=== PATIENT | male | born 1950 | race Caucasian/White ===

== ENCOUNTER 2016-05-29 01:08 | Observation (INO) ==
[2016-05-29] MEDS ORDERED: *HR* OxyCODONE/APAP 5/325 TABLET PO ONE (01:16)
--- NOTE | 2016-05-29 01:16 | Emergency Department Note ---
START Narrative - START START: I examined this patient and my medical decision-making was reviewed with the ASSISTANT CONTROLLER/PA/Advanced Practice Nurse/Resident Physician. I agree with the documented findings, disposition and treatment plan as described except to the extent set forth below. ED attending note: Patient seen with emergency medicine resident Dr. Sung. Please see a copy of his note for details of the H&P, evaluation, management and disposition of this patient. We independently had ecoc-qs-ound contact with the patient Briefly: A 6-year-old male via EMS for difficulty breathing. Patient had a mechanical fall at home resulting in rib fractures and wrist. Was transferred to [facility] for further evaluation. Was discharged just today. Said he was having trouble taking deep breaths at home. Thinks he was "sent home too early". Patient is satting 98% on room air. His EKG troponin and chest x-ray. Will be given analgesics. Disposition pending.
--- NOTE | 2016-05-29 01:16 | Emergency Department Note ---
Disposition Clinical Impression: NSTEMI, initial episode of care Disposition: Admitted As Inpatient Condition: Undetermined Referrals: NO,PCP [Non-Partnered Physician] - Forms: ED Satisfaction Letter Time of Disposition: 03:39 SOB HPI - General Chief Complaint: ED Shortness of Breath/Dyspnea Stated Complaint: broken ribs Time Seen by Provider: 05/29/16 01:13 Source: patient Mode of arrival: EMS Limitations: no limitations Nursing Notes Reviewed: Yes Vital Signs Reviewed: Yes - History of Present Illness 66-year-old male with recent diagnosis of fall with right broken ribs as well as broken wrist on the right hand, [facility] emergency department after being discharged earlier today from [facility]. The patient states that when he got home he started complaining of shortness of breath has progressively worsened. The patient denies any chest pain associated with it other than the chest wall pain that is associated with her broken ribs. The patient denies any unilateral leg swelling, injuries to his bilateral lower extremities, any other complaints at this time. The patient thinks he was just discharged too early and states that he just cannot take a deep breath due to the amount of pain associated with his broken ribs. Patient denies any other complaints at this time. Pt Subjective Complaint: shortness of breath, chest pain (Chest wall pain) Severity: mild, moderate Consistency/Duration: constant Improves with: nothing Worsens with: nothing Associated symptoms: Reports: denies other symptoms Treatment prior to arrival: none Cough present: No Sputum production: No - Related Data Home oxygen amount: none Home Medications Medication Instructions Recorded Confirmed Acetaminophen [Tylenol] 650 mg PO Q6HR PRN 08/20/15 08/20/15 Alfuzosin HCl [Uroxatral] 10 mg PO DAILY 08/20/15 08/20/15 Baclofen [Lioresal] 15 mg PO TID 08/20/15 08/20/15 Cholecalciferol (D-3) [Vitamin D] 2,000 unit PO DAILY 08/20/15 08/20/15 Furosemide [Lasix] 40 mg PO DAILY 08/20/15 08/20/15 Gabapentin [Neurontin] 1,200 mg PO QAM AND QHS 08/20/15 08/20/15 Gabapentin [Neurontin] 600 mg PO BID 08/20/15 08/20/15 Lidocaine 4% CRM (LMX) [Lmx 4] 1 appl TP BID 08/20/15 08/20/15 Metoprolol XL (24 HR) Succ [Toprol 25 mg PO BID 08/20/15 08/20/15 Xl] Omeprazole [PriLOSEC] 20 mg PO DAILY 08/20/15 08/20/15 Potassium Chloride [K-Tab ER] 10 meq PO BID 08/20/15 08/20/15 Sildenafil Citrate [Viagra] 50 mg PO AD PRN 08/20/15 08/20/15 Simvastatin [Zocor] 10 mg PO QPM 08/20/15 08/20/15 Super Beta Prostate Herbal Tab/Cap 1 each PO DAILY 08/20/15 08/20/15 Venlafaxine XR (24 HR) [Effexor Xr] 150 mg PO DAILY 08/20/15 08/20/15 Previous Rx's Medication Instructions Recorded Aspirin Enteric Coated [Aspirin EC] 325 mg PO BID #60 tablet. 08/21/15 Docusate [Colace] 100 mg PO BID PRN #60 capsule 08/21/15 OxyCODONE Immed Rel [Roxicodone 5 5 mg PO Q4HR PRN 7 Days 08/23/15 MG] Acetaminophen w/Cod 300-30 mg 1 - 2 each PO Q6HR PRN #12 tablet 05/16/16 [Tylenol w/Codeine #3] Allergies Allergy/AdvReac Type Severity Reaction Status Date / Time No Known Allergies Allergy Verified 05/16/16 01:39 All systems ED: reviewed and negative except as stated. Constitutional: Denies: fever, chills, weakness, weight change Eyes: Denies: eye pain, eye discharge, vision change ENT ED: Denies: ear pain, throat pain, dental pain, hearing loss, epistaxis, congestion, dysphagia Cardiovascular: Denies: chest pain, palpitations, dyspnea on exertion, edema, syncope Respiratory: Reports: dyspnea. Denies: cough, wheezes, hemoptysis, stridor, sputum production Gastrointestinal: Denies: abdominal pain, nausea, vomiting, diarrhea, constipation, hematemesis, melena, hematochezia Genitourinary: Denies: urgency, dysuria, frequency, hematuria Musculoskeletal: Denies: back pain, neck pain, arthralgia, myalgia Integumentary: Denies: rash, abrasion, lesions Neurological: Denies: headache, weakness, numbness, paresthesias, confusion, abnormal gait, vertigo Psychiatric: Denies: anxiety, depression, suicidal thoughts, homicidal thoughts , auditory hallucinations, visual hallucinations Past Medical History - Past Medical History Attestation: Yes The following information was validated with the patient. Source: patient Medical history: Reports: arthritis, cancer, hyperlipidemia, hypertension, other Surgical history: Reports: other (prostate radioactive seeds. Right clavicle surgery) Psychiatric history: Reports: no psych history - Social History Smoking Status: Current every day smoker Smokeless Tobacco Status: No Alcohol use: Reports: heavy, recent Drug use: Reports: marijuana Physical Exam Physical Exam: General: Patient alert, no acute distress, not lethargic HEENT: Head normal inspection, atraumatic, PERRLA, oropharynx grossly intact and normal, trachea midline, no JVD Chest: Chest wall tenderness to right mid axillary region, normal chest rise CV: RRR with no murmurs, rubs, gallops Respiratory: Coarse breath sounds bilaterally, no rales or rhonchi noted. Abdomen: Normal inspection, Normal bowel sounds 4 quadrants, nontender to palpation : Patient deferred Extremities: Normal inspection, full range of motion, appropriate pulses, capillary refill under 2 seconds Neurological: Patient alert and oriented 3, cranial nerves II through XII grossly intact, GCS 15 Skin: Warm, intact, no rashes noted Course Vital Signs Temperature 98.0 F 05/29/16 01:10 Pulse Rate 131 05/29/16 01:10 Respiratory Rate 18 05/29/16 01:10 Blood Pressure 144/94 05/29/16 01:10 O2 Sat by Pulse Oximetry 96 05/29/16 01:10 Temperature 98.0 F 05/29/16 01:10 Pulse Rate 110 05/29/16 03:33 Respiratory Rate 18 05/29/16 03:33 Blood Pressure 127/84 05/29/16 03:33 O2 Sat by Pulse Oximetry 95 05/29/16 03:33 Oxygen Delivery Oxygen Delivery Room Air Shortness of Breath/Dyspnea - MDM Narrative Medical decision making narrative: Patient appears to experiencing instantly here in the emergency department. We will admit the patient to the hospital. We will administer Lovenox injection 1 mg/kg subcutaneous. Accepted by Dr. Claudio. - Medical Records Medical records reviewed: Yes I reviewed the patient's medical records. - Lab Data Lab results reviewed: Yes I reviewed the patient's lab results. Result diagrams: 05/29/16 02:49 05/29/16 02:00 Lab Results 05/29/16 05/29/16 05/29/16 Range/Units 02:00 02:05 02:49 WBC 9.9 (4.3-11.1) K/mcL RBC 3.27 L (4.19-5.50) M/mcL Hgb 11.5 L D (12.9-16.9) g/dL Hct 34.3 L (37.5-50.1) % MCV 104.9 H (83.0-100.0) fL MCH 35.2 H (28.0-33.3) pg MCHC 33.5 (31.6-35.5) g/dL RDW 13.3 (11.5-14.5) % Plt Count 196 (140-400) K/mcL MPV 8.5 L (9.4-12.4) fL Immature Gran % 0.8 (0-4) % Seg Neutrophils % 79.7 % Lymphocytes % 11.4 % Monocytes % 7.1 % Eosinophils % 0.7 % Basophils % 0.3 % Neutrophils # 7.9 (1.6-8.9) K/mcL Lymphocytes # 1.1 (0.6-4.6) K/mcL Monocytes # 0.7 (0.0-1.3) K/mcL Eosinophils # 0.1 (0.0-0.6) K/mcL Basophils # 0.0 (0.0-0.2) K/mcL Sodium 138 (136-145) mEq/L Potassium 3.7 (3.5-4.5) mEq/L Chloride 107 (98-109) mEq/L Carbon Dioxide 17 L (19-29) mEq/L BUN 9 (8-26) mg/dL Creatinine 0.79 (0.72-1.25) mg/dL Est GFR ( Amer) > 60 (> 60) Est GFR (Non-Af Amer) > 60 (> 60) BUN/Creatinine Ratio 11 (6-26) Glucose 107 H (70-99) mg/dL Calculated Osmolality 285 (280-300) Calcium 9.4 (8.6-10.8) mg/dL Troponin I 0.08 H* (0-0.03) ng/mL - Radiology Data Radiology results reviewed: Yes I reviewed the patient's radiology results. - EKG Data EKG attestation: Yes I reviewed and interpreted this EKG. EKG results narrative: Heart rate 1 22 bpm. GA interval 147 ms. QTC 393 ms. Normal axis. Sinus tachycardia. ST depression noted in leads V2, V3, V4, V5 which is new from previous EKG on 08/22/2015.
[2016-05-29 02:49] LABS: BUN/Creatinine Ratio 11 (6-26); Blood Urea Nitrogen 9 mg/dL (8-26); Calcium 9.4 mg/dL (8.6-10.8); Carbon Dioxide 17 mEq/L (19-29); Chloride 107 mEq/L (98-109); Glucose 107 mg/dL (70-99); Osmolality,Calculated 285 (280-300); Potassium 3.7 mEq/L (3.5-4.5); Sodium 138 mEq/L (136-145); eGFR For African Americans > 60 (> 60); eGFR For Non-African Americans > 60 (> 60)
[2016-05-29 02:55] LABS: Basophils % 0.3 %; Eosinophils # 0.1 K/mcL (0.0-0.6); Eosinophils % 0.7 %; Hematocrit 34.3 % (37.5-50.1); Immature Granulocytes % 0.8 % (0-4); Lymphocytes # 1.1 K/mcL (0.6-4.6); Lymphocytes % 11.4 %; Mean Corpuscular HGB Conc 33.5 g/dL (31.6-35.5); Mean Corpuscular Hemoglobin 35.2 pg (28.0-33.3); Mean Corpuscular Volume 104.9 fL (83.0-100.0); Mean Platelet Volume 8.5 fL (9.4-12.4); Monocytes # 0.7 K/mcL (0.0-1.3); Monocytes % 7.1 %; Neutrophils # 7.9 K/mcL (1.6-8.9); Platelet Count 196 K/mcL (140-400); Red Blood Count 3.27 M/mcL (4.19-5.50); Red Cell Distribution Width 13.3 % (11.5-14.5); Segmented Neutrophils % 79.7 %
[2016-05-29 02:57] LABS: Hemoglobin 11.5 g/dL (12.9-16.9)
[2016-05-29] MEDS ORDERED: *HR* Enoxaparin 80 MG/0.8 ML SYRINGE SQ STA (03:29)
[2016-05-29] MEDS ORDERED: Aspirin 325 MG TABLET PO ONE (03:34)
[2016-05-29] MEDS ORDERED: NAPROXEN SODIUM 550 MG PO PRN (08:40)
[2016-05-29] MEDS ORDERED: Acetaminophen 325 MG TABLET PO PRN (08:40)
[2016-05-29] MEDS ORDERED: Ondansetron 4 MG/2 ML VIAL IVP PRN (08:42)
[2016-05-29] MEDS ORDERED: Naloxone 0.4 MG/ML INJ IVP PRN (08:42)
--- NOTE | 2016-05-29 08:52 | Internal Med History&Physical ---
<Matty Zambrano - Last Filed: 05/29/16 10:43> Date of Encounter: 05/29/16 Time of Encounter: 08:48 Assessment and Plan (1) Dyspnea Current visit: Yes Status: Acute Given the history I think most likely the patients dspnea is a result of pain and liekly a mild COPD exacerbation. No history of COPD but 100 pack year history. Bilateral wheezing on exam not cleared with coughing. Still has good airflow. No fever leukocytosis or sputum color change so unlikely to be pneumonia. however should be monitored closely for his given his recent rib fractures. He dose have a Wells score of 3. Has a history of Prostate cancer but this is remote. I think likely his sinus tachycardia is secondary to dehydration and pain. Additionally he states he was receiving DVT prophylaxis at [place] with Lovenox. He was given full dose of Lovenox in ER. will plan on getting CTA of the chest to r/o PE as this will ignificantly altered the course of treatment. Will also image the abdomen as I believe he likely has a hematoma. currently patient is hemodynamically stable. I will discuss with my attending. (2) Sinus tachycardia Current visit: Yes Status: Acute I believe this is secondary to pain and possibly dehydration. Will get CTA to r/o PE. No need for D dimer as it will be positive given his large amount of echymosis. IV fluids Pain control. (3) Wheezes Current visit: Yes Status: Acute Still has good air flow. No signs of infection but will continue to watch closely. Smoking cessation. Xopenex given his tachycardia. (4) Rib fractures Current visit: Yes Status: Acute continue symptom control (5) Elevated troponin Current visit: Yes Status: Acute mild. Has non cardiac chest pain features. Currently only has pleuritic chest pain. dose have risk factors with smoking and family history. On ASA He received therapeutic lovenox in ED. Trend troponin and repeat EKG. If trending up will treat as NSTEMI and consult cardio. I do not think he will be able to tolerate an echo at this time as he is quite tender to palpation. (6) ETOH abuse Current visit: Yes Status: Acute CIWA Folate Thiamine. (7) History of recent surgery Current visit: Yes Status: Acute He had pinning/ ORIF of the right metacarpals. (8) Ecchymosis Current visit: Yes Status: Acute secondary to fall. continue to monitor. (9) Anemia Current visit: Yes Status: Acute Likely a combination of ETOH abuse/ hematinic deficiency as he has macrocytosis. recent fall/echymosis and surgery. Continue to monitor. check hematinics. (10) Metabolic acidosis Current visit: Yes Status: Acute Anion gap 14 normal glucose. likely alcoholic or starvation ketoacidosis. will give some IV fluids a diet and follow electrolytes. check lactic acidosis and VBG. (11) DVT prophylaxis Current visit: Yes Status: Acute On Lovenox. Internal Medicine - H&P: HPI Chief complaint: dyspnea, pleuritic pain Admitted From: Emergency Dept Plans for Post Hospital Care: Home History of present illness: Mr. Victoria is a 66 year old male who was recently discharged from [facility]. He had undergone what he says is a mechanical fall and had broken his right metacarpals as well as multiple ribs posteriorly on the right side. He states that his pain was uncontrolled at 10/10. Additionally he had difficulty taking a deep breath. He states currently his pain as a 7 out of 10. He states that his pain is on the right side and pleuritic. He states he did not take a full breath. He also has some right upper and lower quadrant abdominal pain. This is exacerbated by movement and coughing as well. He denies any midsternal pain. He states he has not been moving much has not noticed worsening by exertion. He denies any cough, fever, chills, malaise, hemoptysis. He does admit to some bilateral calf pain when walking. However denies pain when palpated. He denies any lower extremity edema. Does admit to be immobile for the past few days. He does admit to having Lovenox injections while he was at [place] for DVT prophylaxis. He does admit to increased wheezing. He has no further complaints or concerns at this time. 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 ), hyperlipidemia, hypertension, other Psychiatric history: no psych history - Past Surgical History Surgical History: other (prostate radioactive seeds. Right clavicle surgery, right femur) - Social History Smoking Status: Current every day smoker Smokeless Tobacco Status: No Alcohol use: heavy, recent Drug use: marijuana - Family History Mother Living Status: Hx Family Cardiac Disorders: Yes (states his mother had open heart surgery) Hx Family Respiratory Disorders: Yes (lung cancer) Hx Family Cancer: Yes (lung cancer) Hx Family GI Disorders: No Hx Family Endocrine Disorder: Yes (diabetes) Hx Family Neuromuscular Disorders: No Hx Family Neurologic Disorders: No Hx Family HEENT Disorders: No Hx Family Autoimmune Disorders: No Father Hx Family Cancer: Yes (prostate) Internal Medicine - H&P: Meds Acetaminophen [Tylenol] 650 mg PO Q6HR PRN 08/20/15 [History] Alfuzosin HCl [Uroxatral] 10 mg PO DAILY 08/20/15 [History] Baclofen [Lioresal] 20 mg PO TID 08/20/15 [History] Cholecalciferol (D-3) [Vitamin D] 2,000 unit PO DAILY 08/20/15 [History] Furosemide [Lasix] 40 mg PO DAILY 08/20/15 [History] Gabapentin [Neurontin] 300 mg PO Q8HR 08/20/15 [History] Metoprolol XL (24 HR) Succ [Toprol Xl] 50 mg PO BID 08/20/15 [History] Omeprazole [PriLOSEC] 20 mg PO DAILY 08/20/15 [History] Potassium Chloride [K-Tab ER] 10 meq PO BID 08/20/15 [History] Sildenafil Citrate [Viagra] 100 mg PO AD PRN 08/20/15 [History] Simvastatin [Zocor] 20 mg PO QPM 08/20/15 [History] Venlafaxine XR (24 HR) [Effexor Xr] 150 mg PO DAILY 08/20/15 [History] Aspirin Enteric Coated [Aspirin EC] 81 mg PO DAILY 05/29/16 [History] Guaifenesin [Mucinex] 600 mg PO Q12H 05/29/16 [History] Ipratropium/Albuterol Neb [Duoneb] 3 ml IH Q6HR PRN 05/29/16 [History] Lidocaine Patch [Lidoderm 5% patch] 1 each TP DAILY 05/29/16 [History] Naproxen Sodium [Naproxen Sodium Ds] 550 mg PO Q12H PRN 05/29/16 [History] Oxycodone HCl/Acetaminophen [Percocet 5-325 mg Tablet] 2 tab PO Q4H PRN [History] Sennosides/Docusate Sodium [Senna-S Tablet] 1 tab PO HS 05/29/16 [History] Allergies No Known Allergies Allergy (Verified 05/16/16 01:39) All Systems PM: A 10-system review of systems was performed and is negative for pertinent findings except as documented above in the HPI. Review of systems: Constitutional: He denies fever chills, malaise, weight change. HEENT: Denies any hearing or vision changes. Denies sore throat denies neck mass. Heart: He does admit to some right-sided chest wall pain. Denies midsternal pain denies orthopnea. Admits to racing heart rate. Denies dizziness, syncope , presyncope. Lungs: As per history of present illness GI: He denies any nausea, vomiting, diarrhea, melena, hematochezia. : Denies any dysuria or hematuria. Musculoskeletal: As per history of present illness. Neuro: Denies any focal motor or sensory deficits. Endocrine: Denies any history of diabetes or thyroid disease. Denies any polyuria or polydipsia. Integument: Admits to some ecchymosis on his right hand and right flank. Denies any rashes or lesions otherwise. Heme: He denies personal history of DVT or PE. He does not know of any history of blood clots in his family. - Constitutional Vitals: Temp Pulse Resp BP Pulse Ox 98.0 F 108 20 130/83 95 05/29/16 07:49 05/29/16 07:49 05/29/16 07:49 05/29/16 07:49 05/29/16 07:49 Exam: General: This is a well-developed well-nourished 66-year-old male who is alert and orientated to person place time and situation. He is lying in bed appears to be comfortable and in no acute distress at this time. HEENT: There is a normal external appearance of the ears nose and eyes. He does wear glasses. Anicteric sclera, pupils are equally round reactive light and accommodation, extraocular motions are intact. Moist mucous membranes. He is edentulous. The tongue and uvula are midline. Neck is supple without mass or thyromegaly. Difficult to visually inspect with his large patel. No cervical submandibular or supraclavicular lymphadenopathy palpable on exam. Heart: Mildly tachycardic with regular rhythm. Heart rate in the room ranged from 100-112. No murmurs rubs or gallops. No JVD was noted. Radial pulses are synchronous. Lungs: He has a normal effort of breathing and speaks in full sentences. However he is not able to take a full inspiration. Does have bilateral wheezes. Abdomen: The abdomen is nonobese, he does have quite a bit of ecchymosis in the right flank. Bowel sounds are positive in all quadrants. No bruits. No organomegaly. He does have tenderness to palpation over the right upper and lower quadrants. Musculoskeletal: Grossly normal for age no gross deformities. He does have a well dressed and wrapped right hand from recent surgery. Extremities: No clubbing, cyanosis or edema. There is no tenderness over the calves bilaterally with palpation of the musculature. No tenderness with plantar flexion of the feet. Integument: He does have some ecchymosis of the right upper extremity and the right flank otherwise no abnormalities noted. Internal Med - H&P Results - Labs CBC & Chem 7: 05/29/16 02:49 05/29/16 02:00 <Devaughn Godinez - Last Filed: 05/29/16 20:25> Date of Encounter: 05/29/16 Internal Medicine - H&P: HPI History of present illness: Mr. Victoria is a 66 year old male All Systems PM: A 10-system review of systems was performed and is negative for pertinent findings except as documented above in the HPI. - Constitutional Vitals: Temp Pulse Resp BP Pulse Ox 97.8 F 100 20 114/72 96 05/29/16 20:09 05/29/16 20:09 05/29/16 20:09 05/29/16 20:09 05/29/16 20:09 Internal Med - H&P Results - Labs CBC & Chem 7: 05/29/16 02:49 05/29/16 02:00 Labs: Cardiac Enzymes 05/29/16 05/29/16 Range/Units 09:06 13:00 Troponin I 0.00 0.00 (0-0.03) ng/mL - ABG Interpretation ABG results: 05/29/16 13:00 VBG pH 7.45 H VBG pCO2 32 L VBG pO2 172 H VBG HCO3 22.2 - Impressions ITS Impressions Chest CTA 05/29/16 12:30 IMPRESSION: No evidence of pulmonary embolism or acute aortic disease. A new moderate right pleural effusion and right lower lobe atelectatic changes. Re-demonstration of lung fibrosis. Re-demonstration of right posterior rib fractures. D/ / 05/29/2016 14:18:42 Jewels Canales MD / [email or web address] Interpreting Provider: Jewels Canales MD - Attending Attestation I examined this patient and my medical decision-making was reviewed with the Resident Physician, Dr Urrutia. I agree with the documented findings, disposition and treatment plan as described except to the extent set forth below. Patient reports right-sided chest pain. She had a recent fall which resulted in rib fractures. On exam he is tender on the right side of the chest. Heart is regular rate and rhythm S1-S2. Plan: We will place in observation. Check CT angiogram due to chest pain shortness of breath and recent trauma to rule out PE. Trend troponin. Cardiac monitoring.
[2016-05-29] MEDS ORDERED: *HR* LORazepam 2 MG/ML VIAL IVP PRN ×2 (08:54→08:56)
[2016-05-29] MEDS ORDERED: 0.9 % Sodium Chloride 500 ML IVC ONE (09:00)
[2016-05-29] MEDS: Folic Acid 1 MG TABLET PO SCH (10:08)
[2016-05-29] MEDS: Aspirin Enteric Coated 81 MG Tablet PO SCH (10:08)
[2016-05-29] MEDS: Cholecalciferol (D-3) 1,000 UNIT TABLET PO SCH (10:08)
[2016-05-29] MEDS: Thiamine (B-1) 100 MG TABLET PO SCH (10:08)
[2016-05-29] MEDS: Gabapentin 400 MG CAPSULE PO SCH ×2 (10:09→19:52)
[2016-05-29] MEDS: Venlafaxine XR (24 HR) 150 MG CAP.ER.24H PO SCH (10:09)
[2016-05-29] MEDS: Baclofen 10 MG TABLET PO SCH ×3 (10:09→19:52)
[2016-05-29] MEDS: Metoprolol XL (24 HR) Succ 50 MG TAB.ER.24H PO SCH ×2 (10:09→19:52)
[2016-05-29] MEDS: Lidocaine 4% CREAM (LMX) 5 GM TP SCH ×2 (10:10→19:53)
[2016-05-29] MEDS: Levalbuterol Neb 1.25 MG/3 ML IH SCH ×3 (10:30→21:29)
[2016-05-29 13:10] LABS: VBG HCO3 22.2 mEq/L (21-27); VBG PH 7.45 pH Units (7.32-7.42)
[2016-05-29 13:25] LABS: Beta-Hydroxybutyric Acid 1.35 mmol/L (0.02-0.27)
[2016-05-29] MEDS: *HR* OxyCODONE Immed Rel 5 MG TABLET PO PRN ×2 (14:56→23:50)
[2016-05-29] MEDS: Gabapentin 300 MG CAPSULE PO SCH ×2 (14:57→23:51)
[2016-05-29] MEDS ORDERED: Sennosides/Docusate Sodium TABLET PO SCH (18:00)
--- NOTE | 2016-05-29 18:42 | Electrocardiograph Report ---
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
--- NOTE | 2016-05-29 19:02 | Electrocardiograph Report ---
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
[2016-05-30] MEDS: Levalbuterol Neb 1.25 MG/3 ML IH SCH ×3 (03:52→16:07)
[2016-05-30 04:17] LABS: Basophils % 0.5 %; Eosinophils # 0.2 K/mcL (0.0-0.6); Eosinophils % 2.4 %; Hematocrit 32.9 % (37.5-50.1); Immature Granulocytes % 0.8 % (0-4); Lymphocytes # 1.7 K/mcL (0.6-4.6); Lymphocytes % 27.1 %; Mean Corpuscular HGB Conc 33.4 g/dL (31.6-35.5); Mean Corpuscular Hemoglobin 34.7 pg (28.0-33.3); Mean Corpuscular Volume 103.8 fL (83.0-100.0); Mean Platelet Volume 8.7 fL (9.4-12.4); Monocytes # 0.6 K/mcL (0.0-1.3); Monocytes % 10.1 %; Neutrophils # 3.7 K/mcL (1.6-8.9); Platelet Count 250 K/mcL (140-400); Red Blood Count 3.17 M/mcL (4.19-5.50); Red Cell Distribution Width 13.2 % (11.5-14.5); Segmented Neutrophils % 59.1 %
[2016-05-30] MEDS: *HR* OxyCODONE Immed Rel 5 MG TABLET PO PRN ×3 (04:21→17:47)
[2016-05-30 04:30] LABS: BUN/Creatinine Ratio 13 (6-26); Blood Urea Nitrogen 10 mg/dL (8-26); Calcium 8.7 mg/dL (8.6-10.8); Carbon Dioxide 24 mEq/L (19-29); Chloride 108 mEq/L (98-109); Glucose 89 mg/dL (70-99); Magnesium 1.3 mg/dL (1.6-2.6); Osmolality,Calculated 287 (280-300); Sodium 139 mEq/L (136-145); eGFR For African Americans > 60 (> 60); eGFR For Non-African Americans > 60 (> 60)
[2016-05-30] MEDS: Gabapentin 300 MG CAPSULE PO SCH ×2 (08:31→14:30)
[2016-05-30] MEDS: Metoprolol XL (24 HR) Succ 50 MG TAB.ER.24H PO SCH (08:32)
[2016-05-30] MEDS: Aspirin Enteric Coated 81 MG Tablet PO SCH (08:32)
[2016-05-30] MEDS: Venlafaxine XR (24 HR) 150 MG CAP.ER.24H PO SCH (08:32)
[2016-05-30] MEDS: Baclofen 10 MG TABLET PO SCH ×2 (08:32→14:29)
[2016-05-30] MEDS: Folic Acid 1 MG TABLET PO SCH (08:32)
[2016-05-30] MEDS: Thiamine (B-1) 100 MG TABLET PO SCH (08:32)
[2016-05-30] MEDS: Cholecalciferol (D-3) 1,000 UNIT TABLET PO SCH (08:32)
[2016-05-30] MEDS: Lidocaine 4% CREAM (LMX) 5 GM TP SCH (08:33)
[2016-05-30] MEDS ORDERED: Magnesium Sulfate 2 GM in D5% in Water 100 ML IVPB ONE (08:39)
[2016-05-30] MEDS: Gabapentin 400 MG CAPSULE PO SCH (11:27)
--- NOTE | 2016-05-30 11:34 | Discharge Summary ---
Date of Encounter: 05/30/16 Time of Encounter: 10:00 - Discharge Diagnosis (1) Closed right hip fracture Priority: Primary Status: Acute Qualifiers: Encounter type: initial encounter Qualified Code(s): S72.001A - Fracture of unspecified part of neck of right femur, initial encounter for closed fracture (2) Alcohol abuse Priority: Secondary Status: Acute (3) HTN (hypertension) Priority: Secondary Status: Acute Qualifiers: Qualified Code(s): I10 - Essential (primary) hypertension (4) DVT prophylaxis Priority: Secondary Status: Acute (5) Chest wall injury Priority: Primary Status: Acute Qualifiers: Encounter type: initial encounter Qualified Code(s): S29.9XXA - Unspecified injury of thorax, initial encounter (6) Elevated troponin Priority: Primary Status: Acute - Discharge Medications Prescriptions: Oxycodone HCl/Acetaminophen [Percocet 5-325 mg Tablet] 2 each PO Q6H PRN #20 tablet PRN Reason: Pain Home Medications: Acetaminophen [Tylenol] 650 mg PO Q6HR PRN 08/20/15 [History] Alfuzosin HCl [Uroxatral] 10 mg PO DAILY 08/20/15 [History] Baclofen [Lioresal] 20 mg PO TID 08/20/15 [History] Cholecalciferol (D-3) [Vitamin D] 2,000 unit PO DAILY 08/20/15 [History] Furosemide [Lasix] 40 mg PO DAILY 08/20/15 [History] Gabapentin [Neurontin] 300 mg PO Q8HR 08/20/15 [History] Metoprolol XL (24 HR) Succ [Toprol Xl] 50 mg PO BID 08/20/15 [History] Omeprazole [PriLOSEC] 20 mg PO DAILY 08/20/15 [History] Potassium Chloride [K-Tab ER] 10 meq PO BID 08/20/15 [History] Sildenafil Citrate [Viagra] 100 mg PO AD PRN 08/20/15 [History] Simvastatin [Zocor] 20 mg PO QPM 08/20/15 [History] Venlafaxine XR (24 HR) [Effexor Xr] 150 mg PO DAILY 08/20/15 [History] Aspirin Enteric Coated [Aspirin EC] 81 mg PO DAILY 05/29/16 [History] Guaifenesin [Mucinex] 600 mg PO Q12H 05/29/16 [History] Ipratropium/Albuterol Neb [Duoneb] 3 ml IH Q6HR PRN 05/29/16 [History] Lidocaine Patch [Lidoderm 5% patch] 1 each TP DAILY 05/29/16 [History] Naproxen Sodium [Naproxen Sodium Ds] 550 mg PO Q12H PRN 05/29/16 [History] Sennosides/Docusate Sodium [Senna-S Tablet] 1 tab PO HS 05/29/16 [History] Oxycodone HCl/Acetaminophen [Percocet 5-325 mg Tablet] 2 each PO Q6H PRN #20 tablet 05/30/16 [Rx] Allergies/Adverse Reactions: Allergies No Known Allergies Allergy (Verified 05/16/16 01:39) Procedures/tests Complete & Pending: Procedures Performed prior 72 hours Category Date Time Status CTA chest [CT angio chest] [CT] Routine Cat Scan 05/29/16 12:30 Completed ECG 12 lead ECG [ECG] Routine Y 05/29/16 08:42 Completed Date of admission: 05/29/16 03:41 [facility]: [facility] Consults: 05/29/16 08:46 Consult to Occupational Therapy [CONS] Routine Comment: Evaluate, develop and implement POC 05/29/16 08:47 Consult to Physical Therapy [CONS] Routine Comment: Evaluate, develop and implement POC 05/29/16 08:55 Consult to [employer] [CONS] Routine Reason for SW Consult: discharge placement. Discharging clinician: Kristyn Burciaga Anticipated date of discharge: 05/30/16 - Patient Status Disposition: Transfer SNF Condition: Good Functional capacity at discharge: independent ambulation Overall status at discharge: patient is progressing back to baseline - Discharge Instructions Follow Up With: [facility] [Primary Care Provider] - 06/06/16 1:30 pm - Diet and Activity Activity: as per physical therapy Diet: low salt diet Interval History: Mr. Victoria is a 66 year old male who was recently discharged from [facility]. He had undergone what he says is a mechanical fall and had broken his right metacarpals as well as multiple ribs posteriorly on the right side. He states that his pain was uncontrolled at 10/10. Additionally he had difficulty taking a deep breath. He states currently his pain as a 7 out of 10. He states that his pain is on the right side and pleuritic. He states he did not take a full breath. He also has some right upper and lower quadrant abdominal pain. This is exacerbated by movement and coughing as well. He denies any midsternal pain. He states he has not been moving much has not noticed worsening by exertion. He denies any cough, fever, chills, malaise, hemoptysis. He does admit to some bilateral calf pain when walking. However denies pain when palpated. He denies any lower extremity edema. Does admit to be immobile for the past few days. He does admit to having Lovenox injections while he was at [place] for DVT prophylaxis. He does admit to increased wheezing. He has no further complaints or concerns at this time. Hospital course: Mr. Victoria is a 66 year old male admitted for chest pain. He has a recent fall and rib fracture. Which may account for the pain. Patient had initially elevated troponin, however, the following two troponin are negative. CTA has been done, negative for DVT. PT OT evaluation has been done. Recommend home health. Discussed with patient and social work, patient would like to go to jail because he had wrist fracture also and on cast. Patient denies syncope/dizziness upon fall. He said he just trapped the steps. I saw and examined the patient today. He is awake alert, oriented 3. Vitals are stable. Oxygen saturation 100% in room air. Still complaining of pain, controlled by pain medications. We will discharge patient to SNF on pain medication. Patient is stable to discharge. - Time Spent with Patient Total time spent providing and/or coordinating discharge services: 40 minutes Greater than 30 minutes - Constitutional Vitals: Temp Pulse Resp BP Pulse Ox 98.1 F 91 12 115/75 100 05/30/16 10:46 05/30/16 10:53 05/30/16 10:46 05/30/16 10:46 05/30/16 10:46 General appearance: Present: A&O X 3, no acute distress, answers questions appropriately - Head Head exam: Present: atraumatic, normocephalic - Eye Eye exam: Present: PERRL, conjuntiva pink, sclera anicteric Pupils: Present: PERRL - Neck Neck exam general surgery: Present: supple, trachea midline. Absent: lymphadenopathy - Respiratory Respiratory exam: Present: chest wall tenderness, CTAB. Absent: accessory muscle use, rales, rhonchi, wheezes - Cardiovascular Cardiovascular exam: Present: RRR, +S1, +S2. Absent: diastolic murmur, gallop, rubs, systolic murmur - GI/Abdominal GI/Abdominal exam: Present: normal bowel sounds, soft, tenderness (Tenderness on his right abdominal wall, with bruise), no peritoneal signs. Absent: distended - Extremities Exam Extremities exam: Present: warm, radial pulses palpable and symetrical. Absent : calf tenderness, cyanotic, pedal edema - Neurological Exam Neurological exam: Present: CN II-XII intact, oriented X3, no focal deficits. Absent: pronater drift, facial droop, speech deficit - Skin Skin exam: Present: dry, intact
--- NOTE | 2016-05-30 11:58 | Physician Discharge Referral ---
ExtendedCare Referral Info Transfer To: SNF Provider in Charge after Transfer: Other - Diagnosis (1) Closed right hip fracture Status: Acute (2) Alcohol abuse Status: Acute (3) HTN (hypertension) Status: Acute (4) DVT prophylaxis Status: Acute (5) Chest wall injury Status: Acute (6) Elevated troponin Status: Acute - Transfer Medications Prescriptions: Oxycodone HCl/Acetaminophen [Percocet 5-325 mg Tablet] 2 each PO Q6H PRN #20 tablet PRN Reason: Pain Home Medications: Acetaminophen [Tylenol] 650 mg PO Q6HR PRN 08/20/15 [History] Alfuzosin HCl [Uroxatral] 10 mg PO DAILY 08/20/15 [History] Baclofen [Lioresal] 20 mg PO TID 08/20/15 [History] Cholecalciferol (D-3) [Vitamin D] 2,000 unit PO DAILY 08/20/15 [History] Furosemide [Lasix] 40 mg PO DAILY 08/20/15 [History] Gabapentin [Neurontin] 300 mg PO Q8HR 08/20/15 [History] Metoprolol XL (24 HR) Succ [Toprol Xl] 50 mg PO BID 08/20/15 [History] Omeprazole [PriLOSEC] 20 mg PO DAILY 08/20/15 [History] Potassium Chloride [K-Tab ER] 10 meq PO BID 08/20/15 [History] Sildenafil Citrate [Viagra] 100 mg PO AD PRN 08/20/15 [History] Simvastatin [Zocor] 20 mg PO QPM 08/20/15 [History] Venlafaxine XR (24 HR) [Effexor Xr] 150 mg PO DAILY 08/20/15 [History] Aspirin Enteric Coated [Aspirin EC] 81 mg PO DAILY 05/29/16 [History] Guaifenesin [Mucinex] 600 mg PO Q12H 05/29/16 [History] Ipratropium/Albuterol Neb [Duoneb] 3 ml IH Q6HR PRN 05/29/16 [History] Lidocaine Patch [Lidoderm 5% patch] 1 each TP DAILY 05/29/16 [History] Naproxen Sodium [Naproxen Sodium Ds] 550 mg PO Q12H PRN 05/29/16 [History] Sennosides/Docusate Sodium [Senna-S Tablet] 1 tab PO HS 05/29/16 [History] Oxycodone HCl/Acetaminophen [Percocet 5-325 mg Tablet] 2 each PO Q6H PRN #20 tablet 05/30/16 [Rx] Allergies/Adverse Reactions: Allergies No Known Allergies Allergy (Verified 05/16/16 01:39) - Respiratory Orders Smoking Cessation: Smoking cessation has been advised. For more information, call the [place] Tobacco Quit Line at 0-660-VEIG-NOW. - Advance Directives Code Status: Full Code - Rehabiliation Orders Rehab Potential: Fair Rehab Orders: Evaluation for Physical Therapy, Evaluation for Occupational Therapy - Diet Orders Cardiac CERTIFICATION: I certify that the transfer of the above named patient to an Extended Care Facility is necessary for the continuing treatment of the diagnosis listed. The above information is true and accurate reflection of patient's current condition. Confidential - Redisclosure prohibited without a patient's written consent.
[2016-05-30 16:05] VITALS: BP 111/79
== END 2016-05-30 17:53 ==
LOC: 2NNU 01:08 → EMEROO 01:08 → 2NNU 05:02
PROVIDERS: ADMIT Internal Medicine; ATTEND Internal Medicine

== ENCOUNTER 2017-04-09 18:59 | Inpatient (IN) ==
--- NOTE | 2017-04-09 19:41 | Emergency Department Note ---
Disposition Clinical Impression: Intoxication Closed left hip fracture Qualifiers: Encounter type: initial encounter Qualified Code(s): S72.002A - Fracture of unspecified part of neck of left femur, initial encounter for closed fracture Closed rib fracture Qualifiers: Encounter type: initial encounter Rib fracture type: single rib Laterality: right Qualified Code(s): S22.31XA - Fracture of one rib, right side, initial encounter for closed fracture Disposition: Admitted As Inpatient Condition: Good [facility]errals: [facility] [Primary Care Provider] - Forms: ED Satisfaction Letter Fall HPI - General Chief Complaint: ED Fall Stated Complaint: leg/hip pain Time Seen by Provider: 04/09/17 19:24 Source: patient, EMS Mode of arrival: EMS Limitations: no limitations, altered mental status (Intoxication) Nursing Notes Reviewed: Yes Vital Signs Reviewed: Yes - History of Present Illness HPI Narrative: Patient brought in by EMS for evaluation after fall. Patient clinically intoxicated. Does not slur words but admits to burp and inferior. Patient complaining of left hip pain, right shoulder pain, injury to the right side of his head. Patient states no loss of consciousness. Patient is on all requests but has not been taking it for the last week secondary to running out of medications. Patient also takes gabapentin and baclofen. Patient complaining of decreased ability to move the left leg as well as tingling and decreased sensation. Patient has dorsalis pedis +2 and symmetric bilaterally. Symmetric Refill of the great toe. Patiently placed in a c-collar in CT scan of the head , C/T/L spine and pelvis be performed. Chest x-ray and shoulder x-ray. - Related Data Home Medications Medication Instructions Recorded Confirmed Acetaminophen [Tylenol] 650 mg PO Q6HR PRN 08/20/15 05/29/16 Alfuzosin HCl [Uroxatral] 10 mg PO DAILY 08/20/15 05/29/16 Baclofen [Lioresal] 20 mg PO TID 08/20/15 05/29/16 Cholecalciferol (D-3) [Vitamin D] 2,000 unit PO DAILY 08/20/15 05/29/16 Furosemide [Lasix] 40 mg PO DAILY 08/20/15 05/29/16 Gabapentin [Neurontin] 300 mg PO Q8HR 08/20/15 05/29/16 Metoprolol XL (24 HR) Succ [Toprol 50 mg PO BID 08/20/15 05/29/16 Xl] Omeprazole [PriLOSEC] 20 mg PO DAILY 08/20/15 05/29/16 Potassium Chloride [K-Tab ER] 10 meq PO BID 08/20/15 05/29/16 Sildenafil Citrate [Viagra] 100 mg PO AD PRN 08/20/15 05/29/16 Simvastatin [Zocor] 20 mg PO QPM 08/20/15 05/29/16 Venlafaxine XR (24 HR) [Effexor Xr] 150 mg PO DAILY 08/20/15 05/29/16 Aspirin Enteric Coated [Aspirin EC] 81 mg PO DAILY 05/29/16 05/29/16 Guaifenesin [Mucinex] 600 mg PO Q12H 05/29/16 05/29/16 Ipratropium/Albuterol Neb [Duoneb] 3 ml IH Q6HR PRN 05/29/16 05/29/16 Lidocaine Patch [Lidoderm 5% patch] 1 each TP DAILY 05/29/16 05/29/16 Naproxen Sodium [Naproxen Sodium 550 mg PO Q12H PRN 05/29/16 05/29/16 Ds] Sennosides/Docusate Sodium 1 tab PO HS 05/29/16 05/29/16 [Senna-S Tablet] Previous Rx's Medication Instructions Recorded Nicotine Patch [Nicoderm] 21 mg TD DAILY #14 patch.td24 05/30/16 Oxycodone HCl/Acetaminophen 2 each PO Q6H PRN #20 tablet 05/30/16 [Percocet 5-325 mg Tablet] Allergies Allergy/AdvReac Type Severity Reaction Status Date / Time No Known Allergies Allergy Verified 01/04/17 17:30 Review of Systems: CONSTITUTIONAL: No weight loss, fever, chills, weakness or fatigue. HEENT: Eyes: No visual changes. Ears, Nose, Throat: No hearing loss, difficulty talking or unable to swallow. SKIN: No rash or itching. CARDIOVASCULAR: No chest pain, chest pressure or chest discomfort. No palpitations or edema. RESPIRATORY: No shortness of breath, cough or sputum. GASTROINTESTINAL: No anorexia, nausea, vomiting or diarrhea. No abdominal pain or blood. GENITOURINARY: No burning on urination or hematuria. NEUROLOGICAL: Head injury No headache, dizziness, syncope, paralysis, ataxia, numbness or tingling in the extremities. No change in bowel or bladder control. MUSCULOSKELETAL: Left hip and right shoulder pain Fall PMH - Past Medical History Medical history: Reports: arthritis, cancer, hyperlipidemia, hypertension, other Surgical history: Reports: other (prostate radioactive seeds. Right clavicle surgery, right femur) Psychiatric history: Reports: no psych history - Social History Smoking Status: Current every day smoker Alcohol use: Reports: heavy, recent Drug use: Reports: marijuana Physical Exam General: Well appearing, nontoxic, intoxicated. Head: Normocephalic Atraumatic Eyes: PERRL, EOMI, No e/o ocular trauma ENT: Airway patent, Oral and nasal within normal limits, no e/o septal hematoma , no e/o dental trauma Neck: No midline cervical tenderness or deformity, no anterior mass or crepitus , trachea midline Chest: Lungs clear to auscultation bilateral, no chest wall tenderness or crepitus Cardiac: Regular rate and rhythm, no murmurs, rubs or gallops Abdomen: soft, nontender, nondistended; no guarding or rebound Musculoskeletal: Patient with decreased range of motion of the right shoulder. Patient unable to abduction. Normal sensation of the upper extremities. Patient with inability to move the left leg secondary to pain. Mild decreased sensation to the left leg. Vascularly intact to the extremities 4. Skin: No rash, normal skin tone; no seatbelt sign at neck, chest, or abdomen Neuro: Alert and Oriented to person, place, and time; No focal deficit, CN 2-12 symmetric and intact Back: No thoracic or lumbar midline tenderness or deformity - General General appearance: alert, in no apparent distress, appears intoxicated Course - Consultations Consultation #1: Discussed with orthopedics. Dr. Welch. Pt needs plain xrays of hip and will see as a consult. Consultation #2: Discussed with hospitalist. Dr. Sr. Patient accepted for admission. Vital Signs Temperature 97.8 F 04/09/17 19:02 Pulse Rate 81 04/09/17 19:02 Respiratory Rate 16 04/09/17 19:02 Blood Pressure 128/74 04/09/17 19:02 O2 Sat by Pulse Oximetry 98 04/09/17 19:02 Temperature 97.8 F 04/09/17 19:02 Pulse Rate 81 04/09/17 19:02 Respiratory Rate 16 04/09/17 19:02 Blood Pressure 128/74 04/09/17 19:02 O2 Sat by Pulse Oximetry 98 04/09/17 19:02 Oxygen Delivery Oxygen Delivery Room Air Fall - Medical Records Medical records reviewed: Yes I reviewed the patient's medical records. - Lab Data Lab results reviewed: Yes I reviewed the patient's lab results. - Radiology Data Radiology results reviewed: Yes I reviewed the patient's radiology results. - EKG Data EKG attestation: Yes I reviewed and interpreted this EKG. EKG results narrative: Sinus Rhythm with rate of 84 PR153 [id number]. No changes from [id number]/16/ 17.
--- NOTE | 2017-04-09 20:13 | Emergency Department Note ---
START Narrative - START START: I examined this patient and my medical decision-making was reviewed with the Resident Physician. I agree with the documented findings, disposition and treatment plan as described except to the extent set forth below. 67 year old male presensts to the ED with complaints of mechanical fall and is intoxicated. PAtinet states that he injured his left hip/leg shoulder and left side of hie head and neck. He was on eliquis although he stopped taking it a few days ago. Patient (+) left hip ffracture, we will admit or tranfer the patinet pendingon HCT.
[2017-04-09] MEDS ORDERED: *HR* FentaNYL (PF) 100 MCG/2 ML VIAL IVP ONE (21:25)
[2017-04-09 21:39] LABS: Mean Corpuscular Hemoglobin 35.1 pg (28.0-33.3)
[2017-04-09 21:41] LABS: Basophils % 0.5 %; Eosinophils # 0.1 K/mcL (0.0-0.6); Eosinophils % 0.9 %; Hemoglobin 13.5 g/dL (12.9-16.9); Immature Granulocytes % 0.9 % (0-4); Immature Platelets 3.7 % (1.1-6.1); Lymphocytes # 1.1 K/mcL (0.6-4.6); Lymphocytes % 19.4 %; Mean Corpuscular HGB Conc 33.8 g/dL (31.6-35.5); Mean Corpuscular Volume 103.9 fL (83.0-100.0); Mean Platelet Volume 10.2 fL (9.4-12.4); Monocytes # 0.3 K/mcL (0.0-1.3); Monocytes % 4.5 %; Neutrophils # 4.1 K/mcL (1.6-8.9); Nucleated Red Blood Cells 0.5 /100 WBC (0); Red Blood Count 3.85 M/mcL (4.19-5.50); Red Cell Distribution Width 17.5 % (11.5-14.5); Segmented Neutrophils % 73.8 %
[2017-04-09 21:56] LABS: Platelet Count 87 K/mcL (140-400)
[2017-04-09 21:59] LABS: Ethanol 351 mg/dL (0-10)
[2017-04-09 22:02] LABS: Alanine Aminotransferase 90 Units/L (7-52); Albumin 3.4 g/dL (3.5-5.7); Albumin/Globulin Ratio 1.2 (1.1-2.2); Alkaline Phosphatase 95 Units/L (34-104); Aspartate Amino Transferase 126 Units/L (13-39); BUN/Creatinine Ratio 10 (6-26); Bilirubin,Total 0.6 mg/dL (0.3-1.0); Blood Urea Nitrogen 8 mg/dL (8-23); Calcium 8.6 mg/dL (8.6-10.3); Carbon Dioxide 25 mEq/L (23-29); Chloride 107 mEq/L (98-107); Globulin 2.8 g/dL (2.4-3.5); Glucose 90 mg/dL (70-105); Osmolality,Calculated 288 (280-300); Potassium 3.9 mEq/L (3.5-5.1); Sodium 140 mEq/L (136-145); Total Protein 6.2 g/dL (6.4-8.9); eGFR For Non-African Americans > 60 (> 60)
[2017-04-10] MEDS ORDERED: *HR* LORazepam 2 MG/ML VIAL IVP PRN (01:35)
[2017-04-10] MEDS ORDERED: *HR* Promethazine 25 MG/ML VIAL IVP PRN (01:35)
[2017-04-10] MEDS ORDERED: *HR* OxyCODONE Immed Rel 5 MG TABLET PO PRN (01:57)
--- NOTE | 2017-04-10 02:02 | Internal Med History&Physical ---
<Jair Valenzuela - Last Filed: 04/10/17 01:59> Date of Encounter: 04/10/17 Time of Encounter: 01:59 Assessment and Plan (1) Closed left hip fracture Current visit: Yes Status: Acute Patient s/p fall while intoxicated found to have a L hip Fx: "left intertrochanteric hip fracture, with mild impaction, and with varus angulation of the distal fragment. Pelvic ring is intact. There are degenerative changes noted in the lower lumbar spine. Sacrum is intact." Started on Opioid pain medication. Avoid Pain medications with tylenol due to hx of ETOH abuse. Ortho consulted in the ED appreciate recommendations. Qualifiers: Encounter type: initial encounter Qualified Code(s): S72.002A - Fracture of unspecified part of neck of left femur, initial encounter for closed fracture (2) Alcohol abuse Current visit: No Status: Acute Patient currently intoxicated with hx of ETOH abuse. ETOH 351 upon admission. Patient reports last drink around noon. Started on CIWA protocol. (3) HTN (hypertension) Current visit: No Status: Acute Hx of HTN on home metoprolol continue home meds. Qualifiers: Hypertension type: essential hypertension Qualified Code(s): I10 - Essential (primary) hypertension Internal Medicine - H&P: HPI Chief complaint: Fall Admitted From: Emergency Dept Plans for Post Hospital Care: Transfer Senior Care Facility History of present illness: Mr. Victoria is a 67 year old male c PMHx of ETOH abuse, prostate CA, HLD, HTN, multiple falls reports to the [facility] ED brought in by EMS s/p Fall 7 hours ago. Patient was intoxicated upon admission. Patient reports pain in R shoulder and L hip. Patient was castellanos scanned in the ED which showed L hip Fx, 1 new rib fx and chronic rib fractures, no abnormality in the spine, shoulder, and no bleed in the head. Patient's ETOH was 351. Patient is on Xarelto at home but reprots not takign it recently because he ran out. Patient denies LOC, other complaints at this time. Past Med Surg Social Fam HX - Past Medical History Medical history: arthritis, cancer, hyperlipidemia, hypertension, other Psychiatric history: no psych history - Past Surgical History Surgical History: other - Social History Smoking Status: Current every day smoker Packs per day: 1 Smokeless Tobacco Status: No Alcohol use: heavy, recent Drug use: marijuana - Family History Mother Living Status: Hx Family Cardiac Disorders: Yes (states his mother had open heart surgery) Hx Family Respiratory Disorders: Yes (lung cancer) Hx Family Cancer: Yes (lung cancer) Hx Family GI Disorders: No Hx Family Endocrine Disorder: Yes (diabetes) Hx Family Neuromuscular Disorders: No Hx Family Neurologic Disorders: No Hx Family HEENT Disorders: No Hx Family Autoimmune Disorders: No Father Hx Family Cancer: Yes (prostate) Internal Medicine - H&P: Meds Acetaminophen [Tylenol] 650 mg PO Q6HR PRN 08/20/15 [History] Alfuzosin HCl [Uroxatral] 10 mg PO DAILY 08/20/15 [History] Baclofen [Lioresal] 20 mg PO TID 08/20/15 [History] Cholecalciferol (D-3) [Vitamin D] 2,000 unit PO DAILY 08/20/15 [History] Gabapentin [Neurontin] 1,200 mg PO TID 08/20/15 [History] Metoprolol XL (24 HR) Succ [Toprol Xl] 25 mg PO BID 08/20/15 [History] Omeprazole [PriLOSEC] 20 mg PO DAILY 08/20/15 [History] Sildenafil Citrate [Viagra] 50 mg PO AD PRN 08/20/15 [History] Venlafaxine XR (24 HR) [Effexor Xr] 150 mg PO DAILY 08/20/15 [History] Calcium Carbonate [Tums] 500 mg PO TIDWM PRN 04/09/17 [History] Rivaroxaban [Xarelto] 20 mg PO DAILY 04/09/17 [History] Super Beta Prostate 1 tab PO DAILY 04/09/17 [History] Thiamine (B-1) [Vitamin B-1] 100 mg PO BID 04/09/17 [History] 3 Allergy/AdvReac Type Severity Reaction Status Date / Time No Known Allergies Allergy Verified 01/04/17 17:30 All Systems PM: A 10-system review of systems was performed and is negative for pertinent findings except as documented above in the HPI. - Constitutional Vitals: Temp Pulse Resp BP Pulse Ox 97.9 F 75 16 121/73 96 04/09/17 22:52 04/09/17 22:52 04/09/17 22:52 04/09/17 22:52 04/09/17 22:52 General appearance: Present: A&O X 3, no acute distress, answers questions appropriately - Head Head exam: Present: atraumatic, normocephalic - Eye Eye exam: Present: PERRL Pupils: Present: PERRL - Neck Neck exam general surgery: Present: supple, trachea midline - Respiratory Respiratory exam: Present: CTAB. Absent: accessory muscle use, rales, rhonchi, wheezes - Cardiovascular Cardiovascular exam: Present: RRR, +S1, +S2. Absent: diastolic murmur, gallop, rubs, systolic murmur - GI/Abdominal GI/Abdominal exam: Present: normal bowel sounds, soft, no peritoneal signs. Absent: distended, tenderness - Extremities Exam Extremities exam: Present: warm, radial pulses palpable and symmetrical. Absent : cyanotic, full ROM, pedal edema Additional comments: patient with pain on ROM of LLE. Reduced ROM R shoulder - Neurological Exam Neurological exam: Present: alert, CN II-XII intact, oriented X3, no focal deficits. Absent: facial droop, speech deficit - Skin Skin exam: Present: dry, intact Internal Med - H&P Results - Labs CBC & Chem 7: 04/09/17 21:31 04/09/17 21:31 <Darion Sr P - Last Filed: 04/10/17 03:51> Date of Encounter: 04/10/17 Internal Medicine - H&P: HPI History of present illness: Mr. Victoria is a 67 year old male All Systems PM: A 10-system review of systems was performed and is negative for pertinent findings except as documented above in the HPI. - Constitutional Vitals: Temp Pulse Resp BP Pulse Ox 97.9 F 75 16 121/73 96 04/09/17 22:52 04/09/17 22:52 04/09/17 22:52 04/09/17 22:52 04/09/17 22:52 Internal Med - H&P Results - Labs CBC & Chem 7: 04/09/17 21:31 04/09/17 21:31 - Attending Attestation I examined this patient and my medical decision-making was reviewed with the Resident Physician. I agree with the documented findings, disposition and treatment plan as described except to the extent set forth below. I have personally examined this patient. 67/male Heavy alcohol intoxication. Admitted with left hip fracture. Orthopedics on the board. Agree with the plan discussed by resident.
[2017-04-10 07:30] LABS: Basophils % 0.6 %; Eosinophils # 0.1 K/mcL (0.0-0.6); Eosinophils % 0.8 %; Hematocrit 37.7 % (37.5-50.1); Hemoglobin 12.7 g/dL (12.9-16.9); Immature Granulocytes % 0.5 % (0-4); Immature Platelets 2.6 % (1.1-6.1); Lymphocytes # 1.4 K/mcL (0.6-4.6); Lymphocytes % 22.4 %; Mean Corpuscular HGB Conc 33.7 g/dL (31.6-35.5); Mean Corpuscular Hemoglobin 35.2 pg (28.0-33.3); Mean Corpuscular Volume 104.4 fL (83.0-100.0); Mean Platelet Volume 10.1 fL (9.4-12.4); Monocytes # 0.4 K/mcL (0.0-1.3); Monocytes % 5.5 %; Neutrophils # 4.5 K/mcL (1.6-8.9); Red Blood Count 3.61 M/mcL (4.19-5.50); Red Cell Distribution Width 17.6 % (11.5-14.5); Segmented Neutrophils % 70.2 %
[2017-04-10 07:32] LABS: Platelet Count 71 K/mcL (140-400)
[2017-04-10 07:43] LABS: Chol/HDL Ratio 1.6 (0-4.9); Magnesium 1.4 mg/dL (1.6-2.6); Phosphorous 2.8 mg/dL (2.7-4.5)
[2017-04-10] MEDS ORDERED: Metoprolol XL (24 HR) Succ 50 MG TAB.ER.24H PO SCH (09:00)
[2017-04-10] MEDS ORDERED: Venlafaxine XR (24 HR) 150 MG CAP.ER.24H PO SCH (09:00)
[2017-04-10] MEDS ORDERED: Folic Acid 1 MG TABLET PO SCH (09:00)
[2017-04-10] MEDS ORDERED: Thiamine (B-1) 100 MG TABLET PO SCH (09:00)
[2017-04-10] MEDS ORDERED: Vitamin B Complex/Vit C/Vit E 1 EACH TABLET PO SCH (09:00)
[2017-04-10] MEDS: *HR* HYDROmorphone 2 MG TABLET PO PRN ×2 (11:25→21:15)
--- NOTE | 2017-04-10 14:28 | Orthopedic Consult Note ---
Date of Encounter: 04/10/17 Time of Encounter: 08:00 Assessment and Plan (1) Intertrochanteric fracture of right hip Current Visit: No Status: Acute The diagnosis and treatment plan were discussed with patient. He has a displaced left hip intertrochanteric fracture. To enable him to get up to a chair and for pain control we will treat this operatively with a left hip cephalomedullary nail. The risks and benefits of the procedure were fully explained in detail, including but not limited to the risk of infection, neurovascular injury, continued pain or stiffness, failure of surgery, reinjury , or need for additional surgery, DVT, PE, general risks of anesthesia and loss of limb or life. No guarantees were given or implied and all questions were answered. The patient understands all the risks and does wish to proceed. -NPO at [place] -Consent -Bedrest -Pain control Qualifiers: Encounter type: initial encounter Fracture type: closed Fracture alignment: displaced Qualified Code(s): S72.141A - Displaced intertrochanteric fracture of right femur, initial encounter for closed fracture History of Present Illness Chief complaint: left hip pain HPI: Mr. Victoria is a 67 year old male who was intoxicated last night and fell out of his wheelchair under his left hip. He had pain in the left hip. He was brought to the emergency department and imaging showed a left hip intertrochanteric fracture. He was admitted for definitive fixation. He denies any chest pain prior to the injury. He was intoxicated last night so the history of present illness is limited. Denies any numbness or tingling distally. Denies any chest pain or shortness of breath currently. Past Med Surg Social Fam HX - Past Medical History Medical history: arthritis, cancer, hyperlipidemia, hypertension, other Psychiatric history: no psych history - Past Surgical History Surgical History: other - Social History Smoking Status: Current every day smoker Packs per day: 1 Smokeless Tobacco Status: No Alcohol use: heavy, recent Drug use: marijuana - Family History Mother Living Status: Hx Family Cardiac Disorders: Yes (states his mother had open heart surgery) Hx Family Respiratory Disorders: Yes (lung cancer) Hx Family Cancer: Yes (lung cancer) Hx Family GI Disorders: No Hx Family Endocrine Disorder: Yes (diabetes) Hx Family Neuromuscular Disorders: No Hx Family Neurologic Disorders: No Hx Family HEENT Disorders: No Hx Family Autoimmune Disorders: No Father Hx Family Cancer: Yes (prostate) Medications and Allergies Acetaminophen [Tylenol] 650 mg PO Q6HR PRN 08/20/15 [History] Alfuzosin HCl [Uroxatral] 10 mg PO DAILY 08/20/15 [History] Baclofen [Lioresal] 20 mg PO TID 08/20/15 [History] Cholecalciferol (D-3) [Vitamin D] 2,000 unit PO DAILY 08/20/15 [History] Gabapentin [Neurontin] 1,200 mg PO TID 08/20/15 [History] Metoprolol XL (24 HR) Succ [Toprol Xl] 25 mg PO BID 08/20/15 [History] Omeprazole [PriLOSEC] 20 mg PO DAILY 08/20/15 [History] Sildenafil Citrate [Viagra] 50 mg PO AD PRN 08/20/15 [History] Venlafaxine XR (24 HR) [Effexor Xr] 150 mg PO DAILY 08/20/15 [History] Calcium Carbonate [Tums] 500 mg PO TIDWM PRN 04/09/17 [History] Rivaroxaban [Xarelto] 20 mg PO DAILY 04/09/17 [History] Super Beta Prostate 1 tab PO DAILY 04/09/17 [History] Thiamine (B-1) [Vitamin B-1] 100 mg PO BID 04/09/17 [History] 3 Allergy/AdvReac Type Severity Reaction Status Date / Time No Known Allergies Allergy Verified 01/04/17 17:30 All Systems Reviewed: A 10-system review of systems was performed and is negative for pertinent findings except as documented above in the HPI. Physical Exam - Constitutional Vitals: Temp Pulse Resp BP Pulse Ox 97.5 F L 89 17 168/90 98 04/10/17 11:33 04/10/17 13:08 04/10/17 11:33 04/10/17 13:08 04/10/17 11:33 General appearance IM: A&O X 3 Exam: Consult Exam: Constitutional -Vitals reviewed -The patient is well developed and well nourished. Psychiatric -The patient is fully alert and oriented x 3. Respiratory: -Respiratory effort normal Abdomen: -Soft abdomen -Non tender -Non distended: Left upper extremity: -No deformities. The overlying skin is intact. No obvious signs of acute trauma. -No tenderness to palpation throughout. -No significant pain with passive motion of the shoulder, elbow, wrist, and fingers within the limits of the bed. -Able to make an "OK" sign, cross the index and long fingers, and extend the thumb. -Sensation grossly intact to light touch throughout the median, radial, and ulnar distributions. -Radial pulse is present; Fingers have good capillary refill. Right upper extremity: -No deformities. The overlying skin is intact. No obvious signs of acute trauma. -No tenderness to palpation throughout. -No significant pain with passive motion of the shoulder, elbow, wrist, and fingers within the limits of the bed. -Able to make an "OK" sign, cross the index and long fingers, and extend the thumb. -Sensation grossly intact to light touch throughout the median, radial, and ulnar distributions. -Radial pulse is present; Fingers have good capillary refill. Left lower extremity: -Left leg is shortened and externally rotated -Pain with logroll and internal rotation -Able to dorsiflex and plantarflex the ankle and toes. -Sensation is grossly intact to light touch throughout the sural, saphenous, superficial peroneal, and deep peroneal distributions. -Toes have good capillary refill. Right lower extremity: -No deformities. The overlying skin is intact. No obvious signs of acute trauma. -No tenderness to palpation throughout. -No pain with passive motion of the hip, knee, ankle, and toes within the limits of the bed. -No pain with axial loading of the thigh. -Able to dorsiflex and plantarflex the ankle and toes. -Sensation is grossly intact to light touch throughout the sural, saphenous, superficial peroneal, and deep peroneal distributions. -Toes have good capillary refill. Results - Labs Result Diagrams: 04/10/17 06:42 04/09/17 21:31 Labs: Abnormal lab results RBC 3.61 M/mcL (4.19-5.50) L 04/10/17 06:42 Hgb 12.7 g/dL (12.9-16.9) L 04/10/17 06:42 MCV 104.4 fL (83.0-100.0) H 04/10/17 06:42 MCH 35.2 pg (28.0-33.3) H 04/10/17 06:42 RDW 17.6 % (11.5-14.5) H 04/10/17 06:42 Plt Count 71 K/mcL (140-400) L 04/10/17 06:42 Nucleated RBCs/100 WBC 0.5 /100 WBC (0) H 04/09/17 21:31 Magnesium 1.4 mg/dL (1.6-2.6) L 04/10/17 06:42 AST 126 Units/L (13-39) H 04/09/17 21:31 ALT 90 Units/L (7-52) H 04/09/17 21:31 Creatine Kinase 493 Units/L (30-223) H 04/10/17 06:42 Serum Total Protein 6.2 g/dL (6.4-8.9) L 04/09/17 21:31 Albumin 3.4 g/dL (3.5-5.7) L 04/09/17 21:31 HDL Cholesterol 90 mg/dL (40-59) H 04/10/17 06:42 Ethyl Alcohol 351 mg/dL (0-10) H 04/09/17 21:31 H & H 04/10/17 Range/Units 06:42 Hgb 12.7 L (12.9-16.9) g/dL Hct 37.7 (37.5-50.1) % All other labs normal. - Diagnostic results Hip CT: report reviewed (Left hip intertrochanteric fracture without subtrochanteric extension), image reviewed Consult Discharge Plan - Plan [facility]errals: [facility] [Primary Care Provider] -
--- NOTE | 2017-04-10 17:06 | Event Note ---
Date of Encounter: 04/10/17 Time of Encounter: 11:00 I personally reviewed and examined this patient. I discussed the case with Dr. Lopez, whose note is to follow. I agree with his findings, assessment and plan. I also reviewed the note of my partners this morning. [place] surgery input is appreciated. Plans for OR in the morning. We will need to monitor closely for signs and symptoms of alcohol withdrawal. [facility] protocol instituted.
--- NOTE | 2017-04-10 17:44 | Internal Med Progress Note ---
Date of Encounter: 04/10/17 Time of Encounter: 19:01 - Assessment and plan (1) Closed left hip fracture Current Visit: Yes Status: Acute Assessment and plan: Patient status post fall while intoxicated Found to have left hip fracture. Current radiology left intertrochanteric hip fracture, with mild impaction, with there is any relation of the distal fragment. Orthopedics was counseled to the patient will go for definitive fixation tomorrow. Nothing by mouth and pain control. Dilaudid 1 mg Q4H PRN severe pain Oxycodone 10 mg PO Q4H PRN Mild to moderate pain. Qualifiers: Encounter type: initial encounter Qualified Code(s): S72.002A - Fracture of unspecified part of neck of left femur, initial encounter for closed fracture (2) ETOH abuse Current Visit: No Status: Acute Assessment and plan: Started on CIWA protocol. (3) HTN (hypertension) Current Visit: No Status: Acute Assessment and plan: History of hypertension patient is currently on home metoprolol. Qualifiers: Hypertension type: essential hypertension Qualified Code(s): I10 - Essential (primary) hypertension (4) DVT prophylaxis Current Visit: No Status: Acute Assessment and plan: EPCD for DVT. 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 Patient was scanned for his injuries in the emergency department which did reveal a left hip fracture, 1 new rib fracture and chronic rib fractures, no other abnormalities of the spine, shoulder and no bleed in the head. The patient's alcohol level is 251. He is on Xarelto at home but states that he has not taken it recently due to running out of the medication. He denied any LOC at that time. Patient was started on CIWA protocol. Orthopedics was consulted. According to orthopedics note patient will undergo definitive fixation of his hip fracture. He is to be nothing by mouth at midnight. - Constitutional Vitals: Temp Pulse Resp BP Pulse Ox 97.4 F L 79 16 115/70 95 04/10/17 15:08 04/10/17 15:08 04/10/17 15:08 04/10/17 15:08 04/10/17 15:08 General appearance: Present: A&O X 3, no acute distress, answers questions appropriately Exam: Patient is resting in bed and appears comfortable he is watching TV. No acute distress at this time. - Head Head exam: Present: atraumatic, normal inspection, normocephalic - Eye Eye exam: Present: normal appearance, PERRL - ENT ENT exam: Present: mucous membranes moist - Neck Neck exam general surgery: Present: normal inspection - Respiratory Respiratory exam: Present: CTAB. Absent: rales, rhonchi, wheezes - Cardiovascular Cardiovascular exam: Present: RRR, +S1, +S2 - GI/Abdominal GI/Abdominal exam: Present: normal bowel sounds, soft, no peritoneal signs. Absent: guarding, rebound, rigid - Extremities Exam Additional comments: Pain over palpation of left hip and with ROM. - Back Exam Back exam: Present: normal inspection - Neurological Exam Neurological exam: Present: alert, oriented X3, no focal deficits - Psychiatric Psychiatric exam: Present: normal affect, normal mood - Skin Skin exam: Present: intact, warm Internal Medicine: Result - Labs CBC & Chem 7: 04/10/17 06:42 04/09/17 21:31 Labs: Short CBC 04/10/17 Range/Units 06:42 WBC 6.4 (4.3-11.1) K/mcL Hgb 12.7 L (12.9-16.9) g/dL Hct 37.7 (37.5-50.1) % Plt Count 71 L (140-400) K/mcL Neutrophils # 4.5 (1.6-8.9) K/mcL Cardiac Enzymes 04/10/17 04/10/17 Range/Units 06:42 12:39 Troponin I < 0.03 < 0.03 (< 0.04) ng/mL Consult Discharge Plan - Plan [facility]errals: [facility] [Primary Care Provider] -
[2017-04-10] MEDS ORDERED: Thiamine (B-1) 100 MG, Folic Acid 1 MG, MVI, adult with vitamin K 10 ML in 0.9 % Sodi... IVPB SCH (18:00)
--- NOTE | 2017-04-10 19:45 | Anesthesia Evaluation PreOp ---
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 Other Medical History: GERD Anesthesia History: No Prior Anesthetic Complications Alcohol Use: heavy, recent Drug use: marijuana Medications and Allergies Acetaminophen [Tylenol] 650 mg PO Q6HR PRN 08/20/15 [History] Alfuzosin HCl [Uroxatral] 10 mg PO DAILY 08/20/15 [History] Baclofen [Lioresal] 20 mg PO TID 08/20/15 [History] Cholecalciferol (D-3) [Vitamin D] 2,000 unit PO DAILY 08/20/15 [History] Gabapentin [Neurontin] 1,200 mg PO TID 08/20/15 [History] Metoprolol XL (24 HR) Succ [Toprol Xl] 25 mg PO BID 08/20/15 [History] Omeprazole [PriLOSEC] 20 mg PO DAILY 08/20/15 [History] Sildenafil Citrate [Viagra] 50 mg PO AD PRN 08/20/15 [History] Venlafaxine XR (24 HR) [Effexor Xr] 150 mg PO DAILY 08/20/15 [History] Calcium Carbonate [Tums] 500 mg PO TIDWM PRN 04/09/17 [History] Rivaroxaban [Xarelto] 20 mg PO DAILY 04/09/17 [History] Super Beta Prostate 1 tab PO DAILY 04/09/17 [History] Thiamine (B-1) [Vitamin B-1] 100 mg PO BID 04/09/17 [History] 3 Allergy/AdvReac Type Severity Reaction Status Date / Time No Known Allergies Allergy Verified 01/04/17 17:30 - Meds/Allergy Pre-op Review Medications Reviewed: Yes Allergies Reviewed: Yes Beta Blockers on Current Med List: Yes (on metoprolol) Anesthesia Results - Labs 04/10/17 06:42 04/09/17 21:31 - Imaging EKG: report reviewed (Sinus Rhythm Rt BBB) Anesthesia Exam O2 Sat Height 1.83 m Weight 83.915 kg O2 Sat by Pulse Oximetry 95 O2 Sat by Pulse Oximetry 98 O2 Sat by Pulse Oximetry 92 O2 Sat by Pulse Oximetry 96 O2 Sat by Pulse Oximetry 96 O2 Sat by Pulse Oximetry 96 O2 Sat by Pulse Oximetry 93 Vital Signs Temp Pulse Resp BP Pulse Ox 97.8 F 81 16 128/74 98 04/09/17 19:02 04/09/17 19:02 04/09/17 19:02 04/09/17 19:02 04/09/17 19:02 Height: 6'0 Weight: 185 lbs NPO (# of Hours): MN Pain Scale: 1 - HEENT Pupil (Motor): Pupils equal, EOMI Mallampati: II Teeth: Edentulous Oral Opening: Greater than 3 - 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 DRIVER OPERATOR LOC: Oriented PILE DRIVER OPERATOR Motor: Normal RUE, Normal LUE, Normal RLE, Normal LLE, Normal Face PILE DRIVER OPERATOR Sensory: Normal: RUE, LUE, RLE, LLE, Face - Cardiac Rhythm: Regular Murmur: None JVD: No Carotid Bruit: No - Pulmonary Breath Sounds: bilateral Clear Respiratory Effort: Symmetrical Anesthesia Assess/Plan ASA Score: 3 (HTN Tobacco Heavy ETOH Abuse) Modified [place] Scale for Level of Consciousness: Cooperative, oriented, and tranquil Anesthetic Plan: General, Regional, MAC Monitoring Plan: Standard Monitors Recovery Plan: PACU (Discussed GA versus SAB, possible [place] Fascia Block, agrees to proceed.)
[2017-04-10] MEDS: *HR* LORazepam 2 MG/ML VIAL IVP PRN ×3 (21:12→23:53)
[2017-04-10] MEDS ORDERED: Metoprolol XL (24 HR) Succ 25 MG TAB.ER.24H PO SCH (22:00)
[2017-04-10] MEDS ORDERED: Haloperidol Lactate 5 MG/ML VIAL IVP PRN (22:55)
[2017-04-11] MEDS: *HR* Metoprolol 5 MG/5 ML VIAL IVP PRN ×2 (00:16→02:02)
[2017-04-11] MEDS ORDERED: *HR* HYDROmorphone 2 MG TABLET PO PRN ×2 (00:35→05:35)
[2017-04-11] MEDS ORDERED: OXYCODONE Oral CONC 10 MG/0.5 ML ORAL.SYG SL PRN ×2 (00:37→05:35)
[2017-04-11] MEDS ORDERED: Dexmedetomidine HCl 400 MCG/100 ML MLS IVC SCH ×2 (01:30→05:35)
--- NOTE | 2017-04-11 01:49 | Electrocardiograph Report ---
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
[2017-04-11] MEDS: *HR* LORazepam 2 MG/ML VIAL IVP PRN ×2 (02:01→23:36)
[2017-04-11] MEDS ORDERED: 0.9 % Sodium Chloride 500 ML ONE (02:48)
[2017-04-11] MEDS ORDERED: *HR* Promethazine 25 MG/ML VIAL IVP PRN ×4 (05:35→16:33)
[2017-04-11] MEDS ORDERED: Haloperidol Lactate 5 MG/ML VIAL IVP PRN ×2 (05:35→16:33)
[2017-04-11] MEDS ORDERED: *HR* LORazepam 2 MG/ML VIAL IVP PRN ×3 (05:35)
[2017-04-11] MEDS ORDERED: *HR* Metoprolol 5 MG/5 ML VIAL IVP PRN (05:35)
[2017-04-11] MEDS ORDERED: *HR* OxyCODONE Immed Rel 5 MG TABLET PO PRN (05:35)
--- NOTE | 2017-04-11 05:55 | Event Note ---
Date of Encounter: 04/11/17 Time of Encounter: 01:30 Patient had increasing agitation overnight secondary to ETOH withdrawl. CIWA score continued to go up despite ativan administration. patient's CIWA went as high as 50. Patient was started on precedex drip and transferred to [facility]. Patient now resting comfortably. Patient was tachycardic and hypertensive. Was given IV lopressor and his PO lopressor was split BID.
[2017-04-11] MEDS ORDERED: Venlafaxine XR (24 HR) 150 MG CAP.ER.24H PO SCH (09:00)
[2017-04-11] MEDS ORDERED: Folic Acid 1 MG TABLET PO SCH (09:00)
[2017-04-11] MEDS ORDERED: Metoprolol XL (24 HR) Succ 25 MG TAB.ER.24H PO SCH (09:00)
[2017-04-11] MEDS ORDERED: Thiamine (B-1) 100 MG TABLET PO SCH (09:00)
[2017-04-11] MEDS ORDERED: Vitamin B Complex/Vit C/Vit E 1 EACH TABLET PO SCH (09:00)
[2017-04-11] MEDS ORDERED: *HR* FentaNYL (PF) 100 MCG/2 ML VIAL ONE ×2 (14:18→14:52)
[2017-04-11] MEDS ORDERED: *HR* Propofol 200 MG/20 ML VIAL IVP ONE (14:18)
[2017-04-11] MEDS ORDERED: Lidocaine -MPF 2% 2 ML VIAL ONE (14:20)
[2017-04-11] MEDS ORDERED: *HR* Succinylcholine 200 MG/10 ML VIAL IVP ONE (14:20)
[2017-04-11] MEDS ORDERED: *HR* Midazolam HCl 2 MG/2 ML VIAL ONE (14:30)
[2017-04-11] MEDS ORDERED: Ondansetron 4 MG/2 ML VIAL ONE (15:11)
[2017-04-11] MEDS ORDERED: Dexamethasone 4 MG/ML VIAL ONE (15:11)
[2017-04-11] MEDS ORDERED: *HR* PHENYLEPHRINE 1,000 MCG/10 ML SYRINGE IVP ONE (15:15)
[2017-04-11] MEDS ORDERED: MORPHINE SUL Oral CONC 10 MG/0.5 ML ORAL.SYG SL PRN ×2 (15:18→16:33)
[2017-04-11] MEDS ORDERED: *HR* Labetalol 20 MG/4 ML SYRINGE IVP PRN (15:18)
[2017-04-11] MEDS ORDERED: Acetaminophen IV 1,000 MG/100 ML INFUS..BTL ONE (15:25)
--- NOTE | 2017-04-11 15:46 | Internal Med Progress Note ---
<Matty Boyle jL - Last Filed: 04/11/17 15:55> Date of Encounter: 04/11/17 - Constitutional Vitals: Temp Pulse Resp BP Pulse Ox 97.9 F 75 20 126/78 96 04/11/17 11:00 04/11/17 11:00 04/11/17 11:00 04/11/17 13:00 04/11/17 11:00 Internal Medicine: Result - Labs CBC & Chem 7: 04/10/17 06:42 04/09/17 21:31 Labs: Cardiac Enzymes 04/10/17 04/10/17 Range/Units 12:39 17:57 Troponin I < 0.03 < 0.03 (< 0.04) ng/mL Consult Discharge Plan - Plan [facility]errals: [facility] [Primary Care Provider] - - Attending Attestation I personally examined this patient. I agree with the findings, assessment, and plan of Dr. Lassiter, internal medicine pr intern. Patient did repair of his left hip fracture today. Unfortunately he appears to be experiencing alcohol withdrawal as well, and I suspect his symptoms will get worse and outcome be worse if we delay surgery. Patient has appeared to improve on Precedex drip. She remained calm and hemodynamically stable on Precedex drip. O2 sat of 96% on 2 L. Labs are unremarkable with the exception of a low magnesium which is being replaced, and a mildly elevated CK. We will continue to closely monitor. Surgery input is greatly appreciated. Once patient is more awake, and if we can get him off the Precedex drip would consider Librium. <Philipp Lassiter - Last Filed: 04/11/17 17:17> Date of Encounter: 04/11/17 Time of Encounter: 08:00 - Assessment and plan (1) Closed left hip fracture Current Visit: Yes Status: Acute Assessment and plan: Patient status post fall while intoxicated Found to have left hip fracture. Current radiology left intertrochanteric hip fracture, with mild impaction, with there is any relation of the distal fragment. Orthopedics was counseled to the patient will go definitive fixation today. Nothing by mouth and pain control. Dilaudid 1 mg Q4H PRN severe pain Oxycodone 10 mg PO Q4H PRN Mild to moderate pain. Qualifiers: Encounter type: initial encounter Qualified Code(s): S72.002A - Fracture of unspecified part of neck of left femur, initial encounter for closed fracture (2) ETOH abuse Current Visit: No Status: Acute Assessment and plan: Started on CIWA protocol. Patient became agitated overnight and was uncontrollable with benzos and was placed on a Precedex drip. Patient will be on Precedex drip tonight in addition to benzos Per CIWA protocol. (3) HTN (hypertension) Current Visit: No Status: Acute Assessment and plan: History of hypertension patient is currently on home metoprolol. Qualifiers: Hypertension type: essential hypertension Qualified Code(s): I10 - Essential (primary) hypertension (4) DVT prophylaxis Current Visit: No Status: Acute Assessment and plan: EPCD for DVT. 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 Patient was scanned for his injuries in the emergency department which did reveal a left hip fracture, 1 new rib fracture and chronic rib fractures, no other abnormalities of the spine, shoulder and no bleed in the head. The patient's alcohol level is 251. He is on Xarelto at home but states that he has not taken it recently due to running out of the medication. He denied any LOC at that time. Patient was started on CIWA protocol. 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 This morning the Precedex drip is being titrated down and the patient is becoming more alert. The plan is for him to go to surgery for repair of his hip. - Constitutional Vitals: Temp Pulse Resp BP Pulse Ox 97.9 F 75 20 126/78 96 04/11/17 11:00 04/11/17 11:00 04/11/17 11:00 04/11/17 13:00 04/11/17 11:00 General appearance: Present: no acute distress Exam: Patient is under sedation with Precedex. He does respond to his name and opens his eyes and answers yes no questions. - Head Head exam: Present: atraumatic, normal inspection - Eye Eye exam: Present: normal appearance, PERRL - Neck Neck exam general surgery: Present: normal inspection - Respiratory Respiratory exam: Present: CTAB. Absent: rales, rhonchi, wheezes - Cardiovascular Cardiovascular exam: Present: RRR, +S1, +S2 - GI/Abdominal GI/Abdominal exam: Present: normal bowel sounds, soft. Absent: tenderness - Extremities Exam Extremities exam: Present: normal capillary refill, normal inspection - Skin Skin exam: Present: intact, normal color Internal Medicine: Result - Labs CBC & Chem 7: 04/10/17 06:42 04/09/17 21:31 Labs: Cardiac Enzymes 04/10/17 04/10/17 Range/Units 12:39 17:57 Troponin I < 0.03 < 0.03 (< 0.04) ng/mL - VTE Documentation of Mechanical Device: Intermittent pneumatic compression device
--- NOTE | 2017-04-11 16:03 | Orthopedic Operative Note ---
Date of procedure: 04/11/17 Pre-op diagnosis: Left hip intertrochanteric fracture Post-op diagnosis: same Procedure: 1. Left hip intertrochanteric nail INDICATIONS: This is a 67 yo M who was brought into the hospital after he had a fall from a sitting position and sustained a left hip intertrochanteric fracture. He is nonambulatory and is in a wheelchair. After discussing the procedure at length, to enable better pain control and for the patient to be over get up to his chair, the patient elected for operative management with a cephalomedullary nail of the left hip. The risks and benefits of the procedure were fully explained. Those risks include but are not limited to, infection, neurovascular injury, continued pain, arthritis, stiffness, further injury, need for further surgery, DVT, PE, loss of limb, and loss of life. The patient understood all of these risks and wished to proceed. Informed consent was obtained. No guarantees were stated or implied. OPERATIVE REPORT: The patient was identified in the holding area. The left lower extremity was marked, the patient was taken to the operating room and general anesthetic was administered on the hospital bed. The patients head, neck and airway were protected by anesthesia through the case. The patient was then transferred to the fracture table and placed in the supine position with a well padded perineal post. All bony prominences were well padded. The left leg was attached to the traction device on the fracture bed. The right leg was then placed in a well leg pedersen and positioned out of the way of fluoroscopy. We then utilized the fracture table to reduce the fracture and obtained fluoroscopic images in AP and lateral planes confirming alignment. The left lower extremity was then prepped and draped in the normal manner. Preoperative antibiotics were given prior to incision. A surgical time out protocol was then performed. We then made an incision just proximal to the greater trochanter. We dissected down and through the IT band. We were then able to palpate the greater trochanter and we placed a guidepin in the appropriate starting position on the greater trochanter. We advanced the guidepin and the proximal femur slightly and then confirmed the position in both AP and lateral planes. After confirming acceptable pin placement, we advanced the pin to the level of the lesser trochanter. We then utilized an entry reamer over the pin to open up the canal. We then placed a 10 mm size short Synthes nail. We advanced the nail to the appropriate depth taking care to avoid any further injury. When the nail was at the appropriate depth we used the outrigger to place a blade into the femoral head. We drilled a guidepin to the subchondral bone and measured this to be appropriate for a 100 mm blade. We then overdrilled the guidepin and placed the blade through the nail and into the femoral head. After confirming acceptable alignment of the fracture, we used the outrigger to place a distal locking screw from lateral to medial. At this point we obtained final fluoroscopic images of the left hip and femur in both AP and lateral planes. We then thoroughly irrigated the wounds and closed the IT band with 0 Vicryl. Subcutaneous tissues were closed with 2-0 stratafix. Skin was closed with 3-0 stratifix. We then placed sterile dressings the patient was awoken by anesthesia and transferred to PACU in stable condition. Patient tolerated the procedure well. Postop plan: The patient will be transferred back to the floor and will be weight-bearing as tolerated postop. Implants: synthes short TFN nail, 100 mm blade Anesthesia: AISHWARYA Surgeon: Eze Welch Was there an virtual office assistant present: No Estimated blood loss (cc): 50 Condition: stable Disposition: PACU
[2017-04-11] MEDS: OXYCODONE Oral CONC 10 MG/0.5 ML ORAL.SYG SL PRN ×2 (17:11→23:35)
[2017-04-11] MEDS: Dexmedetomidine HCl 400 MCG/100 ML MLS IVC SCH (17:15)
[2017-04-11 17:32] LABS: Basophils % 0.2 %; Eosinophils % 0.4 %; Hematocrit 35.8 % (37.5-50.1); Hemoglobin 12.4 g/dL (12.9-16.9); Immature Granulocytes % 0.5 % (0-4); Lymphocytes # 0.7 K/mcL (0.6-4.6); Lymphocytes % 6.3 %; Mean Corpuscular HGB Conc 34.6 g/dL (31.6-35.5); Mean Corpuscular Hemoglobin 35.6 pg (28.0-33.3); Mean Corpuscular Volume 102.9 fL (83.0-100.0); Mean Platelet Volume 10.7 fL (9.4-12.4); Monocytes # 0.3 K/mcL (0.0-1.3); Monocytes % 3.1 %; Neutrophils # 9.4 K/mcL (1.6-8.9); Red Blood Count 3.48 M/mcL (4.19-5.50); Segmented Neutrophils % 89.5 %
[2017-04-11 17:34] LABS: Platelet Count 51 K/mcL (140-400)
[2017-04-11] MEDS: CeFAZolin Premix DUPLEX 2,000 MG/50 ML BAG IVPB SCH ×2 (17:41→23:36)
[2017-04-11 17:50] LABS: BUN/Creatinine Ratio 22 (6-26); Blood Urea Nitrogen 22 mg/dL (8-23); Calcium 8.2 mg/dL (8.6-10.3); Carbon Dioxide 27 mEq/L (23-29); Chloride 99 mEq/L (98-107); Glucose 119 mg/dL (70-105); Magnesium 1.9 mg/dL (1.6-2.6); Osmolality,Calculated 284 (280-300); Potassium 3.7 mEq/L (3.5-5.1); Sodium 135 mEq/L (136-145); eGFR For Non-African Americans > 60 (> 60)
[2017-04-11 17:53] LABS: Platelet Estimate Decreased (Normal)
--- NOTE | 2017-04-11 18:26 | Anesthesia Evaluation Post Op ---
Date of Encounter: 04/11/17 Time of Encounter: 18:25 - Vital Signs Vital Signs: Vital Signs/O2 Sat, Most Current Temp Pulse Resp BP Pulse Ox 97.5 F L 88 23 115/82 97 04/11/17 17:10 04/11/17 17:10 04/11/17 17:10 04/11/17 17:10 04/11/17 17:10 - Lungs Lungs: Clear Ascult./Percussion - Airway Airway: Non-obstructed - Cardiovascular Regular Rate - Mental Status Mental Status: Sedated - Pain Pain Scale used: Unable to assess
[2017-04-11] MEDS: Metoprolol XL (24 HR) Succ 25 MG TAB.ER.24H PO SCH (20:54)
[2017-04-12] MEDS: Dexmedetomidine HCl 400 MCG/100 ML MLS IVC SCH (04:30)
[2017-04-12 06:42] LABS: Immature Granulocytes % 0.7 % (0-4)
[2017-04-12 06:44] LABS: Basophils % 0.1 %; Eosinophils % 0.1 %; Hematocrit 31.5 % (37.5-50.1); Hemoglobin 10.4 g/dL (12.9-16.9); Immature Platelets 5.6 % (1.1-6.1); Lymphocytes # 1.1 K/mcL (0.6-4.6); Lymphocytes % 15.8 %; Mean Corpuscular Hemoglobin 34.6 pg (28.0-33.3); Mean Corpuscular Volume 104.7 fL (83.0-100.0); Mean Platelet Volume 10.8 fL (9.4-12.4); Monocytes # 0.5 K/mcL (0.0-1.3); Monocytes % 6.3 %; Neutrophils # 5.5 K/mcL (1.6-8.9); Nucleated Red Blood Cells 0.4 /100 WBC (0); Red Blood Count 3.01 M/mcL (4.19-5.50); Red Cell Distribution Width 16.6 % (11.5-14.5)
[2017-04-12 07:08] LABS: BUN/Creatinine Ratio 23 (6-26); Blood Urea Nitrogen 19 mg/dL (8-23); Calcium 7.9 mg/dL (8.6-10.3); Carbon Dioxide 29 mEq/L (23-29); Chloride 100 mEq/L (98-107); Glucose 114 mg/dL (70-105); Osmolality,Calculated 287 (280-300); Potassium 3.9 mEq/L (3.5-5.1); Sodium 137 mEq/L (136-145); eGFR For Non-African Americans > 60 (> 60)
[2017-04-12] MEDS: OXYCODONE Oral CONC 10 MG/0.5 ML ORAL.SYG SL PRN ×2 (07:24→18:42)
[2017-04-12] MEDS: Folic Acid 1 MG TABLET PO SCH (07:25)
[2017-04-12] MEDS: Vitamin B Complex/Vit C/Vit E 1 EACH TABLET PO SCH (07:25)
[2017-04-12] MEDS: Thiamine (B-1) 100 MG TABLET PO SCH (07:25)
[2017-04-12] MEDS: Venlafaxine XR (24 HR) 150 MG CAP.ER.24H PO SCH (07:25)
[2017-04-12] MEDS: Metoprolol XL (24 HR) Succ 25 MG TAB.ER.24H PO SCH (07:25)
[2017-04-12 08:01] LABS: Platelet Count 50 K/mcL (140-400)
--- NOTE | 2017-04-12 08:50 | Internal Med Progress Note ---
<Matty Boyle - Last Filed: 04/12/17 16:05> Date of Encounter: 04/12/17 - Subjective Interval history: Other than history of present illness a 10 point review of systems is negative - Constitutional Vitals: Temp Pulse Resp BP Pulse Ox 97.9 F 69 14 91/66 96 04/12/17 12:28 04/12/17 14:54 04/12/17 14:54 04/12/17 14:53 04/12/17 11:06 Internal Medicine: Result - Labs CBC & Chem 7: 04/12/17 06:07 04/12/17 06:07 Labs: Short CBC 04/11/17 04/12/17 Range/Units 17:23 06:07 WBC 10.5 D 7.1 (4.3-11.1) K/mcL Hgb 12.4 L 10.4 L D (12.9-16.9) g/dL Hct 35.8 L 31.5 L (37.5-50.1) % Plt Count 51 L 50 L (140-400) K/mcL Neutrophils # 9.4 H 5.5 (1.6-8.9) K/mcL BMP 04/11/17 04/12/17 17:23 06:07 Sodium 135 L 137 Potassium 3.7 3.9 Chloride 99 100 Carbon Dioxide 27 29 BUN 22 19 Creatinine 1.00 0.82 Glucose 119 H 114 H Calcium 8.2 L 7.9 L - Impressions Impressions Fluoroscopy 04/11/17 14:55 IMPRESSION: Intraprocedural fluoroscopic spot images as above. See separate procedure report for more information. D/ / Trevon Jacinto MD / Trevon Jacinto MD Interpreting Provider: Trevon Jacinto MD Hip X-Ray 04/11/17 15:52 IMPRESSION: Anatomic alignment status post internal fixation of the left femoral neck D/ / Tree Solares MD / Tree Solares MD Interpreting Provider: Tree Solares MD Consult Discharge Plan - Plan Referrals: [facility],PCP [Primary Care Provider] - 04/23/17 2:15 pm - Attending Attestation I personally interviewed and examined this patient. I agree with the findings, assessment, and plan of Dr. Lassiter, internal medicine manager international. Patient is currently postop day 1 and left hip fracture repair. He is weaned off Precedex and now on scheduled Librium with when necessary Ativan. His vitals remained stable. He is not showing any worsening withdrawal symptoms since taken off the Precedex. We will continue to closely monitor. Patient will likely need rehabilitation placement. He has been counseled on his alcohol use but at this point does not appear to be motivated to stop. <Philipp Lassiter - Last Filed: 04/12/17 17:10> Date of Encounter: 04/12/17 Time of Encounter: 08:59 - Assessment and plan (1) Closed left hip fracture Current Visit: Yes Status: Acute Assessment and plan: Patient status post fall while intoxicated Found to have left hip fracture. Current radiology left intertrochanteric hip fracture, with mild impaction, with there is any relation of the distal fragment. Orthopedics was consulted the patient underwent definitive fixation yesterday in surgery. Dilaudid 2 mg Q4H PRN severe pain Morphine 5mg SL Q10 PRN for pain Oxycodone 10mg SL Q6H PRN for pain Qualifiers: Encounter type: initial encounter Qualified Code(s): S72.002A - Fracture of unspecified part of neck of left femur, initial encounter for closed fracture (2) ETOH abuse Current Visit: No Status: Acute Assessment and plan: Patient was initially placed on CIWA protocol 2 nights ago he was placed on Precedex drip for agitation and delirium Systolic is in the 90's plan is to discontinue the Precedex and we will start the patient on 3 times a day 25 mg Librium (3) HTN (hypertension) Current Visit: No Status: Acute Assessment and plan: History of hypertension holding home metoprolol due to hypotension. Qualifiers: Hypertension type: essential hypertension Qualified Code(s): I10 - Essential (primary) hypertension (4) DVT prophylaxis Current Visit: No Status: Acute Assessment and plan: EPCD for DVT. 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 Patient was scanned for his injuries in the emergency department which did reveal a left hip fracture, 1 new rib fracture and chronic rib fractures, no other abnormalities of the spine, shoulder and no bleed in the head. The patient's alcohol level is 251. He is on Xarelto at home but states that he has not taken it recently due to running out of the medication. He denied any LOC at that time. Patient was started on CIWA protocol. 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 This morning the Precedex drip is being titrated down and the patient is becoming more alert we will switch him to 3 times a day Librium. Patient underwent left hip surgery yesterday. - Constitutional Vitals: Temp Pulse Resp BP Pulse Ox 97.5 F L 70 15 140/88 93 04/12/17 03:01 04/12/17 07:27 04/12/17 07:27 04/12/17 07:27 04/12/17 03:01 General appearance: Present: no acute distress Exam: Patient is still experiencing sedation from Precedex. - Head Head exam: Present: atraumatic, normal inspection - Eye Eye exam: Present: normal appearance, PERRL - Neck Neck exam general surgery: Present: full ROM, normal inspection - Respiratory Respiratory exam: Present: CTAB. Absent: rales, rhonchi, wheezes - Cardiovascular Cardiovascular exam: Present: RRR, +S1, +S2 - GI/Abdominal GI/Abdominal exam: Present: normal bowel sounds. Absent: firm, guarding - Extremities Exam Extremities exam: Present: normal capillary refill, normal inspection, warm. Absent: pedal edema, tenderness Additional comments: Well-healing surgical wound. - Back Exam Back exam: Present: full ROM, normal inspection - Neurological Exam Neurological exam: Present: altered (On sedation from Precedex. Still able to follow commands.), no focal deficits - Skin Skin exam: Present: dry, intact, normal color. Absent: rash Internal Medicine: Result - Labs CBC & Chem 7: 04/12/17 06:07 04/12/17 06:07 Labs: Short CBC 04/11/17 04/12/17 Range/Units 17:23 06:07 WBC 10.5 D 7.1 (4.3-11.1) K/mcL Hgb 12.4 L 10.4 L D (12.9-16.9) g/dL Hct 35.8 L 31.5 L (37.5-50.1) % Plt Count 51 L 50 L (140-400) K/mcL Neutrophils # 9.4 H 5.5 (1.6-8.9) K/mcL BMP 04/11/17 04/12/17 17:23 06:07 Sodium 135 L 137 Potassium 3.7 3.9 Chloride 99 100 Carbon Dioxide 27 29 BUN 22 19 Creatinine 1.00 0.82 Glucose 119 H 114 H Calcium 8.2 L 7.9 L - Impressions Impressions Fluoroscopy 04/11/17 14:55 IMPRESSION: Intraprocedural fluoroscopic spot images as above. See separate procedure report for more information. D/ / Trevon Jacinto MD / Trevon Jacinto MD Interpreting Provider: Trevon Jacinto MD Hip X-Ray 04/11/17 15:52 IMPRESSION: Anatomic alignment status post internal fixation of the left femoral neck D/ / Tree Solares MD / Tree Solares MD Interpreting Provider: Tree Solares MD - VTE Documentation of Mechanical Device: Intermittent pneumatic compression device
[2017-04-12] MEDS ORDERED: 0.9 % Sodium Chloride 500 ML IVC ONE (15:00)
[2017-04-12] MEDS ORDERED: 0.9 % Sodium Chloride 1,000 ML IVC ONE (15:07)
[2017-04-12] MEDS: *HR* LORazepam 2 MG/ML VIAL IVP PRN (17:44)
[2017-04-13] MEDS: OXYCODONE Oral CONC 10 MG/0.5 ML ORAL.SYG SL PRN (04:36)
[2017-04-13 04:51] LABS: Monocytes % 7.6 %
[2017-04-13 04:53] LABS: Basophils % 0.3 %; Eosinophils # 0.1 K/mcL (0.0-0.6); Eosinophils % 1.4 %; Hematocrit 29.5 % (37.5-50.1); Hemoglobin 9.8 g/dL (12.9-16.9); Immature Granulocytes % 1.2 % (0-4); Immature Platelets 3.4 % (1.1-6.1); Lymphocytes # 1.6 K/mcL (0.6-4.6); Lymphocytes % 24.1 %; Mean Corpuscular HGB Conc 33.2 g/dL (31.6-35.5); Mean Corpuscular Hemoglobin 34.6 pg (28.0-33.3); Mean Corpuscular Volume 104.2 fL (83.0-100.0); Mean Platelet Volume 10.1 fL (9.4-12.4); Monocytes # 0.5 K/mcL (0.0-1.3); Neutrophils # 4.3 K/mcL (1.6-8.9); Nucleated Red Blood Cells 0.3 /100 WBC (0); Red Blood Count 2.83 M/mcL (4.19-5.50); Red Cell Distribution Width 16.3 % (11.5-14.5); Segmented Neutrophils % 65.4 %
[2017-04-13 04:55] LABS: Platelet Count 70 K/mcL (140-400)
[2017-04-13 05:04] LABS: BUN/Creatinine Ratio 22 (6-26); Blood Urea Nitrogen 14 mg/dL (8-23); Carbon Dioxide 27 mEq/L (23-29); Chloride 101 mEq/L (98-107); Glucose 75 mg/dL (70-105); Osmolality,Calculated 283 (280-300); Potassium 3.6 mEq/L (3.5-5.1); Sodium 137 mEq/L (136-145); eGFR For Non-African Americans > 60 (> 60)
[2017-04-13] MEDS: Venlafaxine XR (24 HR) 150 MG CAP.ER.24H PO SCH (07:55)
[2017-04-13] MEDS: Vitamin B Complex/Vit C/Vit E 1 EACH TABLET PO SCH (07:55)
[2017-04-13] MEDS: Folic Acid 1 MG TABLET PO SCH (07:55)
[2017-04-13] MEDS: Thiamine (B-1) 100 MG TABLET PO SCH (07:55)
--- NOTE | 2017-04-13 09:42 | Internal Med Progress Note ---
<Matty Boyle Lj - Last Filed: 04/13/17 13:22> Date of Encounter: 04/13/17 - Constitutional Vitals: Temp Pulse Resp BP Pulse Ox 98.8 F 96 15 142/82 96 04/13/17 10:00 04/13/17 10:00 04/13/17 10:00 04/13/17 10:00 04/13/17 10:00 Internal Medicine: Result - Labs CBC & Chem 7: 04/13/17 04:31 04/13/17 04:31 Labs: Short CBC 04/13/17 Range/Units 04:31 WBC 6.6 (4.3-11.1) K/mcL Hgb 9.8 L (12.9-16.9) g/dL Hct 29.5 L (37.5-50.1) % Plt Count 70 L (140-400) K/mcL Neutrophils # 4.3 (1.6-8.9) K/mcL BMP 04/13/17 04:31 Sodium 137 Potassium 3.6 Chloride 101 Carbon Dioxide 27 BUN 14 Creatinine 0.63 L Glucose 75 Calcium 8.0 L Consult Discharge Plan - Plan Additional Instructions: PROCEDURE PERFORMED Reduction and fixation of left hip. Incision care -Daily dressing changes to the left hip with dry gauze and either paper tape or medipore tape. -Avoid soaking wound in water (no hot tubs, bathtubs, swimming pools). -May shower after 2 weeks from surgery date. Carefully wash incision with soap and water. Gently pat it dry. Don't rub the incision, or apply creams or lotions. Sit on a shower stool when showering to keep from falling. Weight bearing status -Weightbearing as tolerated to the bilateral lower extremities. Medications -Pain medication per the discharging medical doctor -Recommend enteric coated aspirin 325 mg by mouth twice per day for 28 days from the date of the surgery. [-Resume 50,000 units of vitamin D2 weekly and 1200 mg of calcium supplementation per day.] Other -Knee high JANA hose 23 hours per day -Consult physical and occupational therapy for mobilization. -Up to chair with assistance at least twice per day. -Follow up with your primary care physician to discuss testing for bone mineral density. Follow-up with Dr. Welch at the office 2 weeks from the surgery date for a post operative evaluation. Call the office at [phone] to schedule appointment. Referrals: [facility],PCP [Primary Care Provider] - 04/23/17 2:15 pm - Attending Attestation I personally interviewed and examined this patient. I agree with the findings, assessment, and plan of , internal medicine international project engineer. Patient appears to be doing well from an orthopedic standpoint. Orthopedic surgery input is noted and appreciated. His pain appears to be controlled. His alcohol withdrawal symptoms are near completely resolved. He has been off the Precedex drip for over a day now. He is on Librium 25 mg by mouth 3 times a day and anticipate we will wean this over the next week. Patient will likely need to go to a facility as soon as it can be arranged, and if he remains free of alcohol withdrawal symptoms, and if okay by orthopedic surgery. Patient remains hemodynamically stable. His hemoglobin has dropped from 13.5- 9.8. This likely represents an acute perioperative blood loss anemia, which is expected. All else as outlined above. <Philipp Lassiter - Last Filed: 04/13/17 15:12> Date of Encounter: 04/13/17 Time of Encounter: 09:39 - Assessment and plan (1) Closed left hip fracture Current Visit: Yes Status: Acute Assessment and plan: Patient status post fall while intoxicated Postop day 2 left hip surgery Dilaudid 2 mg Q4H PRN severe pain Morphine 5mg SL Q10 PRN for pain Oxycodone 10mg SL Q6H PRN for pain Hemoglobin today is 9.8 which is decreased from 10.4. Most likely post surgical and related to patient receiving fluid bolus overnight. We will continue to trend. Patient can be discharged to [facility] when ready, no bed available till Sunday. Qualifiers: Encounter type: initial encounter Qualified Code(s): S72.002A - Fracture of unspecified part of neck of left femur, initial encounter for closed fracture (2) ETOH abuse Current Visit: No Status: Acute Assessment and plan: Currently on CIWA. Librium 25 mg 3 times a day. Patient required no benzos last night plan is to de-escalate Librium today to twice a day dosing. Blood pressure improved to 140s over 80s. (3) HTN (hypertension) Current Visit: No Status: Acute Assessment and plan: History of hypertension holding home metoprolol due to hypotension. Qualifiers: Hypertension type: essential hypertension Qualified Code(s): I10 - Essential (primary) hypertension (4) DVT prophylaxis Current Visit: No Status: Acute Assessment and plan: EPCD for DVT. 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 Patient was scanned for his injuries in the emergency department which did reveal a left hip fracture, 1 new rib fracture and chronic rib fractures, no other abnormalities of the spine, shoulder and no bleed in the head. The patient's alcohol level is 251. He is on Xarelto at home but states that he has not taken it recently due to running out of the medication. He denied any LOC at that time. Patient was started on CIWA protocol. POD#2 left hip surgery. Patient required no benzos overnight. This morning he is alert and oriented 3, remains drowsy. States that he ate some dinner last night. Plan to decrease Librium today. Patient mainly complain of left hip pain which is consistent with POD#2. According to social worker [facility]. Other than HPI a 10 pt ROS is negative - Constitutional Vitals: Temp Pulse Resp BP Pulse Ox 98.5 F 93 16 139/85 97 04/13/17 06:00 04/13/17 06:00 04/13/17 06:00 04/13/17 06:00 04/13/17 06:00 General appearance: Present: A&O X 3, no acute distress - Head Head exam: Present: atraumatic, normal inspection, normocephalic - Eye Eye exam: Present: normal appearance, PERRL - Neck Neck exam general surgery: Present: normal inspection - Respiratory Respiratory exam: Present: CTAB. Absent: rales, rhonchi, wheezes - Cardiovascular Cardiovascular exam: Present: RRR, +S1, +S2 - GI/Abdominal GI/Abdominal exam: Present: normal bowel sounds, soft, no peritoneal signs. Absent: guarding, tenderness - Extremities Exam Extremities exam: Present: normal capillary refill, tenderness (Round area of incision for surgery. No surrounding erythema or drainage or obvious sign of infection.), warm. Absent: joint swelling, pedal edema - Neurological Exam Neurological exam: Present: oriented X3, no focal deficits Additional comments: Patient remained somnolent. - Psychiatric Psychiatric exam: Present: normal affect, normal mood - Skin Skin exam: Present: dry, intact, normal color, warm Internal Medicine: Result - Labs CBC & Chem 7: 04/13/17 04:31 04/13/17 04:31 Labs: Short CBC 04/13/17 Range/Units 04:31 WBC 6.6 (4.3-11.1) K/mcL Hgb 9.8 L (12.9-16.9) g/dL Hct 29.5 L (37.5-50.1) % Plt Count 70 L (140-400) K/mcL Neutrophils # 4.3 (1.6-8.9) K/mcL BMP 04/13/17 04:31 Sodium 137 Potassium 3.6 Chloride 101 Carbon Dioxide 27 BUN 14 Creatinine 0.63 L Glucose 75 Calcium 8.0 L - VTE Documentation of Mechanical Device: Intermittent pneumatic compression device
[2017-04-13] MEDS: *HR* HYDROmorphone 2 MG TABLET PO PRN ×2 (10:08→20:52)
--- NOTE | 2017-04-13 11:28 | Orthopedics Progress Note ---
Date of Encounter: 04/13/17 Time of Encounter: 11:26 - Assessment and Plan (1) Intertrochanteric fracture of right hip Current Visit: No Status: Acute Qualifiers: Encounter type: initial encounter Fracture type: closed Fracture alignment: displaced Qualified Code(s): S72.141A - Displaced intertrochanteric fracture of right femur, initial encounter for closed fracture Subjective Interval history: S: Patient resting comfortably. Responds to some questions. Hip pain improved O: AFVSS GEN: NAD LLE: Dress c/d/i SILT s/s/t/sp/dp +EHL/PF/DF A/P:67 yo M POD#2 s/p L hip CMN -WBAT -Up to chair with PT -Med management, DVT ppx and pain control per hospitalist -F/u in office in 2 weeks Objective Vital signs: Vital Signs Temp Pulse Resp BP Pulse Ox 04/13/17 10:00 98.8 F 96 15 142/82 96 04/13/17 06:00 98.5 F 93 16 139/85 97 04/13/17 04:45 80 16 98 04/13/17 00:51 93 04/13/17 00:02 98.5 F 95 16 129/79 98 04/12/17 21:10 92 16 98 04/12/17 19:59 97.6 F 92 16 106/68 94 04/12/17 16:31 100/65 04/12/17 16:19 97.8 F 70 15 88/63 95 04/12/17 15:30 67 17 96 04/12/17 15:29 86/58 04/12/17 14:54 69 14 04/12/17 14:53 91/66 04/12/17 12:28 97.9 F 92/65 04/12/17 12:06 107/69 04/12/17 11:46 74 121/75 Intake and Output 04/12/17 04/13/17 04/13/17 23:59 07:59 15:59 Intake Total 25 / 25 Balance 25 / 25 Intake: Oral 25 / 25 Other: Meal Breakfast Percent of Meal Consumed 25% # Voids 1 # Urine Diapers 1 Blood Glucose* 94 86 - Labs CBC & BMP: 04/13/17 04:31 04/13/17 04:31 Labs: Abnormal lab results RBC 2.83 M/mcL (4.19-5.50) L 04/13/17 04:31 Hgb 9.8 g/dL (12.9-16.9) L 04/13/17 04:31 Hct 29.5 % (37.5-50.1) L 04/13/17 04:31 MCV 104.2 fL (83.0-100.0) H 04/13/17 04:31 MCH 34.6 pg (28.0-33.3) H 04/13/17 04:31 RDW 16.3 % (11.5-14.5) H 04/13/17 04:31 Plt Count 70 K/mcL (140-400) L 04/13/17 04:31 Nucleated RBCs/100 WBC 0.3 /100 WBC (0) H 04/13/17 04:31 Platelet Estimate Decreased (Normal) L 04/11/17 17:23 Creatinine 0.63 mg/dL (0.70-1.30) L 04/13/17 04:31 POC Glucose 94 (58-89) H 04/12/17 16:45 Calcium 8.0 mg/dL (8.6-10.3) L 04/13/17 04:31 AST 126 Units/L (13-39) H 04/09/17 21:31 ALT 90 Units/L (7-52) H 04/09/17 21:31 Creatine Kinase 493 Units/L (30-223) H 04/10/17 06:42 Serum Total Protein 6.2 g/dL (6.4-8.9) L 04/09/17 21:31 Albumin 3.4 g/dL (3.5-5.7) L 04/09/17 21:31 HDL Cholesterol 90 mg/dL (40-59) H 04/10/17 06:42 Ethyl Alcohol 351 mg/dL (0-10) H 04/09/17 21:31 - VTE Documentation of Mechanical Device: Intermittent pneumatic compression device Consult Discharge Plan - Plan Additional Instructions: PROCEDURE PERFORMED Reduction and fixation of left hip. Incision care -Daily dressing changes to the left hip with dry gauze and either paper tape or medipore tape. -Avoid soaking wound in water (no hot tubs, bathtubs, swimming pools). -May shower after 2 weeks from surgery date. Carefully wash incision with soap and water. Gently pat it dry. Don't rub the incision, or apply creams or lotions. Sit on a shower stool when showering to keep from falling. Weight bearing status -Weightbearing as tolerated to the bilateral lower extremities. Medications -Pain medication per the discharging medical doctor -Recommend enteric coated aspirin 325 mg by mouth twice per day for 28 days from the date of the surgery. [-Resume 50,000 units of vitamin D2 weekly and 1200 mg of calcium supplementation per day.] Other -Knee high JANA hose 23 hours per day -Consult physical and occupational therapy for mobilization. -Up to chair with assistance at least twice per day. -Follow up with your primary care physician to discuss testing for bone mineral density. Follow-up with Dr. Welch at the office 2 weeks from the surgery date for a post operative evaluation. Call the office at [phone] to schedule appointment. [facility]errals: [facility] [Primary Care Provider[facility] - 04/23/17 2:15 pm
[2017-04-13] MEDS: Metoprolol XL (24 HR) Succ 25 MG TAB.ER.24H PO SCH ×2 (14:19→20:47)
[2017-04-14 03:16] LABS: Basophils % 0.5 %; Eosinophils # 0.1 K/mcL (0.0-0.6); Eosinophils % 1.5 %; Hematocrit 32.2 % (37.5-50.1); Hemoglobin 10.8 g/dL (12.9-16.9); Immature Granulocytes % 1.5 % (0-4); Immature Platelets 2.8 % (1.1-6.1); Lymphocytes # 1.9 K/mcL (0.6-4.6); Lymphocytes % 25.1 %; Mean Corpuscular HGB Conc 33.5 g/dL (31.6-35.5); Mean Corpuscular Hemoglobin 35.4 pg (28.0-33.3); Mean Corpuscular Volume 105.6 fL (83.0-100.0); Mean Platelet Volume 9.6 fL (9.4-12.4); Monocytes # 0.7 K/mcL (0.0-1.3); Monocytes % 9.5 %; Neutrophils # 4.7 K/mcL (1.6-8.9); Platelet Count 122 K/mcL (140-400); Red Blood Count 3.05 M/mcL (4.19-5.50); Red Cell Distribution Width 16.7 % (11.5-14.5); Segmented Neutrophils % 61.9 %
[2017-04-14 03:30] LABS: BUN/Creatinine Ratio 17 (6-26); Blood Urea Nitrogen 12 mg/dL (8-23); Calcium 8.8 mg/dL (8.6-10.3); Carbon Dioxide 24 mEq/L (23-29); Chloride 100 mEq/L (98-107); Glucose 91 mg/dL (70-105); Osmolality,Calculated 281 (280-300); Potassium 3.5 mEq/L (3.5-5.1); Sodium 136 mEq/L (136-145); eGFR For Non-African Americans > 60 (> 60)
[2017-04-14] MEDS: Folic Acid 1 MG TABLET PO SCH (07:44)
[2017-04-14] MEDS: Vitamin B Complex/Vit C/Vit E 1 EACH TABLET PO SCH (07:44)
[2017-04-14] MEDS: Metoprolol XL (24 HR) Succ 25 MG TAB.ER.24H PO SCH ×2 (07:44→19:59)
[2017-04-14] MEDS: *HR* HYDROmorphone 2 MG TABLET PO PRN (07:44)
[2017-04-14] MEDS: Thiamine (B-1) 100 MG TABLET PO SCH (07:44)
[2017-04-14] MEDS: Venlafaxine XR (24 HR) 150 MG CAP.ER.24H PO SCH (07:44)
[2017-04-14] MEDS: *HR* LORazepam 2 MG/ML VIAL IVP PRN ×5 (08:56→23:30)
[2017-04-14] MEDS ORDERED: *HR* Enoxaparin 40 MG/0.4 ML SYRINGE SQ SCH (11:15)
--- NOTE | 2017-04-14 11:20 | Internal Med Progress Note ---
Date of Encounter: 04/14/17 Time of Encounter: 09:30 - Assessment and plan (1) Closed left hip fracture Current Visit: Yes Status: Acute Assessment and plan: Postop day 3 left hip intertrochanteric nail Patient is doing well from an orthopedic standpoint. Pain control is improving. Increase activity with physical therapy. [facility] Qualifiers: Encounter type: initial encounter Qualified Code(s): S72.002A - Fracture of unspecified part of neck of left femur, initial encounter for closed fracture (2) Closed rib fracture Current Visit: Yes Status: Acute Assessment and plan: Due to recent fall. Continue incentive spirometry. Qualifiers: Encounter type: initial encounter Rib fracture type: single rib Laterality: right Qualified Code(s): S22.31XA - Fracture of one rib, right side, initial encounter for closed fracture (3) Alcohol abuse Current Visit: No Status: Acute Assessment and plan: 04/14: Patient has been off Precedex for 2 days now. Doing well with Librium taper. Currently reduced dose of Librium to 12.5 mg by mouth twice a day, anticipate stop altogether in 1-2 days. He remains on oral folic acid and thiamine replacement. Patient has been counseled on alcohol abuse although he does not appear motivated to stop. (4) HTN (hypertension) Current Visit: No Status: Acute Assessment and plan: History of hypertension holding home metoprolol due to hypotension 04/14: Blood pressure reasonably well controlled continue Toprol-XL 25 mg by mouth twice a day Qualifiers: Hypertension type: essential hypertension Qualified Code(s): I10 - Essential (primary) hypertension (5) History of prostate cancer Current Visit: No Status: Acute Assessment and plan: He continues on Flomax. (6) Tobacco abuse Current Visit: No Status: Acute Assessment and plan: Patient is counseled in cessation is urged. He does not appear motivated to quit. (7) Anemia Current Visit: No Status: Acute Assessment and plan: Acute blood loss anemia due to perioperative blood loss. This is expected. His hemoglobin remains fairly stable. Qualifiers: Anemia type: other cause Qualified Code(s): D64.89 - Other specified anemias - Time Spent With Patient 25 - 35 minutes - Subjective Interval history: Mr. Victoria is a 67 year old male c PMHx of ETOH abuse, prostate CA, HLD, HTN, multiple falls reports to the [facility] ED brought in by EMS s/p Fall 7 hours ago. Patient was intoxicated upon admission. Patient reports pain in R shoulder and L hip. Patient was castellanos scanned in the ED which showed L hip Fx, 1 new rib fx and chronic rib fractures, no abnormality in the spine, shoulder, and no bleed in the head. Patient's ETOH was 351. Patient is on Xarelto at home but reprots not takign it recently because he ran out. Patient denies LOC, other complaints at this time. 04/14: Patient is doing well. His withdrawals have resolved he is mildly tremulous and we are weaning him off Librium. He is stable from an orthopedic standpoint. He is currently awaiting placement at the [facility]. He denies any chest pain or shortness of breath. No fevers or chills. No nausea, vomiting, diarrhea. He does continue to complain of pain in his left hip but it is improved with medication. Other than history of present illness a 10 point review of systems is negative - Constitutional Vitals: Temp Pulse Resp BP Pulse Ox 98.4 F 114 20 143/90 98 04/14/17 07:38 04/14/17 07:38 04/14/17 07:38 04/14/17 07:38 04/14/17 07:38 General appearance: Present: A&O X 3, no acute distress - Head Head exam: Present: atraumatic, normocephalic - Eye Eye exam: Present: PERRL, conjuntiva pink, sclera anicteric Pupils: Present: PERRL - Neck Neck exam general surgery: Present: supple, trachea midline. Absent: lymphadenopathy - Respiratory Respiratory exam: Present: CTAB. Absent: accessory muscle use, rales, rhonchi, wheezes - Cardiovascular Cardiovascular exam: Present: RRR, +S1, +S2. Absent: diastolic murmur, gallop, rubs, systolic murmur - GI/Abdominal GI/Abdominal exam: Present: normal bowel sounds, soft, no peritoneal signs. Absent: distended, tenderness - Extremities Exam Extremities exam: Present: warm, radial pulses palpable and symmetrical. Absent : calf tenderness, cyanotic, pedal edema Additional comments: Left hip incision looks clean and dry. Dressing in place. - Neurological Exam Neurological exam: Present: CN II-XII intact, oriented X3, no focal deficits. Absent: pronater drift, facial droop, speech deficit Additional comments: bilateral hand tremor which is improved - Skin Skin exam: Present: dry, intact Internal Medicine: Result - Labs CBC & Chem 7: 04/14/17 03:03 04/14/17 03:03 Labs: Short CBC 04/14/17 Range/Units 03:03 WBC 7.6 (4.3-11.1) K/mcL Hgb 10.8 L (12.9-16.9) g/dL Hct 32.2 L (37.5-50.1) % Plt Count 122 L D (140-400) K/mcL Neutrophils # 4.7 (1.6-8.9) K/mcL BMP 04/14/17 03:03 Sodium 136 Potassium 3.5 Chloride 100 Carbon Dioxide 24 BUN 12 Creatinine 0.69 L Glucose 91 Calcium 8.8 - VTE Documentation of Mechanical Device: Intermittent pneumatic compression device Consult Discharge Plan - Plan Additional Instructions: PROCEDURE PERFORMED Reduction and fixation of left hip. Incision care -Daily dressing changes to the left hip with dry gauze and either paper tape or medipore tape. -Avoid soaking wound in water (no hot tubs, bathtubs, swimming pools). -May shower after 2 weeks from surgery date. Carefully wash incision with soap and water. Gently pat it dry. Don't rub the incision, or apply creams or lotions. Sit on a shower stool when showering to keep from falling. Weight bearing status -Weightbearing as tolerated to the bilateral lower extremities. Medications -Pain medication per the discharging medical doctor -Recommend enteric coated aspirin 325 mg by mouth twice per day for 28 days from the date of the surgery. [-Resume 50,000 units of vitamin D2 weekly and 1200 mg of calcium supplementation per day.] Other -Knee high JANA hose 23 hours per day -Consult physical and occupational therapy for mobilization. -Up to chair with assistance at least twice per day. -Follow up with your primary care physician to discuss testing for bone mineral density. Follow-up with Dr. Welch at the office 2 weeks from the surgery date for a post operative evaluation. Call the office at [phone] to schedule appointment. [facility]errals: [facility] Care Provider[facility] - 04/23/17 2:15 pm
[2017-04-14] MEDS: Cholecalciferol (D-3) 1,000 UNIT TABLET PO SCH (13:22)
[2017-04-14] MEDS: Aspirin Enteric Coated 325 MG Tablet PO SCH ×2 (13:22→19:59)
[2017-04-14] MEDS: *HR* Metoprolol 5 MG/5 ML VIAL IVP PRN (13:22)
[2017-04-14] MEDS: OXYCODONE Oral CONC 10 MG/0.5 ML ORAL.SYG SL PRN ×2 (16:36→22:16)
[2017-04-14] MEDS: Haloperidol Lactate 5 MG/ML VIAL IVP PRN ×2 (16:40→20:06)
[2017-04-14] MEDS: Nicotine 21 MG PATCH.TD24 TD SCH (16:44)
[2017-04-14] MEDS ORDERED: *HR* LORazepam 2 MG/ML VIAL IVP ONE (17:25)
[2017-04-14] MEDS ORDERED: Haloperidol Lactate 5 MG/ML VIAL IVP ONE (17:27)
[2017-04-15] MEDS: *HR* Metoprolol 5 MG/5 ML VIAL IVP PRN (01:08)
[2017-04-15] MEDS: *HR* LORazepam 2 MG/ML VIAL IVP PRN ×3 (02:20→12:40)
[2017-04-15] MEDS ORDERED: *HR* LORazepam 2 MG/ML VIAL IVP STA (04:26)
[2017-04-15] MEDS ORDERED: *HR* LORazepam 2 MG/ML VIAL ONE (04:29)
--- NOTE | 2017-04-15 05:13 | Event Note ---
Date of Encounter: 04/15/17 Time of Encounter: 05:11 Called for patient actively withdrawing from alcohol and worsening CIWA scores despite Ativan. I assessed patient, and he is tremulous, agitated, hallucinating, and tachycardic. Will transfer to and begin low dose Precedex drip along with CIWA protocol.
[2017-04-15] MEDS: Dexmedetomidine HCl 400 MCG/100 ML MLS IVC SCH ×2 (05:44→17:25)
[2017-04-15] MEDS: Thiamine (B-1) 100 MG TABLET PO SCH (08:51)
[2017-04-15] MEDS: Vitamin B Complex/Vit C/Vit E 1 EACH TABLET PO SCH (08:51)
[2017-04-15] MEDS: Aspirin Enteric Coated 325 MG Tablet PO SCH ×2 (08:51→19:47)
[2017-04-15] MEDS: Venlafaxine XR (24 HR) 150 MG CAP.ER.24H PO SCH (08:51)
[2017-04-15] MEDS: Nicotine 21 MG PATCH.TD24 TD SCH (08:51)
[2017-04-15] MEDS: Cholecalciferol (D-3) 1,000 UNIT TABLET PO SCH (08:51)
[2017-04-15] MEDS: Folic Acid 1 MG TABLET PO SCH (08:51)
[2017-04-15] MEDS: Metoprolol XL (24 HR) Succ 25 MG TAB.ER.24H PO SCH ×2 (08:51→19:47)
[2017-04-15] MEDS ORDERED: 0.9 % Sodium Chloride 500 ML ONE (10:28)
--- NOTE | 2017-04-15 10:33 | Internal Med Progress Note ---
Date of Encounter: 04/15/17 Time of Encounter: 09:00 - Assessment and plan (1) Closed left hip fracture Current Visit: Yes Status: Acute Assessment and plan: Postop day 3 left hip intertrochanteric nail Patient is doing well from an orthopedic standpoint. Pain control is improving. Increase activity with physical therapy. Waiting transfer to the [facility] on Sunday. 04/15: Postop day #4. Qualifiers: Encounter type: initial encounter Qualified Code(s): S72.002A - Fracture of unspecified part of neck of left femur, initial encounter for closed fracture (2) Closed rib fracture Current Visit: Yes Status: Acute Assessment and plan: Due to recent fall. Continue incentive spirometry. Qualifiers: Encounter type: initial encounter Rib fracture type: single rib Laterality: right Qualified Code(s): S22.31XA - Fracture of one rib, right side, initial encounter for closed fracture (3) Alcohol abuse Current Visit: No Status: Acute Assessment and plan: 04/14: Patient has been off Precedex for 2 days now. Doing well with Librium taper. Currently reduced dose of Librium to 12.5 mg by mouth twice a day, anticipate stop altogether in 1-2 days. He remains on oral folic acid and thiamine replacement. Patient has been counseled on alcohol abuse although he does not appear motivated to stop. 04/15: Patient is now back on a Precedex drip, CIWA protocol or ongoing alcohol withdrawal. He is presently calm. We will continue to monitor. Pt is hemodynamically stable, satting 94% on room air. (4) HTN (hypertension) Current Visit: No Status: Acute Assessment and plan: History of hypertension holding home metoprolol due to hypotension 04/15: Blood pressure reasonably well controlled continue Toprol-XL 25 mg by mouth twice a day Qualifiers: Hypertension type: essential hypertension Qualified Code(s): I10 - Essential (primary) hypertension (5) History of prostate cancer Current Visit: No Status: Acute Assessment and plan: He continues on Flomax. (6) Tobacco abuse Current Visit: No Status: Acute Assessment and plan: Patient is counseled in cessation is urged. He does not appear motivated to quit. (7) Anemia Current Visit: No Status: Acute Assessment and plan: Acute blood loss anemia due to perioperative blood loss. This is expected. His hemoglobin remains fairly stable. Qualifiers: Anemia type: other cause Qualified Code(s): D64.89 - Other specified anemias - Subjective Interval history: Mr. Victoria is a 67 year old male c PMHx of ETOH abuse, prostate CA, HLD, HTN, multiple falls reports to the [facility] ED brought in by EMS s/p Fall 7 hours ago. Patient was intoxicated upon admission. Patient reports pain in R shoulder and L hip. Patient was castellanos scanned in the ED which showed L hip Fx, 1 new rib fx and chronic rib fractures, no abnormality in the spine, shoulder, and no bleed in the head. Patient's ETOH was 351. Patient is on Xarelto at home but reprots not takign it recently because he ran out. Patient denies LOC, other complaints at this time. 04/14: Patient is doing well. His withdrawals have resolved he is mildly tremulous and we are weaning him off Librium. He is stable from an orthopedic standpoint. [facility] He denies any chest pain or shortness of breath. No fevers or chills. No nausea, vomiting, diarrhea. He does continue to complain of pain in his left hip but it is improved with medication. 04/15: Unfortunately patient went back into active alcohol withdrawals and is now back on a Precedex drip. Pt is calm and sedated presently and not providing any review of systems. - Constitutional Vitals: Temp Pulse Resp BP Pulse Ox 97.8 F 108 18 114/54 94 04/15/17 05:44 04/15/17 06:12 04/15/17 06:12 04/15/17 06:12 04/15/17 06:12 General appearance: Present: no acute distress Exam: sedated - Eye Eye exam: Present: PERRL, conjuntiva pink, sclera anicteric Pupils: Present: PERRL - Neck Neck exam general surgery: Present: supple, trachea midline. Absent: lymphadenopathy - Respiratory Respiratory exam: Present: CTAB. Absent: accessory muscle use, rales, rhonchi, wheezes - Cardiovascular Cardiovascular exam: Present: RRR, +S1, +S2. Absent: diastolic murmur, gallop, rubs, systolic murmur - GI/Abdominal GI/Abdominal exam: Present: normal bowel sounds, soft, no peritoneal signs. Absent: distended, tenderness - Extremities Exam Additional comments: hip incision clean, dry and intact - Neurological Exam Neurological exam: Present: CN II-XII intact, no focal deficits. Absent: pronater drift, facial droop, speech deficit Additional comments: sedated - Skin Skin exam: Present: dry, intact Internal Medicine: Result - Labs CBC & Chem 7: 04/14/17 03:03 04/14/17 03:03 - VTE Documentation of Mechanical Device: Intermittent pneumatic compression device Consult Discharge Plan - Plan Additional Instructions: PROCEDURE PERFORMED Reduction and fixation of left hip. Incision care -Daily dressing changes to the left hip with dry gauze and either paper tape or medipore tape. -Avoid soaking wound in water (no hot tubs, bathtubs, swimming pools). -May shower after 2 weeks from surgery date. Carefully wash incision with soap and water. Gently pat it dry. Don't rub the incision, or apply creams or lotions. Sit on a shower stool when showering to keep from falling. Weight bearing status -Weightbearing as tolerated to the bilateral lower extremities. Medications -Pain medication per the discharging medical doctor -Recommend enteric coated aspirin 325 mg by mouth twice per day for 28 days from the date of the surgery. [-Resume 50,000 units of vitamin D2 weekly and 1200 mg of calcium supplementation per day.] Other -Knee high JANA hose 23 hours per day -Consult physical and occupational therapy for mobilization. -Up to chair with assistance at least twice per day. -Follow up with your primary care physician to discuss testing for bone mineral density. Follow-up with Dr. Welch at the office 2 weeks from the surgery date for a post operative evaluation. Call the office at [phone] to schedule appointment. [facility]errals: [facility] [Primary Care Provider[facility] - 04/23/17 2:15 pm
[2017-04-15] MEDS: OXYCODONE Oral CONC 10 MG/0.5 ML ORAL.SYG SL PRN (11:43)
[2017-04-16] MEDS: Dexmedetomidine HCl 400 MCG/100 ML MLS IVC SCH (04:19)
[2017-04-16 07:55] LABS: Basophils % 0.3 %; Eosinophils # 0.1 K/mcL (0.0-0.6); Eosinophils % 2.1 %; Hematocrit 28.3 % (37.5-50.1); Immature Granulocytes % 1.5 % (0-4); Lymphocytes # 1.1 K/mcL (0.6-4.6); Lymphocytes % 16.7 %; Mean Corpuscular HGB Conc 32.2 g/dL (31.6-35.5); Mean Corpuscular Hemoglobin 34.9 pg (28.0-33.3); Mean Corpuscular Volume 108.4 fL (83.0-100.0); Mean Platelet Volume 10.4 fL (9.4-12.4); Monocytes # 0.9 K/mcL (0.0-1.3); Monocytes % 13.7 %; Neutrophils # 4.4 K/mcL (1.6-8.9); Platelet Count 165 K/mcL (140-400); Red Blood Count 2.61 M/mcL (4.19-5.50); Red Cell Distribution Width 16.8 % (11.5-14.5); Segmented Neutrophils % 65.7 %
[2017-04-16 08:33] LABS: BUN/Creatinine Ratio 17 (6-26); Blood Urea Nitrogen 12 mg/dL (8-23); Calcium 8.8 mg/dL (8.6-10.3); Carbon Dioxide 24 mEq/L (23-29); Chloride 107 mEq/L (98-107); Glucose 93 mg/dL (70-105); Magnesium 1.6 mg/dL (1.6-2.6); Osmolality,Calculated 291 (280-300); Potassium 3.7 mEq/L (3.5-5.1); Sodium 141 mEq/L (136-145); eGFR For Non-African Americans > 60 (> 60)
[2017-04-16] MEDS: Vitamin B Complex/Vit C/Vit E 1 EACH TABLET PO SCH (08:45)
[2017-04-16] MEDS: Nicotine 21 MG PATCH.TD24 TD SCH (08:45)
[2017-04-16] MEDS: Folic Acid 1 MG TABLET PO SCH (08:45)
[2017-04-16] MEDS: Venlafaxine XR (24 HR) 150 MG CAP.ER.24H PO SCH (08:45)
[2017-04-16] MEDS: Cholecalciferol (D-3) 1,000 UNIT TABLET PO SCH (08:46)
[2017-04-16] MEDS: Aspirin Enteric Coated 325 MG Tablet PO SCH ×2 (08:46→20:23)
[2017-04-16] MEDS: Thiamine (B-1) 100 MG TABLET PO SCH (08:46)
[2017-04-16] MEDS: Metoprolol XL (24 HR) Succ 25 MG TAB.ER.24H PO SCH ×2 (08:46→20:23)
[2017-04-16 09:18] LABS: Hemoglobin 9.1 g/dL (12.9-16.9)
--- NOTE | 2017-04-16 11:22 | Internal Med Progress Note ---
Date of Encounter: 04/16/17 Time of Encounter: 15:55 - Assessment and plan (1) Closed left hip fracture Current Visit: Yes Status: Acute Assessment and plan: Postop day #5 left hip intertrochanteric nail Patient is doing well from an orthopedic standpoint. Pain control is improving. Increase activity with physical therapy. Once stable EtOH withdrawal stable, consider transfer to [facility]. Qualifiers: Encounter type: initial encounter Qualified Code(s): S72.002A - Fracture of unspecified part of neck of left femur, initial encounter for closed fracture (2) ETOH abuse Current Visit: Yes Status: Acute Assessment and plan: Patient required Precedex drip last night for agitation secondary to alcohol withdrawal Patient is currently on Librium 3 times a day. Plan is to titrate off Precedex today. We will decrease Librium tomorrow. Most recent blood pressure was 100s/60s which is improving. (3) HTN (hypertension) Current Visit: Yes Status: Acute Assessment and plan: Holding home blood pressure medications, patient's blood pressure at this time is 107/62. 500cc NS bolus ordered. Qualifiers: Hypertension type: essential hypertension Qualified Code(s): I10 - Essential (primary) hypertension (4) Anemia Current Visit: Yes Status: Acute Assessment and plan: Acute blood loss anemia due to perioperative blood loss. This is expected. However, patient's hemoglobin seems to be trending down and today was 9.1. Patient has no signs of bleeding fecal Hemoccult ordered. Will recheck hgb in the morning. Qualifiers: Anemia type: unspecified type Qualified Code(s): D64.9 - Anemia, unspecified (5) DVT prophylaxis Current Visit: Yes Status: Acute Assessment and plan: Patient is on aspirin 325 mg twice a day for DVT prophylaxis per surgery's recommendation. - Subjective Interval history: Patient is a 67-year-old male with a past medical history of alcohol abuse, prostate cancer, hyperlipidemia, hypertension and multiple falls initially presenting in 04/09/17 for a fall which caused a left hip fracture. Patient is postop day #5. The patient is stable as far as orthopedics standpoint. The patient experienced withdrawals last night again and was placed on a Precedex drip. He is currently on Librium 3 times a day. Plan is to titrate him off the drip today. Patient states he feels better today he is a and O 2. No concerns at this time. We will also order the patient a 500 mL liter bolus due to his hypotension which is believed to be due to the Precedex. Patient's hemoglobin is 9.1 which may be treated to postop anemia, however we will check a stool guaiac to rule out a bleed. Other than HPI a 10 pt ROS is negative - Constitutional Vitals: Temp Pulse Resp BP Pulse Ox 98.1 F 62 16 98/66 96 04/16/17 08:45 04/16/17 08:45 04/16/17 08:45 04/16/17 08:45 04/16/17 08:45 General appearance: Present: A&O X 2, no acute distress - Head Head exam: Present: atraumatic, normal inspection, normocephalic - Eye Eye exam: Present: normal appearance, PERRL - Neck Neck exam general surgery: Present: normal inspection - Respiratory Respiratory exam: Present: CTAB. Absent: rhonchi, wheezes - Cardiovascular Cardiovascular exam: Present: RRR, +S1, +S2 - GI/Abdominal GI/Abdominal exam: Present: normal bowel sounds, soft, no peritoneal signs. Absent: tenderness - Extremities Exam Extremities exam: Present: normal capillary refill, normal inspection. Absent: tenderness - Back Exam Back exam: Present: normal inspection - Neurological Exam Neurological exam: Present: alert, no focal deficits - Psychiatric Psychiatric exam: Present: normal affect, normal mood - Skin Skin exam: Present: intact, warm Internal Medicine: Result - Labs CBC & Chem 7: 04/16/17 06:42 04/16/17 06:42 Labs: Short CBC 04/16/17 Range/Units 06:42 WBC 6.7 (4.3-11.1) K/mcL Hgb 9.1 L D (12.9-16.9) g/dL Hct 28.3 L (37.5-50.1) % Plt Count 165 (140-400) K/mcL Neutrophils # 4.4 (1.6-8.9) K/mcL BMP 04/16/17 06:42 Sodium 141 Potassium 3.7 Chloride 107 Carbon Dioxide 24 BUN 12 Creatinine 0.70 Glucose 93 Calcium 8.8 - VTE Documentation of Mechanical Device: Intermittent pneumatic compression device Consult Discharge Plan - Plan Additional Instructions: PROCEDURE PERFORMED Reduction and fixation of left hip. Incision care -Daily dressing changes to the left hip with dry gauze and either paper tape or medipore tape. -Avoid soaking wound in water (no hot tubs, bathtubs, swimming pools). -May shower after 2 weeks from surgery date. Carefully wash incision with soap and water. Gently pat it dry. Don't rub the incision, or apply creams or lotions. Sit on a shower stool when showering to keep from falling. Weight bearing status -Weightbearing as tolerated to the bilateral lower extremities. Medications -Pain medication per the discharging medical doctor -Recommend enteric coated aspirin 325 mg by mouth twice per day for 28 days from the date of the surgery. [-Resume 50,000 units of vitamin D2 weekly and 1200 mg of calcium supplementation per day.] Other -Knee high JANA hose 23 hours per day -Consult physical and occupational therapy for mobilization. -Up to chair with assistance at least twice per day. -Follow up with your primary care physician to discuss testing for bone mineral density. Follow-up with Dr. Welch at the office 2 weeks from the surgery date for a post operative evaluation. Call the office at [phone] to schedule appointment. [facility]errals: [facility] [Primary Care Provider[facility] - 04/23/17 2:15 pm
--- NOTE | 2017-04-16 11:48 | Event Note ---
Date of Encounter: 04/16/17 Time of Encounter: 11:44 Patient seen and examined. Agree with the Resident's note as written by Dr. Lassiter. I have provided supervision in the care of the patient. Admitted with left hip fracture likely sustained while intoxicated. s/p orthopedics intertrochanteric nailing Stay complicated by alcohol withdrawal requiring Precedex, librium, ativan. Hgb noted at 9.1 from 13.5 on admission. Likely post op blood loss. No signs of bleeding. Patient is on ASA 325 mg BID and lovenox 40 mg SQ. B 98/66 this am. would wean off precedex and librium today. Monitor H/H Give a 500 cc bolus check FOBT. Stop lovenox and keep on BID ASA
[2017-04-16] MEDS ORDERED: 0.9 % Sodium Chloride 500 ML IVC ONE (14:01)
[2017-04-16] MEDS: *HR* LORazepam 2 MG/ML VIAL IVP PRN (14:46)
[2017-04-16] MEDS ORDERED: Potassium Chloride Elixir 20 MEQ/15 ML UDC PO ONE (16:13)
[2017-04-16] MEDS ORDERED: 0.9 % Sodium Chloride 1,000 ML IVC ONE (16:38)
[2017-04-16] MEDS: Sennosides/Docusate Sodium TABLET PO SCH ×2 (17:07→20:22)
[2017-04-17 04:31] LABS: Basophils % 0.2 %; Eosinophils # 0.1 K/mcL (0.0-0.6); Eosinophils % 1.2 %; Hematocrit 29.7 % (37.5-50.1); Hemoglobin 9.9 g/dL (12.9-16.9); Immature Granulocytes % 1.4 % (0-4); Lymphocytes # 1.2 K/mcL (0.6-4.6); Lymphocytes % 14.5 %; Mean Corpuscular HGB Conc 33.3 g/dL (31.6-35.5); Mean Corpuscular Hemoglobin 35.2 pg (28.0-33.3); Mean Corpuscular Volume 105.7 fL (83.0-100.0); Mean Platelet Volume 9.3 fL (9.4-12.4); Monocytes # 0.9 K/mcL (0.0-1.3); Monocytes % 10.6 %; Platelet Count 236 K/mcL (140-400); Red Blood Count 2.81 M/mcL (4.19-5.50); Red Cell Distribution Width 16.4 % (11.5-14.5); Segmented Neutrophils % 72.1 %
[2017-04-17 04:38] LABS: BUN/Creatinine Ratio 15 (6-26); Blood Urea Nitrogen 9 mg/dL (8-23); Calcium 8.8 mg/dL (8.6-10.3); Carbon Dioxide 19 mEq/L (23-29); Chloride 108 mEq/L (98-107); Glucose 95 mg/dL (70-105); Magnesium 1.8 mg/dL (1.6-2.6); Osmolality,Calculated 288 (280-300); Potassium 3.5 mEq/L (3.5-5.1); Sodium 140 mEq/L (136-145); eGFR For Non-African Americans > 60 (> 60)
[2017-04-17] MEDS ORDERED: *HR* Enoxaparin 40 MG/0.4 ML SYRINGE SQ SCH (06:00)
[2017-04-17] MEDS ORDERED: Potassium Chloride Elixir 20 MEQ/15 ML UDC PO ONE (06:55)
[2017-04-17] MEDS ORDERED: Magnesium Sulfate 2 GM in D5% in Water 100 ML IVPB ONE (06:56)
[2017-04-17] MEDS: Sennosides/Docusate Sodium TABLET PO SCH ×3 (09:06→20:19)
[2017-04-17] MEDS: Vitamin B Complex/Vit C/Vit E 1 EACH TABLET PO SCH (09:06)
[2017-04-17] MEDS: Thiamine (B-1) 100 MG TABLET PO SCH (09:06)
[2017-04-17] MEDS: OXYCODONE Oral CONC 10 MG/0.5 ML ORAL.SYG SL PRN (09:06)
[2017-04-17] MEDS: Aspirin Enteric Coated 325 MG Tablet PO SCH ×2 (09:06→20:19)
[2017-04-17] MEDS: Venlafaxine XR (24 HR) 150 MG CAP.ER.24H PO SCH (09:06)
[2017-04-17] MEDS: Folic Acid 1 MG TABLET PO SCH (09:06)
[2017-04-17] MEDS: Metoprolol XL (24 HR) Succ 25 MG TAB.ER.24H PO SCH ×2 (09:06→20:19)
[2017-04-17] MEDS: Nicotine 21 MG PATCH.TD24 TD SCH (09:07)
[2017-04-17] MEDS: Cholecalciferol (D-3) 1,000 UNIT TABLET PO SCH (11:40)
--- NOTE | 2017-04-17 11:40 | Event Note ---
Date of Encounter: 04/17/17 Time of Encounter: 11:35 Patient seen and examined. Agree with the Resident's note as written by Dr. Lassiter. I have provided direct supervision in the care of the patient. Admitted with left hip fracture likely sustained while intoxicated. s/p orthopedics intertrochanteric nailing Stay complicated by alcohol withdrawal requiring Precedex, librium, ativan. Off precedex now. Hgb noted at 9.9 today up from 9.9 yesterday. Was 13.5 on admission. Likely post op blood loss. No signs of bleeding. Patient is on ASA 325 mg BID Off precedex since 2 am. Awake but lethargic. Has not really been up or worked with therapy. would wean down librium Ask PT/OT to see him Possibly d[facility] later today or [facility] Monitor H/H FOBT. BID ASA 325 mg
[2017-04-17] MEDS ORDERED: Calcium Gluconate 2,000 MG in 0.9 % Sodium Chloride 100 ML IVPB ONE (12:59)
--- NOTE | 2017-04-17 15:18 | Discharge Summary ---
<Philipp Lassiter - Last Filed: 04/17/17 15:32> - NOTES TO OUTPATIENT PROVIDER Notes to Outpatient Provider: Continue to wean down librium. Currently on 25mg BID for EtOH withdrawal. Continue to f/u hgb. Post-op hgb 12.4 to 9.9 after surgery on 04/13/17. Remains stable since surgery. Orders not resulted at time of discharge: Pending orders 04/16/17 11:52 Stool guiac [Occult Blood,Stool] [BF] Stat 04/17/17 08:56 C diff [C.difficile Toxin PCR (>=2yo)] [MOLMIC] Routine 04/18/17 04:00 Basic Metabolic Panel AM 0400 Complete Blood Count [HEME] AM 0400 Magnesium AM 0400 Date of Encounter: 04/17/17 Time of Encounter: 15:11 - Discharge Diagnosis (1) Closed left hip fracture Priority: Primary Status: Acute Qualifiers: Encounter type: initial encounter Qualified Code(s): S72.002A - Fracture of unspecified part of neck of left femur, initial encounter for closed fracture (2) ETOH abuse Priority: Secondary Status: Acute (3) HTN (hypertension) Priority: Secondary Status: Acute Qualifiers: Hypertension type: essential hypertension Qualified Code(s): I10 - Essential (primary) hypertension (4) Anemia Priority: Secondary Status: Acute Qualifiers: Anemia type: unspecified type Qualified Code(s): D64.9 - Anemia, unspecified (5) DVT prophylaxis Priority: Secondary Status: Acute Hospital course: Mr. Victoria is a 67 year old male with a past medical history of alcohol abuse, prostate cancer, HLD, HTN and multiple falls presented initially on 04/09/17 for a fall which caused a left hip fracture. The patient is currently postop day # 6 after undergoing definitive fixation by Surgeon Dr. Eze Welch with left hip intertrochanteric nail. The patient has been stable from an orthopedic standpoint. There was a drop in the patient's hemoglobin was appreciated postoperatively the patient the hemoglobin dropped of 12.4 to 9.8. Patient's hemoglobin has remained stable. The patient is also been treated for alcohol withdrawals throughout the course of his stay and has required intermittent Precedex drip for agitation and benzos. The patient has not required benzodiazepines or Precedex for his withdrawals for over 24 hours. He is improved and sitting up in bed eating food. The patient did have one episode of diarrhea today and told this cultures were sent.The patient has a follow-up appointment with his primary care provider at the [facility] on 04/23/2017 at 2:15 PM. The patient is to follow-up with Dr. Stewart's office 2 weeks from the surgery for a postoperative evaluation. The number was provided in the discharge instructions. Instructions for the care of patient's left hip reduction and fixation also provided by the surgeon and the discharge instructions. - Time Spent with Patient Total time spent providing and/or coordinating discharge services: - Discharge Medications Home Medications: Acetaminophen [Tylenol] 650 mg PO Q6HR PRN 08/20/15 [History] Alfuzosin HCl [Uroxatral] 10 mg PO DAILY 08/20/15 [History] Baclofen [Lioresal] 20 mg PO TID 08/20/15 [History] Cholecalciferol (D-3) [Vitamin D] 2,000 unit PO DAILY 08/20/15 [History] Gabapentin [Neurontin] 1,200 mg PO TID 08/20/15 [History] Metoprolol XL (24 HR) Succ [Toprol Xl] 25 mg PO BID 08/20/15 [History] Omeprazole [PriLOSEC] 20 mg PO DAILY 08/20/15 [History] Sildenafil Citrate [Viagra] 50 mg PO AD PRN 08/20/15 [History] Venlafaxine XR (24 HR) [Effexor Xr] 150 mg PO DAILY 08/20/15 [History] Calcium Carbonate [Tums] 500 mg PO TIDWM PRN 04/09/17 [History] Rivaroxaban [Xarelto] 20 mg PO DAILY 04/09/17 [History] Super Beta Prostate 1 tab PO DAILY 04/09/17 [History] Thiamine (B-1) [Vitamin B-1] 100 mg PO BID 04/09/17 [History] Allergies/Adverse Reactions: 3 Allergy/AdvReac Type Severity Reaction Status Date / Time No Known Allergies Allergy Verified 01/04/17 17:30 Date of admission: 04/10/17 03:53 [facility] care physician[facility] Consults: 04/11/17 16:33 Consult to Physical Therapy [CONS] Routine Comment: Evaluate, develop and implement POC Reason for Consult: post hip surgery Consult to Loading Unit [employer] [CONS] Routine Reason for SW Consult: post -op hip fracture RT Post Op Consult [CONS] Routine 04/12/17 10:52 OT [Consult to Occupational Therapy] [CONS] Routine Comment: Evaluate, develop and implement POC Reason for Consult: post left hip pinning/ discharge planning. Discharging clinician: Jah Croft Anticipated date of discharge: 04/17/17 - Constitutional Vitals: Temp Pulse Resp BP Pulse Ox 97.4 F L 100 96 138/85 99 04/17/17 11:36 04/17/17 11:36 04/17/17 11:36 04/17/17 11:36 04/17/17 11:36 General appearance: Present: A&O X 2, no acute distress Exam: Patient states that he remembers me from yesterday. He is sitting up in bed eating food. No acute distress at this time. - Head Head exam: Present: atraumatic, normal inspection, normocephalic - Eye Eye exam: Present: normal appearance, PERRL - Neck Neck exam general surgery: Present: normal inspection - Respiratory Respiratory exam: Present: CTAB. Absent: rales, respiratory distress, rhonchi, wheezes - Cardiovascular Cardiovascular exam: Present: RRR, +S1, +S2 - GI/Abdominal GI/Abdominal exam: Present: normal bowel sounds, soft. Absent: tenderness - Extremities Exam Extremities exam: Present: normal capillary refill, warm. Absent: pedal edema, tenderness Additional comments: area of ecchymosis over surgical wound consistent withe recent surgery. - Back Exam Back exam: Present: normal inspection - Neurological Exam Neurological exam: Present: alert, no focal deficits, strengths equal and symetr throughout. Absent: motor sensory deficit - Psychiatric Psychiatric exam: Present: anxious, normal affect - Skin Skin exam: Present: intact, normal color, warm - Patient Status Disposition: Transfer Short-Term Hosp Condition: Fair Functional capacity at discharge: bed bound (requires assistance and PT/OT) Overall status at discharge: patient is progressing back to baseline - Discharge Instructions [facility] With: [facility] Provider[facility] - 04/23/17 2:15 pm ([facility] no [facility] appointment needed) Eze Welch MD [Non-Partnered Physician] - 04/25/17 11:30 am Additional Instructions: PROCEDURE PERFORMED Reduction and fixation of left hip. Incision care -Daily dressing changes to the left hip with dry gauze and either paper tape or medipore tape. -Avoid soaking wound in water (no hot tubs, bathtubs, swimming pools). -May shower after 2 weeks from surgery date. Carefully wash incision with soap and water. Gently pat it dry. Don't rub the incision, or apply creams or lotions. Sit on a shower stool when showering to keep from falling. Weight bearing status -Weightbearing as tolerated to the bilateral lower extremities. Medications -Pain medication per the discharging medical doctor -Recommend enteric coated aspirin 325 mg by mouth twice per day for 28 days from the date of the surgery. [-Resume 50,000 units of vitamin D2 weekly and 1200 mg of calcium supplementation per day.] Other -Knee high JANA hose 23 hours per day -Consult physical and occupational therapy for mobilization. -Up to chair with assistance at least twice per day. -Follow up with your primary care physician to discuss testing for bone mineral density. Follow-up with Dr. Welch at the office 2 weeks from the surgery date for a post operative evaluation. Call the office at [phone] to schedule appointment. - Diet and Activity Activity: as per physical therapy Diet: advance to your usual diet - VTE Documentation of Mechanical Device: Intermittent pneumatic compression device <Jah Croft - Last Filed: 04/28/17 16:27> Date of Encounter: 04/28/17 Hospital course: Mr. Victoria is a 67 year old male - Time Spent with Patient Total time spent providing and/or coordinating discharge services: Date of admission: 04/10/17 03:53 Primary care physician: [facility] Consults: 04/11/17 16:33 Consult to Physical Therapy [CONS] Routine Comment: Evaluate, develop and implement POC Reason for Consult: post hip surgery Consult to Loading Unit [employer]ing [CONS] Routine Reason for SW Consult: post -op hip fracture RT Post Op Consult [CONS] Routine 04/12/17 10:52 OT [Consult to Occupational Therapy] [CONS] Routine Comment: Evaluate, develop and implement POC Reason for Consult: post left hip pinning/ discharge planning. - Constitutional Vitals: Temp Pulse Resp BP Pulse Ox 97.7 F 81 18 139/80 98 04/18/17 15:42 04/18/17 15:42 04/18/17 15:42 04/18/17 15:42 04/18/17 15:42 - Attending Attestation I examined this patient and my medical decision-making was reviewed with the Resident Physician. I agree with the documented discharge, disposition and treatment plan as described except to the extent set forth below.
--- NOTE | 2017-04-17 16:48 | Internal Med Progress Note ---
Date of Encounter: 04/17/17 Time of Encounter: 16:46 - Assessment and plan (1) Closed left hip fracture Current Visit: Yes Status: Acute Assessment and plan: Postop day #6 left hip intertrochanteric nail Patient is doing well from an orthopedic standpoint. Pain control is improving. Increase activity with physical therapy. Once stable EtOH withdrawal stable, consider transfer to [place]. Qualifiers: Encounter type: initial encounter Qualified Code(s): S72.002A - Fracture of unspecified part of neck of left femur, initial encounter for closed fracture (2) ETOH abuse Current Visit: Yes Status: Acute Assessment and plan: Patient has not required Precedex or benzodiazepines for over 24 hours Currently on Librium 25 mg twice a day Plan to titrate down tomorrow CIMT protocol (3) HTN (hypertension) Current Visit: Yes Status: Acute Assessment and plan: Stable blood pressure is currently 131/77 Qualifiers: Hypertension type: essential hypertension Qualified Code(s): I10 - Essential (primary) hypertension (4) Anemia Current Visit: Yes Status: Acute Assessment and plan: Acute blood loss anemia due to perioperative blood loss. This is expected. Stable today from 9.1 to 9.9. Patient has no signs of bleeding fecal Hemoccult ordered. We will continue to monitor Qualifiers: Anemia type: unspecified type Qualified Code(s): D64.9 - Anemia, unspecified (5) DVT prophylaxis Current Visit: Yes Status: Acute Assessment and plan: Patient is on aspirin 325 mg twice a day for DVT prophylaxis per surgery's recommendation. - Subjective Interval history: Mr. Victoria is a 67 year old male with a past medical history of alcohol abuse, prostate cancer, HLD, HTN and multiple falls presented initially on 04/09/17 for a fall which caused a left hip fracture. The patient is currently postop day # 6 after undergoing definitive fixation by Surgeon Dr. Eze Welch with left hip intertrochanteric nail. The patient has been stable from an orthopedic standpoint. There was a drop in the patient's hemoglobin was appreciated postoperatively the patient the hemoglobin dropped of 12.4 to 9.8. Patient's hemoglobin has remained stable. The patient is also been treated for alcohol withdrawals throughout the course of his stay and has required intermittent Precedex drip for agitation and benzos. The patient has not required benzodiazepines or Precedex for his withdrawals for over 24 hours. He is improved and sitting up in bed eating food. The patient did have one episode of diarrhea today and told this cultures were sent. He denies any concerns at this time. Other than HPI a 10 pt ROS is negative - Constitutional Vitals: Temp Pulse Resp BP Pulse Ox 97.4 F L 97 18 131/77 98 04/17/17 11:36 04/17/17 16:31 04/17/17 16:31 04/17/17 16:31 04/17/17 16:31 General appearance: Present: A&O X 2, no acute distress - Head Head exam: Present: atraumatic, normal inspection, normocephalic - Eye Eye exam: Present: normal appearance, PERRL - Neck Neck exam general surgery: Present: normal inspection - Respiratory Respiratory exam: Present: CTAB. Absent: rales, rhonchi, wheezes - Cardiovascular Cardiovascular exam: Present: RRR, +S1, +S2 - GI/Abdominal GI/Abdominal exam: Present: normal bowel sounds, soft. Absent: tenderness - Extremities Exam Extremities exam: Present: normal inspection, warm. Absent: pedal edema, tenderness - Back Exam Back exam: Present: normal inspection - Neurological Exam Neurological exam: Present: alert, no focal deficits, strengths equal and symetr throughout Additional comments: AOx2 - Psychiatric Psychiatric exam: Present: normal affect, normal mood - Skin Skin exam: Present: intact, normal color, warm Internal Medicine: Result - Labs CBC & Chem 7: 04/17/17 04:01 04/17/17 04:01 Labs: Short CBC 04/17/17 Range/Units 04:01 WBC 8.3 (4.3-11.1) K/mcL Hgb 9.9 L (12.9-16.9) g/dL Hct 29.7 L (37.5-50.1) % Plt Count 236 (140-400) K/mcL Neutrophils # 6.0 (1.6-8.9) K/mcL BMP 04/17/17 04:01 Sodium 140 Potassium 3.5 Chloride 108 H Carbon Dioxide 19 L BUN 9 Creatinine 0.62 L Glucose 95 Calcium 8.8 - Impressions Impressions Fluoroscopy 04/11/17 14:55 IMPRESSION: Intraprocedural fluoroscopic spot images as above. See separate procedure report for more information. D/ / Trevon Jacinto MD / Trevon Jacinto MD Interpreting Provider: Trevon Jacinto MD - VTE Documentation of Mechanical Device: Intermittent pneumatic compression device Consult Discharge Plan - Plan Additional Instructions: PROCEDURE PERFORMED Reduction and fixation of left hip. Incision care -Daily dressing changes to the left hip with dry gauze and either paper tape or medipore tape. -Avoid soaking wound in water (no hot tubs, bathtubs, swimming pools). -May shower after 2 weeks from surgery date. Carefully wash incision with soap and water. Gently pat it dry. Don't rub the incision, or apply creams or lotions. Sit on a shower stool when showering to keep from falling. Weight bearing status -Weightbearing as tolerated to the bilateral lower extremities. Medications -Pain medication per the discharging medical doctor -Recommend enteric coated aspirin 325 mg by mouth twice per day for 28 days from the date of the surgery. [-Resume 50,000 units of vitamin D2 weekly and 1200 mg of calcium supplementation per day.] Other -Knee high JANA hose 23 hours per day -Consult physical and occupational therapy for mobilization. -Up to chair with assistance at least twice per day. -Follow up with your primary care physician to discuss testing for bone mineral density. Follow-up with Dr. Welch at the office 2 weeks from the surgery date for a post operative evaluation. Call the office at [phone] to schedule appointment. [facility]errals: [facility]Primary Care Provider[facility] - 04/23/17 2:15 pm
[2017-04-17] MEDS: *HR* LORazepam 2 MG/ML VIAL IVP PRN (23:28)
[2017-04-18 04:58] LABS: Basophils % 0.5 %; Eosinophils # 0.1 K/mcL (0.0-0.6); Eosinophils % 1.6 %; Hematocrit 30.6 % (37.5-50.1); Hemoglobin 9.8 g/dL (12.9-16.9); Immature Granulocytes % 1.4 % (0-4); Lymphocytes # 1.3 K/mcL (0.6-4.6); Lymphocytes % 20.1 %; Mean Corpuscular Hemoglobin 34.5 pg (28.0-33.3); Mean Corpuscular Volume 107.7 fL (83.0-100.0); Mean Platelet Volume 9.3 fL (9.4-12.4); Monocytes # 0.7 K/mcL (0.0-1.3); Monocytes % 10.5 %; Neutrophils # 4.1 K/mcL (1.6-8.9); Nucleated Red Blood Cells 0.5 /100 WBC (0); Platelet Count 286 K/mcL (140-400); Red Blood Count 2.84 M/mcL (4.19-5.50); Red Cell Distribution Width 16.1 % (11.5-14.5); Segmented Neutrophils % 65.9 %
[2017-04-18 04:59] LABS: BUN/Creatinine Ratio 10 (6-26); Blood Urea Nitrogen 6 mg/dL (8-23); Carbon Dioxide 24 mEq/L (23-29); Chloride 109 mEq/L (98-107); Glucose 84 mg/dL (70-105); Magnesium 1.7 mg/dL (1.6-2.6); Osmolality,Calculated 287 (280-300); Potassium 3.5 mEq/L (3.5-5.1); Sodium 140 mEq/L (136-145); eGFR For Non-African Americans > 60 (> 60)
[2017-04-18] MEDS: Metoprolol XL (24 HR) Succ 25 MG TAB.ER.24H PO SCH (08:52)
[2017-04-18] MEDS: Cholecalciferol (D-3) 1,000 UNIT TABLET PO SCH (08:52)
[2017-04-18] MEDS: Vitamin B Complex/Vit C/Vit E 1 EACH TABLET PO SCH (08:52)
[2017-04-18] MEDS: Thiamine (B-1) 100 MG TABLET PO SCH (08:52)
[2017-04-18] MEDS: Folic Acid 1 MG TABLET PO SCH (08:52)
[2017-04-18] MEDS: Venlafaxine XR (24 HR) 150 MG CAP.ER.24H PO SCH (08:53)
[2017-04-18] MEDS: Sennosides/Docusate Sodium TABLET PO SCH (08:53)
[2017-04-18] MEDS: Nicotine 21 MG PATCH.TD24 TD SCH (08:53)
[2017-04-18] MEDS: Aspirin Enteric Coated 325 MG Tablet PO SCH (08:53)
--- NOTE | 2017-04-18 11:21 | Event Note ---
Date of Encounter: 04/18/17 Time of Encounter: 11:20 Patient seen and examined. Agree with the Resident's note as written by Dr. Lassiter. I have provided direct supervision in the care of the patient. Admitted with left hip fracture likely sustained while intoxicated. s/p orthopedics intertrochanteric nailing Stay complicated by alcohol withdrawal requiring Precedex, librium, ativan. Off precedex now. Hgb noted at 9.9 today up from 9.9 yesterday. Was 13.5 on admission. Likely post op blood loss. No signs of bleeding. Patient is on ASA 325 mg BID Been having loose stools. continue to wean off librium PT/OT Monitor H/H rule out C. diff BID ASA 325 mg D/c [facility]
[2017-04-18] MEDS ORDERED: Gabapentin 300 MG CAPSULE PO SCH (15:00)
[2017-04-18 15:54] VITALS: BP 139/80
--- NOTE | 2017-04-18 16:25 | Internal Med Progress Note ---
Date of Encounter: 04/18/17 Time of Encounter: 16:23 - Assessment and plan (1) Closed left hip fracture Current Visit: Yes Status: Acute Assessment and plan: Postop day #7 left hip intertrochanteric nail Patient is doing well from an orthopedic standpoint. Pain control is improving. Increase activity with physical therapy. [facility]. Qualifiers: Encounter type: initial encounter Qualified Code(s): S72.002A - Fracture of unspecified part of neck of left femur, initial encounter for closed fracture (2) ETOH abuse Current Visit: Yes Status: Acute Assessment and plan: Patient has not required benzo's last night. Currently on Librium 15 mg twice a day Plan to titrate down tomorrow Discontinuing CIWA protocol (3) HTN (hypertension) Current Visit: Yes Status: Acute Assessment and plan: Stable blood pressure is currently 139/80 Qualifiers: Hypertension type: essential hypertension Qualified Code(s): I10 - Essential (primary) hypertension (4) Anemia Current Visit: Yes Status: Acute Assessment and plan: Acute blood loss anemia due to perioperative blood loss. This is expected. Stable. Patient has no signs of bleeding fecal Hemoccult ordered. We will continue to monitor Qualifiers: Anemia type: unspecified type Qualified Code(s): D64.9 - Anemia, unspecified (5) DVT prophylaxis Current Visit: Yes Status: Acute Assessment and plan: Patient is on aspirin 325 mg twice a day for DVT prophylaxis per surgery's recommendation. - Subjective Interval history: Mr. Victoria is a 67 year old male with a past medical history of alcohol abuse, prostate cancer, HLD, HTN and multiple falls presented initially on 04/09/17 for a fall which caused a left hip fracture. The patient is currently postop day # 6 after undergoing definitive fixation by Surgeon Dr. Eze Welch with left hip intertrochanteric nail. The patient has been stable from an orthopedic standpoint. There was a drop in the patient's hemoglobin was appreciated postoperatively the patient the hemoglobin dropped of 12.4 to 9.8. Patient's hemoglobin has remained stable. The patient is also been treated for alcohol withdrawals throughout the course of his stay and has required intermittent Precedex drip for agitation and benzos. The patient has not required Precedex for his withdrawals for over 24 hours. Patient continues to improve he required 1 dose of benzos last night which was 2 mg of Ativan. At this time the patient will be taken off the CIWA protocol and titrated down on his Librium. The patient has no complaints at this time. [facility]. Other than HPI a 10 pt ROS is negative - Constitutional Vitals: Temp Pulse Resp BP Pulse Ox 97.7 F 81 18 139/80 98 04/18/17 15:42 04/18/17 15:42 04/18/17 15:42 04/18/17 15:42 04/18/17 15:42 General appearance: Present: A&O X 3, pleasant, no acute distress - Head Head exam: Present: atraumatic, normal inspection, normocephalic - Eye Eye exam: Present: normal appearance, PERRL - Neck Neck exam general surgery: Present: normal inspection - Respiratory Respiratory exam: Present: CTAB. Absent: rales, rhonchi, wheezes - Cardiovascular Cardiovascular exam: Present: RRR, +S1, +S2 - GI/Abdominal GI/Abdominal exam: Present: normal bowel sounds, soft, no peritoneal signs. Absent: tenderness - Extremities Exam Extremities exam: Present: normal inspection, warm. Absent: pedal edema, tenderness - Back Exam Back exam: Present: normal inspection - Neurological Exam Neurological exam: Present: alert, oriented X3, no focal deficits - Psychiatric Psychiatric exam: Present: normal affect, normal mood - Skin Skin exam: Present: intact, normal color, warm Internal Medicine: Result - Labs CBC & Chem 7: 04/18/17 04:16 04/18/17 04:16 Labs: Short CBC 04/18/17 Range/Units 04:16 WBC 6.3 (4.3-11.1) K/mcL Hgb 9.8 L (12.9-16.9) g/dL Hct 30.6 L (37.5-50.1) % Plt Count 286 (140-400) K/mcL Neutrophils # 4.1 (1.6-8.9) K/mcL BMP 04/18/17 04:16 Sodium 140 Potassium 3.5 Chloride 109 H Carbon Dioxide 24 BUN 6 L Creatinine 0.60 L Glucose 84 Calcium 9.0 - VTE Documentation of Mechanical Device: Intermittent pneumatic compression device Consult Discharge Plan - Plan Additional Instructions: PROCEDURE PERFORMED Reduction and fixation of left hip. Incision care -Daily dressing changes to the left hip with dry gauze and either paper tape or medipore tape. -Avoid soaking wound in water (no hot tubs, bathtubs, swimming pools). -May shower after 2 weeks from surgery date. Carefully wash incision with soap and water. Gently pat it dry. Don't rub the incision, or apply creams or lotions. Sit on a shower stool when showering to keep from falling. Weight bearing status -Weightbearing as tolerated to the bilateral lower extremities. Medications -Pain medication per the discharging medical doctor -Recommend enteric coated aspirin 325 mg by mouth twice per day for 28 days from the date of the surgery. [-Resume 50,000 units of vitamin D2 weekly and 1200 mg of calcium supplementation per day.] Other -Knee high JANA hose 23 hours per day -Consult physical and occupational therapy for mobilization. -Up to chair with assistance at least twice per day. -Follow up with your primary care physician to discuss testing for bone mineral density. Follow-up with Dr. Welch at the office 2 weeks from the surgery date for a post operative evaluation. Call the office at [phone] to schedule appointment. [facility]errals: [facility] [Primary Care Provider[facility] - 04/23/17 2:15 pm ([facility] no [facility]CP appointment needed)
[2017-04-18] MEDS: *HR* HYDROmorphone 2 MG TABLET PO PRN (17:33)
== END 2017-04-18 18:42 | disposition short-term general hospital (02) | DRG 481 ==
LOC: EMEROO 18:59 → 3NENU 18:59 → 2NNU 04-11 02:59 → 2NENU 04-14 14:54 → 2NNU 04-15 05:18
PROVIDERS: ADMIT Internal Medicine; ATTEND Hospitalist

== ENCOUNTER 2018-04-14 08:43 | Inpatient (IN) ==
[2018-04-14] MEDS ORDERED: Tdap (Boostrix) Vaccine 0.5 ML SYRINGE IM ONE (08:52)
--- NOTE | 2018-04-14 09:04 | Emergency Department Note ---
Disposition Clinical Impression: Acute kidney injury, Multiple falls Altered mental status Qualifiers: Altered mental status type: unspecified Qualified Code(s): R41.82 - Altered mental status, unspecified Aspiration pneumonia Qualifiers: Aspiration pneumonia type: unspecified Laterality: bilateral Lung location: unspecified part of lung Qualified Code(s): J69.0 - Pneumonitis due to inhalation of food and vomit Disposition: Admitted As Inpatient Condition: Fair [facility] Care Provider[facility] - Forms: ED Satisfaction Letter Fall HPI - General Chief Complaint: ED Fall Stated Complaint: fall Time Seen by Provider: 04/14/18 08:48 Source: EMS Mode of arrival: EMS Limitations: altered mental status Nursing Notes Reviewed: Yes Vital Signs Reviewed: Yes - History of Present Illness HPI Narrative: 68-year-old male with a 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 EMS reports they were called by the neighbor. The patient was found on the couch in his home. Unsure when he last fell. Unknown when he was last seen at his normal baseline. The patient is alert and oriented 2 upon arrival. He voices complaints of thoracic back pain. He has no recollection of falling. He has obvious bruising over the upper extremities. No other complaints. Pt Subjective Complaint: fall Onset (ago): unknown Fall Witnessed: no Place Fall Occurred: home Loss of Consciousness: unsure Prolonged Down Time?: unclear Associated symptoms (after fall): Reports: other (Back pain) - Related Data Home Medications Medication Instructions Recorded Confirmed Acetaminophen [Tylenol] 650 mg PO Q6HR PRN 08/20/15 02/11/18 Cholecalciferol (D-3) [Vitamin D] 2,000 unit PO DAILY 08/20/15 02/11/18 Gabapentin [Neurontin] 600 mg PO QID 08/20/15 02/11/18 Omeprazole [PriLOSEC] 20 mg PO DAILY 08/20/15 02/11/18 Venlafaxine XR (24 HR) [Effexor Xr] 150 mg PO DAILY 08/20/15 04/09/17 Rivaroxaban [Xarelto] 20 mg PO DAILY 04/09/17 02/11/18 Super Beta Prostate 1 tab PO DAILY 04/09/17 02/11/18 Thiamine (B-1) [Vitamin B-1] 100 mg PO BID 04/09/17 02/11/18 Folic Acid 1 mg PO DAILY 02/11/18 02/11/18 Tamsulosin [Flomax] 0.4 mg PO DAILY 02/11/18 02/11/18 hydrOXYzine HCl [Hydroxyzine HCl] 50 mg PO HS PRN 02/11/18 02/11/18 Allergies Allergy/AdvReac Type Severity Reaction Status Date / Time No Known Allergies Allergy Verified 02/11/18 10:50 Cardiovascular: Denies: chest pain Respiratory: Denies: dyspnea Gastrointestinal: Denies: abdominal pain Musculoskeletal: Reports: back pain. Denies: neck pain Fall PMH - Past Medical History Medical history: Reports: arthritis, cancer, DVT, hyperlipidemia, hypertension, other Surgical history: Reports: other Psychiatric history: Reports: no psych history - Social History Smoking Status: Current every day smoker Alcohol use: Reports: heavy, recent Drug use: Reports: marijuana Physical Exam - General Limitations: altered mental status General appearance: in no apparent distress, appears intoxicated - Head Head exam: atraumatic, normocephalic, normal inspection - Eye Eye exam: Present: normal appearance - ENT ENT exam: normal exam - Neck Neck exam: Present: normal inspection. Absent: tenderness - Chest Chest inspection: Present: normal inspection, symmetric chest wall rise - Respiratory Respiratory exam: Present: other (The patient has very coarse breath sounds bilaterally with rhonchi) - Cardiovascular Cardiovascular exam: Present: regular rate, normal rhythm, normal heart sounds - Abdominal Exam Abdominal exam: Present: soft, Non-Tender. Absent: tenderness, distention, rigidity - Extremities Exam Extremities exam: Present: normal inspection, full ROM - Expanded Upper Extremity Exam Shoulder exam: Present: normal inspection, full ROM Arm exam: Present: normal inspection, full ROM Elbow exam: Present: normal inspection, full ROM Forearm/Wrist exam: Present: normal inspection, full ROM, ecchymosis (The patient has numerous ecchymotic areas to the forearms, wrists and hands bilaterally) Hand exam: Present: normal inspection, full ROM Vascular exam: Normal: radial pulse - Expanded Lower Extremity Exam Hip/Pelvis exam: Present: normal inspection, full ROM Upper leg exam: Present: normal inspection, full ROM Knee exam: Present: normal inspection, full ROM Lower leg exam: Present: normal inspection, full ROM Ankle exam: Present: normal inspection, full ROM Foot/toe exam: Present: normal inspection, full ROM - Neurological Exam Neurological exam: Present: alert, other (Alert and oriented 2. No recollection of his falls. Follows commands. Moves all extremities. Slow to respond.). Absent: oriented X3 - Skin Skin exam: Present: warm, dry Course Course Narrative: Patient seen and examined. Vital signs reviewed. He appears intoxicated here. He also appears as if he has had numerous falls over and unknown time frame. He has no recollection of falling and is a poor historian contributing little to the history. Given unknown down time plan to check several labs, CT imaging of his head, cervical and thoracic spine as well as chest. I suspect based on exam that he has aspiration pneumonia. He will likely warrant admission for his altered mental status, multiple falls. Vital Signs Temperature 97.5 F L 04/14/18 08:47 Pulse Rate 90 04/14/18 08:47 Respiratory Rate 12 04/14/18 08:47 Blood Pressure 110/85 04/14/18 08:47 O2 Sat by Pulse Oximetry 98 04/14/18 08:47 Temperature 97.5 F L 04/14/18 08:47 Pulse Rate 90 04/14/18 08:47 Respiratory Rate 12 04/14/18 08:47 Blood Pressure 110/85 04/14/18 08:47 O2 Sat by Pulse Oximetry 98 04/14/18 08:47 Oxygen Delivery Oxygen Delivery Room Air Fall - [facility] Narrative Medical decision making narrative: 68-year-old male presents for altered mental status and fall. He was unable to provide any history here. Imaging demonstrates no acute fractures with findings consistent with aspiration pneumonia. He does have a leukocytosis of 18. He is hemodynamically stable. He does have a mild acute kidney injury as well. Patient was treated with Unasyn as well as IV fluids. Admitted to the hospital service. - Lab Data Lab results reviewed: Yes I reviewed the patient's lab results. Result diagrams: 04/14/18 10:28 04/14/18 08:50 Lab Results 04/14/18 04/14/18 04/14/18 Range/Units 08:50 08:50 09:44 WBC (4.3-11.1) K/mcL RBC (4.19-5.50) M/mcL Hgb (12.9-16.9) g/dL Hct (37.5-50.1) % MCV (83.0-100.0) fL MCH (28.0-33.3) pg MCHC (31.6-35.5) g/dL RDW (11.5-14.5) % Plt Count (140-400) K/mcL MPV (9.4-12.4) fL Immature Gran % (0-4) % Seg Neutrophils % % Lymphocytes % % Monocytes % % Eosinophils % % Basophils % % Neutrophils # (1.6-8.9) K/mcL Lymphocytes # (0.6-4.6) K/mcL Monocytes # (0.0-1.3) K/mcL Eosinophils # (0.0-0.6) K/mcL Basophils # (0.0-0.2) K/mcL PT 12.0 (9.4-12.1) Seconds INR 1.1 APTT 35.2 (26.0-36.0) Seconds Sodium 132 L (136-145) mEq/L Potassium 5.6 H (3.5-5.1) mEq/L Chloride 101 (98-107) mEq/L Carbon Dioxide 19 L (23-29) mEq/L BUN 31 H (8-23) mg/dL Creatinine 1.41 H (0.70-1.30) mg/dL Est GFR ( Amer) > 60 (> 60) Est GFR (Non-Af Amer) 50 L (> 60) BUN/Creatinine Ratio 22 (6-26) Glucose 116 H (70-105) mg/dL Calculated Osmolality 282 (280-300) Calcium 9.1 (8.6-10.3) mg/dL Total Bilirubin 0.5 (0.3-1.0) mg/dL Direct Bilirubin 0.2 (0.0-0.2) mg/dL Indirect Bilirubin 0.3 (0.0-1.2) mg/dL AST 25 (13-39) Units/L ALT 12 (7-52) Units/L Alkaline Phosphatase 128 H (34-104) Units/L Ammonia (16-53) mcmol/L Creatine Kinase 397 H (30-223) Units/L Troponin I < 0.03 (< 0.04) ng/mL Serum Total Protein 6.7 (6.4-8.9) g/dL Albumin 3.0 L (3.5-5.7) g/dL Globulin 3.7 H (2.4-3.5) g/dL Albumin/Globulin Ratio 0.8 L (1.1-2.2) TSH 3.437 (0.340-5.600) mcIU/mL Ethyl Alcohol < 10 (Less than 10) mg/dL Specimen Rejected MCV Delta 04/14/18 04/14/18 04/14/18 Range/Units 10:28 10:28 11:36 WBC 18.4 H (4.3-11.1) K/mcL RBC 4.30 (4.19-5.50) M/mcL Hgb 14.0 (12.9-16.9) g/dL Hct 42.5 (37.5-50.1) % MCV 98.8 D (83.0-100.0) fL MCH 32.6 (28.0-33.3) pg MCHC 32.9 (31.6-35.5) g/dL RDW 12.0 (11.5-14.5) % Plt Count 360 (140-400) K/mcL MPV 9.3 L (9.4-12.4) fL Immature Gran % 0.5 (0-4) % Seg Neutrophils % 87.2 % Lymphocytes % 6.5 % Monocytes % 5.4 % Eosinophils % 0.1 % Basophils % 0.3 % Neutrophils # 16.1 H (1.6-8.9) K/mcL Lymphocytes # 1.2 (0.6-4.6) K/mcL Monocytes # 1.0 (0.0-1.3) K/mcL Eosinophils # 0.0 (0.0-0.6) K/mcL Basophils # 0.1 (0.0-0.2) K/mcL PT (9.4-12.1) Seconds INR APTT (26.0-36.0) Seconds Sodium (136-145) mEq/L Potassium (3.5-5.1) mEq/L Chloride (98-107) mEq/L Carbon Dioxide (23-29) mEq/L BUN (8-23) mg/dL Creatinine (0.70-1.30) mg/dL Est GFR ( Amer) (> 60) Est GFR (Non-Af Amer) (> 60) BUN/Creatinine Ratio (6-26) Glucose (70-105) mg/dL Calculated Osmolality (280-300) Calcium (8.6-10.3) mg/dL Total Bilirubin (0.3-1.0) mg/dL Direct Bilirubin (0.0-0.2) mg/dL Indirect Bilirubin (0.0-1.2) mg/dL AST (13-39) Units/L ALT (7-52) Units/L Alkaline Phosphatase (34-104) Units/L Ammonia 43 (16-53) mcmol/L Creatine Kinase (30-223) Units/L Troponin I (< 0.04) ng/mL Serum Total Protein (6.4-8.9) g/dL Albumin (3.5-5.7) g/dL Globulin (2.4-3.5) g/dL Albumin/Globulin Ratio (1.1-2.2) TSH (0.340-5.600) mcIU/mL Ethyl Alcohol (Less than 10) mg/dL Specimen Rejected Hemolyzed 04/14/18 Range/Units 12:20 WBC (4.3-11.1) K/mcL RBC (4.19-5.50) M/mcL Hgb (12.9-16.9) g/dL Hct (37.5-50.1) % MCV (83.0-100.0) fL MCH (28.0-33.3) pg MCHC (31.6-35.5) g/dL RDW (11.5-14.5) % Plt Count (140-400) K/mcL MPV (9.4-12.4) fL Immature Gran % (0-4) % Seg Neutrophils % % Lymphocytes % % Monocytes % % Eosinophils % % Basophils % % Neutrophils # (1.6-8.9) K/mcL Lymphocytes # (0.6-4.6) K/mcL Monocytes # (0.0-1.3) K/mcL Eosinophils # (0.0-0.6) K/mcL Basophils # (0.0-0.2) K/mcL PT (9.4-12.1) Seconds INR APTT (26.0-36.0) Seconds Sodium (136-145) mEq/L Potassium (3.5-5.1) mEq/L Chloride (98-107) mEq/L Carbon Dioxide (23-29) mEq/L BUN (8-23) mg/dL Creatinine (0.70-1.30) mg/dL Est GFR ( Amer) (> 60) Est GFR (Non-Af Amer) (> 60) BUN/Creatinine Ratio (6-26) Glucose (70-105) mg/dL Calculated Osmolality (280-300) Calcium (8.6-10.3) mg/dL Total Bilirubin (0.3-1.0) mg/dL Direct Bilirubin (0.0-0.2) mg/dL Indirect Bilirubin (0.0-1.2) mg/dL AST (13-39) Units/L ALT (7-52) Units/L Alkaline Phosphatase (34-104) Units/L Ammonia (16-53) mcmol/L Creatine Kinase (30-223) Units/L Troponin I (< 0.04) ng/mL Serum Total Protein (6.4-8.9) g/dL Albumin (3.5-5.7) g/dL Globulin (2.4-3.5) g/dL Albumin/Globulin Ratio (1.1-2.2) TSH (0.340-5.600) mcIU/mL Ethyl Alcohol (Less than 10) mg/dL Specimen Rejected Clotted - Radiology Data Radiology results reviewed: Yes I reviewed the patient's radiology results. Cervical Spine CT 04/14/18 08:50 IMPRESSION: 1. Image quality is degraded secondary to motion artifact. 2. Within limits of the exam, no acute displaced fracture identified. D/ / Domingo Hernandez MD / Domingo Hernandez MD Interpreting Provider: Domingo Hernandez MD Chest CT 04/14/18 08:50 IMPRESSION: 1. Bibasilar ground-glass opacities. Differential includes atypical infection and aspiration. 2. No evidence of acute thoracic spine fracture. There are old healed posterior rib fractures in the right lateral and posterior chest wall. 3. Chronic interstitial fibrosis of the lungs bilaterally. 4. Coronary artery disease. D/ / Aaron Morrow MD / Aaron Morrow MD Interpreting Provider: Aaron Morrow MD Head CT 04/14/18 08:50 IMPRESSION: No acute intracranial abnormality. D/ / Magnus Benson MD / Magnus Benson MD Interpreting Provider: Magnus eBnson MD Thoracic Spine CT 04/14/18 08:50 IMPRESSION: 1. Bibasilar ground-glass opacities. Differential includes atypical infection and aspiration. 2. No evidence of acute thoracic spine fracture. There are old healed posterior rib fractures in the right lateral and posterior chest wall. 3. Chronic interstitial fibrosis of the lungs bilaterally. 4. Coronary artery disease. D/ / Aaron Morrow MD / Aaron Morrow MD Interpreting Provider: Aaron Morrow MD - EKG Data EKG attestation: Yes I reviewed and interpreted this EKG. EKG results narrative: EKG demonstrates sinus rhythm with a right bundle branch block with a rate of 88 beats or minute. Prolonged QRS ration of 1:30. No gross ST elevations or depressions. No acute ischemic findings. Critical Care Time Critical Care Time: Yes Total Critical Care Time: 35 Attestation: Critical care time 35 minutes managing patient's multiple medical conditions. S.B.Mary - Dee Situation: Demographics, MOA Background: Presenting Complaint, Relevant PMH, Meds, & Allergies Assessment: Course and respsone to treatment, Exam Concerns, Patient/Family Expectation, Pertinant Lab Results Recommendation: Barrier(s) to disposition, Recommendation based on pending studies, treatments, or consults S.B.Mary Report Given to: Dr. Jessie Price Repor Time: 11:02 Attestation Statement - Attestation Attestation: Patient was seen with resident physician. I reviewed the history, physical, assessment and plan, and agree with the findings. I also personally evaluated this patient and had [id number] time with this patient. 68-year-old male presents emergency Department with chief complaint of falls. Patient lives at a [facility], and was found after a fall. Patient apparently has frequent falls. He is a known alcoholic. Patient himself provides very little history. He does answer some questions and move all extremities. But he is a poor historian and appears intoxicated at this time. He denies fevers chills chest pain shortness of breath or neck pain. The only complaint is really back pain which she says in the middle of his back and his usual location and usual kind of pain. Review of systems as above remainder negative. Physical exam vital signs are stable. ENT shows some mild abrasions underneath the right eye. There is no ocular trauma. Neck and back are nontender to palpation midline. Heart regular rhythm and rate. Lungs diffuse crackles throughout especially on the left side. No wheezing was heard. Abdomen is soft and nontender. Extremities do not show signs of significant traumatic injury though the patient has multiple skin avulsions on his hands bilaterally. Neur ologically the patient's easily arousable moves all extremities and follows commands. Skin abrasions as noted patient also has multiple bruises especially on his upper extremities. Psych flat affect. ED course. We will get CT scans of the head neck and back. We will also get a chest CT. We will check basic labs. We did a workup for fall or altered mental status. Findings were consistent with acute kidney injury, aspiration pneumonia, multiple abrasions, and altered mental status. CT the chest revealed the pneumonias. Head and neck were unremarkable. EKG showed no acute ischemic changes. Additionally patient markedly elevated white blood cell count. He was started on IV antibiotics. Hospitalist service was notified. They agreed to accept the patient for admission. Hemodynamically he did well while in the emergency department. I critical care time managing all of his conditions was 35 minutes. I agree with resident physician assessment and plan.
[2018-04-14 09:51] LABS: INR 1.1
[2018-04-14 09:53] LABS: Activated Partial Thrombo Time 35.2 Seconds (26.0-36.0)
[2018-04-14 10:02] LABS: Troponin I < 0.03 ng/mL (< 0.04)
[2018-04-14 10:04] LABS: Alanine Aminotransferase 12 Units/L (7-52); Albumin/Globulin Ratio 0.8 (1.1-2.2); Alkaline Phosphatase 128 Units/L (34-104); Aspartate Amino Transferase 25 Units/L (13-39); BUN/Creatinine Ratio 22 (6-26); Bilirubin,Direct 0.2 mg/dL (0.0-0.2); Bilirubin,Indirect 0.3 mg/dL (0.0-1.2); Bilirubin,Total 0.5 mg/dL (0.3-1.0); Blood Urea Nitrogen 31 mg/dL (8-23); Calcium 9.1 mg/dL (8.6-10.3); Carbon Dioxide 19 mEq/L (23-29); Chloride 101 mEq/L (98-107); Creatine Kinase 397 Units/L (30-223); Ethanol < 10 mg/dL (Less than 10); Globulin 3.7 g/dL (2.4-3.5); Glucose 116 mg/dL (70-105); Osmolality,Calculated 282 (280-300); Potassium 5.6 mEq/L (3.5-5.1); Sodium 132 mEq/L (136-145); Total Protein 6.7 g/dL (6.4-8.9); eGFR For Non-African Americans 50 (> 60)
[2018-04-14] MEDS ORDERED: 0.9 % Sodium Chloride 1,000 ML IVC ONE ×2 (10:06→10:51)
[2018-04-14 10:15] LABS: Thyroid Stimulating Hormone 3.437 mcIU/mL (0.340-5.600)
[2018-04-14 10:39] LABS: Basophils # 0.1 K/mcL (0.0-0.2); Basophils % 0.3 %; Eosinophils % 0.1 %; Hematocrit 42.5 % (37.5-50.1); Immature Granulocytes % 0.5 % (0-4); Lymphocytes # 1.2 K/mcL (0.6-4.6); Lymphocytes % 6.5 %; Mean Corpuscular HGB Conc 32.9 g/dL (31.6-35.5); Mean Corpuscular Hemoglobin 32.6 pg (28.0-33.3); Mean Corpuscular Volume 98.8 fL (83.0-100.0); Mean Platelet Volume 9.3 fL (9.4-12.4); Monocytes % 5.4 %; Neutrophils # 16.1 K/mcL (1.6-8.9); Platelet Count 360 K/mcL (140-400); Segmented Neutrophils % 87.2 %
[2018-04-14] MEDS ORDERED: Ampicillin/Sulbactam 3,000 MG in 0.9 % Sodium Chloride Mini Bag 100 ML IVPB ONE (10:44)
[2018-04-14] MEDS ORDERED: Folic Acid 1 MG in 0.9 % Sodium Chloride 50 ML IVPB SCH (11:30)
--- NOTE | 2018-04-14 11:39 | Internal Med History&Physical ---
Date of Encounter: 04/14/18 Time of Encounter: 11:22 Internal Medicine - H&P: HPI Chief complaint: AMS Admitted From: Home Plans for Post Hospital Care: Transfer Detention Facility History of present illness: Mr. 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 vanda is Axox2 right now and is unable to provide any history so most of the history is obtained from ED physician. as per ED physician " EMS reports they were called by the neighbor. The patient was found on the couch in his home. Unsure when he last fell. Unknown when he was last seen at his normal baseline. The patient is alert and oriented 2 upon arrival." While in the emergency department CT scan of the head and the cervical spine was performed and he was cleared from a trauma perspective by the ED physician. He was endorsed for further admission for management of his altered mental status. Patient was seen and examined at bedside. He only follows simple commands and is alert and oriented 2 days and time not person ( cannot recall president). He is unable to provide any information about what happened and why he is at the hospital. Asked if he has any fever, chills, nausea, vomiting, diarrhea, headache, vision changes, loss of function of his extremities, chest pain palpitations shakes his head no. Past Med Surg Social Fam HX - Past Medical History Medical history: arthritis, cancer, DVT, hyperlipidemia, hypertension, other Additional medical history: prostrate CA, radioactive seed implants Psychiatric history: no psych history - Past Surgical History Surgical History: other Additional surgical history: Radiation seeds, rt shoulder surgery, R/L hip - Social History Smoking Status: Current every day smoker Smokeless Tobacco Status: No Alcohol use: heavy, recent Drug use: marijuana - Family History Mother Living Status: Hx Family Cardiac Disorders: Yes (states his mother had open heart surgery) Hx Family Respiratory Disorders: Yes (lung cancer) Hx Family Cancer: Yes (lung cancer) Hx Family GI Disorders: No Hx Family Endocrine Disorder: Yes (diabetes) Hx Family Neuromuscular Disorders: No Hx Family Neurologic Disorders: No Hx Family HEENT Disorders: No Hx Family Autoimmune Disorders: No Father Hx Family Cancer: Yes (prostate) Internal Medicine - H&P: Meds Acetaminophen [Tylenol] 650 mg PO Q6HR PRN 08/20/15 [History] Cholecalciferol (D-3) [Vitamin D] 2,000 unit PO DAILY 08/20/15 [History] Gabapentin [Neurontin] 600 mg PO QID 08/20/15 [History] Omeprazole [PriLOSEC] 20 mg PO DAILY 08/20/15 [History] Venlafaxine XR (24 HR) [Effexor Xr] 150 mg PO DAILY 08/20/15 [History] Rivaroxaban [Xarelto] 20 mg PO DAILY 04/09/17 [History] Super Beta Prostate 1 tab PO DAILY 04/09/17 [History] Thiamine (B-1) [Vitamin B-1] 100 mg PO BID 04/09/17 [History] Folic Acid 1 mg PO DAILY 02/11/18 [History] Tamsulosin [Flomax] 0.4 mg PO DAILY 02/11/18 [History] hydrOXYzine HCl [Hydroxyzine HCl] 50 mg PO HS PRN 02/11/18 [History] Allergy/AdvReac Type Severity Reaction Status Date / Time No Known Allergies Allergy Verified 02/11/18 10:50 All Systems PM: A 10-system review of systems was performed and is negative for pertinent findings except as documented above in the HPI. - Constitutional Vitals: Temp Pulse Resp BP Pulse Ox 97.5 F L 90 12 110/85 98 04/14/18 08:47 04/14/18 08:47 04/14/18 08:47 04/14/18 08:47 04/14/18 08:47 Exam: General: Patient is alert, oriented, no acute distress, thin Head: atraumatic, normocephalic, Eye: normal appearance, PERRL, no scleral icterus, no conjunctival injection ENT: mucous membranes dry, normal external ear exam Neck: normal inspection, trachea midline, full ROM, no carotid bruits Chest: normal inspection, symmetric chest rise Respiratory: Good respiratory effort. Bilateral breath sounds are clear, cr ackles in min posterior lung reno no wheezing Cardiovascular: Regular rate and rhythm. s1 and s2 No clicks, rubs, gallops, or murmors. Abdomen: Bowel sounds present normoactive x-4 quadrants. Abdomen is soft, nondistended. no Epigastric tenderness. No guarding or rebound. No organomegaly noted, musculoskeletal: Spontaneously moving all extremities. no edema, no calf tenderness Skin: warm, dry, intact. Multiple ecchymosis in the upper extremities in different stages of healing Neuro: Alert and oriented x2 to place and time he knows that its March however he cannot recall the year, he cannot recall who the president but is oriented to himself no facial droop, neurological assessment is difficult due to mental status. But he is moving all 4 extremities. Speech is comprehendibl e, PERRLA, bilateral tremors on oput stretched hands Psych: Patient's affect is normal Internal Med - H&P Results - Labs CBC & Chem 7: 04/14/18 10:28 04/14/18 08:50 Labs: Short CBC 04/14/18 Range/Units 10:28 WBC 18.4 H (4.3-11.1) K/mcL Hgb 14.0 (12.9-16.9) g/dL Hct 42.5 (37.5-50.1) % Plt Count 360 (140-400) K/mcL Neutrophils # 16.1 H (1.6-8.9) K/mcL BMP 04/14/18 08:50 Sodium 132 L Potassium 5.6 H Chloride 101 Carbon Dioxide 19 L BUN 31 H Creatinine 1.41 H Glucose 116 H Calcium 9.1 Cardiac Enzymes 04/14/18 Range/Units 08:50 Troponin I < 0.03 (< 0.04) ng/mL Liver Function 04/14/18 Range/Units 08:50 Total Bilirubin 0.5 (0.3-1.0) mg/dL Direct Bilirubin 0.2 (0.0-0.2) mg/dL AST 25 (13-39) Units/L ALT 12 (7-52) Units/L Alkaline Phosphatase 128 H (34-104) Units/L Albumin 3.0 L (3.5-5.7) g/dL - EKG Data -: EKG Interpreted by Myself EKG shows normal: sinus rhythm (RBBB, QT 455) - Impressions ITS Impressions Cervical Spine CT 04/14/18 08:50 IMPRESSION: 1. Image quality is degraded secondary to motion artifact. 2. Within limits of the exam, no acute displaced fracture identified. D/ / Domingo Hernandez MD / Domingo Hernandez MD Interpreting Provider: Domingo Hernandez MD Chest CT 04/14/18 08:50 IMPRESSION: 1. Bibasilar ground-glass opacities. Differential includes atypical infection and aspiration. 2. No evidence of acute thoracic spine fracture. There are old healed posterior rib fractures in the right lateral and posterior chest wall. 3. Chronic interstitial fibrosis of the lungs bilaterally. 4. Coronary artery disease. D/ / 04/14/2018 11:04:01 Aaron Morrow MD / [facility] Interpreting Provider: Aaron Morrow MD Head CT 04/14/18 08:50 IMPRESSION: No acute intracranial abnormality. D/ / 04/14/2018 11:05:54 Magnus Benson MD / [facility] Interpreting Provider: Magnus Benson MD Thoracic Spine CT 04/14/18 08:50 IMPRESSION: 1. Bibasilar ground-glass opacities. Differential includes atypical infection and aspiration. 2. No evidence of acute thoracic spine fracture. There are old healed posterior rib fractures in the right lateral and posterior chest wall. 3. Chronic interstitial fibrosis of the lungs bilaterally. 4. Coronary artery disease. D/ / 04/14/2018 11:04:01 Aaron Morrow MD / [facility]la Interpreting Provider: Aaron Morrow MD - Assessment and plan (1) Acute encephalopathy Current Visit: Yes Status: Acute Assessment and plan: Acute encephalopathy most likely secondary to alcohol withdrawal versus infectious etiology (has aspiration pneumonia) versus seizures ruled out stroke CT head was negative for any acute abnormalities in the ED Ammonia 43 TSH 3.437 MRI of the head- pending confirmation that the hardware that he has is compatible Neuro checks every 4 hours Aspiration, fall, seizure precautions Thiamine and folic acid continue with antibiotics as below EEG Neurology consult If he develops fever and worsening mental status consider LP Elevate the head of the bed UTOX and UA stat (2) Aspiration pneumonia Current Visit: Yes Status: Acute Assessment and plan: zosyn, azithromycin MRSA swab Urine antigens- ( if negative consider discontinuing Azithromycin) Sputum cultures Follow blood cultures Respiratory viral panel Started on IV hydration watch for overload Qualifiers: Aspiration pneumonia type: unspecified Laterality: bilateral Lung location: unspecified part of lung Qualified Code(s): J69.0 - Pneumonitis due to inhalation of food and vomit (3) Traumatic rhabdomyolysis Current Visit: Yes Status: Acute Assessment and plan: CPK level of 397 Continue with IV hydration Fall precautions Follow CPK and the morning Qualifiers: Encounter type: initial encounter Qualified Code(s): T79.6XXA - Traumatic ischemia of muscle, initial encounter (4) Acute renal failure (ARF) Current Visit: Yes Status: Acute Assessment and plan: most likely secondary to dehydration and rhabodomyolysis continue with IV hydration intake and out put bladder scan if >400 CC insert nunez retroperitoneal US to rule out hydronephrosis UA pending urine lytes Qualifiers: Acute renal failure type: unspecified Qualified Code(s): N17.9 - Acute kidney failure, unspecified (5) Multiple falls Current Visit: Yes Status: Acute Assessment and plan: secondary to alcohol use disorder was cleared by [facility] ED physician from the trauma perspective will check B12 level Pt/Ot consult once mental status has imoproved CT head negative for any acute abnormalities vitamin D supplementation (6) Alcohol abuse Current Visit: No Status: Acute Assessment and plan: thimaine, folic acid alcohol level is negative [facility] protocol Fall, aspiration, seizure precautions Nutrition consult CM consult (7) VTE (venous thromboembolism) Current Visit: No Status: Chronic Assessment and plan: As per chart review on last admission it was documented that "Reports it was provoked after a hip fracture but his anticoagulant therapy was never discontinued. Rivaroxaban currently held while patient is fall risk secondary to alcohol withdrawal Hip fracture occurred Mar 2017, 6 month course anticoagulation complete Will not continue Rivaroxaban at discharge" (8) COPD (chronic obstructive pulmonary disease) Current Visit: No Status: Suspected Assessment and plan: DUO- nebs rest of the management as above Qualifiers: COPD type: chronic bronchitis Chronic bronchitis type: unspecified Qualified Code(s): J42 - Unspecified chronic bronchitis (9) Hyperkalemia Current Visit: Yes Status: Acute Assessment and plan: kayaxalate was ordered IV hydration follow electrolytes in AM (10) DVT prophylaxis Current Visit: No Status: Acute Assessment and plan: Heparin subcutaneous - Time Spent With Patient Total time spent is greater than 50% in coordination of care (as documented) at patient's floor/unit and/or counseling patient:
[2018-04-14] MEDS ORDERED: Acetaminophen 325 MG TABLET PO PRN (11:56)
[2018-04-14] MEDS ORDERED: Ipratropium/Albuterol Neb 3 ML IH PRN (12:34)
[2018-04-14 12:55] LABS: Magnesium 1.6 mg/dL (1.6-2.6); Phosphorous 2.9 mg/dL (2.7-4.5)
[2018-04-14] MEDS: *HR* Heparin 5,000 UNIT/ML VIAL SQ SCH ×2 (16:06→21:09)
[2018-04-14] MEDS: Azithromycin 500 MG in D5% in Water 250 ML IVPB SCH (16:06)
[2018-04-14] MEDS: 0.9 % Sodium Chloride 1,000 ML IVC SCH ×2 (16:16→21:34)
[2018-04-14] MEDS: Thiamine (B-1) 100 MG TABLET PO SCH (17:28)
[2018-04-14] MEDS: Piperacillin/Tazobactam 3.375 GM in 0.9 % Sodium Chloride Mini Bag 100 ML IVPB SCH (17:33)
[2018-04-14 17:50] LABS: BUN/Creatinine Ratio 26 (6-26); Blood Urea Nitrogen 27 mg/dL (8-23); Calcium 8.8 mg/dL (8.6-10.3); Carbon Dioxide 20 mEq/L (23-29); Chloride 105 mEq/L (98-107); Glucose 109 mg/dL (70-105); Osmolality,Calculated 284 (280-300); Potassium 4.6 mEq/L (3.5-5.1); Sodium 134 mEq/L (136-145); eGFR For Non-African Americans > 60 (> 60)
[2018-04-14 18:48] LABS: Adenovirus Not Detected (Not Detect); Bordetella Pertussis Not Detected (Not Detect); Chlamydophila pneumoniae Not Detected (Not Detect); Coronavirus 229E Not Detected (Not Detect); Coronavirus HKU1 Not Detected (Not Detect); Coronavirus NL63 Not Detected (Not Detect); Coronavirus OC43 Not Detected (Not Detect); Human Metapneumovirus Not Detected (Not Detect); Human Rhinovirus/Enterovirus Not Detected (Not Detect); Influenza A Subtype 2009 H1 Not Detected (Not Detect); Influenza A Untypeable Not Detected (Not Detect); Influenza B Not Detected (Not Detect); Mycoplasma pneumoniae Not Detected (Not Detect); Parainfluenza Virus 1 Not Detected (Not Detect); Parainfluenza Virus 2 Not Detected (Not Detect); Parainfluenza Virus 3 Not Detected (Not Detect); Parainfluenza Virus 4 Not Detected (Not Detect); Respiratory Syncytial Virus Not Detected (Not Detect)
[2018-04-14] MEDS ORDERED: Metoprolol XL (24 HR) Succ 50 MG TAB.ER.24H PO SCH (21:00)
[2018-04-15] MEDS: Piperacillin/Tazobactam 3.375 GM in 0.9 % Sodium Chloride Mini Bag 100 ML IVPB SCH ×4 (00:39→23:59)
[2018-04-15 02:08] LABS: Basophils % 0.2 %; Eosinophils # 0.1 K/mcL (0.0-0.6); Eosinophils % 0.5 %; Hematocrit 35.8 % (37.5-50.1); Immature Granulocytes % 0.5 % (0-4); Lymphocytes # 1.4 K/mcL (0.6-4.6); Lymphocytes % 9.4 %; Mean Corpuscular HGB Conc 33.2 g/dL (31.6-35.5); Mean Corpuscular Hemoglobin 32.4 pg (28.0-33.3); Mean Corpuscular Volume 97.5 fL (83.0-100.0); Mean Platelet Volume 9.6 fL (9.4-12.4); Monocytes # 0.8 K/mcL (0.0-1.3); Monocytes % 5.4 %; Neutrophils # 12.4 K/mcL (1.6-8.9); Platelet Count 293 K/mcL (140-400); Red Blood Count 3.67 M/mcL (4.19-5.50); Red Cell Distribution Width 12.1 % (11.5-14.5)
[2018-04-15 02:11] LABS: Hemoglobin 11.9 g/dL (12.9-16.9)
[2018-04-15 02:26] LABS: BUN/Creatinine Ratio 24 (6-26); Blood Urea Nitrogen 23 mg/dL (8-23); Calcium 8.6 mg/dL (8.6-10.3); Carbon Dioxide 22 mEq/L (23-29); Chloride 107 mEq/L (98-107); Glucose 84 mg/dL (70-105); Osmolality,Calculated 289 (280-300); Potassium 3.9 mEq/L (3.5-5.1); Sodium 138 mEq/L (136-145); eGFR For Non-African Americans > 60 (> 60)
[2018-04-15 03:31] LABS: Adenovirus F 40/41 PCR Not detected (Not detect); Astrovirus PCR Not detected (Not detect); C.difficile Toxin A/B Gene PCR Not detected (Not detect); Campylobacter by PCR Not detected (Not detect); Cryptosporidium by PCR Not detected (Not detect); Cyclospora cayetanensis PCR Not detected (Not detect); E. coli O157 by PCR Not detected (Not detect); Entamoeba histolytica PCR Not detected (Not detect); Enteroaggregative E.coli(EAEC) Not detected (Not detect); Enteropathogenic E.coli(EPEC) Not detected (Not detect); Enterotoxigenic E.coli (ETEC) Not detected (Not detect); Giardia lamblia PCR Not detected (Not detect); Norovirus GI/GII PCR Not detected (Not detect); Plesiomonas shigelloides PCR Not detected (Not detect); Rotavirus A PCR Not detected (Not detect); Salmonella PCR Not detected (Not detect); Sapovirus PCR Not detected (Not detect); Shig/EnteroinvasiveE coli EIEC Not detected (Not detect); Shigalike tox-prod E coli STEC Not detected (Not detect); Vibrio PCR Not detected (Not detect); Vibrio cholerae PCR Not detected (Not detect); Yersinia enterocolitica PCR Not detected (Not detect)
[2018-04-15] MEDS: *HR* Heparin 5,000 UNIT/ML VIAL SQ SCH ×3 (06:23→22:30)
[2018-04-15] MEDS ORDERED: Folic Acid 1 MG in 0.9 % Sodium Chloride 50 ML IVPB SCH (09:00)
[2018-04-15] MEDS ORDERED: Thiamine (B-1) 100 MG in D5% in Water 50 ML IVPB SCH (09:00)
[2018-04-15] MEDS: Cholecalciferol (D-3) 1,000 UNIT TABLET PO SCH (09:09)
[2018-04-15] MEDS: Thiamine (B-1) 100 MG TABLET PO SCH (09:10)
--- NOTE | 2018-04-15 09:57 | Neurology - Consult Note ---
<Dilan Ramirez - Last Filed: 04/15/18 09:49> Date of Encounter: 04/15/18 Time of Encounter: 09:49 Assessment and Plan (1) Acute encephalopathy Current Visit: Yes Status: Acute Neurology has been c/s d/t AMS and falls. encephalopathy most likely 2/2 alcohol withdrawal but may be multifactorial with aspiration PNA. CT head negative for acute intracranial abnormality B12 395, TSH 3.437 GI panel, RIP negative with AMS and falls consider seizure, stroke, ETOH related while he does have leukocytosis, he was not febrile and does not have h/a, or neck pain; low suspicion for CLIENT RELATIONS SPECIALIST infection PLAN: MRI brain EEG Continue CIWA Seizure precautions PT/OT supportive care for medical problems History of Present Illness Chief complaint: AMS, falls HPI: Pt was confused upon exam and therefore hx was drawn from ED note as well. Mr. Victoria is a 68 y/o male with PMHx of VTE on Xarelto presenting to ED with AMS and falls. He was found by EMS on the couch in an altered state, A&Ox2 with complaints of thoracic back pain. Multiple ecchymoses in various stages of healing were present on pt upper extremities yet he does not recall any of his falls. Pt has hx of alcoholism but does not recall his last drink. He was most recently seen in the ED last month for falls and tremors. Etiology of falls and AMS remain unclear. Neuro consulted to assist with evaluation. Past Med Surg Social Fam HX - Past Medical History Medical history: arthritis, cancer, DVT, hyperlipidemia, hypertension, other Additional medical history: prostrate CA, radioactive seed implants Psychiatric history: no psych history - Past Surgical History Surgical History: other Additional surgical history: Radiation seeds, rt shoulder surgery, R/L hip - Social History Smoking Status: Current every day smoker Smokeless Tobacco Status: No Alcohol use: heavy, recent Drug use: marijuana - Family History Mother Living Status: Hx Family Cardiac Disorders: Yes (states his mother had open heart surgery) Hx Family Respiratory Disorders: Yes (lung cancer) Hx Family Cancer: Yes (lung cancer) Hx Family GI Disorders: No Hx Family Endocrine Disorder: Yes (diabetes) Hx Family Neuromuscular Disorders: No Hx Family Neurologic Disorders: No Hx Family HEENT Disorders: No Hx Family Autoimmune Disorders: No Father Hx Family Cancer: Yes (prostate) Medications and Allergies Acetaminophen [Tylenol] 650 mg PO Q6HR PRN 08/20/15 [History] Cholecalciferol (D-3) [Vitamin D] 1,000 unit PO DAILY 08/20/15 [History] Gabapentin [Neurontin] 600 mg PO TID 08/20/15 [History] Omeprazole [PriLOSEC] 20 mg PO DAILY 08/20/15 [History] Venlafaxine XR (24 HR) [Effexor Xr] 150 mg PO DAILY 08/20/15 [History] Folic Acid 1 mg PO DAILY 02/11/18 [History] Tamsulosin [Flomax] 0.4 mg PO DAILY 02/11/18 [History] hydrOXYzine HCl [Hydroxyzine HCl] 50 mg PO HS PRN 02/11/18 [History] Baclofen 20 mg PO TID 04/14/18 [History] Metoprolol Succinate [Toprol Xl] 25 mg PO BID 04/14/18 [History] Naproxen Sodium 550 mg PO BIDWM 04/14/18 [History] Potassium Chloride [Klor-Con 10] 10 meq PO DAILY 04/14/18 [History] Rivaroxaban [Xarelto] 20 mg PO DAILY 04/14/18 [History] Thiamine HCl [Vitamin B-1] 50 mg PO BID 04/14/18 [History] Allergy/AdvReac Type Severity Reaction Status Date / Time No Known Allergies Allergy Verified 02/11/18 10:50 ROS unobtainable: due to mental status All Systems: The remainder of the systems were reviewed and are negative Physical Examination - Vital Signs Vital Signs: Initial Vital Signs Temp Pulse Resp BP Pulse Ox 97.5 F L 90 12 110/85 98 04/14/18 08:47 04/14/18 08:47 04/14/18 08:47 04/14/18 08:47 04/14/18 08:47 - Exam Exam: Examination: General Examination: *CONSTITUTIONAL: alert to self, responds to verbal stimuli but is uncooperative, calm *GENERAL APPEARANCE OF PATIENT ill-appearing elderly male *SKIN: Ecchymosis bilateral arms in various stages of healing *EYES: pupils equal, round, reactive to light and accommodation, conjunctiva clear Musculoskeletal: *GAIT AND STATION not assessed *ASSESSMENT OF MUSCLE STRENGTH IN THE UPPER AND LOWER EXTREMITIES bilateral deltoid, bicep, tricep, care provider strength, hip flexors ,anterior tibialis, dorsoflexion of the foot 5/5 *MUSCLE TONE IN THE UPPER AND LOWER EXTREMITIES normal. No abnormal movements, fasciculations or atrophy identified. Neurological: *ORIENTATION to person *RECURRENT AND REMOTE MEMORY difficult to assess as the patient is altered mental status and is uncooperative *ATTENTION AND CONCENTRATION are normal *LANGUAGE FUNCTION no significant aphasia or dysarthia was noted. *MENTAL attention span and concentration normal. *CN II optic fundi were normal, no papilledema noted. *CN III,IV, PERRLA extraocular eye movements were full, no nystagmus and no ptosis noted. *CN V shows normal sensation and jaw opens symmetrically. *CN VII shows normal facial movement symmetrically, upper and lower bilaterally. *CN VIII shows no significant hearing loss on exam *CN IX,,X palate elevated symmetrically *CN XI normal strength in the sternocleidomastoid muscles, symmetrical shoulder shrugging. *CN XII tongue protruded in the midline, with normal strength and movement. *SENSORY EXAMINATION light touch intact *REFLEXES: deep tendon reflexes were normal and symmetrical , grade 2/4 diffusely, no pathological reflexes were noted. *CEREBELLAR TESTING normal finger to nose *PAIN LEVEL 0 Results - Laboratory Findings CBC and BMP: 04/15/18 01:20 04/15/18 01:20 Abnormal lab findings: Abnormal lab results WBC 14.7 K/mcL (4.3-11.1) H 04/15/18 01:20 RBC 3.67 M/mcL (4.19-5.50) L 04/15/18 01:20 Hgb 11.9 g/dL (12.9-16.9) L D 04/15/18 01:20 Hct 35.8 % (37.5-50.1) L 04/15/18 01:20 Neutrophils # 12.4 K/mcL (1.6-8.9) H 04/15/18 01:20 Carbon Dioxide 22 mEq/L (23-29) L 04/15/18 01:20 Alkaline Phosphatase 128 Units/L (34-104) H 04/14/18 08:50 Albumin 3.0 g/dL (3.5-5.7) L 04/14/18 08:50 Globulin 3.7 g/dL (2.4-3.5) H 04/14/18 08:50 Albumin/Globulin Ratio 0.8 (1.1-2.2) L 04/14/18 08:50 - Diagnostic Findings Additional findings: CT/CT head/brain wo con IMPRESSION: No acute intracranial abnormality. Consult Discharge Plan - Plan [facility]errals: [facility] Care Provider[facility] - <Darling Norman I - Last Filed: 04/15/18 15:29> Date of Encounter: 04/15/18 Assessment and Plan (1) Acute encephalopathy Current Visit: Yes Status: Acute Pt was seen and examined, I personally performed the [id number] assessment of the patient and have reviewed the [employer] note , my medical decision was reviewed with Dilan Modi CNP, I agree with the documented findings, disposition and treatment plan, as described except to the extent set forth below. Patient has a known history of frequent falls and altered mental status with a history of heavy alcohol use CT of the head is negative for any acute infarct no new focal findings on examination the review EEG for any interictal abnormalities continue withdrawal precautions and fall precautions no other new medications recommended at this time. Darling Norman MD History of Present Illness HPI: Mr. Victoria is a 68 year old male All Systems: The remainder of the systems were reviewed and are negative Physical Examination - Vital Signs Vital Signs: Initial Vital Signs Temp Pulse Resp BP Pulse Ox 97.5 F L 90 12 110/85 98 04/14/18 08:47 04/14/18 08:47 04/14/18 08:47 04/14/18 08:47 04/14/18 08:47 Results - Laboratory Findings CBC and BMP: 04/15/18 01:20 04/15/18 01:20 Abnormal lab findings: Abnormal lab results WBC 14.7 K/mcL (4.3-11.1) H 04/15/18 01:20 RBC 3.67 M/mcL (4.19-5.50) L 04/15/18 01:20 Hgb 11.9 g/dL (12.9-16.9) L D 04/15/18 01:20 Hct 35.8 % (37.5-50.1) L 04/15/18 01:20 Neutrophils # 12.4 K/mcL (1.6-8.9) H 04/15/18 01:20 Carbon Dioxide 22 mEq/L (23-29) L 04/15/18 01:20 Alkaline Phosphatase 128 Units/L (34-104) H 04/14/18 08:50 Albumin 3.0 g/dL (3.5-5.7) L 04/14/18 08:50 Globulin 3.7 g/dL (2.4-3.5) H 04/14/18 08:50 Albumin/Globulin Ratio 0.8 (1.1-2.2) L 04/14/18 08:50
[2018-04-15] MEDS: Azithromycin 500 MG in D5% in Water 250 ML IVPB SCH (11:59)
--- NOTE | 2018-04-15 13:00 | Internal Med Progress Note ---
Hospitalist Progress Note - Encounter Date of Encounter: 04/15/18 Time of Encounter: 11:00 - Subjective Interval History: Mr. 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 as per ED physician " EMS r eports they were called by the neighbor. The patient was found on the couch in his home. Unsure when he last fell. Unknown when he was last seen at his normal baseline. The patient is alert and oriented 2 upon arrival." While in the emergency department CT scan of the head and the cervical spine was performed and he was cleared from a trauma perspective by the ED physician. Patient was admitted in the hospital and placed him on telemetry monitor. Today he is more alert, awake and oriented to self only he still seems to be very confused. He denied any chest pain, shortness of breath. However he does complaining about chest congestion, cough with expectoration. He is an active smoker. - Exam Vitals: Temp Pulse Resp BP Pulse Ox 97.4 F L 81 16 115/79 98 04/15/18 11:59 04/15/18 11:59 04/15/18 11:59 04/15/18 11:59 04/15/18 11:59 Exam: Gen: Alert, awake, Oriented to time,place and person Chest: Diminished breath sounds B/L, mild wheezing, No crackles, No rales, ronchi+ Heart: S1S2+ RRR No murmurs Abd: Soft, NT, BS +, No organomegaly Ext: No edema, pulses are palpable, No calf tenderness Neuro : Benign findings Skin: No rash. - Assessment and Plan (1) Acute aspiration pneumonia Current Visit: Yes Status: Acute Assessment and Plan: CT of chest showed b/l lower lobe infiltrates concerning for aspiration PNA Cont Zosyn and Azithromycin for now Resp viral panel - negative f/u on sputum cx on Duoneb No need of steroids Patient does need to stay in the hospital more than 2 midnights due to his complex medical problems. So we will change him to full admission today. I did review my colleague Dr. Villasenor H & P including HPI, PMH, PSH, FH, SH, and ROS no changes noticed (2) COPD (chronic obstructive pulmonary disease) Current Visit: No Status: Suspected Assessment and Plan: Not in exacerbation cont bronchodilators as scheduled rest of the management as above (3) Alcohol abuse Current Visit: No Status: Acute Assessment and Plan: thimaine, folic acid alcohol level is negative Cont [facility] protocol for alcohol withdrawl symptoms trend on Ammonia level Fall, aspiration, seizure precautions Nutrition consult (4) Multiple falls Current Visit: Yes Status: Acute Assessment and Plan: PT / OT eval (5) Acute encephalopathy Current Visit: Yes Status: Acute Assessment and Plan: Acute toxic and metabolic encephalopathy due to pneumonia, dehydration, Rhabdo and alcohol dependence continue IV hydration continue symptomatic and supportive care (6) Traumatic rhabdomyolysis Current Visit: Yes Status: Acute Assessment and Plan: CPK level 160 today Improved Continue with IV hydration Fall precautions (7) Acute renal failure (ARF) Current Visit: Yes Status: Acute Assessment and Plan: most likely secondary to dehydration and rhabodomyolysis Improved continue with IV hydration (8) Hyperkalemia Current Visit: Yes Status: Acute Assessment and Plan: Due to dehydration Improved with IV hydration He was given Kayexalate y/d (9) DVT prophylaxis Current Visit: No Status: Acute Assessment and Plan: Heparin subcutaneous - Time Spent with Patient Total time spent is greater than 50% in coordination of care (as documented) at patient's floor/unit and/or counseling patient: Internal Medicine: Result - Labs CBC & Chem 7: 04/15/18 01:20 04/15/18 01:20 Labs: Short CBC 04/15/18 Range/Units 01:20 WBC 14.7 H (4.3-11.1) K/mcL Hgb 11.9 L D (12.9-16.9) g/dL Hct 35.8 L (37.5-50.1) % Plt Count 293 (140-400) K/mcL Neutrophils # 12.4 H (1.6-8.9) K/mcL BMP 04/14/18 04/15/18 17:16 01:20 Sodium 134 L 138 Potassium 4.6 3.9 Chloride 105 107 Carbon Dioxide 20 L 22 L BUN 27 H 23 Creatinine 1.04 0.97 Glucose 109 H 84 Calcium 8.8 8.6 - ABG Interpretation ABG results: PT/INR, D-dimer PT 12.0 Seconds (9.4-12.1) 04/14/18 08:50 - Impressions Impressions Chest CT 04/14/18 08:50 IMPRESSION: 1. Bibasilar ground-glass opacities. Differential includes atypical infection and aspiration. 2. No evidence of acute thoracic spine fracture. There are old healed posterior rib fractures in the right lateral and posterior chest wall. 3. Chronic interstitial fibrosis of the lungs bilaterally. 4. Coronary artery disease. D/ / 04/14/2018 11:04:01 Aaron Morrow MD / kayla Interpreting Provider: Aaron Morrow MD Thoracic Spine CT 04/14/18 08:50 IMPRESSION: 1. Bibasilar ground-glass opacities. Differential includes atypical infection and aspiration. 2. No evidence of acute thoracic spine fracture. There are old healed posterior rib fractures in the right lateral and posterior chest wall. 3. Chronic interstitial fibrosis of the lungs bilaterally. 4. Coronary artery disease. D/ / 04/14/2018 11:04:01 Aaron Morrow MD / kayla Interpreting Provider: Aaron Morrow MD Retroperitoneum Ultrasound 04/15/18 11:00 IMPRESSION: Unremarkable ultrasound of the kidneys. D/ / Bryan Chacon MD / Bryan Chacon MD Interpreting Provider: Bryan Chacon MD Consult Discharge Plan - Plan [facility]errals: [facility] [Primary Care Provider] - _ (2) COPD (chronic obstructive pulmonary disease) Qualifiers: COPD type: chronic bronchitis Chronic bronchitis type: unspecified Qualified Code(s): J42 - Unspecified chronic bronchitis (6) Traumatic rhabdomyolysis Qualifiers: Encounter type: initial encounter Qualified Code(s): T79.6XXA - Traumatic ischemia of muscle, initial encounter (7) Acute renal failure (ARF) Qualifiers: Acute renal failure type: unspecified Qualified Code(s): N17.9 - Acute kidney failure, unspecified
--- NOTE | 2018-04-15 14:26 | EEG/EMG/Oth Biometrics Report ---
EEG Procedure Report EEG Procedure: Routine EEG Procedure Note: This is a routine 21 channel digital EEG performed utilizing 10- 20 international electrode placement system. FINDINGS: Patient has a predominant waking background frequency that is average voltage 8 to 10 Hertz alpha activity in the posterior region, normal amplitude symmetrical over the both hemispheres reactive to eyes opening and closing record continued to show alpha activity intermixed with some theta off and on, no abnormal activity recorded, predominantly no evidence of any spike wave discharges or any lateralizing abnormalities, Photic stimulation did not produce any convulsive response. Intermittent EMG artifacts were noted. Stage II sleep was not achieved. Impression: Normal awake drowsy electroencephalogram. With the exception all BETA activity which is a nonspecific pattern mostly seen due to the medication side effect in particularly from benzodiazepine and barbiturates use No epileptiform discharges or any other paroxysmal activities noted. at the same time intermittent irregular heart rate noted on one lead EKG , corre late clinically as well as with electrophysiologically ( Please note that normal EEG does not exclude the diagnosis of seizures or epilepsy, clinical correlation is suggested)
[2018-04-15] MEDS: Metoprolol XL (24 HR) Succ 50 MG TAB.ER.24H PO SCH (19:33)
[2018-04-16 03:52] LABS: Basophils % 0.4 %; Eosinophils # 0.1 K/mcL (0.0-0.6); Eosinophils % 1.6 %; Hematocrit 36.3 % (37.5-50.1); Hemoglobin 11.9 g/dL (12.9-16.9); Immature Granulocytes % 0.5 % (0-4); Lymphocytes # 1.2 K/mcL (0.6-4.6); Lymphocytes % 14.4 %; Mean Corpuscular HGB Conc 32.8 g/dL (31.6-35.5); Mean Corpuscular Hemoglobin 32.4 pg (28.0-33.3); Mean Corpuscular Volume 98.9 fL (83.0-100.0); Mean Platelet Volume 9.5 fL (9.4-12.4); Monocytes # 0.6 K/mcL (0.0-1.3); Monocytes % 7.4 %; Neutrophils # 6.1 K/mcL (1.6-8.9); Platelet Count 293 K/mcL (140-400); Red Blood Count 3.67 M/mcL (4.19-5.50); Red Cell Distribution Width 12.3 % (11.5-14.5); Segmented Neutrophils % 75.7 %
[2018-04-16 04:04] LABS: Alanine Aminotransferase 14 Units/L (7-52); Albumin 2.6 g/dL (3.5-5.7); Albumin/Globulin Ratio 0.8 (1.1-2.2); Alkaline Phosphatase 93 Units/L (34-104); Aspartate Amino Transferase 19 Units/L (13-39); BUN/Creatinine Ratio 18 (6-26); Bilirubin,Total 0.3 mg/dL (0.3-1.0); Blood Urea Nitrogen 15 mg/dL (8-23); Calcium 8.6 mg/dL (8.6-10.3); Carbon Dioxide 21 mEq/L (23-29); Chloride 110 mEq/L (98-107); Globulin 3.2 g/dL (2.4-3.5); Glucose 98 mg/dL (70-105); Magnesium 1.5 mg/dL (1.6-2.6); Osmolality,Calculated 277 (280-300); Potassium 3.5 mEq/L (3.5-5.1); Sodium 133 mEq/L (136-145); Total Protein 5.8 g/dL (6.4-8.9); eGFR For Non-African Americans > 60 (> 60)
[2018-04-16] MEDS: *HR* Heparin 5,000 UNIT/ML VIAL SQ SCH ×3 (05:21→19:53)
--- NOTE | 2018-04-16 08:16 | Electrocardiograph Report ---
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
[2018-04-16] MEDS: Thiamine (B-1) 100 MG TABLET PO SCH (08:24)
[2018-04-16] MEDS: Metoprolol XL (24 HR) Succ 50 MG TAB.ER.24H PO SCH ×2 (08:24→19:52)
[2018-04-16] MEDS: Cholecalciferol (D-3) 1,000 UNIT TABLET PO SCH (08:24)
[2018-04-16] MEDS: Piperacillin/Tazobactam 3.375 GM in 0.9 % Sodium Chloride Mini Bag 100 ML IVPB SCH ×3 (08:25→23:51)
[2018-04-16] MEDS: Folic Acid 1 MG TABLET PO SCH (08:40)
--- NOTE | 2018-04-16 09:21 | Neurology Progress Note ---
<Dilan Ramirez J - Last Filed: 04/16/18 09:55> Date of Encounter: 04/16/18 Time of Encounter: 09:19 Assessment and Plan (1) Acute encephalopathy Current Visit: Yes Status: Acute Neuro c/s with AMS Encephalopathic. Multifactorial, ETOH withdrawal, PNA CT head with not acute abnormalities EEG Normal awake drowsy electroencephalogram. With the exception all BETA activity which is a nonspecific pattern mostly seen due to the medication side effect in particularly from benzodiazepine and barbiturates use No epileptiform discharges or any other paroxysmal activities noted. at the same time intermittent irregular heart rate noted on one lead EKG , correlate clinically as well as with electrophysiologically Seen at bedside today. He is improving and progressing back to baseline. Neuro exam is nonfocal. AMS the result of multifactoral encephalopathy. Continue PT/OT, continue CIWA. Neuro will follow for now; awaiting brain MRI. If MRI brain unremarkable I anticipate signing off. Subjective Principal diagnosis: AMS, falls Interval history: Neuro was consulted d/t AMS. Patient seen and examined at the bedside today, no acute change in condition overnight. The AMS appears to be resolving. No neuro deficits found on exam. Discussed EEG findings, MR brain is pending completion. He denies any further questions. 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 No abnormal movements, fasciculations or atrophy identified. Neurological: *ORIENTATION to time,person, situation and place *RECURRENT AND REMOTE MEMORY intact *ATTENTION AND CONCENTRATION are normal *LANGUAGE FUNCTION no significant aphasia or dysarthia was noted. *FUND OF KNOWLEDGE aware of current events, past history, vocabulary *MENTAL attention span and concentration normal. *CN II optic fundi were normal, no papilledema noted. *CN III,IV, PERRLA extraocular eye movements were full, no nystagmus and no ptosis noted. *CN V shows normal sensation and jaw opens symmetrically. *CN VII shows normal facial movement symmetrically, upper and lower bilaterally. *CN VIII shows no significant hearing loss on exam *CN IX,,X palate elevated symmetrically *CN XI normal strength in the sternocleidomastoid muscles, symmetrical sh oulder shrugging. *CN XII tongue protruded in the midline, with normal strength and movement. *SENSORY EXAMINATION light touch intact *REFLEXES: deep tendon reflexes were normal and symmetrical , grade 2/4 diffusely, no pathological reflexes were noted. *CEREBELLAR TESTING normal finger to nose *PAIN LEVEL 0 Results - Laboratory Findings CBC and BMP: 04/16/18 03:29 04/16/18 03:29 Abnormal lab findings: Abnormal lab results RBC 3.67 M/mcL (4.19-5.50) L 04/16/18 03:29 Hgb 11.9 g/dL (12.9-16.9) L 04/16/18 03:29 Hct 36.3 % (37.5-50.1) L 04/16/18 03:29 Sodium 133 mEq/L (136-145) L 04/16/18 03:29 Chloride 110 mEq/L (98-107) H 04/16/18 03:29 Carbon Dioxide 21 mEq/L (23-29) L 04/16/18 03:29 Calculated Osmolality 277 (280-300) L 04/16/18 03:29 Magnesium 1.5 mg/dL (1.6-2.6) L 04/16/18 03:29 Serum Total Protein 5.8 g/dL (6.4-8.9) L 04/16/18 03:29 Albumin 2.6 g/dL (3.5-5.7) L 04/16/18 03:29 Albumin/Globulin Ratio 0.8 (1.1-2.2) L 04/16/18 03:29 Consult Discharge Plan - Plan [facility]errals: [facility] [Primary Care Provider] - <Darling Norman I - Last Filed: 04/16/18 12:35> Date of Encounter: 04/16/18 Assessment and Plan (1) Acute encephalopathy Current Visit: Yes Status: Acute I have personally performed a face to face diagnostic evaluation on this patient. Overall he seems to be stable no new neurological workup is indicated continuing him on current medication other treatment is as per primary team all could to discharge from neurology standpoint Darling Norman MD Objective - Constitutional Vitals: Temp Pulse Resp BP Pulse Ox 97.8 F 95 18 103/71 92 04/16/18 11:11 04/16/18 11:11 04/16/18 11:11 04/16/18 11:11 04/16/18 11:11 Results - Laboratory Findings CBC and BMP: 04/16/18 03:29 04/16/18 03:29 Abnormal lab findings: Abnormal lab results RBC 3.67 M/mcL (4.19-5.50) L 04/16/18 03:29 Hgb 11.9 g/dL (12.9-16.9) L 04/16/18 03:29 Hct 36.3 % (37.5-50.1) L 04/16/18 03:29 Sodium 133 mEq/L (136-145) L 04/16/18 03:29 Chloride 110 mEq/L (98-107) H 04/16/18 03:29 Carbon Dioxide 21 mEq/L (23-29) L 04/16/18 03:29 Calculated Osmolality 277 (280-300) L 04/16/18 03:29 Magnesium 1.5 mg/dL (1.6-2.6) L 04/16/18 03:29 Serum Total Protein 5.8 g/dL (6.4-8.9) L 04/16/18 03:29 Albumin 2.6 g/dL (3.5-5.7) L 04/16/18 03:29 Albumin/Globulin Ratio 0.8 (1.1-2.2) L 04/16/18 03:29
--- NOTE | 2018-04-16 10:42 | Internal Med Progress Note ---
Hospitalist Progress Note - Encounter Date of Encounter: 04/16/18 Time of Encounter: 08:30 - Subjective Interval History: Mr. 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 as per ED physician " EMS reports they were called by the neighbor. The patient was found on the couch in his home. Unsure when he last fell. Unknown when he was last seen at his normal baseline. The patient is alert and oriented 2 upon arrival." While in the emergency department CT scan of the head and the cervical spine was performed and he was cleared from a trauma perspective by the ED physician. Patient was admitted in the hospital and placed him on brake linings coater. He is an active smoker.Today he is more alert, awake and oriented to self, place he still seems to be very confused. He denied any chest pain, shortness of breath. However he still complaining about chest congestion, cough with expectoration. No events over night. - Exam Vitals: Temp Pulse Resp BP Pulse Ox 97.5 F L 79 19 119/75 94 04/16/18 07:14 04/16/18 07:14 04/16/18 07:14 04/16/18 07:14 04/16/18 07:14 Exam: Gen: Alert, awake, Oriented to time,place and person Chest: Diminished breath sounds B/L, mild wheezing, No crackles, No rales, ronchi+ Heart: S1S2+ RRR No murmurs Abd: Soft, NT, BS +, No organomegaly Ext: No edema, pulses are palpable, No calf tenderness Neuro : Benign findings Skin: No rash. - Assessment and Plan (1) Acute aspiration pneumonia Current Visit: Yes Status: Acute Assessment and Plan: CT of chest showed b/l lower lobe infiltrates concerning for aspiration PNA Cont Zosyn and Azithromycin for now Resp viral panel - negative f/u on sputum cx on Duoneb No need of steroids (2) COPD (chronic obstructive pulmonary disease) Current Visit: No Status: Suspected Assessment and Plan: Not in exacerbation cont bronchodilators as scheduled rest of the management as above (3) Alcohol abuse Current Visit: No Status: Acute Assessment and Plan: thiamine, folic acid alcohol level was negative Cont [facility] protocol for alcohol withdrawal symptoms trend on Ammonia level..today @ 30 Fall, aspiration, seizure precautions Nutrition consulted (4) Multiple falls Current Visit: Yes Status: Acute Assessment and Plan: PT / OT eval (5) Acute encephalopathy Current Visit: Yes Status: Acute Assessment and Plan: Acute toxic and metabolic encephalopathy due to pneumonia, dehydration, Rhabdo and alcohol dependence Improving CT of Head- WNL Unable to do MRI since pt is not able to provide any of his previous medical history, also not able to get hold of family EEG - Normal awake drowsy electroencephalogram. No epileptiform discharges or a ny other paroxysmal activities noted. continue symptomatic and supportive care (6) Traumatic rhabdomyolysis Current Visit: Yes Status: Acute Assessment and Plan: CPK level Improved Fall precautions (7) Acute renal failure (ARF) Current Visit: Yes Status: Acute Assessment and Plan: most likely secondary to dehydration and rhabodomyolysis Improved d/c IVF (8) Hyperkalemia Current Visit: Yes Status: Acute Assessment and Plan: Due to dehydration Improved with IV hydration He was given Kayexalate too (9) DVT prophylaxis Current Visit: No Status: Acute Assessment and Plan: Heparin subcutaneous - Time Spent with Patient Total time spent is greater than 50% in coordination of care (as documented) at patient's floor/unit and/or counseling patient: Internal Medicine: Result - Labs CBC & Chem 7: 04/16/18 03:29 04/16/18 03:29 Labs: Short CBC 04/16/18 Range/Units 03:29 WBC 8.0 (4.3-11.1) K/mcL Hgb 11.9 L (12.9-16.9) g/dL Hct 36.3 L (37.5-50.1) % Plt Count 293 (140-400) K/mcL Neutrophils # 6.1 (1.6-8.9) K/mcL BMP 04/16/18 03:29 Sodium 133 L Potassium 3.5 Chloride 110 H Carbon Dioxide 21 L BUN 15 Creatinine 0.85 Glucose 98 Calcium 8.6 Liver Function 04/16/18 Range/Units 03:29 Total Bilirubin 0.3 (0.3-1.0) mg/dL AST 19 (13-39) Units/L ALT 14 (7-52) Units/L Alkaline Phosphatase 93 (34-104) Units/L Albumin 2.6 L (3.5-5.7) g/dL - ABG Interpretation ABG results: PT/INR, D-dimer PT 12.0 Seconds (9.4-12.1) 04/14/18 08:50 - Impressions Impressions Retroperitoneum Ultrasound 04/15/18 11:00 IMPRESSION: Unremarkable ultrasound of the kidneys. D/ / Bryan Chacon MD / Bryan Chacon MD Interpreting Provider: Bryan Chacon MD Consult Discharge Plan - Plan [facility]errals: [facility] [Primary Care Provider] - (2) COPD (chronic obstructive pulmonary disease) Qualifiers: COPD type: chronic bronchitis Chronic bronchitis type: unspecified Qualified Code(s): J42 - Unspecified chronic bronchitis (6) Traumatic rhabdomyolysis Qualifiers: Encounter type: initial encounter Qualified Code(s): T79.6XXA - Traumatic ischemia of muscle, initial encounter (7) Acute renal failure (ARF) Qualifiers: Acute renal failure type: unspecified Qualified Code(s): N17.9 - Acute kidney failure, unspecified
[2018-04-16] MEDS: Azithromycin 500 MG in D5% in Water 250 ML IVPB SCH (11:25)
[2018-04-17 04:22] LABS: Alanine Aminotransferase 12 Units/L (7-52); Albumin 2.4 g/dL (3.5-5.7); Albumin/Globulin Ratio 0.8 (1.1-2.2); Alkaline Phosphatase 79 Units/L (34-104); Aspartate Amino Transferase 15 Units/L (13-39); BUN/Creatinine Ratio 16 (6-26); Bilirubin,Total 0.2 mg/dL (0.3-1.0); Blood Urea Nitrogen 12 mg/dL (8-23); Calcium 8.3 mg/dL (8.6-10.3); Carbon Dioxide 22 mEq/L (23-29); Chloride 111 mEq/L (98-107); Glucose 96 mg/dL (70-105); Magnesium 1.6 mg/dL (1.6-2.6); Osmolality,Calculated 280 (280-300); Potassium 3.6 mEq/L (3.5-5.1); Sodium 135 mEq/L (136-145); Total Protein 5.4 g/dL (6.4-8.9); eGFR For Non-African Americans > 60 (> 60)
[2018-04-17] MEDS: *HR* Heparin 5,000 UNIT/ML VIAL SQ SCH ×3 (05:12→20:57)
[2018-04-17] MEDS: Folic Acid 1 MG TABLET PO SCH (08:20)
[2018-04-17] MEDS: Cholecalciferol (D-3) 1,000 UNIT TABLET PO SCH (08:20)
[2018-04-17] MEDS: Thiamine (B-1) 100 MG TABLET PO SCH (08:20)
[2018-04-17] MEDS: Metoprolol XL (24 HR) Succ 50 MG TAB.ER.24H PO SCH ×2 (08:21→20:57)
[2018-04-17] MEDS: Piperacillin/Tazobactam 3.375 GM in 0.9 % Sodium Chloride Mini Bag 100 ML IVPB SCH ×2 (08:21→17:02)
--- NOTE | 2018-04-17 10:31 | Internal Med Progress Note ---
Hospitalist Progress Note - Encounter Date of Encounter: 04/17/18 Time of Encounter: 10:29 - Subjective Interval History: Mr. 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 as per ED physician " EMS r eports they were called by the neighbor. The patient was found on the couch in his home. Unsure when he last fell. Unknown when he was last seen at his normal baseline. The patient is alert and oriented 2 upon arrival." While in the emergency department CT scan of the head and the cervical spine was performed and he was cleared from a trauma perspective by the ED physician. Patient was admitted in the hospital and placed him on equipment monitor phototypesetting. He is an active smoker.Today he is more alert, awake and oriented x 3. He denied any chest pain, shortness of breath. However he still complaining about chest congestion, cough with expectoration. No events over night. - Exam Vitals: Temp Pulse Resp BP Pulse Ox 97.6 F 87 16 129/79 90 04/17/18 07:14 04/17/18 07:14 04/17/18 07:14 04/17/18 07:14 04/17/18 07:14 Exam: Gen: Alert, awake, Oriented to time,place and person Chest: Diminished breath sounds B/L, mild wheezing, No crackles, No rales, ronchi+, Junky BS+ Heart: S1S2+ RRR No murmurs Abd: Soft, NT, BS +, No organomegaly Ext: No edema, pulses are palpable, No calf tenderness Neuro : Benign findings Skin: No rash. - Assessment and Plan (1) Acute aspiration pneumonia Current Visit: Yes Status: Acute Assessment and Plan: CT of chest showed b/l lower lobe infiltrates concerning for aspiration PNA Cont Zosyn and Azithromycin for now Resp viral panel - negative Blood cx - no growth so far f/u on sputum cx on Duoneb No need of steroids (2) COPD (chronic obstructive pulmonary disease) Current Visit: No Status: Suspected Assessment and Plan: Not in exacerbation cont bronchodilators as scheduled rest of the management as above (3) Alcohol abuse Current Visit: No Status: Acute Assessment and Plan: thiamine, folic acid alcohol level was negative Cont [facility] protocol for alcohol withdrawal symptoms Fall, aspiration, seizure precautions (4) Multiple falls Current Visit: Yes Status: Acute Assessment and Plan: need PT / OT eval Pt refused last couple of days. talked to him abut it.. he is willing to work with PT / OT today (5) Acute encephalopathy Current Visit: Yes Status: Acute Assessment and Plan: Acute toxic and metabolic encephalopathy due to pneumonia, dehydration, Rhabdo and alcohol dependence Improving CT of Head- WNL EEG - Normal awake drowsy electroencephalogram. No epileptiform discharges or any other paroxysmal activities noted. continue symptomatic and supportive care MRI of Brain showed - no acute intracranial abnormality. 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 (6) Traumatic rhabdomyolysis Current Visit: Yes Status: Acute Assessment and Plan: CPK level Improved Fall precautions (7) Acute renal failure (ARF) Current Visit: Yes Status: Acute Assessment and Plan: most likely secondary to dehydration and rhabodomyolysis Improved d/c IVF (8) Hyperkalemia Current Visit: Yes Status: Acute Assessment and Plan: Due to dehydration Improved with IV hydration (9) DVT prophylaxis Current Visit: No Status: Acute Assessment and Plan: Heparin subcutaneous - Time Spent with Patient Total time spent is greater than 50% in coordination of care (as documented) at patient's floor/unit and/or counseling patient: Internal Medicine: Result - Labs CBC & Chem 7: 04/16/18 03:29 04/17/18 03:17 Labs: BMP 04/17/18 03:17 Sodium 135 L Potassium 3.6 Chloride 111 H Carbon Dioxide 22 L BUN 12 Creatinine 0.76 Glucose 96 Calcium 8.3 L Liver Function 04/17/18 Range/Units 03:17 Total Bilirubin 0.2 L (0.3-1.0) mg/dL AST 15 (13-39) Units/L ALT 12 (7-52) Units/L Alkaline Phosphatase 79 (34-104) Units/L Albumin 2.4 L (3.5-5.7) g/dL - ABG Interpretation ABG results: PT/INR, D-dimer PT 12.0 Seconds (9.4-12.1) 04/14/18 08:50 - Impressions Impressions Head CT 04/14/18 08:50 IMPRESSION: No acute intracranial abnormality. D/ /14/2018 11:05:54 Magnus Benson MD / julio cesar Interpreting Provider: Magnus Benson MD Brain MRI 04/16/18 10:13 IMPRESSION: 1. No acute intracranial abnormality. 2. Moderate chronic white matter microvascular ischemic changes. 3. 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 D/ / Rylan White / Rylan White Interpreting Provider: Rylan White Consult Discharge Plan - Plan Referrals: [facility] [Primary Care Provider] - __ (2) COPD (chronic obstructive pulmonary disease) Qualifiers: COPD type: chronic bronchitis Chronic bronchitis type: unspecified Qualified Code(s): J42 - Unspecified chronic bronchitis (6) Traumatic rhabdomyolysis Qualifiers: Encounter type: initial encounter Qualified Code(s): T79.6XXA - Traumatic ischemia of muscle, initial encounter (7) Acute renal failure (ARF) Qualifiers: Acute renal failure type: unspecified Qualified Code(s): N17.9 - Acute kidney failure, unspecified
[2018-04-17] MEDS: Azithromycin 500 MG in D5% in Water 250 ML IVPB SCH (12:54)
[2018-04-18] MEDS: Piperacillin/Tazobactam 3.375 GM in 0.9 % Sodium Chloride Mini Bag 100 ML IVPB SCH (00:30)
[2018-04-18] MEDS: *HR* Heparin 5,000 UNIT/ML VIAL SQ SCH (05:22)
[2018-04-18 06:45] VITALS: BP 158/84
--- NOTE | 2018-04-18 09:15 | Discharge Summary ---
- NOTES TO OUTPATIENT PROVIDER Notes to Outpatient Provider: Follow up with PCP in one week. Please quit drinking alcohol. His anti coagulation medication Xarelto stopped during last admission due to his frequent falls and high risk for head injury. Please talk to your PCP if you really need to go back on anti coagulation medication. Orders not resulted at time of discharge: Pending orders 04/14/18 11:00 Culture,Blood [BC] Stat 04/14/18 11:46 Culture,Sputum with Gram Stain [RM] Stat Legionella Antigen [RM] Stat Streptococcal pneumoniae urin antigen [S. Pneumoniae Antigen] [RM] Stat 04/15/18 10:31 Drug Screen, Urine [UCHEM] Stat Urinalysis Reflex Cult & Micro [URIN] Stat 04/16/18 14:58 Osmolality,Urine [UCHEM] Stat Potassium,Urine [UCHEM] Stat Sodium, Urine [UCHEM] Stat Date of Encounter: 04/18/18 Time of Encounter: 09:08 - Discharge Diagnosis (1) Acute aspiration pneumonia Priority: Primary Status: Acute (2) Multiple falls Priority: Primary Status: Acute (3) Acute encephalopathy Priority: Primary Status: Acute (4) COPD (chronic obstructive pulmonary disease) Priority: Secondary Status: Suspected Qualifiers: COPD type: chronic bronchitis Chronic bronchitis type: unspecified Qualified Code(s): J42 - Unspecified chronic bronchitis (5) Alcohol abuse Priority: Secondary Status: Acute (6) Traumatic rhabdomyolysis Priority: Secondary Status: Acute Qualifiers: Encounter type: initial encounter Qualified Code(s): T79.6XXA - Traumatic ischemia of muscle, initial encounter (7) Acute renal failure (ARF) Priority: Secondary Status: Acute Qualifiers: Acute renal failure type: unspecified Qualified Code(s): N17.9 - Acute kidney failure, unspecified (8) Hyperkalemia Priority: Secondary Status: Acute (9) DVT prophylaxis Priority: Secondary Status: Acute Hospital course: Mr. 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 as per ED physician " EMS reports they were called by the neighbor. The patient was found on the couch in his home. Unsure when he last fell. Unknown when he was last seen at his normal baseline. The patient is alert and oriented 2 upon arrival." While in the emergency department CT scan of the head and the cervical spine was performed and he was cleared from a trauma perspective by the ED physician. Patient was admitted in the hospital and placed him on ekg monitor tech. His CT of chest showed b/l lower lobe infiltrat es concerning for aspiration PNA. He was placed on broad-spectrum antibiotic Zosyn and azithromycin. He is an active smoker. I did addiction treatment counselor to quit smoking and started him on nicotine patches. He also had rhabdomyolysis and acute kidney injury due to dehydration, which improved with IV hydration. His a toxic and metabolic encephalopathy also improved. Patient was evaluated with physical therapy/outpatient therapy who recommended ECF placement for short-term rehab. So will discharge him to ECF today in a stable condition with oral antibiotic Augmentin. - Time Spent with Patient Total time spent providing and/or coordinating discharge services: - Discharge Medications Prescriptions: New Ipratropium/Albuterol Neb [Duoneb] 3 ml IH Q6HR PRN #30 vial.neb PRN Reason: Shortness Of Breath Amoxicillin/Clavulanate [Augmentin] 875 mg PO BIDWM #6 tablet Continue Venlafaxine XR (24 HR) [Effexor Xr] 150 mg PO DAILY Omeprazole [PriLOSEC] 20 mg PO DAILY Cholecalciferol (D-3) [Vitamin D] 1,000 unit PO DAILY Acetaminophen [Tylenol] 650 mg PO Q6HR PRN PRN Reason: Pain Gabapentin [Neurontin] 600 mg PO TID Folic Acid 1 mg PO DAILY hydrOXYzine HCl [Hydroxyzine HCl] 50 mg PO HS PRN PRN Reason: Sleep Tamsulosin [Flomax] 0.4 mg PO DAILY Metoprolol Succinate [Toprol Xl] 25 mg PO BID Naproxen Sodium 550 mg PO BIDWM Potassium Chloride [Klor-Con 10] 10 meq PO DAILY Thiamine HCl [Vitamin B-1] 50 mg PO BID Changed Baclofen 10 mg PO TID #10 tablet Discontinued Rivaroxaban [Xarelto] 20 mg PO DAILY Home Medications: Acetaminophen [Tylenol] 650 mg PO Q6HR PRN 08/20/15 [History] Cholecalciferol (D-3) [Vitamin D] 1,000 unit PO DAILY 08/20/15 [History] Gabapentin [Neurontin] 600 mg PO TID 08/20/15 [History] Omeprazole [PriLOSEC] 20 mg PO DAILY 08/20/15 [History] Venlafaxine XR (24 HR) [Effexor Xr] 150 mg PO DAILY 08/20/15 [History] Folic Acid 1 mg PO DAILY 02/11/18 [History] Tamsulosin [Flomax] 0.4 mg PO DAILY 02/11/18 [History] hydrOXYzine HCl [Hydroxyzine HCl] 50 mg PO HS PRN 02/11/18 [History] Metoprolol Succinate [Toprol Xl] 25 mg PO BID 04/14/18 [History] Naproxen Sodium 550 mg PO BIDWM 04/14/18 [History] Potassium Chloride [Klor-Con 10] 10 meq PO DAILY 04/14/18 [History] Thiamine HCl [Vitamin B-1] 50 mg PO BID 04/14/18 [History] Amoxicillin/Clavulanate [Augmentin] 875 mg PO BIDWM #6 tablet 04/18/18 [Rx] Baclofen 10 mg PO TID #10 tablet 04/18/18 [Rx] Ipratropium/Albuterol Neb [Duoneb] 3 ml IH Q6HR PRN #30 vial.neb 04/18/18 [Rx] Allergies/Adverse Reactions: Allergy/AdvReac Type Severity Reaction Status Date / Time No Known Allergies Allergy Verified 02/11/18 10:50 Date of admission: 04/15/18 12:32 [facility] care physician: [facility] Consults: 04/14/18 11:49 Consult to Neurology [CONS] Routine Consulting Provider: [facility] Reason for Consult: AMS Call Completed: No 04/14/18 11:52 Consult to Case Management [CONS] Routine Comment: Consult to Nutrition [CONS] Routine Comment: Consulting Provider: NUTRITION Reason for Dietary Consult: PO Supplementation 04/15/18 07:56 Consult to Nurse Navigator [CONS] Routine Comment: PNEUMONIA 04/15/18 09:19 Consult to Occupational Therapy [CONS] Routine Comment: Evaluate, develop and implement POC Reason for Consult: FALLS AT HOME. POSSIBLE SNF PLACEMENT Does patient have active BEDREST order?: No Is patient medically & hemodynamically stable?: Yes Consult to Physical Therapy [CONS] Routine Comment: Evaluate, develop and implement POC Reason for Consult: FALLS AT HOME. POSSIBLE SNF PLACEMENT Does patient have active BEDREST order?: No Is patient medically & hemodynamically stable?: Yes 04/15/18 16:41 Consult to Interpret Exam [CONS] Routine Consulting Provider: Darling Norman I Consult to Interpret Exam: Interpret EEG 04/17/18 13:01 Consult to Storeperson [CONS] Routine Reason for SW Consult: PT/OT RECOMMEND SNF. PATIENT WOULD LIKE A REFERRAL TO BE MADE TO [facility] - Constitutional Vitals: Temp Pulse Resp BP Pulse Ox 98.0 F 81 18 158/84 89 04/18/18 06:41 04/18/18 06:41 04/18/18 06:41 04/18/18 06:41 04/18/18 06:41 General appearance: Present: cooperative, A&O X 3, answers questions appropriately Exam: Gen: Alert, awake, Oriented to time,place and person Chest: Diminished breath sounds B/L, no wheezing, No crackles, No rales, no ronchi Heart: S1S2+ RRR No murmurs Abd: Soft, NT, BS +, No organomegaly Ext: No edema, pulses are palpable, No calf tenderness Neuro : Benign findings Skin: No rash. - Patient Status Disposition: Transfer SNF Condition: Good Overall status at discharge: patient is back to baseline - Discharge Instructions Follow Up With: TIGIST,PCP [Primary Care Provider] - 04/25/18 9:45 am - Diet and Activity Activity: as per physical therapy, increase activity as tolerated Diet: low salt diet
--- NOTE | 2018-04-18 09:21 | Physician Discharge Referral ---
ExtendedCare Referral Info Transfer To: ECF Provider in Charge after Transfer: PCP Institutional Level of Care: Skilled - Diagnosis (1) Acute aspiration pneumonia Status: Acute (2) Multiple falls Status: Acute (3) Acute encephalopathy Status: Acute (4) COPD (chronic obstructive pulmonary disease) Status: Suspected (5) Alcohol abuse Status: Acute (6) Traumatic rhabdomyolysis Status: Acute (7) Acute renal failure (ARF) Status: Acute (8) Hyperkalemia Status: Acute (9) DVT prophylaxis Status: Acute - Transfer Medications Prescriptions: Ipratropium/Albuterol Neb [Duoneb] 3 ml IH Q6HR PRN #30 vial.neb PRN Reason: Shortness Of Breath Amoxicillin/Clavulanate [Augmentin] 875 mg PO BIDWM #6 tablet Baclofen 10 mg PO TID #10 tablet Home Medications: Acetaminophen [Tylenol] 650 mg PO Q6HR PRN 08/20/15 [History] Cholecalciferol (D-3) [Vitamin D] 1,000 unit PO DAILY 08/20/15 [History] Gabapentin [Neurontin] 600 mg PO TID 08/20/15 [History] Omeprazole [PriLOSEC] 20 mg PO DAILY 08/20/15 [History] Venlafaxine XR (24 HR) [Effexor Xr] 150 mg PO DAILY 08/20/15 [History] Folic Acid 1 mg PO DAILY 02/11/18 [History] Tamsulosin [Flomax] 0.4 mg PO DAILY 02/11/18 [History] hydrOXYzine HCl [Hydroxyzine HCl] 50 mg PO HS PRN 02/11/18 [History] Metoprolol Succinate [Toprol Xl] 25 mg PO BID 04/14/18 [History] Naproxen Sodium 550 mg PO BIDWM 04/14/18 [History] Potassium Chloride [Klor-Con 10] 10 meq PO DAILY 04/14/18 [History] Thiamine HCl [Vitamin B-1] 50 mg PO BID 04/14/18 [History] Amoxicillin/Clavulanate [Augmentin] 875 mg PO BIDWM #6 tablet 04/18/18 [Rx] Baclofen 10 mg PO TID #10 tablet 04/18/18 [Rx] Ipratropium/Albuterol Neb [Duoneb] 3 ml IH Q6HR PRN #30 vial.neb 04/18/18 [Rx] Allergies/Adverse Reactions: Allergy/AdvReac Type Severity Reaction Status Date / Time No Known Allergies Allergy Verified 02/11/18 10:50 - Respiratory Orders Smoking Cessation: Smoking cessation has been advised. For more information, call the [place] Tobacco Quit Line at 6-496-KBYLNOW. CERTIFICATION: I certify that the transfer of the above named patient to an Extended Care Facility is necessary for the continuing treatment of the diagnosis listed. The above information is true and accurate reflection of patient's current condition. Confidential - Redisclosure prohibited without a patient's written consent.
[2018-04-18] MEDS: Folic Acid 1 MG TABLET PO SCH (10:02)
[2018-04-18] MEDS: Metoprolol XL (24 HR) Succ 50 MG TAB.ER.24H PO SCH (10:02)
[2018-04-18] MEDS: Thiamine (B-1) 100 MG TABLET PO SCH (10:02)
[2018-04-18] MEDS: Cholecalciferol (D-3) 1,000 UNIT TABLET PO SCH (10:02)
== END 2018-04-18 11:35 | DRG 177 ==
LOC: EMEROOARM 08:43 → 3BNU 08:43 → SUATTDRO 13:19 → 3BNU 13:57
PROVIDERS: ADMIT Internal Medicine; ATTEND Family Medicine

== ENCOUNTER 2018-05-05 18:30 | Observation (INO) ==
--- NOTE | 2018-05-05 18:37 | Emergency Department Note ---
Disposition Clinical Impression: Hypoxia, Oxygen dependent Disposition: Admitted As Inpatient Condition: Undetermined General Adult HPI - General Chief complaint: ED General Medical Stated complaint: SOB Time Seen by Provider: 05/05/18 18:32 - Related Data Home Medications Medication Instructions Recorded Confirmed RX: Acetaminophen [Tylenol] 650 mg PO Q6HR PRN 08/20/15 04/14/18 RX: Cholecalciferol (D-3) [Vitamin 1,000 unit PO DAILY 08/20/15 04/14/18 D] RX: Gabapentin [Neurontin] 600 mg PO TID 08/20/15 04/14/18 RX: Omeprazole [PriLOSEC] 20 mg PO DAILY 08/20/15 04/14/18 RX: Venlafaxine XR (24 HR) 150 mg PO DAILY 08/20/15 04/14/18 [Effexor Xr] RX: Folic Acid 1 mg PO DAILY 02/11/18 04/14/18 RX: Tamsulosin [Flomax] 0.4 mg PO DAILY 02/11/18 04/14/18 RX: hydrOXYzine HCl [Hydroxyzine 50 mg PO HS PRN 02/11/18 04/14/18 HCl] RX: Metoprolol Succinate [Toprol 25 mg PO BID 04/14/18 04/14/18 Xl] RX: Naproxen Sodium 550 mg PO BIDWM 04/14/18 04/14/18 RX: Potassium Chloride [Klor-Con 10 meq PO DAILY 04/14/18 04/14/18 10] RX: Thiamine HCl [Vitamin B-1] 50 mg PO BID 04/14/18 04/14/18 Previous Rx's Medication Instructions Recorded Amoxicillin/Clavulanate [Augmentin] 875 mg PO BIDWM #6 tablet 04/18/18 Ipratropium/Albuterol Neb [Duoneb] 3 ml IH Q6HR PRN #30 vial.neb 04/18/18 RX: Baclofen 10 mg PO TID #10 tablet 04/18/18 Allergies Allergy/AdvReac Type Severity Reaction Status Date / Time No Known Allergies Allergy Verified 02/11/18 10:50 Past Medical History - Past Medical History Medical history: Reports: arthritis, cancer, DVT, hyperlipidemia, hypertension, other Surgical history: Reports: other Psychiatric history: Reports: no psych history - Social History Smoking Status: Current every day smoker Smokeless Tobacco Status: No Alcohol use: Reports: heavy, recent Drug use: Reports: marijuana Course Vital Signs Temperature 97.9 F 05/05/18 18:33 Pulse Rate 85 05/05/18 18:33 Respiratory Rate 16 05/05/18 18:33 Blood Pressure 147/83 05/05/18 18:33 O2 Sat by Pulse Oximetry 100 05/05/18 18:33 Temperature 98.2 F 05/05/18 20:50 Pulse Rate 87 05/05/18 20:50 Respiratory Rate 18 05/05/18 20:50 Blood Pressure 152/79 05/05/18 20:50 O2 Sat by Pulse Oximetry 99 05/05/18 20:50 Oxygen Delivery Oxygen Delivery Nasal Cannula Medical Decision Making - Lab Data Result diagrams: 05/05/18 19:38 Lab Results 05/05/18 Range/Units 19:38 Sodium 139 (136-145) mEq/L Potassium 3.8 (3.5-5.1) mEq/L Chloride 111 H (98-107) mEq/L Carbon Dioxide 12 L (23-29) mEq/L BUN 8 (8-23) mg/dL Creatinine 0.74 (0.70-1.30) mg/dL Est GFR ( Amer) > 60 (> 60) Est GFR (Non-Af Amer) > 60 (> 60) BUN/Creatinine Ratio 11 (6-26) Glucose 87 (70-105) mg/dL Calculated Osmolality 286 (280-300) Calcium 9.3 (8.6-10.3) mg/dL Attestation Statement - Attestation Attestation: I examined this patient and my medical decision-making was reviewed with the Resident Physician. I agree with the documented findings, disposition and treatment plan as described except to the extent set forth below. [id number] time provided Patient presents by EMS complaining of dyspnea. He states he ran out of his oxygen 2 days ago. He is oxygen dependent at baseline. He is mildly tachypneic with visible dyspnea on exam. The patient was evaluated in conjunction with [facility] resident physician Dr. Sung
--- NOTE | 2018-05-05 18:57 | Emergency Department Note ---
Disposition Clinical Impression: Hypoxia, Oxygen dependent Disposition: Admitted As Inpatient Condition: Undetermined [facility]errals: [facility] [Primary Care Provider] - Forms: ED Satisfaction Letter, Work/School Release Time of Disposition: 19:43 General Adult HPI - General Chief complaint: ED General Medical Stated complaint: SOB Time Seen by Provider: 05/05/18 18:32 Source: patient, EMS Mode of arrival: EMS Limitations: no limitations Nursing Notes Reviewed: Yes Vital Signs Reviewed: Yes - History of Present Illness HPI Narrative: 68 year old male arrives to the ED complaining of running out of oxygen. The patient Glen was discharged from a nursing facility 2 days ago was evaluated. Apparently and according to home health, Katelynn who provides the patient oxygen was supposed to, with an oxygen concentrator and teach the patient had a use it. Apparently they did not do so so the patient arrives to the emergency department. Patient states that he is short of breath but states it is baseline for him. The patient was saturating 92% on room air. I spoke with the home health nurse who said it is unlikely the patient will receive oxygen tonight. We will arrange admission for social work at this time. Patient denies any chest pain, unilateral leg swelling, recent surgeries or immobilizations, or any other acute Complaints. Pain Scale: 0 - Related Data Home Medications Medication Instructions Recorded Confirmed Acetaminophen [Tylenol] 650 mg PO Q6HR PRN 08/20/15 04/14/18 Cholecalciferol (D-3) [Vitamin D] 1,000 unit PO DAILY 08/20/15 04/14/18 Gabapentin [Neurontin] 600 mg PO TID 08/20/15 04/14/18 Omeprazole [PriLOSEC] 20 mg PO DAILY 08/20/15 04/14/18 Venlafaxine XR (24 HR) [Effexor Xr] 150 mg PO DAILY 08/20/15 04/14/18 Folic Acid 1 mg PO DAILY 02/11/18 04/14/18 Tamsulosin [Flomax] 0.4 mg PO DAILY 02/11/18 04/14/18 hydrOXYzine HCl [Hydroxyzine HCl] 50 mg PO HS PRN 02/11/18 04/14/18 Metoprolol Succinate [Toprol Xl] 25 mg PO BID 04/14/18 04/14/18 Naproxen Sodium 550 mg PO BIDWM 04/14/18 04/14/18 Potassium Chloride [Klor-Con 10] 10 meq PO DAILY 04/14/18 04/14/18 Thiamine HCl [Vitamin B-1] 50 mg PO BID 04/14/18 04/14/18 Previous Rx's Medication Instructions Recorded Amoxicillin/Clavulanate [Augmentin] 875 mg PO BIDWM #6 tablet 04/18/18 Baclofen 10 mg PO TID #10 tablet 04/18/18 Ipratropium/Albuterol Neb [Duoneb] 3 ml IH Q6HR PRN #30 vial.neb 04/18/18 Allergies Allergy/AdvReac Type Severity Reaction Status Date / Time No Known Allergies Allergy Verified 02/11/18 10:50 All systems ED: reviewed and negative except as stated. Constitutional: Denies: fever, chills, weakness ENT ED: Denies: congestion Cardiovascular: Denies: chest pain Respiratory: Reports: dyspnea. Denies: cough, sputum production Gastrointestinal: Denies: abdominal pain, nausea, vomiting Genitourinary: Denies: urgency, dysuria Musculoskeletal: Denies: back pain Integumentary: Denies: rash Neurological: Denies: headache Past Medical History - Past Medical History Attestation: Yes The following information was validated with the patient. Source: patient, old records reviewed Medical history: Reports: arthritis, cancer, DVT, hyperlipidemia, hypertension, other Surgical history: Reports: other Psychiatric history: Reports: no psych history - Social History Smoking Status: Current every day smoker Smokeless Tobacco Status: No Alcohol use: Reports: heavy, recent Drug use: Reports: marijuana Physical Exam - General Limitations: no limitations General appearance: alert, in no apparent distress - Head Head exam: atraumatic, normocephalic, normal inspection - Eye Eye exam: Present: normal appearance, PERRL, EOMI - ENT ENT exam: normal exam, normal oropharynx, mucous membranes moist - Neck Neck exam: Present: normal inspection, full ROM, trachea midline - Chest Chest inspection: Present: normal inspection, symmetric chest wall rise - Respiratory Respiratory exam: Present: normal lung sounds bilaterally. Absent: respiratory distress, wheezes - Cardiovascular Cardiovascular exam: Present: regular rate, normal rhythm, normal heart sounds - Abdominal Exam Abdominal exam: Present: soft, Non-Tender. Absent: tenderness, distention, guarding, rebound, rigidity - Extremities Exam Extremities exam: Present: normal inspection, full ROM. Absent: tenderness, pedal edema - Neurological Exam Neurological exam: Present: alert, oriented X3 - Skin Skin exam: Present: warm, dry, intact, normal color Course Vital Signs Temperature 97.9 F 05/05/18 18:33 Pulse Rate 85 05/05/18 18:33 Respiratory Rate 16 05/05/18 18:33 Blood Pressure 147/83 05/05/18 18:33 O2 Sat by Pulse Oximetry 100 05/05/18 18:33 Temperature 97.9 F 05/05/18 18:33 Pulse Rate 85 05/05/18 18:33 Respiratory Rate 16 05/05/18 18:33 Blood Pressure 147/83 05/05/18 18:33 O2 Sat by Pulse Oximetry 100 05/05/18 18:33 Oxygen Delivery Oxygen Delivery Nasal Cannula Medical Decision Making - MDM Narrative Medical decision making narrative: Patient evaluation demonstrates no acute process. Given the inability for the patient to receive his oxygen tonight we will admit the patient to the hospital. Accepted by Dr. Grijalva. - Radiology Data Radiology results reviewed: Yes I reviewed the patient's radiology results. Chest X-Ray 05/05/18 18:55 IMPRESSION: Worsening perihilar and alveolar airspace opacities may related to interstitial alveolar edema or multifocal airspace disease. Follow-up following medical treatment course may be beneficial to document complete resolution. D/ / Ankit Oropeza / Ankit Oropeza Interpreting Provider: Ankit Oropeza - EKG Data EKG #1 EKG attestation: Yes I reviewed and interpreted this EKG. EKG results narrative: Heart rate 103 beats for minute. Sinus tachycardia. No ST elevation or ST depression. EKG identical to EKG from 04/14/2017. No acute changes noted.
[2018-05-05 20:46] LABS: BUN/Creatinine Ratio 11 (6-26); Blood Urea Nitrogen 8 mg/dL (8-23); Calcium 9.3 mg/dL (8.6-10.3); Carbon Dioxide 12 mEq/L (23-29); Chloride 111 mEq/L (98-107); Glucose 87 mg/dL (70-105); Osmolality,Calculated 286 (280-300); Potassium 3.8 mEq/L (3.5-5.1); Sodium 139 mEq/L (136-145); eGFR For Non-African Americans > 60 (> 60)
[2018-05-05] MEDS ORDERED: Ipratropium/Albuterol Neb 3 ML IH PRN (20:54)
[2018-05-05] MEDS ORDERED: Acetaminophen 325 MG TABLET PO PRN (20:54)
--- NOTE | 2018-05-05 21:17 | Internal Med History&Physical ---
Date of Encounter: 05/05/18 Time of Encounter: 21:15 Internal Medicine - H&P: HPI Chief complaint: SOB Admitted From: Home Plans for Post Hospital Care: Home History of present illness: Bud Victoria is a 68-year-old man with a history of alcohol abuse, VTE no longer on anticoagulation due to frequent falls and COPD who remains an active smoker and was discharged from here just over 2 weeks ago to a SNF after being managed for acute metabolic encephalopathy, KEYA, traumatic rhabdomyolysis and aspiration pneumonia. It appears he developed a new oxygen requirement which was to be established and ready upon arrival to his home. However, he was discharged from the nursing facility 2 days ago and it appears his oxygen had not arrived and he presents now complaining of increasing shortness of breath. On arrival he was saturating 92% on room air and it seems the ER staff spoke with his home health nurse who stated that it is unlikely the patient will receive his oxygen tonight. As per nursing documentation, the patient got up to the bathroom with his oxygen off and he became tachypneic and hypoxic and required placement back on the bed with 2 L nasal cannula with return to 100%. X-ray reviewed by me shows significant bilateral diffuse interstitial airspace disease not unlike his CT scan from last month. Past Med Surg Social Fam HX - Past Medical History Medical history: arthritis, cancer, DVT, hyperlipidemia, hypertension, other Additional medical history: prostrate CA, radioactive seed implants Psychiatric history: no psych history - Past Surgical History Surgical History: other Additional surgical history: Radiation seeds, rt shoulder surgery, R/L hip - Social History Smoking Status: Current every day smoker Smokeless Tobacco Status: No Alcohol use: heavy, recent Drug use: marijuana - Family History Mother Living Status: Hx Family Cardiac Disorders: Yes (states his mother had open heart surgery) Hx Family Respiratory Disorders: Yes (lung cancer) Hx Family Cancer: Yes (lung cancer) Hx Family GI Disorders: No Hx Family Endocrine Disorder: Yes (diabetes) Hx Family Neuromuscular Disorders: No Hx Family Neurologic Disorders: No Hx Family HEENT Disorders: No Hx Family Autoimmune Disorders: No Father Hx Family Cancer: Yes (prostate) Internal Medicine - H&P: Meds Acetaminophen [Tylenol] 650 mg PO Q6HR PRN 08/20/15 [History] Cholecalciferol (D-3) [Vitamin D] 1,000 unit PO DAILY 08/20/15 [History] Gabapentin [Neurontin] 600 mg PO TID 08/20/15 [History] Omeprazole [PriLOSEC] 20 mg PO DAILY 08/20/15 [History] Venlafaxine XR (24 HR) [Effexor Xr] 150 mg PO DAILY 08/20/15 [History] Folic Acid 1 mg PO DAILY 02/11/18 [History] Tamsulosin [Flomax] 0.4 mg PO DAILY 02/11/18 [History] hydrOXYzine HCl [Hydroxyzine HCl] 50 mg PO HS PRN 02/11/18 [History] Metoprolol Succinate [Toprol Xl] 25 mg PO BID 04/14/18 [History] Naproxen Sodium 550 mg PO BIDWM 04/14/18 [History] Potassium Chloride [Klor-Con 10] 10 meq PO DAILY 04/14/18 [History] Thiamine HCl [Vitamin B-1] 50 mg PO BID 04/14/18 [History] Amoxicillin/Clavulanate [Augmentin] 875 mg PO BIDWM #6 tablet 04/18/18 [Rx] Baclofen 10 mg PO TID #10 tablet 04/18/18 [Rx] Ipratropium/Albuterol Neb [Duoneb] 3 ml IH Q6HR PRN #30 vial.neb 04/18/18 [Rx] Allergy/AdvReac Type Severity Reaction Status Date / Time No Known Allergies Allergy Verified 02/11/18 10:50 All Systems PM: A 10-system review of systems was performed and is negative for pertinent findings except as documented above in the HPI. - Constitutional Vitals: Temp Pulse Resp BP Pulse Ox 98.2 F 87 18 152/79 99 05/05/18 20:50 05/05/18 20:50 05/05/18 20:50 05/05/18 20:50 05/05/18 20:50 Exam: Vitals: Reviewed General: Well-appearing, NAD Skin: Thin, dry, warm HEENT: Moist mucous membranes. (+) conjunctivae pallor. Neck: No lymphadenopathy. No JVD. Chest: Diminished thoracic expansion. No wheezes or rhonchi. Heart: Normal S1 & S2; rhythmic. No rubs or murmurs. Abdomen: Non-distended, soft and non-tender to palpation. No peritoneal reaction. Extremities: (+) clubbing, no cyanosis or edema. No calf tenderness. Normal distal pulses. Neurological: Awake, alert and oriented to person, place and time. No focal deficits. Psych: Affect appropriate. Internal Med - H&P Results - Labs CBC & Chem 7: 05/05/18 19:38 Labs: BMP 05/05/18 19:38 Sodium 139 Potassium 3.8 Chloride 111 H Carbon Dioxide 12 L BUN 8 Creatinine 0.74 Glucose 87 Calcium 9.3 - Impressions ITS Impressions Chest X-Ray 05/05/18 18:55 IMPRESSION: Worsening perihilar and alveolar airspace opacities may related to interstitial alveolar edema or multifocal airspace disease. Follow-up following medical treatment course may be beneficial to document complete resolution. D/ / Ankit Oropeza / Ankit Oropeza Interpreting Provider: Ankit Oropeza - Assessment and Plan (1) Chronic respiratory failure with hypoxia Current Visit: Yes Status: Chronic Assessment and plan: The patient has developed respiratory failure seemingly from his repeated bouts of pneumonia/aspiration coupled with signs of interstitial lung disease with underlying COPD, remaining an active smoker which makes his prognosis worse. No sign of acute decompensation at this time. Supplemental oxygen and nebulizer therapy as needed. (2) Oxygen dependent Current Visit: Yes Status: Acute Assessment and plan: Social work consult placed for assistance in provision of home oxygen needs. Will keep on supplemental oxygen titrated to keep SpO2 >92% till then. (3) Smoker Current Visit: Yes Status: Acute Assessment and plan: 5 minutes were spent counseling and educating the patient on this habit. volunteer services manager and resources were made available. (4) COPD (chronic obstructive pulmonary disease) Current Visit: Yes Status: Suspected Assessment and plan: Does not appear to be in acute COPD exacerbation at this time. Albuterol/ipratropium nebulizer prn. Qualifiers: COPD type: unspecified COPD Qualified Code(s): J44.9 - Chronic obstructive pulmonary disease, unspecified (5) DVT prophylaxis Current Visit: Yes Status: Acute Assessment and plan: SubQ heparin ordered. - Time Spent With Patient Total time spent is greater than 50% in coordination of care (as documented) at patient's floor/unit and/or counseling patient: Greater than 35 minutes
[2018-05-05 23:21] LABS: Basophils # 0.1 K/mcL (0.0-0.2); Basophils % 0.5 %; Eosinophils # 0.2 K/mcL (0.0-0.6); Eosinophils % 2.1 %; Hematocrit 34.5 % (37.5-50.1); Hemoglobin 10.7 g/dL (12.9-16.9); Immature Granulocytes % 0.7 % (0-4); Lymphocytes # 2.2 K/mcL (0.6-4.6); Lymphocytes % 19.4 %; Mean Corpuscular Hemoglobin 29.3 pg (28.0-33.3); Mean Corpuscular Volume 94.5 fL (83.0-100.0); Monocytes # 0.9 K/mcL (0.0-1.3); Monocytes % 7.8 %; Neutrophils # 7.7 K/mcL (1.6-8.9); Platelet Count 426 K/mcL (140-400); Red Blood Count 3.65 M/mcL (4.19-5.50); Red Cell Distribution Width 13.2 % (11.5-14.5); Segmented Neutrophils % 69.5 %
[2018-05-06 00:53] LABS: Adenovirus F 40/41 PCR Not detected (Not detect); Astrovirus PCR Not detected (Not detect); C.difficile Toxin A/B Gene PCR Not detected (Not detect); Campylobacter by PCR Not detected (Not detect); Cryptosporidium by PCR Not detected (Not detect); Cyclospora cayetanensis PCR Not detected (Not detect); E. coli O157 by PCR Not detected (Not detect); Entamoeba histolytica PCR Not detected (Not detect); Enteroaggregative E.coli(EAEC) Not detected (Not detect); Enteropathogenic E.coli(EPEC) Not detected (Not detect); Enterotoxigenic E.coli (ETEC) Not detected (Not detect); Giardia lamblia PCR Not detected (Not detect); Norovirus GI/GII PCR Not detected (Not detect); Plesiomonas shigelloides PCR Not detected (Not detect); Rotavirus A PCR Not detected (Not detect); Salmonella PCR Not detected (Not detect); Sapovirus PCR Not detected (Not detect); Shig/EnteroinvasiveE coli EIEC Not detected (Not detect); Shigalike tox-prod E coli STEC Not detected (Not detect); Vibrio PCR Not detected (Not detect); Vibrio cholerae PCR Not detected (Not detect); Yersinia enterocolitica PCR Not detected (Not detect)
[2018-05-06] MEDS: *HR* Heparin 5,000 UNIT/ML VIAL SQ SCH ×2 (05:22→18:57)
--- NOTE | 2018-05-06 15:14 | Internal Med Progress Note ---
Hospitalist Progress Note - Encounter Date of Encounter: 05/06/18 Time of Encounter: 11:00 - Subjective Interval History: Pt was seen and examined at bed side. Denied any CP States still have mild SOB and NORRIS Currently on 2 lit O2.. His Spo2 dropped down to 86 on RA at resting itself. - Exam Vitals: Temp Pulse Resp BP Pulse Ox 98.4 F 103 15 111/70 92 05/06/18 15:04 05/06/18 15:04 05/06/18 15:04 05/06/18 15:04 05/06/18 15:04 Exam: Gen: Alert, awake, Oriented to time,place and person Chest: Diminished breath sounds B/L, Mild to moderate wheezing, No crackles, No rales Heart: S1S2+ RRR No murmurs Abd: Soft, NT, BS +, No organomegaly Ext: No edema, pulses are palpable, No calf tenderness Neuro : Benign findings Skin: No rash. - Assessment and Plan (1) Chronic respiratory failure with hypoxia Current Visit: Yes Status: Chronic Assessment and Plan: Due to COPD cont supportive care (2) COPD (chronic obstructive pulmonary disease) Current Visit: Yes Status: Suspected Assessment and Plan: Does not appear to be in exacerbation may be very mild will give him 5 days course of PO steroids Cont Duoneb Need Home O2 set up (3) Oxygen dependent Current Visit: Yes Status: Acute Assessment and Plan: CM / SW working Home O2 set up possible d/c home in AM (4) Smoker Current Visit: Yes Status: Acute Assessment and Plan: Counseled to quit smoking placed on nicotine patch (5) HLD (hyperlipidemia) Current Visit: No Status: Chronic Assessment and Plan: on statin (6) HTN (hypertension) Current Visit: No Status: Chronic Assessment and Plan: stable BP resumed all home medications (7) DVT prophylaxis Current Visit: Yes Status: Acute Assessment and Plan: SubQ heparin - Time Spent with Patient Total time spent is greater than 50% in coordination of care (as documented) at patient's floor/unit and/or counseling patient: Internal Medicine: Result - Labs CBC & Chem 7: 05/05/18 23:05 05/05/18 19:38 Labs: Short CBC 05/05/18 Range/Units 23:05 WBC 11.1 (4.3-11.1) K/mcL Hgb 10.7 L (12.9-16.9) g/dL Hct 34.5 L (37.5-50.1) % Plt Count 426 H (140-400) K/mcL Neutrophils # 7.7 (1.6-8.9) K/mcL BMP 05/05/18 19:38 Sodium 139 Potassium 3.8 Chloride 111 H Carbon Dioxide 12 L BUN 8 Creatinine 0.74 Glucose 87 Calcium 9.3 - Impressions Impressions Chest X-Ray 05/05/18 18:55 IMPRESSION: Worsening perihilar and alveolar airspace opacities may related to interstitial alveolar edema or multifocal airspace disease. Follow-up following medical treatment course may be beneficial to document complete resolution. D/ / Ankit Oropeza / Ankit Oropeza Interpreting Provider: Ankit Oropeza Consult Discharge Plan - Plan Referrals: TIGIST,PCP [Primary Care Provider] - 05/14/18 11:15 am (2) COPD (chronic obstructive pulmonary disease) Qualifiers: COPD type: unspecified COPD Qualified Code(s): J44.9 - Chronic obstructive pulmonary disease, unspecified (5) HLD (hyperlipidemia) Qualifiers: Hyperlipidemia type: unspecified Qualified Code(s): E78.5 - Hyperlipidemia, unspecified (6) HTN (hypertension) Qualifiers: Hypertension type: essential hypertension Qualified Code(s): I10 - Essential (primary) hypertension
[2018-05-06] MEDS ORDERED: hydrOXYzine pamoate 25 MG CAPSULE PO PRN (15:23)
[2018-05-06] MEDS: Nicotine 14 MG PATCH.TD24 TD SCH (18:57)
[2018-05-06] MEDS: predniSONE 20 MG TABLET PO SCH (18:57)
[2018-05-06] MEDS: Budesonide/Formoterol 80/4.5 MDI IH SCH ×2 (20:05→20:06)
[2018-05-06] MEDS: Gabapentin 400 MG CAPSULE PO SCH (21:56)
[2018-05-06] MEDS: Metoprolol XL (24 HR) Succ 25 MG TAB.ER.24H PO SCH (21:57)
[2018-05-06] MEDS: Thiamine (B-1) 100 MG TABLET PO SCH ×2 (21:57→21:58)
[2018-05-07 07:18] VITALS: BP 133/81
[2018-05-07] MEDS: Budesonide/Formoterol 80/4.5 MDI IH SCH (08:13)
[2018-05-07] MEDS: Nicotine 14 MG PATCH.TD24 TD SCH (08:21)
[2018-05-07] MEDS: Thiamine (B-1) 100 MG TABLET PO SCH (08:24)
[2018-05-07] MEDS: Metoprolol XL (24 HR) Succ 25 MG TAB.ER.24H PO SCH (08:24)
[2018-05-07] MEDS: Gabapentin 400 MG CAPSULE PO SCH (08:24)
[2018-05-07] MEDS: predniSONE 20 MG TABLET PO SCH (08:25)
[2018-05-07] MEDS ORDERED: *HR* Rivaroxaban 10 MG TABLET PO SCH (09:00)
[2018-05-07] MEDS ORDERED: Folic Acid 1 MG TABLET PO SCH (09:00)
[2018-05-07] MEDS ORDERED: Cholecalciferol (D-3) 1,000 UNIT TABLET PO SCH (09:00)
[2018-05-07] MEDS ORDERED: Venlafaxine XR (24 HR) 150 MG CAP.ER.24H PO SCH (09:00)
--- NOTE | 2018-05-07 11:31 | Discharge Summary ---
- NOTES TO OUTPATIENT PROVIDER Notes to Outpatient Provider: f/u with PCP in one week. Please quit smoking. Please use Oxygen continuously 2 lit. Date of Encounter: 05/07/18 Time of Encounter: 11:00 - Discharge Diagnosis (1) Chronic respiratory failure with hypoxia Priority: Primary Status: Chronic (2) COPD (chronic obstructive pulmonary disease) Priority: Primary Status: Suspected Qualifiers: COPD type: unspecified COPD Qualified Code(s): J44.9 - Chronic obstructive pulmonary disease, unspecified (3) Oxygen dependent Priority: Secondary Status: Acute (4) Smoker Priority: Secondary Status: Acute (5) HLD (hyperlipidemia) Priority: Secondary Status: Chronic Qualifiers: Hyperlipidemia type: unspecified Qualified Code(s): E78.5 - Hyperlipidemia, unspecified (6) HTN (hypertension) Priority: Secondary Status: Chronic Qualifiers: Hypertension type: essential hypertension Qualified Code(s): I10 - Essential (primary) hypertension (7) DVT prophylaxis Priority: Secondary Status: Acute Hospital course: Mr. Victoria is a 68-year-old man with a history of alcohol abuse, VTE no longer on anticoagulation due to frequent falls and COPD who remains an active smoker and was discharged from here just over 2 weeks ago to a SNF after being managed for acute metabolic encephalopathy, KEYA, traumatic rhabdomyolysis and aspiration pneumonia. It appears he developed a new oxygen requirement which was to be established and ready upon arrival to his home. However, he was discharged from the nursing facility 2 days ago and it appears his oxygen had not arrived and he presents now complaining of increasing shortness of breath. He was admitted in the hospital and started him on frequent bronchodilator therapy, systemic steroids and Symbicort. Patient stated his feeding lot better today. environmental compliance manager working on to get home oxygen set up. He does need 2 lit O2 continuously. - Time Spent with Patient Total time spent providing and/or coordinating discharge services: - Discharge Medications Prescriptions: New Budesonide/Formoterol 80/4.5 [Symbicort 80/4.5] 2 puff IH BIDR #1 inhaler Nicotine Patch [Nicoderm] 14 mg TD DAILY #30 patch.td24 predniSONE [PredniSONE] 40 mg PO DAILY #6 tablet Continue Venlafaxine XR (24 HR) [Effexor Xr] 150 mg PO DAILY Omeprazole [PriLOSEC] 20 mg PO DAILY Cholecalciferol (D-3) [Vitamin D] 2,000 unit PO DAILY Acetaminophen [Tylenol] 650 mg PO Q6HR PRN PRN Reason: Pain Gabapentin [Neurontin] 1,200 mg PO TID Folic Acid 1 mg PO DAILY hydrOXYzine HCl [Hydroxyzine HCl] 50 mg PO HS PRN PRN Reason: Sleep Tamsulosin [Flomax] 0.4 mg PO HS Metoprolol Succinate [Toprol Xl] 25 mg PO BID Potassium Chloride [Klor-Con 10] 10 meq PO DAILY Thiamine HCl [Vitamin B-1] 100 mg PO BID Baclofen 10 mg PO TID #10 tablet Lidocaine 1 appl TP QID PRN PRN Reason: Pain Naproxen [Naprosyn] 500 mg PO BID PRN PRN Reason: Pain Rivaroxaban [Xarelto] 20 mg PO DAILY Home Medications: Acetaminophen [Tylenol] 650 mg PO Q6HR PRN 08/20/15 [History] Cholecalciferol (D-3) [Vitamin D] 2,000 unit PO DAILY 08/20/15 [History] Gabapentin [Neurontin] 1,200 mg PO TID 08/20/15 [History] Omeprazole [PriLOSEC] 20 mg PO DAILY 08/20/15 [History] Venlafaxine XR (24 HR) [Effexor Xr] 150 mg PO DAILY 08/20/15 [History] Folic Acid 1 mg PO DAILY 02/11/18 [History] Tamsulosin [Flomax] 0.4 mg PO HS 02/11/18 [History] hydrOXYzine HCl [Hydroxyzine HCl] 50 mg PO HS PRN 02/11/18 [History] Metoprolol Succinate [Toprol Xl] 25 mg PO BID 04/14/18 [History] Potassium Chloride [Klor-Con 10] 10 meq PO DAILY 04/14/18 [History] Thiamine HCl [Vitamin B-1] 100 mg PO BID 04/14/18 [History] Baclofen 10 mg PO TID #10 tablet 04/18/18 [Rx] Lidocaine 1 appl TP QID PRN 05/06/18 [History] Naproxen [Naprosyn] 500 mg PO BID PRN 05/06/18 [History] Rivaroxaban [Xarelto] 20 mg PO DAILY 05/06/18 [History] Budesonide/Formoterol 80/4.5 [Symbicort 80/4.5] 2 puff IH BIDR #1 inhaler 05/07/18 [Rx] Nicotine Patch [Nicoderm] 14 mg TD DAILY #30 patch.td24 05/07/18 [Rx] predniSONE [PredniSONE] 40 mg PO DAILY #6 tablet 05/07/18 [Rx] Allergies/Adverse Reactions: Allergy/AdvReac Type Severity Reaction Status Date / Time No Known Allergies Allergy Verified 05/06/18 08:22 Date of admission: 05/05/18 20:16 Primary care physician: [facility] Consults: 05/05/18 20:53 Consult to Construction Manager [CONS] Routine Reason for Consult: patient discharged from here 2 weeks ago readmitted because his home oxygen needs were not established and ready for him upon arrival to his house. - Constitutional Vitals: Temp Pulse Resp BP Pulse Ox 98.5 F 90 16 133/81 97 05/07/18 07:17 05/07/18 07:17 05/07/18 08:15 05/07/18 07:17 05/07/18 08:15 General appearance: Present: A&O X 3, no acute distress, answers questions appropriately Exam: Gen: Alert, awake, Oriented to time,place and person Chest: Diminished breath sounds B/L, Mild to moderate wheezing, No crackles, No rales Heart: S1S2+ RRR No murmurs Abd: Soft, NT, BS +, No organomegaly Ext: No edema, pulses are palpable, No calf tenderness Neuro : Benign findings Skin: No rash. - Patient Status Disposition: Home, Self-Care Condition: Good Overall status at discharge: patient is back to baseline - Discharge Instructions Follow Up With: TIGIST,PCP [Primary Care Provider] - 05/14/18 11:15 am - Diet and Activity Activity: increase activity as tolerated, wear oxygen at all times Diet: low salt diet
--- NOTE | 2018-05-07 21:34 | Electrocardiograph Report ---
[address] [address] Test Date: 2018-05-05 Pat Name: Bud Victoria Department: EXAMC2 Room: 3B23 Gender: M Laboratory Sampler: : 1950 Requested By: Roel Sung Order Number: [id number] Reading MD: Brenda Woo Measurements Intervals [place] Rate: 103 P: 65 RI: 117 QRS: -124 QRSD: 121 T: -13 QT: 396 QTc: 519 Interpretive Statements Sinus tachycardia Probable left atrial enlargement Right bundle branch block Electronically Signed On 05-07-2018 21:33:04 EDT by Brenda Woo
== END 2018-05-07 13:53 | disposition home or self-care (01) ==
LOC: 3BNU 18:30 → EMEROOARM 18:30 → SUATTDRO 20:16 → 3BNU 20:30
PROVIDERS: ADMIT Internal Medicine; ATTEND Family Medicine

== ENCOUNTER 2018-06-06 09:14 | Inpatient (IN) ==
--- NOTE | 2018-06-06 09:26 | Emergency Department Note ---
Disposition Clinical Impression: Delirium due to general medical condition, Acute cerebral infarction, Lung nodule, ETOH abuse Disposition: Admitted As Inpatient General Adult HPI - General Stated complaint: ams Time Seen by Provider: 06/06/18 09:19 Source: EMS Limitations: altered mental status Nursing Notes Reviewed: Yes Vital Signs Reviewed: Yes - History of Present Illness HPI Narrative: 68-year-old male who presents the emergency department via EMS with complaints of altered mental status. The patient was found by his aquatic facility manager where he lives at a independent living facility altered. He was found with her bottles surrounding him. The patient is alert and intermittently able to follow commands but otherwise unable to provide a history. Pain Scale: 0 - Related Data Home Medications Medication Instructions Recorded Confirmed Acetaminophen [Tylenol] 650 mg PO Q6HR PRN 08/20/15 06/06/18 Cholecalciferol (D-3) [Vitamin D] 2,000 unit PO DAILY 08/20/15 06/06/18 Gabapentin [Neurontin] 1,200 mg PO TID 08/20/15 06/06/18 Omeprazole [PriLOSEC] 20 mg PO DAILY 08/20/15 06/06/18 Venlafaxine XR (24 HR) [Effexor Xr] 150 mg PO DAILY 08/20/15 06/06/18 Folic Acid 1 mg PO DAILY 02/11/18 06/06/18 Tamsulosin [Flomax] 0.4 mg PO HS 02/11/18 06/06/18 hydrOXYzine HCl [Hydroxyzine HCl] 50 mg PO HS PRN 02/11/18 06/06/18 Metoprolol Succinate [Toprol Xl] 25 mg PO BID 04/14/18 06/06/18 Potassium Chloride [Klor-Con 10] 10 meq PO DAILY 04/14/18 06/06/18 Thiamine HCl [Vitamin B-1] 100 mg PO BID 04/14/18 06/06/18 Lidocaine 1 appl TP QID PRN 05/06/18 06/06/18 Naproxen [Naprosyn] 500 mg PO BID PRN 05/06/18 06/06/18 Rivaroxaban [Xarelto] 20 mg PO DAILY 05/06/18 06/06/18 Albuterol Sulfate [Albuterol 2 puff IH QID PRN 06/06/18 06/06/18 Inhaler] Baclofen 20 mg PO TID 06/06/18 06/06/18 Previous Rx's Medication Instructions Recorded Budesonide/Formoterol 80/4.5 2 puff IH BIDR #1 inhaler 05/07/18 [Symbicort 80/4.5] Nicotine Patch [Nicoderm] 14 mg TD DAILY #30 patch.td24 05/07/18 Allergies Allergy/AdvReac Type Severity Reaction Status Date / Time No Known Allergies Allergy Verified 05/06/18 08:22 Review of Systems: ROS per history of present illness, all other systems reviewed and negative or normal. All systems ED: reviewed and negative except as stated. Review of Systems: As Per HPI Limitations: ROS unobtainable due to patients medical condition Past Medical History - Past Medical History Medical history: Reports: arthritis, cancer, DVT, hyperlipidemia, hypertension, other Surgical history: Reports: other Psychiatric history: Reports: no psych history - Social History Smoking Status: Current every day smoker Smokeless Tobacco Status: No Alcohol use: Reports: heavy, recent Drug use: Reports: marijuana Physical Exam General: No apparent distress. Appears stated age. Neck: No JVD. Trachea midline. Neck supple. Eyes: PERRL. No scleral icterus. HENT: Normocephalic and atraumatic. Moist mucus membranes. Cardiovascular: Regular rate and rhythm. Normal S1 and S2. No murmurs appreciated. Normal capillary refill. Extremities well perfused with 2+ distal pulses bilaterally. No edema. Pulmonary: Normal and equal breath sounds bilaterally, anteriorly and worm farmer iorly. No wheezes, rales, or rhonchi. Not in respiratory distress. Abdomen: Soft, nondistended, and tontender. No bruits or masses. No guarding. Neuro: Alert.. No slurred speech. Difficult to assess as the patient does not frequently follow commands or answer questions. Answers only "yes." Does identify friends by name who are in room . No facial asymmetry noted. PERRL. No hemineglect. Speech is fluid intermittently but with some slurring. Sensory: Sensation intact to light touch in all extremities. Motor: Normal tone and bulk. Bilateral LE show drift to bed in 5 seconds. UE show drift with eyes closed. Coordination: Unable to assess as patient does not consistently follow commands. Reflexes: biceps, and patellar reflexes 2+ and symmetric bilaterally. Skin: No rashes noted on visualized skin. Musculoskeletal: right UE has muliple superficial bruises and skin tears. Psych: Makes intermittent eye contact. - General Limitations: altered mental status General appearance: in no apparent distress Course - Consultations Consultation #1: [facility] contacted me and informed me that patient has new left frontal lobe wedge shaped infarct. Neurology paged. Time: 11:26 Vital Signs Temperature 96.3 F L 06/06/18 09:16 Pulse Rate 94 06/06/18 09:16 Respiratory Rate 20 06/06/18 09:16 Blood Pressure 121/105 06/06/18 09:16 O2 Sat by Pulse Oximetry 97 06/06/18 09:16 Temperature 97.6 F 06/06/18 15:17 Pulse Rate 64 06/06/18 15:17 Respiratory Rate 17 06/06/18 15:17 Blood Pressure 163/78 06/06/18 15:17 O2 Sat by Pulse Oximetry 91 06/06/18 15:17 Oxygen Delivery Oxygen Delivery Room Air Medical Decision Making - [facility] Narrative Medical decision making narrative: 68-year-old male presenting for altered mental status. The patient does have a long history of chronic alcohol abuse and COPD. Vital signs are stable on arrival. Glucose per EMS is 190s. Given his altered mental status there is no significant history provided by the patient therefore will obtain CBC, BMP, CK, troponin, TSH, urinalysis, chest x-ray as well as CT head. The patient was found to have slight leukocytosis and anemia. EKG shows no acute abnormalities. Troponin 0.031. CK not elevated. Lactate 1.1. CT head shows new acute wedge shaped ischemic infarction in the left frontal lobe with superimposed chronic microvascular ischemic change. Chest x-ray was concerning for progression of interstitial changes which have progressed from prior therefore did obtain CT chest without contrast which showed intralobular septal thickening with bronchiectasis concerning for interstitial lung disease and left lower lobe nodule as well as hilar and mediastinal lymphadenopathy. The patient otherwise has difficulty cooperating with neurologic exam but does score a NIHSS of 16. Discussed with neurologist, Dr. Rosas who recommends aspirin administration and admission. Discussed case with on-call hospitalist Dr. Bowers who agrees with plan for admission and accepts the patient to the inpatient service. Patient agrees with and understands course of treatment plan including plan for admission. All questions answered. - Medical Records Medical records reviewed: Yes I reviewed the patient's medical records. - Lab Data Lab results reviewed: Yes I reviewed the patient's lab results. Result diagrams: 06/06/18 09:29 06/06/18 16:08 Lab Results 06/06/18 06/06/18 06/06/18 Range/Units 09:29 09:29 09:29 WBC 14.0 H (4.3-11.1) K/mcL RBC 4.42 (4.19-5.50) M/mcL Hgb 12.2 L (12.9-16.9) g/dL Hct 40.9 (37.5-50.1) % MCV 92.5 (83.0-100.0) fL MCH 27.6 L (28.0-33.3) pg MCHC 29.8 L (31.6-35.5) g/dL RDW 15.1 H (11.5-14.5) % Plt Count 320 (140-400) K/mcL MPV 8.9 L (9.4-12.4) fL Immature Gran % 0.5 (0-4) % Seg Neutrophils % 81.1 % Lymphocytes % 10.2 % Monocytes % 5.5 % Eosinophils % 2.4 % Basophils % 0.3 % Neutrophils # 11.4 H (1.6-8.9) K/mcL Lymphocytes # 1.4 (0.6-4.6) K/mcL Monocytes # 0.8 (0.0-1.3) K/mcL Eosinophils # 0.3 (0.0-0.6) K/mcL Basophils # 0.0 (0.0-0.2) K/mcL Sodium 144 (136-145) mEq/L Potassium 4.3 (3.5-5.1) mEq/L Chloride 116 H (98-107) mEq/L Carbon Dioxide 22 L (23-29) mEq/L BUN 16 (8-23) mg/dL Creatinine 1.08 (0.70-1.30) mg/dL Est GFR ( Amer) > 60 (> 60) Est GFR (Non-Af Amer) > 60 (> 60) BUN/Creatinine Ratio 15 (6-26) Glucose 135 H (70-105) mg/dL Calculated Osmolality 301 H (280-300) Lactic Acid 1.1 (0.5-2.2) mmol/L Calcium 9.0 (8.6-10.3) mg/dL Magnesium 1.6 (1.6-2.6) mg/dL Creatine Kinase 50 (30-223) Units/L Troponin I 0.03 (< 0.04) ng/mL - Radiology Data Radiology results reviewed: Yes I reviewed the patient's radiology results. Chest X-Ray 06/06/18 09:21 IMPRESSION: Similar appearing predominantly interstitial though some alveolar airspace disease throughout the lungs bilaterally when compared to the recent exam in April 2018. However, there has been interval progression compared to January 2018. This could be related to interstitial and alveolar pneumonia versus edema, though interstitial lung disease with progression and fibrosis would also be a consideration. This would be best assessed with higher resolution CT imaging if clinically indicated, or with follow-up radiographs to document improvement. D/ / Magnus Greco MD / Magnus Greco MD Interpreting Provider: Magnus Greco MD Head CT 06/06/18 09:22 IMPRESSION: Acute wedge-shaped area of ischemic infarct noted within the left frontal lobe, which was called to and discussed with Krystin Rubin at 11:24 a.m. on 06/06/2018. This is superimposed on chronic microvascular ischemic change seen throughout the periventricular and subcortical white matter as well as generalized mild age-related cortical atrophy. D/ / Magnus Greco MD / Magnus Greco MD Interpreting Provider: Magnus Greco MD Chest CT 06/06/18 11:00 IMPRESSION: 1. Intralobular peripheral septal thickening with basilar distribution and mild traction bronchiectasis in the lower lobes, slightly worse compared to exam of April 14, 2018. Finding is suggestive of an interstitial lung disease. Recommend further evaluation with nonemergent high-resolution CT of the chest. Consider outpatient pulmonary medicine referral, unless already being seen by a shelter monitor. 2. Left lower lobe 1.5 x 1.2 cm nodule. Recommend PET-CT and/or tissue diagnosis. 3. Suspected gynecomastia. 4. Lucency around the tip of the screw spanning the right coracoclavicular interval, suggestive of loosening. 5. Old manubrial and right humeral neck fracture. D/ / 06/06/2018 11:29:59 Aaron Morrow MD / Nayely davidson Interpreting Provider: Aaron Morrow MD
[2018-06-06] MEDS ORDERED: 0.9 % Sodium Chloride 1,000 ML IVC STA (09:29)
--- NOTE | 2018-06-06 09:36 | Emergency Department Note ---
Disposition Clinical Impression: Delirium due to general medical condition Disposition: Still a Patient [facility]errals: [facility]Primary Care Provider[facility] - General Adult HPI - General Chief complaint: ED Altered Mental Status Stated complaint: ams Time Seen by Provider: 06/06/18 09:19 Source: EMS Limitations: altered mental status Nursing Notes Reviewed: Yes Vital Signs Reviewed: Yes - History of Present Illness HPI Narrative: ED attending attestation note: I examined this patient and my medical decision-making was reviewed with the emergency medicine resident ORAL FLOYD . I agree with the documented findings, disposition and treatment plan as described except to the extent set forth below. Briefly: 68-year-old male brought in by EMS from apartment near the [facility] but not [facility]. Patient comes in with they say altered mental status. Lives alone he fell in the apartment does have a history of chronic alcohol use. Patient unable to provide any useful history is nonverbal no localizing focalizing neurologic signs. Patient will get a EKG chest x-ray catheter UA screening labs head CT with admission anticipated. Providing 45 minutes of critical care service for this patient Pain Scale: 0 - Related Data Home Medications Medication Instructions Recorded Confirmed Acetaminophen [Tylenol] 650 mg PO Q6HR PRN 08/20/15 05/06/18 Cholecalciferol (D-3) [Vitamin D] 2,000 unit PO DAILY 08/20/15 05/06/18 Gabapentin [Neurontin] 1,200 mg PO TID 08/20/15 05/06/18 Omeprazole [PriLOSEC] 20 mg PO DAILY 08/20/15 05/06/18 Venlafaxine XR (24 HR) [Effexor Xr] 150 mg PO DAILY 08/20/15 05/06/18 Folic Acid 1 mg PO DAILY 02/11/18 05/06/18 Tamsulosin [Flomax] 0.4 mg PO HS 02/11/18 05/06/18 hydrOXYzine HCl [Hydroxyzine HCl] 50 mg PO HS PRN 02/11/18 05/06/18 Metoprolol Succinate [Toprol Xl] 25 mg PO BID 04/14/18 05/06/18 Potassium Chloride [Klor-Con 10] 10 meq PO DAILY 04/14/18 05/06/18 Thiamine HCl [Vitamin B-1] 100 mg PO BID 04/14/18 05/06/18 Lidocaine 1 appl TP QID PRN 05/06/18 05/06/18 Naproxen [Naprosyn] 500 mg PO BID PRN 05/06/18 05/06/18 Rivaroxaban [Xarelto] 20 mg PO DAILY 05/06/18 05/06/18 Previous Rx's Medication Instructions Recorded Baclofen 10 mg PO TID #10 tablet 04/18/18 Budesonide/Formoterol 80/4.5 2 puff IH BIDR #1 inhaler 05/07/18 [Symbicort 80/4.5] Nicotine Patch [Nicoderm] 14 mg TD DAILY #30 patch.td24 05/07/18 predniSONE [PredniSONE] 40 mg PO DAILY #6 tablet 05/07/18 Allergies Allergy/AdvReac Type Severity Reaction Status Date / Time No Known Allergies Allergy Verified 05/06/18 08:22 Past Medical History - Past Medical History Medical history: Reports: arthritis, cancer, DVT, hyperlipidemia, hypertension, other Surgical history: Reports: other Psychiatric history: Reports: no psych history - Social History Smoking Status: Current every day smoker Smokeless Tobacco Status: No Alcohol use: Reports: heavy, recent Drug use: Reports: marijuana Physical Exam - General Limitations: altered mental status General appearance: in no apparent distress Course Vital Signs Temperature 96.3 F L 06/06/18 09:16 Pulse Rate 94 06/06/18 09:16 Respiratory Rate 20 06/06/18 09:16 Blood Pressure 121/105 06/06/18 09:16 O2 Sat by Pulse Oximetry 97 06/06/18 09:16 Temperature 96.3 F L 06/06/18 09:16 Pulse Rate 94 06/06/18 09:16 Respiratory Rate 20 06/06/18 09:16 Blood Pressure 121/105 06/06/18 09:16 O2 Sat by Pulse Oximetry 97 06/06/18 09:16 Oxygen Delivery Oxygen Delivery Room Air
[2018-06-06 09:45] LABS: Basophils % 0.3 %; Eosinophils # 0.3 K/mcL (0.0-0.6); Eosinophils % 2.4 %; Hematocrit 40.9 % (37.5-50.1); Hemoglobin 12.2 g/dL (12.9-16.9); Immature Granulocytes % 0.5 % (0-4); Lymphocytes # 1.4 K/mcL (0.6-4.6); Lymphocytes % 10.2 %; Mean Corpuscular HGB Conc 29.8 g/dL (31.6-35.5); Mean Corpuscular Hemoglobin 27.6 pg (28.0-33.3); Mean Corpuscular Volume 92.5 fL (83.0-100.0); Mean Platelet Volume 8.9 fL (9.4-12.4); Monocytes # 0.8 K/mcL (0.0-1.3); Monocytes % 5.5 %; Neutrophils # 11.4 K/mcL (1.6-8.9); Platelet Count 320 K/mcL (140-400); Red Blood Count 4.42 M/mcL (4.19-5.50); Red Cell Distribution Width 15.1 % (11.5-14.5); Segmented Neutrophils % 81.1 %
[2018-06-06 10:03] LABS: BUN/Creatinine Ratio 15 (6-26); Blood Urea Nitrogen 16 mg/dL (8-23); Carbon Dioxide 22 mEq/L (23-29); Chloride 116 mEq/L (98-107); Creatine Kinase 50 Units/L (30-223); Glucose 135 mg/dL (70-105); Magnesium 1.6 mg/dL (1.6-2.6); Osmolality,Calculated 301 (280-300); Potassium 4.3 mEq/L (3.5-5.1); Sodium 144 mEq/L (136-145); eGFR For Non-African Americans > 60 (> 60)
[2018-06-06 10:04] LABS: Troponin I 0.03 ng/mL (< 0.04)
[2018-06-06] MEDS ORDERED: Aspirin 81 MG TAB.CHEW PO STA (11:31)
--- NOTE | 2018-06-06 12:48 | Neurology - Consult Note ---
<Garth Wilkins - Last Filed: 06/06/18 16:31> Date of Encounter: 06/06/18 Time of Encounter: 11:50 Assessment and Plan (1) CVA (cerebral vascular accident) Current Visit: Yes Status: Acute - As demonstrated on CT head in ED, noted wedge shaped left frontal lobe infarct - Risk factors include HTN, HLD, tobacco abuse, alcohol abuse, previous infarct - Presenting with AMS, remains altered and unable to provide history - Unknown last full well time. - Had CTA of head/neck in February 102017, shows no significant stenosis - On previous brain MRI on 04/16/18 area of encephalomalacia and old infarct noted in region of left MCA - No previous echocardiogram on file - Neurologic exam today during interview is difficult to ascertain however he is moving all 4 extremities Plan - Echo - Carotid US - ASA, statin started - Lipid panel, A1c with AM labs, UDS pending. - Will order EEG for possible encephalopathy aspect. - Will need PT/OT in future however patient currently unable to participate . Will defer for now - Aspiration precautions, NIHSS per protocol. Qualifiers: CVA mechanism: unspecified Qualified Code(s): I63.9 - Cerebral infarction, unspecified (2) Delirium due to general medical condition Current Visit: Yes Status: Acute - Likely secondary to CVA as above - Alternative etiologies include alcohol abuse, drug intoxication, less likely seizure disorder. - Will pursue stroke workup for etiology as above - Has improved since first evaluation (3) ETOH abuse Current Visit: Yes Status: Chronic - Chronic per history - Potentially contributing to AMS - Recommend vitamin supplementation, withdrawal precautions per primary team - Management per primary team History of Present Illness Chief complaint: AMS HPI: Mr. Victoria is a 68 year old male with a PMHx of alcohol abuse, HTN, HLD, tobacco abuse presented to ED with a complaint of altered mental status. Patient is notably not a reliable historian and no family is present at bedside. Per chart review, patient was found altered by network operations manager at the independent living facility where he lives. Patient is able to state his name but otherwise does not participate in interview. In the ED, patient's vital signs were unremarkable. His labs show mild leukocytosis at 14.0, Hgb of 12.2, Cl of 116, Bicarb 22 and glucose 135. He also received a chest Xray which showed interstitial airspace disease similar to previous. Head CT and Chest Ct were also ordered and showed acute wedge shaped i nfarct in the left frontal lobe superimposed on chronic microvascular changes. Chest Ct showed findings compatible with interstitial lung disease slightly worse compared to previous, gynecomastia, loosening of coracoclavicular screw, old manubrial and right humeral neck fracture. Neurology was consulted for stroke evaluation and management. Past Med Surg Social Fam HX - Past Medical History Medical history: arthritis, cancer, DVT, hyperlipidemia, hypertension, other Additional medical history: prostrate CA, radioactive seed implants Psychiatric history: no psych history - Past Surgical History Surgical History: other Additional surgical history: Radiation seeds, rt shoulder surgery, R/L hip - Social History Smoking Status: Current every day smoker Smokeless Tobacco Status: No Alcohol use: heavy, recent Drug use: marijuana - Family History Mother Living Status: Hx Family Cardiac Disorders: Yes Hx Family Respiratory Disorders: Yes Hx Family Cancer: Yes (Lung CA) Hx Family GI Disorders: No Hx Family Endocrine Disorder: Yes (DM) Hx Family Neuromuscular Disorders: No Hx Family Neurologic Disorders: Yes (cervical spinal stenosis) Hx Family HEENT Disorders: No Hx Family Autoimmune Disorders: No Father Living Status: Hx Family Cancer: Yes (prostate) Medications and Allergies Acetaminophen [Tylenol] 650 mg PO Q6HR PRN 08/20/15 [History] Cholecalciferol (D-3) [Vitamin D] 2,000 unit PO DAILY 08/20/15 [History] Gabapentin [Neurontin] 1,200 mg PO TID 08/20/15 [History] Omeprazole [PriLOSEC] 20 mg PO DAILY 08/20/15 [History] Venlafaxine XR (24 HR) [Effexor Xr] 150 mg PO DAILY 08/20/15 [History] Folic Acid 1 mg PO DAILY 02/11/18 [History] Tamsulosin [Flomax] 0.4 mg PO HS 02/11/18 [History] hydrOXYzine HCl [Hydroxyzine HCl] 50 mg PO HS PRN 02/11/18 [History] Metoprolol Succinate [Toprol Xl] 25 mg PO BID 04/14/18 [History] Potassium Chloride [Klor-Con 10] 10 meq PO DAILY 04/14/18 [History] Thiamine HCl [Vitamin B-1] 100 mg PO BID 04/14/18 [History] Lidocaine 1 appl TP QID PRN 05/06/18 [History] Naproxen [Naprosyn] 500 mg PO BID PRN 05/06/18 [History] Rivaroxaban [Xarelto] 20 mg PO DAILY 05/06/18 [History] Budesonide/Formoterol 80/4.5 [Symbicort 80/4.5] 2 puff IH BIDR #1 inhaler 05/07/18 [Rx] Nicotine Patch [Nicoderm] 14 mg TD DAILY #30 patch.[id number] 05/07/18 [Rx] Albuterol Sulfate [Albuterol Inhaler] 2 puff IH QID PRN 06/06/18 [History] Baclofen 20 mg PO TID 06/06/18 [History] Allergy/AdvReac Type Severity Reaction Status Date / Time No Known Allergies Allergy Verified 05/06/18 08:22 ROS unobtainable: due to mental status All Systems: The remainder of the systems were reviewed and are negative Physical Examination - Vital Signs Vital Signs: Initial Vital Signs Temp Pulse Resp BP Pulse Ox 96.3 F L 94 20 121/105 97 06/06/18 09:16 06/06/18 09:16 06/06/18 09:16 06/06/18 09:16 06/06/18 09:16 - Exam Exam: Patient unable to participate in interview and does not follow commands. He is alert and answers his name but does not answer other questions. He does demonstrate muscle strength in all extremities however does not give good or sustained effort. Heart rhythm is regular and lungs show diffuse coarse breath sounds - Constitutional General appearance: comfortable, older than stated age - Neurologic Detailed motor examination: other (as above. Not following commands. ) Reflexes: Biceps: 2+, Patella: 2+ Mental Status Examination: awake, alert, oriented to person, does not follow commands, opens eyes to voice, impaired cognition, not reliable historian Cranial nerve examination: PERRL, no facial asymmetry is present Results - Laboratory Findings CBC and BMP: 06/06/18 09:29 06/06/18 09:29 Abnormal lab findings: Abnormal lab results WBC 14.0 K/mcL (4.3-11.1) H 06/06/18 09:29 Hgb 12.2 g/dL (12.9-16.9) L 06/06/18 09:29 MCH 27.6 pg (28.0-33.3) L 06/06/18 09:29 MCHC 29.8 g/dL (31.6-35.5) L 06/06/18 09:29 RDW 15.1 % (11.5-14.5) H 06/06/18 09:29 MPV 8.9 fL (9.4-12.4) L 06/06/18 09:29 Neutrophils # 11.4 K/mcL (1.6-8.9) H 06/06/18 09:29 Chloride 116 mEq/L (98-107) H 06/06/18 09:29 Carbon Dioxide 22 mEq/L (23-29) L 06/06/18 09:29 Glucose 135 mg/dL (70-105) H 06/06/18 09:29 Calculated Osmolality 301 (280-300) H 06/06/18 09:29 Consult Discharge Plan - Plan [facility]: [facility] Provider[facility] - <Tree Rosas - Last Filed: 06/06/18 16:48> Date of Encounter: 06/06/18 Assessment and Plan (1) CVA (cerebral vascular accident) Current Visit: Yes Status: Acute I have personally performed a [id number] assessment of the patient and have reviewed the PA/CLINICAL NURSING PROFESSOR note. My impressions are as follows: I agree with the neurology resident's assessment of the case as well as plan as stated above. However also to be included for the differential of confusion might be an underlying occult infection since he does have an elevated white blood cell count. He denies headache am doubtful of a central nervous system infectious etiology. Certainly the acute left frontal infarct may result in difficulty with attention as well as speech and ability to focus. We will check the workup tomorrow, urine drug screen is pending. We will also obtain an EEG. Qualifiers: CVA mechanism: unspecified Qualified Code(s): I63.9 - Cerebral infarction, unspecified History of Present Illness HPI: Chart was reviewed, patient was seen and examined. Mr. Victoria is a 68 year old male who is seen for neurologic examination secondary to changes in mental status as well as increased somnolence. Patient does have a known history of alcohol abuse hypertension, hyperlipidemia and tobacco abuse. Patient was seen and examined independently.I have personally performed a [id number] assessment of the patient and have reviewed the PA/CLINICAL NURSING PROFESSOR note. My impressions are as follows: I agree with the neurology resident's assessment of the history of present illness as stated above. I did review the CAT scan of the brain which does reveal what appears to be in acute infarct in the left frontal region. Also may be dealing with underlying infectious etiology contributing to encephalopathy is there is mild leukocytosis present. However the patient was arousable although we had difficulty maintaining his attention. He is verbal. No focal deficits are present. Denies headache. Denies nuchal rigidity or neck pain. All Systems: The remainder of the systems were reviewed and are negative Review of Systems: The balance of the systems review is negative. Physical Examination - Vital Signs Vital Signs: Initial Vital Signs Temp Pulse Resp BP Pulse Ox 96.3 F L 94 20 121/105 97 06/06/18 09:16 06/06/18 09:16 06/06/18 09:16 06/06/18 09:16 06/06/18 09:16 - Exam Exam: General Examination: *CONSTITUTIONAL: normal *GENERAL APPEARANCE OF PATIENT appears healthy and well groomed *EYES: pupils equal, round, reactive to light and accommodation, conjunctiva clear without masses or ulcerations, fundi normal. *CARDIOVASCULAR no peripheral edema, distal temperature normal, dorsalis pedis pulses normal. Refer to vital signs Musculoskeletal: *GAIT AND STATION normal, with normal Romberg testing, no abnormalities such as broad base gait or spasticity *ASSESSMENT OF MUSCLE STRENGTH IN THE UPPER AND LOWER EXTREMITIES am unable to assess the muscle strength in the normal traditional manner however there are no focal or lateralized deficits present. He has normal tone of the upper and lower extremities. *MUSCLE TONE IN THE UPPER AND LOWER EXTREMITIES normal. No abnormal movements, fasciculations or atrophy identified. Neurological: *ORIENTATION to place however he is not able to give a complete concise history. *RECURRENT AND REMOTE MEMORY impaired *ATTENTION AND CONCENTRATION impaired, he has difficulty following commands and staying focused. *LANGUAGE FUNCTION cannot completely rule out the receptive aphasia component *FUND OF KNOWLEDGE unable to assess. *MENTAL attention span and concentration impaired. *CN II optic fundi were normal, no papilledema noted. *CN III,IV, PERRLA extraocular eye movements were full, no nystagmus and no ptosis noted. *CN V shows normal sensation and jaw opens symmetrically. *CN VII shows normal facial movement symmetrically, upper and lower bilaterally. *CN VIII shows no significant hearing loss on examination in the office. *CN IX,,X palate elevated symmetrically and normal gag reflex was noted. *CN XI normal strength in the sternocleidomastoid muscles, symmetrical shoulder shrugging. *CN XII tongue protruded in the midline, with normal strength and movement. *SENSORY EXAMINATION pinprick sensation intact, and light touch(vibration sense). *REFLEXES: deep tendon reflexes were normal and symmetrical , grade 2/4 diffusely, no pathological reflexes were noted. *CEREBELLAR TESTING normal finger to nose, heel/knee/godoy, and tandem walk. *PAIN LEVEL Results - Laboratory Findings CBC and BMP: 06/06/1806/06/18 Abnormal lab findings: Abnormal lab results WBC 14.0 K/mcL (4.3-11.1) H 06/06/18 Hgb 12.2 g/dL (12.9-16.9) L 06/06/18 MCH 27.6 pg (28.0-33.3) L 06/06/18 MCHC 29.8 g/dL (31.6-35.5) L 06/06/18 RDW 15.1 % (11.5-14.5) H 06/06/18 MPV 8.9 fL (9.4-12.4) L 06/06/18 Neutrophils # 11.4 K/mcL (1.6-8.9) H 06/06/18 Chloride 116 mEq/L (98-107) H 06/06/18 Carbon Dioxide 22 mEq/L (23-29) L 06/06/18 Glucose 135 mg/dL (70-105) H 06/06/18: Calculated Osmolality 301 (280-300) H 06/06/18
--- NOTE | 2018-06-06 15:06 | Internal Med History&Physical ---
<Drake Cheek - Last Filed: 06/06/18 18:01> Date of Encounter: 06/06/18 Time of Encounter: 15:02 Internal Medicine - H&P: HPI Chief complaint: loss of conciousness Admitted From: Emergency Dept Plans for Post Hospital Care: Home History of present illness: Mr. Victoria is a 68-year-old man with a history of alcohol abuse, VTE no longer on anticoagulation due to frequent falls, COPD who remains an active smoker, HTN, HLD, presents to ED with altered mental status. Patient is unable to provide HPI due to his mental status. He is able to provide his name and realizes that he is at a hospital, but unable to provide further information. Per review of chart, the patient was found by his manager financial at a independent living facility altered for unknown period of time. EMS reports that he was found surrounded by alcohol bottles. In the ED, patient's vital signs were unremarkable. Significant labs of le ukocytosis at 14.0, Hgb of 12.2, Cl of 116, Bicarb 22 and glucose 135. He also received a chest Xray which showed interstitial airspace disease similar to previous. Head CT and Chest CT were also ordered and showed acute wedge shaped infarct in the left frontal lobe superimposed on chronic microvascular changes. Chest CT showed findings compatible with interstitial lung disease slightly worse compared to previous, gynecomastia, loosening of coracoclavicular screw, old manubrial and right humeral neck fracture. Past Med Surg Social Fam HX - Past Medical History Medical history: arthritis, cancer, DVT, hyperlipidemia, hypertension, other Additional medical history: prostrate CA, radioactive seed implants Psychiatric history: no psych history - Past Surgical History Surgical History: other Additional surgical history: Radiation seeds, rt shoulder surgery, R/L hip - Social History Smoking Status: Current every day smoker Smokeless Tobacco Status: No Alcohol use: heavy, recent Drug use: marijuana - Family History Father Living Status: Hx Family Cancer: Yes (prostate) Mother Living Status: Hx Family Cardiac Disorders: Yes Hx Family Respiratory Disorders: Yes Hx Family Cancer: Yes (Lung CA) Hx Family GI Disorders: No Hx Family Endocrine Disorder: Yes (DM) Hx Family Neuromuscular Disorders: No Hx Family Neurologic Disorders: Yes (cervical spinal stenosis) Hx Family HEENT Disorders: No Hx Family Autoimmune Disorders: No Internal Medicine - H&P: Meds RX: Acetaminophen [Tylenol] 650 mg PO Q6HR PRN 08/20/15 [History] RX: Cholecalciferol (D-3) [Vitamin D] 2,000 unit PO DAILY 08/20/15 [History] RX: Gabapentin [Neurontin] 1,200 mg PO TID 08/20/15 [History] RX: Omeprazole [PriLOSEC] 20 mg PO DAILY 08/20/15 [History] RX: Venlafaxine XR (24 HR) [Effexor Xr] 150 mg PO DAILY 08/20/15 [History] RX: Folic Acid 1 mg PO DAILY 02/11/18 [History] RX: Tamsulosin [Flomax] 0.4 mg PO HS 02/11/18 [History] RX: hydrOXYzine HCl [Hydroxyzine HCl] 50 mg PO HS PRN 02/11/18 [History] RX: Metoprolol Succinate [Toprol Xl] 25 mg PO BID 04/14/18 [History] RX: Potassium Chloride [Klor-Con 10] 10 meq PO DAILY 04/14/18 [History] RX: Thiamine HCl [Vitamin B-1] 100 mg PO BID 04/14/18 [History] RX: Lidocaine 1 appl TP QID PRN 05/06/18 [History] RX: Naproxen [Naprosyn] 500 mg PO BID PRN 05/06/18 [History] RX: Rivaroxaban [Xarelto] 20 mg PO DAILY 05/06/18 [History] RX: Budesonide/Formoterol 80/4.5 [Symbicort 80/4.5] 2 puff IH BIDR #1 inhaler 05/07/18 [Rx] RX: Nicotine Patch [Nicoderm] 14 mg TD DAILY #30 patch.td24 05/07/18 [Rx] Albuterol Sulfate [Albuterol Inhaler] 2 puff IH QID PRN 06/06/18 [History] RX: Baclofen 20 mg PO TID 06/06/18 [History] Allergy/AdvReac Type Severity Reaction Status Date / Time No Known Allergies Allergy Verified 05/06/18 08:22 ROS unobtainable: due to mental status All Systems PM: A 10-system review of systems was performed and is negative for pertinent findings except as documented above in the HPI. - Constitutional Vitals: Temp Pulse Resp BP Pulse Ox 96.3 F L 67 18 153/78 97 06/06/18 09:16 06/06/18 13:57 06/06/18 13:57 06/06/18 13:57 06/06/18 13:57 Exam: General: Difficult to arouse. Appears stated age. Neck: No JVD. Trachea midline. Neck supple. Eyes: PERRL. No scleral icterus. HENT: Normocephalic and atraumatic. Moist mucus membranes. Cardiovascular: Regular rate and rhythm. Normal S1 and S2. No murmurs appreciated. Normal capillary refill. Extremities well perfused with 2+ distal pulses bilaterally. No edema. Pulmonary: Normal and equal breath sounds bilaterally, anteriorly and posteri tammy. No wheezes, rales, or rhonchi. Not in respiratory distress. Abdomen: Soft, nondistended, and tontender. No bruits or masses. No guarding. Neuro: Difficult to assess as the patient does not frequently follow commands or answer questions. Does identify himself by name and states he is in a hospital. No facial asymmetry noted. No hemineglect. Speech is fluid intermit tently but with some slurring. Motor: Normal tone and bulk. Bilateral LE show drift to bed in 5 seconds. UE show drift with eyes closed. Coordination: Unable to assess as patient does not consistently follow commands. Reflexes: biceps, and patellar reflexes 2+ and symmetric bilaterally. Skin: No rashes noted on visualized skin. Musculoskeletal: bilateral UE has muliple superficial bruises and skin tears. Psych: Poor eye contact Internal Med - H&P Results - Labs CBC & Chem 7: 06/06/18 09:29 06/06/18 16:08 Labs: Short CBC 06/06/18 Range/Units 09:29 WBC 14.0 H (4.3-11.1) K/mcL Hgb 12.2 L (12.9-16.9) g/dL Hct 40.9 (37.5-50.1) % Plt Count 320 (140-400) K/mcL Neutrophils # 11.4 H (1.6-8.9) K/mcL BMP 06/06/18 09:29 Sodium 144 Potassium 4.3 Chloride 116 H Carbon Dioxide 22 L BUN 16 Creatinine 1.08 Glucose 135 H Calcium 9.0 Cardiac Enzymes 06/06/18 Range/Units 09:29 Troponin I 0.03 (< 0.04) ng/mL - Impressions ITS Impressions Chest X-Ray 06/06/18 09:21 IMPRESSION: Similar appearing predominantly interstitial though some alveolar airspace disease throughout the lungs bilaterally when compared to the recent exam in April 2018. However, there has been interval progression compared to January 2018. This could be related to interstitial and alveolar pneumonia versus edema, though interstitial lung disease with progression and fibrosis would also be a consideration. This would be best assessed with higher resolution CT imaging if clinically indicated, or with follow-up radiographs to document improvement. D/ / Magnus Greco MD / Magnus Greco MD Interpreting Provider: Magnus Greco MD Head CT 06/06/18 09:22 IMPRESSION: Acute wedge-shaped area of ischemic infarct noted within the left frontal lobe, which was called to and discussed with Krystin Rubin at 11:24 a.m. on 06/06/2018. This is superimposed on chronic microvascular ischemic change seen throughout the periventricular and subcortical white matter as well as generalized mild age-related cortical atrophy. D/ / Magnus Greco MD / Magnus Greco MD Interpreting Provider: Magnus Greco MD Chest CT 06/06/18 11:00 IMPRESSION: 1. Intralobular peripheral septal thickening with basilar distribution and mild traction bronchiectasis in the lower lobes, slightly worse compared to exam of April 14, 2018. Finding is suggestive of an interstitial lung disease. Recommend further evaluation with nonemergent high-resolution CT of the chest. Consider outpatient pulmonary medicine referral, unless already being seen by a monogram and letter paster. 2. Left lower lobe 1.5 x 1.2 cm nodule. Recommend PET-CT and/or tissue diagnosis. 3. Bilateral hilar and mediastinal lymphadenopathy. 4. Suspected gynecomastia. 5. Lucency around the tip of the screw spanning the right coracoclavicular interval, suggestive of loosening. 6. Old manubrial and right humeral neck fracture. D/ / 06/06/2018 11:29:59 Aaron Morrow MD / Nayely davidson Interpreting Provider: Aaron Morrow MD - Assessment and Plan (1) CVA (cerebral vascular accident) Current Visit: Yes Status: Acute Assessment and plan: Unknown timing as patient was found unresponsive. Head CT with acute wedge-shaped area of ischemic infarct noted at left frontal lobe. No signs of ICH, mass effet or midline shift. Plan: -Neurology has been consulted and are following closely -BP control. Initiate ASA, will consider plavix pending further work up -Lipitor 80mg PO qHS started -HOB >30 degrees -EKG to assess for AF, echo to r/o thrombus/vegetation -Carotid u/s -Will obtain lipid panel, HbA1c, COMP. Last TSH 04/14/18 was WNL -Slightly elevated temperature with leukocytosis, will obtain BCx -NIHSS. neuro check sq4 hours. Qualifiers: CVA mechanism: unspecified Qualified Code(s): I63.9 - Cerebral infarction, unspecified (2) Acute encephalopathy Current Visit: No Status: Acute Assessment and plan: Acute encephalopathy likely secondary to CVA vs alcohol use, drug intoxification, less likely seizure disorder. Will obtain UDS and manage CVA as above (3) History of venous thromboembolism Current Visit: Yes Status: Acute Assessment and plan: Patient not on anticoagulation due to frequent falls. This is supported by his extensive UE bruising on physical exam. Continue ASA. Consider further anticoagulation when patient regains mentation. (4) ETOH abuse Current Visit: Yes Status: Chronic Assessment and plan: History of chronic alcohol use. Possible etiology of AMS. (5) HLD (hyperlipidemia) Current Visit: No Status: Chronic Qualifiers: Hyperlipidemia type: unspecified Qualified Code(s): E78.5 - Hyperlipidemia, unspecified (6) HTN (hypertension) Current Visit: No Status: Chronic Qualifiers: Hypertension type: essential hypertension Qualified Code(s): I10 - Essential (primary) hypertension (7) COPD (chronic obstructive pulmonary disease) Current Visit: No Status: Suspected Assessment and plan: COPD but remains as active smoker. Patient had episode of hypoxia at 84% earlier but now satting well on RA. No further signs of acute exacerbation Duoneb and O2 as needed Qualifiers: COPD type: unspecified COPD Qualified Code(s): J44.9 - Chronic obstructive pulmonary disease, unspecified (8) Abnormal chest CT Current Visit: Yes Status: Acute Assessment and plan: CXR with alveolar airspace disease bilaterally that could be related to interstitial and alveolar pneumonia vs edema or interstitial lung disease and fibrosis. Chest CT with intralobular peripheral septal thickening with basilar distribution and mild traction in the lower lobes that supports interstitial lung disease. LLL nodule, manubrial and right humeral neck fracture also noted. -Will consider PET-CT and/or tissue diagnosis of LLL nodule outpatient after patient returns to baseline. (9) DVT prophylaxis Current Visit: No Status: Acute Assessment and plan: SCD - Time Spent With Patient Total time spent is greater than 50% in coordination of care (as documented) at patient's floor/unit and/or counseling patient: Greater than 35 minutes <Jessi Reyna - Last Filed: 06/07/18 14:58> Date of Encounter: 06/06/18 Internal Medicine - H&P: HPI History of present illness: Mr. Victoria is a 68 year old male All Systems PM: A 10-system review of systems was performed and is negative for pertinent findings except as documented above in the HPI. - Constitutional Vitals: Temp Pulse Resp BP Pulse Ox 97.6 F 64 17 163/78 91 06/06/18 15:17 06/06/18 15:17 06/06/18 15:17 06/06/18 15:17 06/06/18 15:17 Internal Med - H&P Results - Labs CBC & Chem 7: 06/06/18 09:29 06/06/18 16:08 Labs: Short CBC 06/06/18 Range/Units 09:29 WBC 14.0 H (4.3-11.1) K/mcL Hgb 12.2 L (12.9-16.9) g/dL Hct 40.9 (37.5-50.1) % Plt Count 320 (140-400) K/mcL Neutrophils # 11.4 H (1.6-8.9) K/mcL BMP 06/06/18 09:29 Sodium 144 Potassium 4.3 Chloride 116 H Carbon Dioxide 22 L BUN 16 Creatinine 1.08 Glucose 135 H Calcium 9.0 Cardiac Enzymes 06/06/18 Range/Units 09:29 Troponin I 0.03 (< 0.04) ng/mL - Impressions ITS Impressions Chest X-Ray 06/06/18 09:21 IMPRESSION: Similar appearing predominantly interstitial though some alveolar airspace disease throughout the lungs bilaterally when compared to the recent exam in April 2018. However, there has been interval progression compared to January 2018. This could be related to interstitial and alveolar pneumonia versus edema, though interstitial lung disease with progression and fibrosis would also be a consideration. This would be best assessed with higher resolution CT imaging if clinically indicated, or with follow-up radiographs to document improvement. D/ / Magnus Greco MD / Magnus Greco MD Interpreting Provider: Magnus Greco MD Head CT 06/06/18 09:22 IMPRESSION: Acute wedge-shaped area of ischemic infarct noted within the left frontal lobe, which was called to and discussed with Krystin Rubin at 11:24 a.m. on 06/06/2018. This is superimposed on chronic microvascular ischemic change seen throughout the periventricular and subcortical white matter as well as generalized mild age-related cortical atrophy. D/ / Magnus Greco MD / Magnus Greco MD Interpreting Provider: Magnus Greco MD Chest CT 06/06/18 11:00 IMPRESSION: 1. Intralobular peripheral septal thickening with basilar distribution and mild traction bronchiectasis in the lower lobes, slightly worse compared to exam of April 14, 2018. Finding is suggestive of an interstitial lung disease. Recommend further evaluation with nonemergent high-resolution CT of the chest. Consider outpatient pulmonary medicine referral, unless already being seen by a monogram and letter paster. 2. Left lower lobe 1.5 x 1.2 cm nodule. Recommend PET-CT and/or tissue diagnosis. 3. Bilateral hilar and mediastinal lymphadenopathy. 4. Suspected gynecomastia. 5. Lucency around the tip of the screw spanning the right coracoclavicular interval, suggestive of loosening. 6. Old manubrial and right humeral neck fracture. D/ / 06/06/2018 11:29:59 Aaron Morrow MD / Nayely Schmidt Interpreting Provider: Aaron Morrow MD - Time Spent With Patient Total time spent is greater than 50% in coordination of care (as documented) at patient's floor/unit and/or counseling patient: - Attending Attestation I examined this patient and my medical decision-making was reviewed with the Resident Physician Dr. Cheek. I agree with the documented findings, disposition and treatment plan as described except to the extent set forth below. Mr. Victoria is a 68 year old male with a PMHx of alcohol abuse, HTN, HLD, and tobacco dependence pt presented to ED from an [facility] with a complaint of altered mental status. He is unable to provide any history since patient is still confused and disoriented In the ED, patient's vital signs were unremarkable. His labs show mild leukocytosis at 14.0 and glucose 135. His chest Xray which showed interstitial airspace disease similar to previous. Head CT showed acute wedge shaped infarct in the left frontal lobe superimposed on chronic microvascular changes. Chest Ct showed findings compatible with interstitial lung disease. Gen: Sleepy Chest: Diminished BS b/l No crackles No rales, mild wheezing Heart: S1S2+ RRR No murmurs Neuro: unable to do thorough neurological examination due to patient sleepiness a/p 1. Acute encephalopathy 2. Acute CVA Admit the pt into Tele will check ABG check CMP and Ammonia level too Will do neuro checks Q 4 hour will check serial troponin X [address] of the head showed acute wedge shaped infarct in the left frontal lobe superimposed on chronic microvascular changes on ASA 81mg will check lipid profile in the morning continue Lipitor 40 mg will get MRI of the Head in AM Will check carotid Doppler bilaterally and echocardiogram 3. Chronic hypoxic respiratory failure 4. COPD placed him on O2 resume home inhalers
[2018-06-06] MEDS ORDERED: Ipratropium/Albuterol Neb 3 ML IH PRN ×2 (15:46)
[2018-06-06 16:41] LABS: Alanine Aminotransferase 3 Units/L (7-52); Albumin 3.1 g/dL (3.5-5.7); Alkaline Phosphatase 100 Units/L (34-104); Aspartate Amino Transferase 10 Units/L (13-39); BUN/Creatinine Ratio 17 (6-26); Bilirubin,Total 0.5 mg/dL (0.3-1.0); Blood Urea Nitrogen 15 mg/dL (8-23); Calcium 8.8 mg/dL (8.6-10.3); Carbon Dioxide 19 mEq/L (23-29); Chloride 117 mEq/L (98-107); Creatine Kinase 114 Units/L (30-223); Globulin 3.1 g/dL (2.4-3.5); Glucose 115 mg/dL (70-105); Osmolality,Calculated 300 (280-300); Potassium 4.1 mEq/L (3.5-5.1); Sodium 144 mEq/L (136-145); Total Protein 6.2 g/dL (6.4-8.9); eGFR For Non-African Americans > 60 (> 60)
[2018-06-06 16:47] LABS: ABG Base Excess -4 mEq/L (-2 to 3); ABG HCO3 19 mEq/L (21-27); ABG Oxygen Saturation 95 % (95-98); ABG PCO2 29 mmHg (35-45); ABG PH 7.43 pH Units (7.32-7.45); ABG PO2 70 mmHg (85-104); ABG TCO2 20 mEq/L (20-26)
[2018-06-06] MEDS ORDERED: Perflutren Lipid Microsphere 1.3 ML in 0.9 % Sodium Chloride 8.7 ML IVP ONE (18:22)
[2018-06-07 05:29] LABS: Chol/HDL Ratio 3.4 (0-4.9)
--- NOTE | 2018-06-07 08:22 | Neurology Progress Note ---
<Garth Wilkins - Last Filed: 06/07/18 10:19> Date of Encounter: 06/07/18 Time of Encounter: 09:50 Assessment and Plan (1) CVA (cerebral vascular accident) Current Visit: Yes Status: Acute - As demonstrated on CT head in ED, noted wedge shaped left frontal lobe infarct - Risk factors include HTN, HLD, tobacco abuse, alcohol abuse, previous infarct - Presenting with AMS, improved today. Unable to remember last known well. - Had CTA of head/neck in February 102017, shows no significant stenosis - On previous brain MRI on 04/16/18 area of encephalomalacia and old infarct noted in region of left MCA - Echocardiogram performed yesterday shows ejection fraction of 60% however patient requested termination prior to completion. Unknown if PFO or clot - Carotid ultrasounds were also performed and showed minimal plaque - Neurologic exam today shows improvement and no focal deficits - Lipid panel grossly unremarkable, hemoglobin A1c of 5.5 Plan - ASA, statin started - UDS pending - Will order EEG for possible encephalopathy aspect. -- Pending read - Will consult PT/OT - Aspiration precautions, NIHSS per protocol. Qualifiers: CVA mechanism: unspecified Qualified Code(s): I63.9 - Cerebral infarction, unspecified (2) Delirium due to general medical condition Current Visit: Yes Status: Acute - Likely secondary to CVA as above - Alternative etiologies include alcohol abuse, drug intoxication, less likely seizure disorder. - Will pursue stroke workup for etiology as above - Clinically improved, unclear baseline (3) ETOH abuse Current Visit: Yes Status: Chronic - Chronic per history - Potentially contributing to AMS - Recommend vitamin supplementation, withdrawal precautions per primary team - Management per primary team Subjective Principal diagnosis: CVA Interval history: Patient was seen and examined at bedside this morning. He states that overall he feels better. He is unable to remember the events of yesterday. He has no concerns at this time and is expressing no pain, fevers, chills, weakness, numbness, tingling. Objective - Constitutional Vitals: Temp Pulse Resp BP Pulse Ox 97.5 F L 64 17 146/83 94 06/07/18 06:48 06/07/18 06:48 06/07/18 06:48 06/07/18 06:48 06/07/18 06:48 General appearance: Present: cooperative, A&O X 2, no acute distress, answers questions appropriately - Head Head exam: Present: atraumatic, normal inspection, normocephalic - Neurological Exam Sensorimotor examination: Present: intact Motor Examination: Present: grossly full strength in all extremities Motor examination - right side: 5/5: deltoids, biceps, triceps, hog driver, hip flexors, tibialis Anterior, toe extension (EHL), plantarflexion Motor examination - left side: 5/5: deltoids, biceps, triceps, hip flexors, hog driver, tibialis Anterior, toe extension (EHL), plantarflexion Sensation intact: Present: intact Reflexes: Biceps: 2+, Patella: 2+ Mental Status Examination: Present: awake, alert, oriented to person, oriented to place, follows commands appropriately, answers questions appropriately, no aphasia, opens eyes to voice, not reliable historian. Absent: oriented to time Cranial nerve examination: Present: PERRL, EOMI, sensory to face intact, no facial asymmetry is present, hearing is intact symmetrically, flexes SCM and trapezius muscles symmetrically with full power, tongue protrudes midline, no atrophy or facial fasiculations present Cerebellar examination: Present: performs finger to nose and heel to godoy symmetrically without ataxia Results - Laboratory Findings CBC and BMP: 06/06/18 09:29 06/06/18 16:08 Abnormal lab findings: Abnormal lab results WBC 14.0 K/mcL (4.3-11.1) H 06/06/18 09:29 Hgb 12.2 g/dL (12.9-16.9) L 06/06/18 09:29 MCH 27.6 pg (28.0-33.3) L 06/06/18 09:29 MCHC 29.8 g/dL (31.6-35.5) L 06/06/18 09:29 RDW 15.1 % (11.5-14.5) H 06/06/18 09:29 MPV 8.9 fL (9.4-12.4) L 06/06/18 09:29 Neutrophils # 11.4 K/mcL (1.6-8.9) H 06/06/18 09:29 ABG pCO2 29 mmHg (35-45) L 06/06/18 16:42 ABG pO2 70 mmHg (85-104) L 06/06/18 16:42 ABG HCO3 19 mEq/L (21-27) L 06/06/18 16:42 ABG Base Excess -4 mEq/L (-2 to 3) L 06/06/18 16:42 Chloride 117 mEq/L (98-107) H 06/06/18 16:08 Carbon Dioxide 19 mEq/L (23-29) L 06/06/18 16:08 Glucose 115 mg/dL (70-105) H 06/06/18 16:08 AST 10 Units/L (13-39) L 06/06/18 16:08 ALT 3 Units/L (7-52) L 06/06/18 16:08 Serum Total Protein 6.2 g/dL (6.4-8.9) L 06/06/18 16:08 Albumin 3.1 g/dL (3.5-5.7) L 06/06/18 16:08 Albumin/Globulin Ratio 1.0 (1.1-2.2) L 06/06/18 16:08 HDL Cholesterol 39 mg/dL (40-59) L 06/07/18 04:17 Consult Discharge Plan - Plan [facility]errals: [facility] Care Provider[facility] - <Tree Rosas - Last Filed: 06/07/18 15:37> Date of Encounter: 06/07/18 Assessment and Plan (1) CVA (cerebral vascular accident) Current Visit: Yes Status: Acute I have personally performed a [id number] assessment of the patient and have reviewed the PA/CHANNELING MACHINE 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 My impressions are as follows: At this juncture patient seems to be returning to his normal baseline. We have completed a neurologic workup at this point I am not Convinced That the Infarct That Shows up on the CAT Scan Is New. The Same Infarct Pattern Is Identifiable on Previous MRI Completed in March 2018. He Does Have Significant Periv entricular Deep White Matter Changes. CTA of the Head and Neck Completed in January 2018 Showed No Evidence of Stenosis. Ejection Fraction Was 60%. Metabolic Workup Was Unrevealing. EEG Was Ordered However Unfortunately Was Uninterpretable. I Am Doubtful That We Are Dealing with Seizure Activity However. We Did Order a Urine Tox Screen Which Was Never Completed during the Hospitalization. Perhaps This Was Some Transient Exposure That Has since Resolved. Is No Evidence of a Central Nervous System Infectious Process. We Will Reevaluate Him at Your Request. Qualifiers: CVA mechanism: unspecified Qualified Code(s): I63.9 - Cerebral infarction, unspecified Subjective Interval history: Chart was reviewed, patient was seen and examined independently. Case was discussed with the neurology resident on service. I did not see patient this morning was sleeping soundly upon my entrance. The patient was a bit grumpy this morning however he did arouse and is able to tell me where he was. Also follow commands and answers questions appropriately. No focal or lateralized deficits. Objective - Constitutional Vitals: Temp Pulse Resp BP Pulse Ox 97.6 F 94 16 136/88 97 06/07/18 10:37 06/07/18 10:37 06/07/18 10:37 06/07/18 10:37 06/07/18 10:37 Exam: Exam: General Examination: *CONSTITUTIONAL: normal *GENERAL APPEARANCE OF PATIENT appears healthy and well groomed *EYES: pupils equal, round, reactive to light and accommodation, conjunctiva clear without masses or ulcerations, fundi normal. *CARDIOVASCULAR no peripheral edema, distal temperature normal, dorsalis pedis pulses normal. Refer to vital signs Musculoskeletal: *GAIT AND STATION normal, with normal Romberg testing, no abnormalities such as broad base gait or spasticity *ASSESSMENT OF MUSCLE STRENGTH IN THE UPPER AND LOWER EXTREMITIES am unable to assess the muscle strength in the normal traditional manner however there are no focal or lateralized deficits present. He has normal tone of the upper and lower extremities. *MUSCLE TONE IN THE UPPER AND LOWER EXTREMITIES normal. No abnormal movements, fasciculations or atrophy identified. Neurological: *ORIENTATION to place however, he is fairly uncooperative today. *RECURRENT AND REMOTE MEMORY impaired *ATTENTION AND CONCENTRATION better today, likely has some dementia. Pt. cantankerous. *LANGUAGE FUNCTION cannot completely rule out the receptive aphasia component *FUND OF KNOWLEDGE unable to assess. *MENTAL attention span and concentration impaired. *CN II optic fundi were normal, no papilledema noted. *CN III,IV, PERRLA extraocular eye movements were full, no nystagmus and no ptosis noted. *CN V shows normal sensation and jaw opens symmetrically. *CN VII shows normal facial movement symmetrically, upper and lower bilaterally. *CN VIII shows no significant hearing loss on examination in the office. *CN IX,,X palate elevated symmetrically and normal gag reflex was noted. *CN XI normal strength in the sternocleidomastoid muscles, symmetrical shoulder shrugging. *CN XII tongue protruded in the midline, with normal strength and movement. *SENSORY EXAMINATION pinprick sensation intact, and light touch(vibration sense). *REFLEXES: deep tendon reflexes were normal and symmetrical , grade 2/4 diffusely, no pathological reflexes were noted. *CEREBELLAR TESTING normal finger to nose, heel/knee/godoy, and tandem walk. *PAIN LEVEL Results - Laboratory Findings CBC and BMP: 06/06/18 09:29 06/06/18 16:08 Abnormal lab findings: Abnormal lab results WBC 14.0 K/mcL (4.3-11.1) H 06/06/18 09:29 Hgb 12.2 g/dL (12.9-16.9) L 06/06/18 09:29 MCH 27.6 pg (28.0-33.3) L 06/06/18 09:29 MCHC 29.8 g/dL (31.6-35.5) L 06/06/18 09:29 RDW 15.1 % (11.5-14.5) H 06/06/18 09:29 MPV 8.9 fL (9.4-12.4) L 06/06/18 09:29 Neutrophils # 11.4 K/mcL (1.6-8.9) H 06/06/18 09:29 ABG pCO2 29 mmHg (35-45) L 06/06/18 16:42 ABG pO2 70 mmHg (85-104) L 06/06/18 16:42 ABG HCO3 19 mEq/L (21-27) L 06/06/18 16:42 ABG Base Excess -4 mEq/L (-2 to 3) L 06/06/18 16:42 Chloride 117 mEq/L (98-107) H 06/06/18 16:08 Carbon Dioxide 19 mEq/L (23-29) L 06/06/18 16:08 Glucose 115 mg/dL (70-105) H 06/06/18 16:08 AST 10 Units/L (13-39) L 06/06/18 16:08 ALT 3 Units/L (7-52) L 06/06/18 16:08 Serum Total Protein 6.2 g/dL (6.4-8.9) L 06/06/18 16:08 Albumin 3.1 g/dL (3.5-5.7) L 06/06/18 16:08 Albumin/Globulin Ratio 1.0 (1.1-2.2) L 06/06/18 16:08 HDL Cholesterol 39 mg/dL (40-59) L 06/07/18 04:17
[2018-06-07 08:55] LABS: Estimated Average Glucose 111 mg/dl; Hemoglobin A1C 5.5 %
--- NOTE | 2018-06-07 09:17 | Internal Med Progress Note ---
<Drake Cheek - Last Filed: 06/07/18 09:24> Hospitalist Progress Note - Encounter Date of Encounter: 06/07/18 Time of Encounter: 09:09 - Subjective Interval History: Mr. Victoria is a 68-year-old man with a history of alcohol abuse, VTE no longer on anticoagulation due to frequent falls, COPD who remains an active smoker, HTN, HLD, presents to ED with altered mental status. Patient is unable to provide HPI due to his mental status. He is able to provide his name and realizes that he is at a hospital, but unable to provide further information. Per review of chart, the patient was found by his assistant manager at a independent living facility altered for unknown period of time. EMS reports that he was found surrounded by alcohol bottles. In the ED, patient's vital signs were unremarkable. Significant labs of leukocytosis at 14.0, Hgb of 12.2, Cl of 116, Bicarb 22 and glucose 135. He also received a chest Xray which showed interstitial airspace disease similar to previous. Head CT and Chest CT were also ordered and showed acute wedge shaped infarct in the left frontal lobe superimposed on chronic microvascular changes. Chest CT showed findings compatible with interstitial lung disease slightly worse compared to previous, gynecomastia, loosening of coracoclavicular screw, old manubrial and right humeral neck fracture. Today, patient is awake and laying comfortably in bed. He does not recall losing consciousness or how he ended up at the hospital. Does not recall whether he had alcohol use the previous night. He is able to tell me that he had a stroke. Patient lives by himself and cannot provide me with family contact. He denies any headaches, vision changes, chest pain, SOB, numbness or tingling, weakness. - Exam Vitals: Temp Pulse Resp BP Pulse Ox 97.5 F L 64 17 146/83 94 06/07/18 06:48 06/07/18 06:48 06/07/18 06:48 06/07/18 06:48 06/07/18 06:48 Exam: General: Alert and oriented to place and name but not to time. Easily irritable. Confused but able to follow commands. Neck: No JVD. Trachea midline. Neck supple. Eyes: PERRL. No scleral icterus. HENT: Normocephalic and atraumatic. Moist mucus membranes. Cardiovascular: Regular rate and rhythm. Normal S1 and S2. No murmurs appreciated. Normal capillary refill. Extremities well perfused with 2+ distal pulses bilaterally. No edema. Pulmonary: Crackles noted bilaterally. No respiratory distress or accessory muscle use on 2L NC. Abdomen: Soft, nondistended, and tontender. No bruits or masses. No guarding. Neuro: AOx2. Strength testing 5/5. no focal deficits. No facial asymmetry noted. No hemineglect. Speech is fluid intermittently but with some slurring. Motor: Normal tone and bulk. Bilateral LE show drift to bed in 5 seconds. UE show drift with eyes closed. Reflexes: biceps, and patellar reflexes 2+ and symmetric bilaterally. Musculoskeletal: bilateral UE has muliple superficial bruises and skin tears. Psych: Poor eye contact - Assessment and Plan (1) CVA (cerebral vascular accident) Current Visit: Yes Status: Acute Assessment and Plan: Unknown timing as patient was found unresponsive. Head CT with acute wedge-shaped area of ischemic infarct noted at left frontal lobe. No signs of ICH, mass effet or midline shift. Plan: -Neurology has been consulted and are following closely -Pending MRI brain today. -BP control. Initiate ASA, will consider plavix pending further work up -Lipitor 80mg PO qHS started -HOB >30 degrees -EKG to assess for AF, echo to r/o thrombus/vegetation -Carotid u/s -Will obtain lipid panel, HbA1c, COMP. Last TSH 04/14/18 was WNL -Slightly elevated temperature with leukocytosis, will obtain BCx -NIHSS. neuro check sq4 hours. (2) Acute encephalopathy Current Visit: No Status: Acute Assessment and plan: Unknown baseline mentation. Improving. Acute encephalopathy likely secondary to CVA vs alcohol use, drug intoxification, less likely seizure disorder. Will obtain UDS one patient able to provide urine sample and manage CVA as above (3) Urine output low Current Visit: Yes Status: Acute Patient is dehydrated and has poor PO intake. Likely secondary to acute issues above. Will give another 1L bolus and maintenance fluids. (4) History of venous thromboembolism Current Visit: Yes Status: Acute Assessment and plan: Patient not on anticoagulation due to frequent falls. This is supported by his extensive UE bruising on physical exam. Continue ASA. Consider further anticoagulation when patient regains mentation. (5) ETOH abuse Current Visit: Yes Status: Chronic Assessment and plan: History of chronic alcohol use. Possible etiology of AMS. (6) HLD (hyperlipidemia) Current Visit: No Status: Chronic Qualifiers: Hyperlipidemia type: unspecified Qualified Code(s): E78.5 - Hyperlipidemia, unspecified (7) HTN (hypertension) Current Visit: No Status: Chronic Qualifiers: Hypertension type: essential hypertension Qualified Code(s): I10 - Essential (primary) hypertension (8) COPD (chronic obstructive pulmonary disease) Current Visit: No Status: Suspected Assessment and plan: COPD but remains as active smoker. Patient had episode of hypoxia at 84% earlier but now satting well on RA. No further signs of acute exacerbation Duoneb and O2 as needed Qualifiers: COPD type: unspecified COPD Qualified Code(s): J44.9 - Chronic obstructive pulmonary disease, unspecified (9) Abnormal chest CT Current Visit: Yes Status: Acute Assessment and plan: CXR with alveolar airspace disease bilaterally that could be related to interstitial and alveolar pneumonia vs edema or interstitial lung disease and fibrosis. Chest CT with intralobular peripheral septal thickening with basilar distribution and mild traction in the lower lobes that supports interstitial lung disease. Patient also have LLL nodule, manubrial and right humeral neck fracture also no taran. -Will consider PET-CT and/or tissue diagnosis of LLL nodule outpatient after patient returns to baseline. (20) DVT prophylaxis Current Visit: No Status: Acute Assessment and plan: SCD - Time Spent with Patient Total time spent is greater than 50% in coordination of care (as documented) at patient's floor/unit and/or counseling patient: Greater than 35 minutes Plan of Care Discussed with: patient Internal Medicine: Result - Labs CBC & Chem 7: 06/06/18 09:29 06/06/18 16:08 Labs: Short CBC 06/06/18 Range/Units 09:29 WBC 14.0 H (4.3-11.1) K/mcL Hgb 12.2 L (12.9-16.9) g/dL Hct 40.9 (37.5-50.1) % Plt Count 320 (140-400) K/mcL Neutrophils # 11.4 H (1.6-8.9) K/mcL BMP 06/06/18 06/06/18 09:29 16:08 Sodium 144 144 Potassium 4.3 4.1 Chloride 116 H 117 H Carbon Dioxide 22 L 19 L BUN 16 15 Creatinine 1.08 0.86 Glucose 135 H 115 H Calcium 9.0 8.8 Cardiac Enzymes 06/06/18 06/06/18 06/06/18 Range/Units 09:29 16:08 23:40 Troponin I 0.03 < 0.03 < 0.03 (< 0.04) ng/mL Liver Function 06/06/18 Range/Units 16:08 Total Bilirubin 0.5 (0.3-1.0) mg/dL AST 10 L (13-39) Units/L ALT 3 L (7-52) Units/L Alkaline Phosphatase 100 (34-104) Units/L Albumin 3.1 L (3.5-5.7) g/dL - ABG Interpretation ABG results: ABG ABG pH 7.43 pH Units (7.32-7.45) 06/06/18 16:42 ABG pCO2 29 mmHg (35-45) L 06/06/18 16:42 ABG pO2 70 mmHg (85-104) L 06/06/18 16:42 ABG O2 Saturation 95 % (95-98) 06/06/18 16:42 - Impressions Impressions Chest X-Ray 06/06/18 09:21 IMPRESSION: Similar appearing predominantly interstitial though some alveolar airspace disease throughout the lungs bilaterally when compared to the recent exam in April 2018. However, there has been interval progression compared to January 2018. This could be related to interstitial and alveolar pneumonia versus edema, though interstitial lung disease with progression and fibrosis would also be a consideration. This would be best assessed with higher resolution CT imaging if clinically indicated, or with follow-up radiographs to document improvement. D/ / Magnus Greco MD / Magnus Greco MD Interpreting Provider: Magnus Greco MD Head CT 06/06/18 09:22 IMPRESSION: Acute wedge-shaped area of ischemic infarct noted within the left frontal lobe, which was called to and discussed with Krystin Rubin at 11:24 a.m. on 06/06/2018. This is superimposed on chronic microvascular ischemic change seen throughout the periventricular and subcortical white matter as well as generalized mild age-related cortical atrophy. D/ / Magnus Greco MD / Magnus Greco MD Interpreting Provider: Magnus Greco MD Chest CT 06/06/18 11:00 IMPRESSION: 1. Intralobular peripheral septal thickening with basilar distribution and mild traction bronchiectasis in the lower lobes, slightly worse compared to exam of April 14, 2018. Finding is suggestive of an interstitial lung disease. Recommend further evaluation with nonemergent high-resolution CT of the chest. Consider outpatient pulmonary medicine referral, unless already being seen by a hot dip galvanizer. 2. Left lower lobe 1.5 x 1.2 cm nodule. Recommend PET-CT and/or tissue diagnosis. 3. Bilateral hilar and mediastinal lymphadenopathy. 4. Suspected gynecomastia. 5. Lucency around the tip of the screw spanning the right coracoclavicular interval, suggestive of loosening. 6. Old manubrial and right humeral neck fracture. D/ / 06/06/2018 11:29:59 Aaron Morrow MD / Nayely Schmidt Interpreting Provider: Aaron Morrow MD Echocardiogram 06/06/18 13:11 Impressions: The bilateral carotid arteries have minimal plaque. Consult Discharge Plan - Plan [facility]errals: [facility] [Primary Care Provider] - <Jessi Reyna - Last Filed: 06/07/18 15:20> Hospitalist Progress Note - Encounter Date of Encounter: 06/07/18 - Exam Vitals: Temp Pulse Resp BP Pulse Ox 97.6 F 94 16 136/88 97 06/07/18 10:37 06/07/18 10:37 06/07/18 10:37 06/07/18 10:37 06/07/18 10:37 - Time Spent with Patient Total time spent is greater than 50% in coordination of care (as documented) at patient's floor/unit and/or counseling patient: Internal Medicine: Result - Labs CBC & Chem 7: 06/06/18 09:29 06/06/18 16:08 Labs: BMP 06/06/18 16:08 Sodium 144 Potassium 4.1 Chloride 117 H Carbon Dioxide 19 L BUN 15 Creatinine 0.86 Glucose 115 H Calcium 8.8 Cardiac Enzymes 06/06/18 06/06/18 Range/Units 16:08 23:40 Troponin I < 0.03 < 0.03 (< 0.04) ng/mL Liver Function 06/06/18 Range/Units 16:08 Total Bilirubin 0.5 (0.3-1.0) mg/dL AST 10 L (13-39) Units/L ALT 3 L (7-52) Units/L Alkaline Phosphatase 100 (34-104) Units/L Albumin 3.1 L (3.5-5.7) g/dL - ABG Interpretation ABG results: ABG ABG pH 7.43 pH Units (7.32-7.45) 06/06/18 16:42 ABG pCO2 29 mmHg (35-45) L 06/06/18 16:42 ABG pO2 70 mmHg (85-104) L 06/06/18 16:42 ABG O2 Saturation 95 % (95-98) 06/06/18 16:42 - Impressions Impressions Echocardiogram 06/06/18 13:11 Impressions: The bilateral carotid arteries have minimal plaque. - Attending Attestation I examined this patient and my medical decision-making was reviewed with the Resident Physician Dr. Cheek. I agree with the documented findings, disposition and treatment plan as described except to the extent set forth below. Mr. Victoria is a 68 year old male with a PMHx of alcohol abuse, HTN, HLD, and tobacco dependence pt presented to ED from an [facility] with a complaint of altered mental status. He is unable to provide any history since patient is still confused and disoriented In the ED, patient's vital signs were unremarkable. His labs show mild leukocytosis at 14.0 and glucose 135. His chest Xray which showed interstitial airspace disease similar to previous. Head CT showed acute wedge shaped infarct in the left frontal lobe superimposed on chronic microvascular changes. Chest Ct showed findings compatible with interstitial lung disease. Today he is more alert, awake and Oriented to time, place and person. however still looks confused.. Looks very weak and lethargic. Pt admitted he drinks alcohol 4 beers / day. Chest: Diminished BS b/l No crackles No rales, mild wheezing Heart: S1S2+ RRR No murmurs Neuro: Confused and altered. No focal weakness / deficits noticed. a/p 1. Acute encephalopathy 2. Acute CVA So far negative serial trop reviewed EKG reviewed CT of the head showed acute wedge shaped infarct in the left frontal lo be superimposed on chronic microvascular changes con ASA 81mg reviewed lipid profile - LDL @ 82 continue Lipitor 40 mg Waiting for MRI of the Head Reviewed Carotid Doppler bilaterally - have minimal plaque only Reviewed Echo - showed preserved LVEF and indeterminate diastolic function.. He does have severe pulm HTN too 3. Chronic hypoxic respiratory failure 4. COPD 5. Chronic diastolic CHF 6. Severe pulmonary hypertension Cont frequent bronchodilators resumed home inhalers cont O2 @ 2lit cont close monitoring 7. Chronic alcohol dependence concerning for alcohol withdrawal symptoms placed him on CIWA protocol <Drake Cheek - Last Filed: 06/07/18 09:24> (1) CVA (cerebral vascular accident) Qualifiers: CVA mechanism: unspecified Qualified Code(s): I63.9 - Cerebral infarction, unspecified
[2018-06-07] MEDS: Aspirin 81 MG TAB.CHEW PO SCH (09:40)
[2018-06-07] MEDS ORDERED: 0.9 % Sodium Chloride 1,000 ML IVC ONE (09:42)
[2018-06-07] MEDS ORDERED: *HR* LORazepam 2 MG/ML VIAL IVP PRN ×2 (11:51)
[2018-06-07] MEDS: Budesonide/Formoterol 80/4.5 MDI IH SCH ×2 (11:58→20:42)
[2018-06-07] MEDS: Vitamin B Complex/Vit C/Vit E 1 EACH TABLET PO SCH (12:40)
[2018-06-07] MEDS: Folic Acid 1 MG TABLET PO SCH (12:40)
[2018-06-07] MEDS: Thiamine (B-1) 100 MG TABLET PO SCH (12:40)
[2018-06-07] MEDS: 0.9 % Sodium Chloride 1,000 ML IVC SCH ×2 (12:41→22:35)
--- NOTE | 2018-06-07 15:32 | EEG/EMG/Oth Biometrics Report ---
EEG Procedure Report Date of procedure: 06/07/18 EEG Procedure: Routine EEG Procedure Note: This is a 21 channel bipolar and referential montage EEG. From the outset the EEG contains artifact is identified in multiple leads by hemispherically. This is present throughout the duration of the study. She renders the study uninterpretable. The EKG rhythm strip reveals normal sinus rhythm at 60 bpm. Impressions: This EEG is marred by continuous artifact rendering it uninterpretable. Would recommend repeating the study.
[2018-06-07] MEDS: Gabapentin 400 MG CAPSULE PO SCH (21:15)
[2018-06-07] MEDS: Metoprolol XL (24 HR) Succ 25 MG TAB.ER.24H PO SCH (21:16)
[2018-06-07] MEDS: Baclofen 10 MG TABLET PO SCH (21:16)
[2018-06-07] MEDS ORDERED: Budesonide/Formoterol 80/4.5 MDI IH SCH (22:00)
[2018-06-08 03:08] LABS: Basophils % 0.6 %; Eosinophils # 0.4 K/mcL (0.0-0.6); Eosinophils % 5.6 %; Hematocrit 33.5 % (37.5-50.1); Hemoglobin 10.3 g/dL (12.9-16.9); Immature Granulocytes % 0.4 % (0-4); Immature Platelets 1.3 % (1.1-6.1); Lymphocytes # 2.2 K/mcL (0.6-4.6); Lymphocytes % 30.2 %; Mean Corpuscular HGB Conc 30.7 g/dL (31.6-35.5); Mean Corpuscular Hemoglobin 27.7 pg (28.0-33.3); Mean Corpuscular Volume 90.1 fL (83.0-100.0); Monocytes # 0.5 K/mcL (0.0-1.3); Monocytes % 7.2 %; Platelet Count 349 K/mcL (140-400); Red Blood Count 3.72 M/mcL (4.19-5.50)
[2018-06-08 03:28] LABS: BUN/Creatinine Ratio 14 (6-26); Blood Urea Nitrogen 9 mg/dL (8-23); Calcium 8.3 mg/dL (8.6-10.3); Carbon Dioxide 20 mEq/L (23-29); Chloride 115 mEq/L (98-107); Glucose 87 mg/dL (70-105); Osmolality,Calculated 292 (280-300); Potassium 3.7 mEq/L (3.5-5.1); Sodium 142 mEq/L (136-145); eGFR For Non-African Americans > 60 (> 60)
[2018-06-08] MEDS: 0.9 % Sodium Chloride 1,000 ML IVC SCH (06:41)
[2018-06-08] MEDS: Cholecalciferol (D-3) 1,000 UNIT TABLET PO SCH (07:35)
[2018-06-08] MEDS: Venlafaxine XR (24 HR) 150 MG CAP.ER.24H PO SCH (07:36)
[2018-06-08] MEDS: Aspirin 81 MG TAB.CHEW PO SCH (07:36)
[2018-06-08] MEDS: Nicotine 14 MG PATCH.TD24 TD SCH (07:36)
[2018-06-08] MEDS: Gabapentin 400 MG CAPSULE PO SCH ×3 (07:36→21:06)
[2018-06-08] MEDS: Baclofen 10 MG TABLET PO SCH ×3 (07:36→21:06)
[2018-06-08] MEDS: Vitamin B Complex/Vit C/Vit E 1 EACH TABLET PO SCH (07:36)
[2018-06-08] MEDS: Folic Acid 1 MG TABLET PO SCH (07:36)
[2018-06-08] MEDS: Metoprolol XL (24 HR) Succ 25 MG TAB.ER.24H PO SCH ×2 (07:36→21:06)
[2018-06-08] MEDS: Thiamine (B-1) 100 MG TABLET PO SCH (07:36)
[2018-06-08] MEDS: Budesonide/Formoterol 80/4.5 MDI IH SCH ×2 (08:49→21:45)
[2018-06-08] MEDS ORDERED: Folic Acid 1 MG TABLET PO SCH (09:00)
--- NOTE | 2018-06-08 10:07 | Internal Med Progress Note ---
Hospitalist Progress Note - Encounter Date of Encounter: 06/08/18 Time of Encounter: 10:05 - Subjective Interval History: Pt examined in the room, he is alert and oriented 3. He denies any weakness or numbness. He does not seems anxious or agitated, he is calm and able to be involved in the conversation. - Exam Vitals: Temp Pulse Resp BP Pulse Ox 97.7 F 81 16 129/76 94 06/08/18 07:15 06/08/18 07:15 06/08/18 08:49 06/08/18 07:15 06/08/18 08:49 Exam: General: Alert and oriented to place and name but not to time. Easily irritable. Confused but able to follow commands. Neck: No JVD. Trachea midline. Neck supple. Eyes: PERRL. No scleral icterus. HENT: Normocephalic and atraumatic. Moist mucus membranes. Cardiovascular: Regular rate and rhythm. Normal S1 and S2. No murmurs appreciated. Normal capillary refill. Extremities well perfused with 2+ distal pulses bilaterally. No edema. Pulmonary: Crackles noted bilaterally. No respiratory distress or accessory muscle use on 2L NC. Abdomen: Soft, nondistended, and tontender. No bruits or masses. No guarding. Neuro: AOx2. Strength testing 5/5. no focal deficits. No facial asymmetry noted. No hemineglect. Speech is fluid intermittently but with some slurring. Motor: Normal tone and bulk. Bilateral LE show drift to bed in 5 seconds. UE show drift with eyes closed. Reflexes: biceps, and patellar reflexes 2+ and symmetric bilaterally. Musculoskeletal: bilateral UE has muliple superficial bruises and skin tears. Psych: Poor eye contact - Assessment and Plan (1) Acute cerebral infarction Current Visit: Yes Status: Acute Assessment and Plan: 68 male with history of pulmonary embolism, hypertension, and a current smoker presented with acute mental status change. CT head showed left frontal lobe subacute CVA. Workup including carotid Doppler, echocardiogram, and the telemetry monitoring so far was unrevealing. he was placed on aspirin, and the statins. Neuro following. PT/OT evaluation for placement. (2) Smoker Current Visit: No Status: Acute Assessment and Plan: Smoke cessation discussed with patient, patient verbally understands. (3) Lung nodule Current Visit: Yes Status: Acute (4) History of venous thromboembolism Current Visit: No Status: Chronic Assessment and Plan: Patient has history of PE, was on anticoagulation, which was DC'd right to admission for unknown duration because the patient mental status and frequent falls. (5) Abnormal chest CT Current Visit: Yes Status: Acute Assessment and Plan: CT chest revealed possible interstitial lung disease and a nodule. Patient was on home oxygen. He has no signs of infection per CT and chest x- ray. He has no respiratory distress. We will continue home medications including bronchodilators. DVT Prophylaxis: Ambulation and SCDs. - Time Spent with Patient Total time spent is greater than 50% in coordination of care (as documented) at patient's floor/unit and/or counseling patient: Greater than 35 minutes Plan of Care Discussed with: patient Internal Medicine: Result - Labs CBC & Chem 7: 06/08/18 02:50 06/08/18 02:50 Labs: Short CBC 06/08/18 Range/Units 02:50 WBC 7.1 (4.3-11.1) K/mcL Hgb 10.3 L D (12.9-16.9) g/dL Hct 33.5 L (37.5-50.1) % Plt Count 349 (140-400) K/mcL Neutrophils # 4.0 (1.6-8.9) K/mcL BMP 06/08/18 02:50 Sodium 142 Potassium 3.7 Chloride 115 H Carbon Dioxide 20 L BUN 9 Creatinine 0.66 L Glucose 87 Calcium 8.3 L - ABG Interpretation ABG results: ABG ABG pH 7.43 pH Units (7.32-7.45) 06/06/18 16:42 ABG pCO2 29 mmHg (35-45) L 06/06/18 16:42 ABG pO2 70 mmHg (85-104) L 06/06/18 16:42 ABG O2 Saturation 95 % (95-98) 06/06/18 16:42 Consult Discharge Plan - Plan [facility]errals: [facility] [Primary Care Provider] -
[2018-06-08 21:54] LABS: Bilirubin,Urine Negative (Negative); Blood,Urine Negative (Negative); Clarity,Urine Clear (Clear); Color,Urine Yellow (Yellow); Glucose,Urine (UA) Normal (Normal); Ketones,Urine Negative (Negative); Leukocyte Esterase,Urine Negative (Negative); Nitrite,Urine Negative (Negative); Protein,Urine Trace mg/dL (Neg-Trace); Specific Gravity,Urine 1.022 (1.010-1.025); Urobilinogen,Urine Normal (Normal)
[2018-06-08 22:11] LABS: Amphetamine Screen,Urine Negative ng/mL (Cutoff=1000); Barbiturate Screen,Urine Negative ng/mL (Cutoff=200); Benzodiazepines Screen,Urine Negative ng/mL (Cutoff=200); Cannabinoid Screen,Urine Positive ng/mL (Cutoff = 50); Cocaine Screen,Urine Negative ng/mL (Cutoff= 300); Opiate Screen,Urine Negative ng/mL (Cutoff=300); Phencyclidine Screen,Urine Negative ng/mL (Cutoff=25)
[2018-06-09] MEDS: Budesonide/Formoterol 80/4.5 MDI IH SCH ×2 (07:31→22:40)
--- NOTE | 2018-06-09 09:02 | Internal Med Progress Note ---
Hospitalist Progress Note - Encounter Date of Encounter: 06/09/18 Time of Encounter: 08:59 - Subjective Interval History: Patient seen and examined in the room, he has no new complaints at this time. He denies headache, weakness, or numbness. - Exam Vitals: Temp Pulse Resp BP Pulse Ox 98 F 85 17 128/76 94 06/09/18 08:04 06/09/18 08:04 06/09/18 08:04 06/09/18 08:04 06/09/18 08:04 Exam: General: Alert and oriented to place and name but not to time. Easily irritable. Confused but able to follow commands. Neck: No JVD. Trachea midline. Neck supple. Eyes: PERRL. No scleral icterus. HENT: Normocephalic and atraumatic. Moist mucus membranes. Cardiovascular: Regular rate and rhythm. Normal S1 and S2. No murmurs appreciated. Normal capillary refill. Extremities well perfused with 2+ distal pulses bilaterally. No edema. Pulmonary: Crackles noted bilaterally. No respiratory distress or accessory muscle use on 2L NC. Abdomen: Soft, nondistended, and tontender. No bruits or masses. No guarding. Neuro: AOx2. Strength testing 5/5. no focal deficits. No facial asymmetry noted. No hemineglect. Speech is fluid intermittently but with some slurring. Motor: Normal tone and bulk. Bilateral LE show drift to bed in 5 seconds. UE show drift with eyes closed. Reflexes: biceps, and patellar reflexes 2+ and symmetric bilaterally. Musculoskeletal: bilateral UE has muliple superficial bruises and skin tears. Psych: Poor eye contact - Assessment and Plan (1) Acute cerebral infarction Current Visit: Yes Status: Acute Assessment and Plan: 68 male with history of pulmonary embolism, hypertension, and a current smoker presented with acute mental status change. CT head showed left frontal lobe subacute CVA. Workup including carotid Doppler, echocardiogram, and the telemetry monitoring so far was unrevealing. MRI brain showed acute to subacute linear ischemia change along the chronic left frontal CVA. he was placed on aspirin, and the statins. PT/OT rec for SNF placement. (2) Smoker Current Visit: No Status: Acute Assessment and Plan: Smoke cessation discussed with patient, patient verbally understands. (3) Lung nodule Current Visit: Yes Status: Acute Assessment and Plan: CT chest showed a lung nodule, follow-up as outpatient with PCP. (4) History of venous thromboembolism Current Visit: No Status: Chronic Assessment and Plan: Patient has history of PE, was on anticoagulation, which was DC'd for unknown duration because of patient mental status and frequent falls. (5) Abnormal chest CT Current Visit: Yes Status: Acute Assessment and Plan: CT chest revealed possible interstitial lung disease and a nodule. Patient was on home oxygen. He has no signs of infection per CT and chest x- ray. He has no respiratory distress. We will continue home medications including bronchodilators. DVT Prophylaxis: Ambulation and SCDs. - Time Spent with Patient Total time spent is greater than 50% in coordination of care (as documented) at patient's floor/unit and/or counseling patient: Greater than 35 minutes Plan of Care Discussed with: patient Internal Medicine: Result - Labs CBC & Chem 7: 06/08/18 02:50 06/08/18 02:50 Labs: Urine 06/08/18 Range/Units 21:29 Urine Color Yellow (Yellow) Urine Clarity Clear (Clear) Urine pH 6.0 (5.0-8.0) pH Units Ur Specific Ashley 1.022 (1.010-1.025) Urine Protein Trace (Neg-Trace) mg/dL Urine Glucose (UA) Normal (Normal) mg/dL - ABG Interpretation ABG results: ABG ABG pH 7.43 pH Units (7.32-7.45) 06/06/18 16:42 ABG pCO2 29 mmHg (35-45) L 06/06/18 16:42 ABG pO2 70 mmHg (85-104) L 06/06/18 16:42 ABG O2 Saturation 95 % (95-98) 06/06/18 16:42 - Impressions Impressions Brain MRI 06/08/18 11:51 IMPRESSION: Minimal curvilinear acute to subacute infarction at the margin of the known left frontal lobe subacute to chronic infarction, particularly at the superior margin. Mild parenchymal volume loss. Moderate chronic microvascular disease. D/ / Mahesh Og MD / Mahesh Og MD Interpreting Provider: Mahesh Og MD Consult Discharge Plan - Plan [facility]errals: [facility] [Primary Care Provider] -
[2018-06-09] MEDS: Aspirin 81 MG TAB.CHEW PO SCH (09:46)
[2018-06-09] MEDS: Cholecalciferol (D-3) 1,000 UNIT TABLET PO SCH (09:46)
[2018-06-09] MEDS: Baclofen 10 MG TABLET PO SCH ×3 (09:47→20:04)
[2018-06-09] MEDS: Folic Acid 1 MG TABLET PO SCH (09:47)
[2018-06-09] MEDS: Thiamine (B-1) 100 MG TABLET PO SCH (09:47)
[2018-06-09] MEDS: Nicotine 14 MG PATCH.TD24 TD SCH (09:47)
[2018-06-09] MEDS: Gabapentin 400 MG CAPSULE PO SCH ×3 (09:47→20:04)
[2018-06-09] MEDS: Venlafaxine XR (24 HR) 150 MG CAP.ER.24H PO SCH (09:47)
[2018-06-09] MEDS: Vitamin B Complex/Vit C/Vit E 1 EACH TABLET PO SCH (09:47)
[2018-06-09] MEDS: Metoprolol XL (24 HR) Succ 25 MG TAB.ER.24H PO SCH ×2 (09:47→20:04)
[2018-06-10 02:18] LABS: Basophils % 0.3 %; Eosinophils # 0.5 K/mcL (0.0-0.6); Eosinophils % 5.6 %; Hematocrit 33.4 % (37.5-50.1); Hemoglobin 10.2 g/dL (12.9-16.9); Immature Granulocytes % 0.6 % (0-4); Lymphocytes # 1.9 K/mcL (0.6-4.6); Lymphocytes % 19.9 %; Mean Corpuscular HGB Conc 30.5 g/dL (31.6-35.5); Mean Corpuscular Hemoglobin 27.6 pg (28.0-33.3); Mean Corpuscular Volume 90.3 fL (83.0-100.0); Mean Platelet Volume 9.3 fL (9.4-12.4); Monocytes # 0.6 K/mcL (0.0-1.3); Monocytes % 6.8 %; Neutrophils # 6.2 K/mcL (1.6-8.9); Platelet Count 334 K/mcL (140-400); Red Cell Distribution Width 14.7 % (11.5-14.5); Segmented Neutrophils % 66.8 %
[2018-06-10 02:37] LABS: BUN/Creatinine Ratio 17 (6-26); Blood Urea Nitrogen 13 mg/dL (8-23); Calcium 8.5 mg/dL (8.6-10.3); Carbon Dioxide 22 mEq/L (23-29); Chloride 112 mEq/L (98-107); Glucose 132 mg/dL (70-105); Osmolality,Calculated 290 (280-300); Potassium 4.1 mEq/L (3.5-5.1); Sodium 139 mEq/L (136-145); eGFR For Non-African Americans > 60 (> 60)
[2018-06-10] MEDS: Budesonide/Formoterol 80/4.5 MDI IH SCH ×2 (07:52→22:24)
[2018-06-10] MEDS: Cholecalciferol (D-3) 1,000 UNIT TABLET PO SCH (08:01)
[2018-06-10] MEDS: Aspirin 81 MG TAB.CHEW PO SCH (08:01)
[2018-06-10] MEDS: Gabapentin 400 MG CAPSULE PO SCH ×3 (08:01→19:56)
[2018-06-10] MEDS: Vitamin B Complex/Vit C/Vit E 1 EACH TABLET PO SCH (08:01)
[2018-06-10] MEDS: Baclofen 10 MG TABLET PO SCH ×3 (08:02→19:56)
[2018-06-10] MEDS: Metoprolol XL (24 HR) Succ 25 MG TAB.ER.24H PO SCH ×2 (08:02→19:56)
[2018-06-10] MEDS: Folic Acid 1 MG TABLET PO SCH (08:02)
[2018-06-10] MEDS: Thiamine (B-1) 100 MG TABLET PO SCH (08:02)
[2018-06-10] MEDS: Venlafaxine XR (24 HR) 150 MG CAP.ER.24H PO SCH (08:02)
[2018-06-10] MEDS: Nicotine 14 MG PATCH.TD24 TD SCH (08:03)
--- NOTE | 2018-06-10 11:13 | Discharge Summary ---
<Drake Cheek - Last Filed: 06/10/18 12:19> - NOTES TO OUTPATIENT PROVIDER Notes to Outpatient Provider: Patient now on aspirin and Lipitor. He will go to ECF Orders not resulted at time of discharge: Pending orders 06/06/18 09:21 ECG 12 lead ECG [ECG] Stat 06/06/18 21:00 Culture,Blood [BC] Stat Date of Encounter: 06/10/18 Time of Encounter: 12:19 - Discharge Diagnosis (1) CVA (cerebral vascular accident) Priority: Primary Status: Acute Qualifiers: CVA mechanism: unspecified Qualified Code(s): I63.9 - Cerebral infarction, unspecified (2) Acute encephalopathy Priority: Primary Status: Acute (3) Alcohol abuse Priority: Secondary Status: Acute (4) HTN (hypertension) Priority: Secondary Status: Chronic Qualifiers: Hypertension type: essential hypertension Qualified Code(s): I10 - Essential (primary) hypertension (5) HLD (hyperlipidemia) Priority: Secondary Status: Chronic Qualifiers: Hyperlipidemia type: unspecified Qualified Code(s): E78.5 - Hyperlipidemia, unspecified (6) Tobacco abuse Priority: Secondary Status: Acute Hospital course: Mr. Victoria is a 68-year-old man with a history of alcohol abuse, VTE no longer on anticoagulation due to frequent falls, COPD who remains an active smoker, HTN, HLD, presents to ED with altered mental status. Patient is unable to provide HPI due to his mental status. He is able to provide his name and realizes that he is at a hospital, but unable to provide further information. Per review of chart, the patient was found by his assistant general manager at a independent living facility altered for unknown period of time. EMS reports that he was found surrounded by alcohol bottles. In the ED, patient's vital signs were unremarkable. Significant labs of leukocytosis at 14.0, Hgb of 12.2, Cl of 116, Bicarb 22 and glucose 135. He also received a chest Xray which showed interstitial airspace disease similar to previous. Head CT and Chest CT were also ordered and showed acute wedge shaped infarct in the left frontal lobe superimposed on chronic microvascular changes. Chest CT showed findings compatible with interstitial lung disease slightly worse compared to previous, gynecomastia, loosening of coracoclavicular screw, old manubrial and right humeral neck fracture. Brain MRI minimal curvilinear acute to subacute infarction at the margin of the known left frontal lobe subacute to chronic infarction, particularly at the superior margin. EEG was performed but was marred by continuous artifact rendering it uninterpretable. Patient is returning to baseline mentation. Plan is to discharge patient to ECF. ASA, Lipitor started. Patient will also resume Xeralto despite frequent falls in the setting of acute CVA. He is further strongly recommended to discontinue smoking and alcohol use. Patient is agreeable. Now pending ECF placement. Discharge discussed with: patient, social work Time spent discussing smoking cessation with patient: more than 10 minutes - Time Spent with Patient Total time spent providing and/or coordinating discharge services: Time spent: Greater than 30 minutes - Discharge Medications Prescriptions: New RX: Aspirin 81 mg PO DAILY #30 tab.chew RX: Atorvastatin [Lipitor] 80 mg PO HS #30 tablet Continue RX: Venlafaxine XR (24 HR) [Effexor Xr] 150 mg PO DAILY RX: Omeprazole [PriLOSEC] 20 mg PO DAILY RX: Cholecalciferol (D-3) [Vitamin D] 2,000 unit PO DAILY RX: Acetaminophen [Tylenol] 650 mg PO Q6HR PRN PRN Reason: Pain RX: Gabapentin [Neurontin] 1,200 mg PO TID RX: Folic Acid 1 mg PO DAILY RX: hydrOXYzine HCl [Hydroxyzine HCl] 50 mg PO HS PRN PRN Reason: Sleep RX: Tamsulosin [Flomax] 0.4 mg PO HS RX: Metoprolol Succinate [Toprol Xl] 25 mg PO BID RX: Potassium Chloride [Klor-Con 10] 10 meq PO DAILY RX: Thiamine HCl [Vitamin B-1] 100 mg PO BID RX: Lidocaine 1 appl TP QID PRN PRN Reason: Pain RX: Naproxen [Naprosyn] 500 mg PO BID PRN PRN Reason: Pain RX: Rivaroxaban [Xarelto] 20 mg PO DAILY RX: Budesonide/Formoterol 80/4.5 [Symbicort 80/4.5] 2 puff IH BIDR #1 inhaler RX: Nicotine Patch [Nicoderm] 14 mg TD DAILY #30 patch.td24 RX: Albuterol Sulfate [Albuterol Inhaler] 2 puff IH QID PRN PRN Reason: Shortness Of Breath RX: Baclofen 20 mg PO TID Home Medications: RX: Acetaminophen [Tylenol] 650 mg PO Q6HR PRN 08/20/15 [History] RX: Cholecalciferol (D-3) [Vitamin D] 2,000 unit PO DAILY 08/20/15 [History] RX: Gabapentin [Neurontin] 1,200 mg PO TID 08/20/15 [History] RX: Omeprazole [PriLOSEC] 20 mg PO DAILY 08/20/15 [History] RX: Venlafaxine XR (24 HR) [Effexor Xr] 150 mg PO DAILY 08/20/15 [History] RX: Folic Acid 1 mg PO DAILY 02/11/18 [History] RX: Tamsulosin [Flomax] 0.4 mg PO HS 02/11/18 [History] RX: hydrOXYzine HCl [Hydroxyzine HCl] 50 mg PO HS PRN 02/11/18 [History] RX: Metoprolol Succinate [Toprol Xl] 25 mg PO BID 04/14/18 [History] RX: Potassium Chloride [Klor-Con 10] 10 meq PO DAILY 04/14/18 [History] RX: Thiamine HCl [Vitamin B-1] 100 mg PO BID 04/14/18 [History] RX: Lidocaine 1 appl TP QID PRN 05/06/18 [History] RX: Naproxen [Naprosyn] 500 mg PO BID PRN 05/06/18 [History] RX: Rivaroxaban [Xarelto] 20 mg PO DAILY 05/06/18 [History] RX: Budesonide/Formoterol 80/4.5 [Symbicort 80/4.5] 2 puff IH BIDR #1 inhaler 05/07/18 [Rx] RX: Nicotine Patch [Nicoderm] 14 mg TD DAILY #30 patch.td24 05/07/18 [Rx] RX: Albuterol Sulfate [Albuterol Inhaler] 2 puff IH QID PRN 06/06/18 [History] RX: Baclofen 20 mg PO TID 06/06/18 [History] RX: Aspirin 81 mg PO DAILY #30 tab.chew 06/10/18 [Rx] RX: Atorvastatin [Lipitor] 80 mg PO HS #30 tablet 06/10/18 [Rx] Allergies/Adverse Reactions: Allergy/AdvReac Type Severity Reaction Status Date / Time No Known Allergies Allergy Verified 05/06/18 08:22 Date of admission: 06/06/18 13:35 [facility] care physician: [facility] Consults: 06/06/18 11:32 Consult to Neurology [CONS] Stat Consulting Provider: [facility] Reason for Consult: left frontal lobe infarct Time Notified: 11:33 Call Completed: Yes 06/07/18 10:31 Consult to Occupational Therapy [CONS] Routine Comment: Evaluate, develop and implement POC Reason for Consult: cva Does patient have active BEDREST order?: No Is patient medically & hemodynamically stable?: Yes Patient assessed for mobility or mobilized this visit?: No Consult to Physical Therapy [CONS] Routine Comment: Evaluate, develop and implement POC Reason for Consult: cva Does patient have active BEDREST order?: No Is patient medically & hemodynamically stable?: Yes Patient assessed for mobility or mobilized this visit?: No 06/07/18 11:09 Consult to Interpret Exam [CONS] Routine Consulting Provider: Tree Rosas Consult to Interpret Exam: Interpret EEG 06/07/18 11:51 Consult to Environmental Protection Geologist [CONS] Routine Reason for SW Consult: alcohol dependence Discharging clinician: Drake Cheek Anticipated date of discharge: 06/10/18 - Constitutional Vitals: Temp Pulse Resp BP Pulse Ox 97.9 F 63 18 113/74 98 06/10/18 10:59 06/10/18 10:59 06/10/18 10:59 06/10/18 10:59 06/10/18 10:59 General appearance: Present: A&O X 3 Exam: General: Alert and oriented to place and name but not to time. Easily irritable. Confused but able to follow commands. Neck: No JVD. Trachea midline. Neck supple. Eyes: PERRL. No scleral icterus. HENT: Normocephalic and atraumatic. Moist mucus membranes. Cardiovascular: Regular rate and rhythm. Normal S1 and S2. No murmurs appreciated. Normal capillary refill. Extremities well perfused with 2+ distal pulses bilaterally. No edema. Pulmonary: Crackles noted bilaterally. No respiratory distress or accessory muscle use on 2L NC. Abdomen: Soft, nondistended, and tontender. No bruits or masses. No guarding. Neuro: AOx2. Strength testing 5/5. no focal deficits. No facial asymmetry noted. No hemineglect. Speech is fluid intermittently but with some slurring. Motor: Normal tone and bulk. Bilateral LE show drift to bed in 5 seconds. UE show drift with eyes closed. Reflexes: biceps, and patellar reflexes 2+ and symmetric bilaterally. Musculoskeletal: bilateral UE has muliple superficial bruises and skin tears. Psych: Poor eye contact - Patient Status Disposition: Transfer SNF Condition: Good Functional capacity at discharge: uses cane/walker Overall status at discharge: patient is progressing back to baseline - Discharge Instructions Follow [facility] With: [facility] [Primary Care Provider[facility] - Forms: ED Satisfaction Letter - Diet and Activity Activity: ambulate only with your walker Diet: advance to your usual diet <Jessi Reyna - Last Filed: 06/10/18 14:43> Orders not resulted at time of discharge: Pending orders 06/06/18 09:21 ECG 12 lead ECG [ECG] Stat 06/06/18 21:00 Culture,Blood [BC] Stat Date of Encounter: 06/10/18 - Discharge Diagnosis (1) Smoker Status: Acute (2) Acute cerebral infarction Status: Acute (3) Lung nodule Status: Acute (4) History of venous thromboembolism Status: Chronic (5) Abnormal chest CT Status: Acute Hospital course: Mr. Victoria is a 68 year old male - Time Spent with Patient Total time spent providing and/or coordinating discharge services: Date of admission: 06/06/18 13:35 Primary care physician: PCP [facility] Consults: 06/06/18 11:32 Consult to Neurology [CONS] Stat Consulting Provider: [facility] Reason for Consult: left frontal lobe infarct Time Notified: 11:33 Call Completed: Yes 06/07/18 10:31 Consult to Occupational Therapy [CONS] Routine Comment: Evaluate, develop and implement POC Reason for Consult: cva Does patient have active BEDREST order?: No Is patient medically & hemodynamically stable?: Yes Patient assessed for mobility or mobilized this visit?: No Consult to Physical Therapy [CONS] Routine Comment: Evaluate, develop and implement POC Reason for Consult: cva Does patient have active BEDREST order?: No Is patient medically & hemodynamically stable?: Yes Patient assessed for mobility or mobilized this visit?: No 06/07/18 11:09 Consult to Interpret Exam [CONS] Routine Consulting Provider: Tree Rosas Consult to Interpret Exam: Interpret EEG 06/07/18 11:51 Consult to Environmental Protection Geologist [CONS] Routine Reason for SW Consult: alcohol dependence - Constitutional Vitals: Temp Pulse Resp BP Pulse Ox 97.9 F 63 18 113/74 98 06/10/18 10:59 06/10/18 10:59 06/10/18 10:59 06/10/18 10:59 06/10/18 10:59 - Attending Attestation I examined this patient and my medical decision-making was reviewed with the Res ident Physician Dr. Cheek. I agree with the documented findings, disposition and treatment plan as described except to the extent set forth below. Mr. Victoria is a 68 year old male with a PMHx of alcohol abuse, HTN, HLD, and tobacco dependence pt presented to ED from an [facility] with a complaint of altered mental status. He is unable to provide any history since patient is still confused and disoriented In the ED, patient's vital signs were unremarkable. His labs show mild leukocytosis at 14.0 and glucose 135. His chest Xray which showed interstitial airspace disease similar to previous. Head CT showed acute wedge shaped infarct in the left frontal lobe superimposed on chronic microvascular changes. Chest Ct showed findings compatible with interstitial lung disease. Today he is more alert, awake and Oriented to time, place and person. Looks very weak and lethargic. No events over night Chest: Diminished BS b/l No crackles No rales, mild wheezing Heart: S1S2+ RRR No murmurs Neuro: No focal weakness / deficits noticed. Generalized weakness in both legs noticed. a/p 1. Acute encephalopathy 2. Acute CVA CT of the head showed acute wedge shaped infarct in the left frontal lobe superimposed on chronic microvascular changes MRI of Brain showed -acute to subacute infarction at the superior margin of the left frontal lobe con ASA 81mg Due to his Paroxysmal A fib, resumed anti coag Xarelto too reviewed lipid profile - LDL @ 82 continue Lipitor 40 mg Carotid Doppler bilaterally - have minimal plaque only Echo - showed preserved LVEF and indeterminate diastolic function.. He does have severe pulm HTN too Medically stable to d.c to ECF today 3. Paroxysmal Afib Resumed his anti coag Xarelto due to his stroke 4. Chronic hypoxic respiratory failure 5. COPD 6. Chronic diastolic CHF 7. Severe pulmonary hypertension Cont frequent bronchodilators resumed home inhalers cont O2 @ 2lit cont close monitoring 8. Chronic alcohol dependence Cont CIWA protocol
--- NOTE | 2018-06-10 11:13 | Physician Discharge Referral ---
ExtendedCare Referral Info Transfer To: [facility] - Diagnosis (1) CVA (cerebral vascular accident) Priority: Primary Status: Acute (2) Acute encephalopathy Priority: Secondary Status: Acute (3) Lung nodule Priority: Secondary Status: Acute (4) Urine output low Priority: Secondary Status: Acute (5) ETOH abuse Priority: Secondary Status: Chronic (6) Acute renal failure (ARF) Priority: Secondary Status: Acute Prognosis: Fair Aware of Diagnosis: Patient Aware of Prognosis: Patient - Transfer Medications Prescriptions: Aspirin 81 mg PO DAILY #30 tab.chew Atorvastatin [Lipitor] 80 mg PO HS #30 tablet Home Medications: Acetaminophen [Tylenol] 650 mg PO Q6HR PRN 08/20/15 [History] Cholecalciferol (D-3) [Vitamin D] 2,000 unit PO DAILY 08/20/15 [History] Gabapentin [Neurontin] 1,200 mg PO TID 08/20/15 [History] Omeprazole [PriLOSEC] 20 mg PO DAILY 08/20/15 [History] Venlafaxine XR (24 HR) [Effexor Xr] 150 mg PO DAILY 08/20/15 [History] Folic Acid 1 mg PO DAILY 02/11/18 [History] Tamsulosin [Flomax] 0.4 mg PO HS 02/11/18 [History] hydrOXYzine HCl [Hydroxyzine HCl] 50 mg PO HS PRN 02/11/18 [History] Metoprolol Succinate [Toprol Xl] 25 mg PO BID 04/14/18 [History] Potassium Chloride [Klor-Con 10] 10 meq PO DAILY 04/14/18 [History] Thiamine HCl [Vitamin B-1] 100 mg PO BID 04/14/18 [History] Lidocaine 1 appl TP QID PRN 05/06/18 [History] Naproxen [Naprosyn] 500 mg PO BID PRN 05/06/18 [History] Rivaroxaban [Xarelto] 20 mg PO DAILY 05/06/18 [History] Budesonide/Formoterol 80/4.5 [Symbicort 80/4.5] 2 puff IH BIDR #1 inhaler 05/07/18 [Rx] Nicotine Patch [Nicoderm] 14 mg TD DAILY #30 patch.td24 05/07/18 [Rx] Albuterol Sulfate [Albuterol Inhaler] 2 puff IH QID PRN 06/06/18 [History] Baclofen 20 mg PO TID 06/06/18 [History] Aspirin 81 mg PO DAILY #30 tab.chew 06/10/18 [Rx] Atorvastatin [Lipitor] 80 mg PO HS #30 tablet 06/10/18 [Rx] Allergies/Adverse Reactions: Allergy/AdvReac Type Severity Reaction Status Date / Time No Known Allergies Allergy Verified 05/06/18 08:22 - Respiratory Orders Smoking Cessation: Smoking cessation has been advised. For more information, call the [place] Tobacco Quit Line at 0-614-ONDXNOW. CERTIFICATION: I certify that the transfer of the above named patient to an Extended Care Facility is necessary for the continuing treatment of the diagnosis listed. The above information is true and accurate reflection of patient's current condition. Confidential - Redisclosure prohibited without a patient's written consent.
[2018-06-11] MEDS ORDERED: Methyl Salicylate/Menthol 28 GM TUBE TP PRN (01:14)
[2018-06-11] MEDS: Budesonide/Formoterol 80/4.5 MDI IH SCH (07:58)
[2018-06-11] MEDS: Venlafaxine XR (24 HR) 150 MG CAP.ER.24H PO SCH (08:13)
[2018-06-11] MEDS: Vitamin B Complex/Vit C/Vit E 1 EACH TABLET PO SCH (08:13)
[2018-06-11] MEDS: Aspirin 81 MG TAB.CHEW PO SCH (08:13)
[2018-06-11] MEDS: Folic Acid 1 MG TABLET PO SCH (08:13)
[2018-06-11] MEDS: Nicotine 14 MG PATCH.TD24 TD SCH (08:13)
[2018-06-11] MEDS: Metoprolol XL (24 HR) Succ 25 MG TAB.ER.24H PO SCH (08:13)
[2018-06-11] MEDS: Cholecalciferol (D-3) 1,000 UNIT TABLET PO SCH (08:14)
[2018-06-11] MEDS: Gabapentin 400 MG CAPSULE PO SCH ×2 (08:14→15:28)
[2018-06-11] MEDS: Thiamine (B-1) 100 MG TABLET PO SCH (08:14)
[2018-06-11] MEDS: Baclofen 10 MG TABLET PO SCH ×2 (08:14→15:29)
--- NOTE | 2018-06-11 09:29 | Internal Med Progress Note ---
<Jessi Reyna - Last Filed: 06/11/18 14:57> Hospitalist Progress Note - Encounter Date of Encounter: 06/11/18 - Exam Vitals: Temp Pulse Resp BP Pulse Ox 98.3 F 89 18 103/68 93 06/11/18 11:19 06/11/18 11:19 06/11/18 11:19 06/11/18 11:19 06/11/18 11:19 - Assessment and Plan (1) Smoker Current Visit: No Status: Acute (2) Acute cerebral infarction Current Visit: Yes Status: Acute (3) Lung nodule Current Visit: Yes Status: Acute (4) History of venous thromboembolism Current Visit: No Status: Chronic (5) Abnormal chest CT Current Visit: Yes Status: Acute - Time Spent with Patient Total time spent is greater than 50% in coordination of care (as documented) at patient's floor/unit and/or counseling patient: Internal Medicine: Result - Labs CBC & Chem 7: 06/10/18 01:23 06/10/18 01:23 - ABG Interpretation ABG results: ABG ABG pH 7.43 pH Units (7.32-7.45) 06/06/18 16:42 ABG pCO2 29 mmHg (35-45) L 06/06/18 16:42 ABG pO2 70 mmHg (85-104) L 06/06/18 16:42 ABG O2 Saturation 95 % (95-98) 06/06/18 16:42 Consult Discharge Plan - Plan [facility] Care Provider[facility] - Prescriptions: Aspirin 81 mg PO DAILY #30 tab.chew Atorvastatin [Lipitor] 80 mg PO HS #30 tablet - Attending Attestation I examined this patient and my medical decision-making was reviewed with the Resident Physician Dr. Cheek. I agree with the documented findings, disposition and treatment plan as described except to the extent set forth below. Mr. Victoria is a 68 year old male with a PMHx of alcohol abuse, HTN, HLD, and tobacco dependence pt presented to ED from an [facility] with a complaint of altered mental status. He is unable to provide any history since patient is still confused and disoriented In the ED, patient's vital signs were unremarkable. His labs show mild leukocytosis at 14.0 and glucose 135. His chest Xray which showed interstitial airspace disease similar to previous. Head CT showed acute wedge shaped infarct in the left frontal lobe superimposed on chronic microvascular changes. Chest Ct showed findings compatible with interstitial lung disease. Today he is more alert, awake and Oriented to time, place and person. Looks very weak and lethargic. No events over night. He did not go to ECF y/d due to some social issues. He got accepted at [facility] today. So will d/c him [facility] today. Chest: Diminished BS b/l No crackles No rales, mild wheezing Heart: S1S2+ RRR No murmurs Neuro: No focal weakness / deficits noticed. Generalized weakness in both legs noticed. a/p 1. Acute encephalopathy 2. Acute CVA CT of the head showed acute wedge shaped infarct in the left frontal lobe superimposed on chronic microvascular changes MRI of Brain showed -acute to subacute infarction at the superior margin of the left frontal lobe con ASA 81mg Due to his Paroxysmal A fib, resumed anti coag Xarelto too reviewed lipid profile - LDL @ 82 continue Lipitor 40 mg Carotid Doppler bilaterally - have minimal plaque only Echo - showed preserved LVEF and indeterminate diastolic function.. He does have severe pulm HTN too Medically stable to d.c to ECF today 3. Paroxysmal Afib Resumed his anti coag Xarelto due to his stroke 4. Chronic hypoxic respiratory failure 5. COPD 6. Chronic diastolic CHF 7. Severe pulmonary hypertension Cont frequent bronchodilators resumed home inhalers cont O2 @ 2lit cont close monitoring 8. Chronic alcohol dependence Cont CIWA protocol <Drake Cheek - Last Filed: 06/11/18 15:03> Hospitalist Progress Note - Encounter Date of Encounter: 06/11/18 Time of Encounter: 09:29 - Subjective Interval History: Mr. Victoria is a 68-year-old man with a history of alcohol abuse, VTE no longer on anticoagulation due to frequent falls, COPD who remains an active smoker, HTN, HLD, presents to ED with altered mental status. Patient is unable to provide HPI due to his mental status. He is able to provide his name and realizes that he is at a hospital, but unable to provide further information. Per review of chart, the patient was found by his facility maintenance worker at a independent living facility altered for unknown period of time. EMS reports that he was found raquel rounded by alcohol bottles. In the ED, patient's vital signs were unremarkable. Significant labs of leukocytosis at 14.0, Hgb of 12.2, Cl of 116, Bicarb 22 and glucose 135. He also received a chest Xray which showed interstitial airspace disease similar to previous. Head CT and Chest CT were also ordered and showed acute wedge shaped infarct in the left frontal lobe superimposed on chronic microvascular changes. Chest CT showed findings compatible with interstitial lung disease slightly worse compared to previous, gynecomastia, loosening of coracoclavicular screw, old manubrial and right humeral neck fracture. Brain MRI minimal curvilinear acute to subacute infarction at the margin of the known left frontal lobe subacute to chronic infarction, particularly at the superior margin. EEG was performed but was marred by continuous artifact rendering it uninterpretable. Patient is returning to baseline mentation. Plan is to discharge patient to ECF. ASA, Lipitor started. Patient will also resume Xeralto despite frequent falls in the setting of acute CVA. He is further strongly recommended to discontinue smoking and alcohol use. Patient now has placement to [facility]. He will be discharged today. - Exam Vitals: Temp Pulse Resp BP Pulse Ox 98.5 F 81 18 108/72 95 06/11/18 06:48 06/11/18 06:48 06/11/18 07:58 06/11/18 06:48 06/11/18 07:58 Exam: General: Alert and oriented to place and name but not to time. Easily irritable. Confused but able to follow commands. Neck: No JVD. Trachea midline. Neck supple. Eyes: PERRL. No scleral icterus. HENT: Normocephalic and atraumatic. Moist mucus membranes. Cardiovascular: Regular rate and rhythm. Normal S1 and S2. No murmurs appreciated. Normal capillary refill. Extremities well perfused with 2+ distal pulses bilaterally. No edema. Pulmonary: Crackles noted bilaterally. No respiratory distress or accessory muscle use on 2L NC. Abdomen: Soft, nondistended, and tontender. No bruits or masses. No guarding. Neuro: AOx2. Strength testing 5/5. no focal deficits. No facial asymmetry noted. No hemineglect. Speech is fluid intermittently but with some slurring. Motor: Normal tone and bulk. Bilateral LE show drift to bed in 5 seconds. UE show drift with eyes closed. Reflexes: biceps, and patellar reflexes 2+ and symmetric bilaterally. Musculoskeletal: bilateral UE has muliple superficial bruises and skin tears. Psych: Poor eye contact - Assessment and Plan (1) CVA (cerebral vascular accident) Current Visit: Yes Status: Acute (2) Acute encephalopathy Current Visit: No Status: Acute (3) Alcohol abuse Current Visit: No Status: Acute (4) HTN (hypertension) Current Visit: No Status: Chronic (5) HLD (hyperlipidemia) Current Visit: No Status: Chronic (6) Tobacco abuse Current Visit: No Status: Acute DVT Prophylaxis: Ambulation and SCDs. - Time Spent with Patient Total time spent is greater than 50% in coordination of care (as documented) at patient's floor/unit and/or counseling patient: Greater than 35 minutes Plan of Care Discussed with: patient Internal Medicine: Result - Labs CBC & Chem 7: 06/10/18 01:23 06/10/18 01:23 - ABG Interpretation ABG results: ABG ABG pH 7.43 pH Units (7.32-7.45) 06/06/18 16:42 ABG pCO2 29 mmHg (35-45) L 06/06/18 16:42 ABG pO2 70 mmHg (85-104) L 06/06/18 16:42 ABG O2 Saturation 95 % (95-98) 06/06/18 16:42 __ <Drake Cheek - Last Filed: 06/11/18 15:03> (1) CVA (cerebral vascular accident) Qualifiers: CVA mechanism: unspecified Qualified Code(s): I63.9 - Cerebral infarction, unspecified (4) HTN (hypertension) Qualifiers: Hypertension type: essential hypertension Qualified Code(s): I10 - Essential (primary) hypertension (5) HLD (hyperlipidemia) Qualifiers: Hyperlipidemia type: unspecified Qualified Code(s): E78.5 - Hyperlipidemia, unspecified
[2018-06-11 11:20] VITALS: BP 103/68
== END 2018-06-11 17:36 | DRG 65 ==
LOC: EMEROOARM 09:14 → 2SOUTHHOLD 09:14 → 3BNU 13:34 → SUATTDRO 13:35 → 3BNU 14:55
PROVIDERS: ADMIT Internal Medicine; ATTEND Family Medicine

== ENCOUNTER 2018-06-22 14:53 | Inpatient (IN) ==
[2018-06-22] MEDS ORDERED: *HR* Metoprolol 5 MG/5 ML VIAL IVP PRN (18:12)
[2018-06-22] MEDS ORDERED: Naloxone 0.4 MG/ML INJ IVP PRN (18:14)
[2018-06-22] MEDS ORDERED: 0.9 % Sodium Chloride 1,000 ML IVC SCH (18:15)
[2018-06-22] MEDS ORDERED: *HR* Heparin 5,000 UNIT/ML VIAL IVP ONE ×2 (18:29→21:00)
[2018-06-22] MEDS ORDERED: *HR* Heparin 5,000 UNIT/ML VIAL IVP PRN ×5 (18:29→21:00)
[2018-06-22] MEDS ORDERED: Heparin 25,000 UNIT/250 ML D5W 25,000 UNIT/250 ML IV.SOLN IVC SCH ×3 (18:30→21:00)
--- NOTE | 2018-06-22 18:32 | Internal Med History&Physical ---
Date of Encounter: 06/22/18 Time of Encounter: 18:29 Internal Medicine - H&P: HPI Chief complaint: bill sorter't swallow food History of present illness: Mr. Victoria is a 68 year old mal who was here preivously for cva, pt has afib and since tghen been on xarelto. Pt was at rehab and then started about a week agao pt started to have progressive dysphagia. It started as solid and progressed, and eventually today, pt has copleteely not able to sawllow any food. Pt did have emesis x 2 today and during lunch, he could not eat at all, except some sip of water, and he was sent here. He does have lung nodule which is suspicious for maglinancy, he is due to have PET scan as out pt. No feve,r no chill, no headahce, no visucal changes, no abd pain, no diarrhea, no other alleviating or aggrevating symptoms. Pt never had similar episodes in the past. Past Med Surg Social Fam HX - Past Medical History Medical history: arthritis, cancer, DVT, hyperlipidemia, hypertension, other Additional medical history: prostrate CA, radioactive seed implants Psychiatric history: no psych history - Past Surgical History Surgical History: other Additional surgical history: Radiation seeds, rt shoulder surgery, R/L hip - Social History Smoking Status: Current every day smoker Smokeless Tobacco Status: No Alcohol use: heavy, recent Drug use: marijuana - Family History Mother Living Status: Cause of : natural causes Hx Family Cardiac Disorders: Yes Hx Family Respiratory Disorders: Yes Hx Family Cancer: Yes Hx Family GI Disorders: No Hx Family Endocrine Disorder: Yes (DM) Hx Family Neuromuscular Disorders: No Hx Family Neurologic Disorders: Yes (cervical spinal stenosis) Hx Family HEENT Disorders: No Hx Family Autoimmune Disorders: No Father Living Status: Age at : 80 Cause of : unknown Hx Family Cancer: Yes (prostate) Internal Medicine - H&P: Meds Acetaminophen [Tylenol] 650 mg PO Q6HR PRN 08/20/15 [History] Cholecalciferol (D-3) [Vitamin D] 2,000 unit PO DAILY 08/20/15 [History] Gabapentin [Neurontin] 1,200 mg PO TID 08/20/15 [History] Omeprazole [PriLOSEC] 20 mg PO DAILY 08/20/15 [History] Venlafaxine XR (24 HR) [Effexor Xr] 150 mg PO DAILY 08/20/15 [History] Folic Acid 1 mg PO DAILY 02/11/18 [History] Tamsulosin [Flomax] 0.4 mg PO HS 02/11/18 [History] hydrOXYzine HCl [Hydroxyzine HCl] 50 mg PO HS PRN 02/11/18 [History] Metoprolol Succinate [Toprol Xl] 25 mg PO BID 04/14/18 [History] Lidocaine 1 appl TP QID PRN 05/06/18 [History] Rivaroxaban [Xarelto] 20 mg PO DAILY 05/06/18 [History] Budesonide/Formoterol 80/4.5 [Symbicort 80/4.5] 2 puff IH BIDR #1 inhaler 05/07/18 [Rx] Nicotine Patch [Nicoderm] 14 mg TD DAILY #30 patch.td24 05/07/18 [Rx] Albuterol Sulfate [Albuterol Inhaler] 2 puff IH QID PRN 06/06/18 [History] Baclofen 20 mg PO TID 06/06/18 [History] Atorvastatin [Lipitor] 80 mg PO HS #30 tablet 06/10/18 [Rx] Ascorbic Acid [Vitamin C] 500 mg PO 0630 tablet 06/21/18 [Rx] Ferrous Sulfate 325 mg PO 0630 tablet 06/21/18 [Rx] Zinc Sulfate 220 mg PO DAILY capsule 06/21/18 [Rx] Allergy/AdvReac Type Severity Reaction Status Date / Time No Known Allergies Allergy Verified 06/11/18 23:03 All Systems PM: A 10-system review of systems was performed and is negative for pertinent findings except as documented above in the HPI. - Constitutional Constitutional: no falls, no lethargy, no malaise - EENT Eyes: no loss of vision, no photophobia, no seeing flashes Nose, mouth and throat: no sinus pain, no sinus pressure, no sore throat, no throat swelling - Cardiovascular Cardiovascular ROS IM: no lightheadedness, no orthopnea, no palpitations - Respiratory Respiratory: no pain on inspiration, no chest congestion, no excessive phlegm production - Gastrointestinal Gastrointestinal: no heartburn, no hematemesis, no hematochezia, no loose stools - Genitourinary Genitourinary ROS male: no urinary frequency, no urinary hesitancy, no urinary incontinence - Musculoskeletal Musculoskeletal ROS IM: no numbness, no stiffness, no tingling - Integumentary Integumentary IM: no unusual bruising, no jaundice - Neurological Neurological ROS: no numbness, no radicular pain, no restless legs - Psychiatric Psychiatric: no paranoia, no visual hallucinations - Endocrine Endocrine IM: no polyuria - Allergic/Immunologic Allergic/Immunologic: no wheezing, no lip swelling - Constitutional Vitals: Temp Pulse Resp BP Pulse Ox 98 F 80 16 127/85 96 06/22/18 18:01 06/22/18 18:01 06/22/18 18:01 06/22/18 18:01 06/22/18 18:01 General appearance: Present: A&O X 0 Exam: see blow - Head Head exam: Present: atraumatic, normal inspection, normocephalic - Eye Eye exam: Present: conjunctival injection, EOMI, normal appearance. Absent: nystagmus - ENT ENT exam: Present: mucous membranes dry, normal exam, normal external ear exam, normal oropharynx, TM's normal bilaterally - Neck Neck exam general surgery: Present: full ROM. Absent: lymphadenopathy, t enderness, nuchal rigidity - Respiratory Respiratory exam: Present: CTAB. Absent: accessory muscle use, chest wall tenderness, decreased breath sounds, prolonged expiratory phase, rales - Cardiovascular Cardiovascular exam: Present: +S1, +S2. Absent: bradycardia, clicks, irregular rhythm, JVD - GI/Abdominal GI/Abdominal exam: Absent: guarding, hernia, pulsatile mass, rebound - Extremities Exam Extremities exam: Present: full ROM. Absent: calf tenderness, cyanotic, joint swelling - Neurological Exam Neurological exam: Present: alert, CN II-XII intact. Absent: abnormal gait, altered - Psychiatric Psychiatric exam: Absent: agitated, anxious, depressed - Skin Skin exam: Absent: abrasion, cyanosis, diaphoretic, dry - Assessment and Plan (1) Esophageal obstruction Current Visit: No Status: Acute - Summary of Assessment and Plan Summary of Assessment and Plan: This is a 68 yom who had cva ,presuambly due to afib who presetned with complete dysphagia 1) dysphaia: ddx: shaszki ring vs. esophageal stricture vs. externa compression due to malignancy diverticula vs. eppti stricutre, vs. eosinophilic esophagitis vs. lymphcytic esophagiits vs. radioation induced vs. pill esophagitis At this opint, had bene consutled and she will be planning for EGD on this pt. filipe Jacobson pti s NPO 2) Afib: swithc to IV metoprolol and on heparin drip 3)prior CVA: hold off ASA for now, resume once can toelate 4)code: dnr/dni, no machiens both daughters poa 5) dvt prophyalxis; on heparin 6)dispo: await EGD, once toeartes diet then back to swing bed. Time: 35 min - Time Spent With Patient Total time spent is greater than 50% in coordination of care (as documented) at patient's floor/unit and/or counseling patient:
[2018-06-22 19:20] LABS: Hematocrit 39.6 % (37.5-50.1); Hemoglobin 11.9 g/dL (12.9-16.9); Mean Corpuscular HGB Conc 30.1 g/dL (31.6-35.5); Mean Corpuscular Hemoglobin 26.8 pg (28.0-33.3); Mean Corpuscular Volume 89.2 fL (83.0-100.0); Mean Platelet Volume 8.9 fL (9.4-12.4); Platelet Count 377 K/mcL (140-400); Red Blood Count 4.44 M/mcL (4.19-5.50); Red Cell Distribution Width 15.2 % (11.5-14.5)
[2018-06-22 19:28] LABS: INR 1.6; Prothrombin Time 18.2 Seconds (9.4-12.1)
[2018-06-22 19:32] LABS: Heparin anti-factor XA UFH 1.86 IU/mL (0.30-0.70)
[2018-06-22 20:33] LABS: Activated Partial Thrombo Time 43.8 Seconds (26.0-36.0)
[2018-06-22] MEDS: Ondansetron ODT 4 MG TAB.RAPDIS SL SCH (21:17)
[2018-06-22] MEDS: Budesonide/Formoterol 80/4.5 MDI IH SCH (22:34)
[2018-06-23] MEDS: Ondansetron ODT 4 MG TAB.RAPDIS SL SCH ×6 (00:42→19:36)
[2018-06-23 04:37] LABS: Basophils # 0.1 K/mcL (0.0-0.2); Basophils % 0.6 %; Eosinophils # 0.5 K/mcL (0.0-0.6); Eosinophils % 4.7 %; Hematocrit 35.3 % (37.5-50.1); Hemoglobin 10.6 g/dL (12.9-16.9); Immature Granulocytes % 0.3 % (0-4); Lymphocytes # 2.3 K/mcL (0.6-4.6); Lymphocytes % 24.2 %; Mean Corpuscular Volume 89.8 fL (83.0-100.0); Mean Platelet Volume 9.5 fL (9.4-12.4); Monocytes # 0.7 K/mcL (0.0-1.3); Monocytes % 7.3 %; Platelet Count 327 K/mcL (140-400); Red Blood Count 3.93 M/mcL (4.19-5.50); Red Cell Distribution Width 15.2 % (11.5-14.5); Segmented Neutrophils % 62.9 %
[2018-06-23 04:52] LABS: BUN/Creatinine Ratio 11 (6-26); Blood Urea Nitrogen 8 mg/dL (8-23); Calcium 9.1 mg/dL (8.6-10.3); Carbon Dioxide 24 mEq/L (23-29); Chloride 108 mEq/L (98-107); Glucose 96 mg/dL (70-105); Osmolality,Calculated 288 (280-300); Potassium 4.3 mEq/L (3.5-5.1); Sodium 140 mEq/L (136-145); eGFR For Non-African Americans > 60 (> 60)
[2018-06-23] MEDS ORDERED: *HR* FentaNYL (PF) 100 MCG/2 ML VIAL ONE (07:13)
[2018-06-23] MEDS ORDERED: *HR* Midazolam HCl 5 MG/5 ML VIAL IVP ONE ×2 (07:14→07:25)
--- NOTE | 2018-06-23 07:24 | AcuteCare Surgery Consult Note ---
Date of Encounter: 06/23/18 Time of Encounter: 07:00 Assessment and Plan (1) Dysphagia Current Visit: Yes Status: Acute Esophageal FB causing obstruction and dysphagia. Recommend EGD with FB removal and possible dilation. Procedure, risks and benefits of EGD with esopahgeal FB removal and dilation are d/w pt. Possible complications include but, are not limited to bleeding, infection or perforation. If dilation is not ammenable d/t inflammed tissue or other untoward circumstance then, dilation will be deferred to a f/u EGD. Pt understands all and wished to proceed as advised. Qualifiers: Dysphagia type: esophageal phase Qualified Code(s): R13.10 - Dysphagia, unspecified (2) Esophageal obstruction Current Visit: Yes Status: Acute see above (3) CVA (cerebral vascular accident) Current Visit: No Status: Acute Recovering Qualifiers: CVA mechanism: unspecified Qualified Code(s): I63.9 - Cerebral infarction, unspecified History of Present Illness Consult date: 06/23/18 Reason for consult: other (dysphagia) Requesting physician: Eduardo Kwon History of present illness: This 68 y/o male presents from [facility] where he had completed rehab after a CVA. He was prepped for DC when he reported a piece of beef got stuck in his esophagus. He is edentulous. He reports no difficulty swallowing after his stroke. Now, he reports he cannot spit up or swallow down obstructing food. +hx GERD. Denies CP, SOB or abd pain. Past Med Surg Social Fam HX - Past Medical History Medical history: arthritis, cancer, DVT, hyperlipidemia, hypertension, other Additional medical history: prostrate CA, radioactive seed implants Psychiatric history: no psych history - Past Surgical History Surgical History: other Additional surgical history: Radiation seeds, rt shoulder surgery, R/L hip - Social History Smoking Status: Current every day smoker Smokeless Tobacco Status: No Alcohol use: heavy, recent Drug use: marijuana - Family History Mother Living Status: Cause of : natural causes Hx Family Cardiac Disorders: Yes Hx Family Respiratory Disorders: Yes Hx Family Cancer: Yes Hx Family GI Disorders: No Hx Family Endocrine Disorder: Yes (DM) Hx Family Neuromuscular Disorders: No Hx Family Neurologic Disorders: Yes (cervical spinal stenosis) Hx Family HEENT Disorders: No Hx Family Autoimmune Disorders: No Father Living Status: Age at : 80 Cause of : unknown Hx Family Cancer: Yes (prostate) Medications and Allergies Acetaminophen [Tylenol] 650 mg PO Q6HR PRN 08/20/15 [History] Cholecalciferol (D-3) [Vitamin D] 2,000 unit PO DAILY 08/20/15 [History] Gabapentin [Neurontin] 1,200 mg PO TID 08/20/15 [History] Omeprazole [PriLOSEC] 20 mg PO DAILY 08/20/15 [History] Venlafaxine XR (24 HR) [Effexor Xr] 150 mg PO DAILY 08/20/15 [History] Folic Acid 1 mg PO DAILY 02/11/18 [History] Tamsulosin [Flomax] 0.4 mg PO HS 02/11/18 [History] hydrOXYzine HCl [Hydroxyzine HCl] 50 mg PO HS PRN 02/11/18 [History] Metoprolol Succinate [Toprol Xl] 50 mg PO DAILY 04/14/18 [History] Lidocaine 1 appl TP QID PRN 05/06/18 [History] Rivaroxaban [Xarelto] 20 mg PO DAILY 05/06/18 [History] Budesonide/Formoterol 80/4.5 [Symbicort 80/4.5] 2 puff IH BIDR #1 inhaler 05/07/18 [Rx] Albuterol Sulfate [Albuterol Inhaler] 2 puff IH QID PRN 06/06/18 [History] Baclofen 20 mg PO TID PRN 06/06/18 [History] Atorvastatin [Lipitor] 80 mg PO HS #30 tablet 06/10/18 [Rx] Benzonatate [Tessalon] 100 mg PO TID PRN 06/23/18 [History] Naproxen [Naprosyn] 500 mg PO BID PRN 06/23/18 [History] Potassium Chloride [K-Tab ER] 10 meq PO DAILY 06/23/18 [History] Thiamine HCl [Vitamin B-1] 100 mg PO BID 06/23/18 [History] Allergy/AdvReac Type Severity Reaction Status Date / Time No Known Allergies Allergy Verified 06/23/18 14:23 Review of Systems All systems PM: The remainder of the systems were reviewed and are negative - Constitutional as per HPI, weakness, no anorexia, no chills, no fatigue, no fever(s), no night sweats, no weight gain, no weight loss - EENT Nose, mouth and throat: dysphagia, no dizziness, no nasal congestion, no nasal discharge, no sinus pain, no sinus pressure, no sore throat - Cardiovascular no chest pain, no diaphoresis, no dyspnea, no edema - Respiratory no cough, no dyspnea, no wheezing - Gastrointestinal dysphagia, heartburn, no abdominal pain, no bloating, no constipation, no diarrhea, no dyspepsia, no nausea, no vomiting - Genitourinary no difficulty urinating, no dysuria, no urinary frequency - Musculoskeletal no back pain, no joint swelling, no limited range of motion, no neck pain - Integumentary dry skin, no pruritus, no rash, no wounds, no jaundice - Neurological focal weakness, weakness, no confusion, no dizziness - Psychiatric no anxiety, no depression - Endocrine no fatigue - Hematologic/Lymphatic no easy bleeding, no easy bruising General Surgery Exam Initial Vital Signs Temp Pulse Resp BP Pulse Ox 98 F 80 16 127/85 96 06/22/18 18:01 06/22/18 18:01 06/22/18 18:01 06/22/18 18:01 06/22/18 18:01 - General physical appearance well developed, no distress, no pain - Eyes PERRL, normal ocular movement. negative: icteric - ENT normal mucosa, no congestion. negative: nasal discharge - Neck no masses, trachea midline, no lymphadectomy, no venous distension - Respiratory normal respiratory effort, clear to auscultation - Cardiovascular Cardiovascular exam: Present: RRR. Absent: murmurs - Abdomen Abdomen general surgery: Present: bowel sounds present, soft, non tender - Genitourinary Present: normal penis with no external lesions - Integumentary Integumentary general surgery: Present: warm and dry - Neurologic Present: CN 2-12 grossly intact, normal coordination - Musculoskeletal Present: normal posture - Psychiatric Psychiatric general surgery: Present: A&Ox3, appropriate Exam Initial Vital Signs Temp Pulse Resp BP Pulse Ox 98 F 80 16 127/85 96 06/22/18 18:01 06/22/18 18:01 06/22/18 18:01 06/22/18 18:01 06/22/18 18:01 Results - Labs 06/23/18 03:51 06/23/18 03:51 Abnormal lab results RBC 3.93 M/mcL (4.19-5.50) L 06/23/18 03:51 Hgb 10.6 g/dL (12.9-16.9) L 06/23/18 03:51 Hct 35.3 % (37.5-50.1) L 06/23/18 03:51 MCH 27.0 pg (28.0-33.3) L 06/23/18 03:51 MCHC 30.0 g/dL (31.6-35.5) L 06/23/18 03:51 RDW 15.2 % (11.5-14.5) H 06/23/18 03:51 MPV 8.9 fL (9.4-12.4) L 06/22/18 18:30 PT 18.2 Seconds (9.4-12.1) H 06/22/18 18:30 APTT 44.0 Seconds (26.0-36.0) H 06/23/18 03:51 Heparin Anti-Xa, Unfract 1.86 IU/mL (0.30-0.70) H* 06/22/18 18:30 Chloride 108 mEq/L (98-107) H 06/23/18 03:51 Diabetes panel 06/23/18 Range/Units 03:51 Sodium 140 (136-145) mEq/L Potassium 4.3 (3.5-5.1) mEq/L Chloride 108 H (98-107) mEq/L Carbon Dioxide 24 (23-29) mEq/L BUN 8 (8-23) mg/dL Creatinine 0.72 (0.70-1.30) mg/dL Glucose 96 (70-105) mg/dL Calcium 9.1 (8.6-10.3) mg/dL Calcium panel 06/23/18 Range/Units 03:51 Calcium 9.1 (8.6-10.3) mg/dL Pituitary panel 06/23/18 Range/Units 03:51 Sodium 140 (136-145) mEq/L Potassium 4.3 (3.5-5.1) mEq/L Chloride 108 H (98-107) mEq/L Carbon Dioxide 24 (23-29) mEq/L BUN 8 (8-23) mg/dL Creatinine 0.72 (0.70-1.30) mg/dL Glucose 96 (70-105) mg/dL Calcium 9.1 (8.6-10.3) mg/dL Adrenal panel 06/23/18 Range/Units 03:51 Sodium 140 (136-145) mEq/L Potassium 4.3 (3.5-5.1) mEq/L Chloride 108 H (98-107) mEq/L Carbon Dioxide 24 (23-29) mEq/L BUN 8 (8-23) mg/dL Creatinine 0.72 (0.70-1.30) mg/dL Glucose 96 (70-105) mg/dL Calcium 9.1 (8.6-10.3) mg/dL All other labs normal. Consult Discharge Plan - Plan [facility]errals: [facility] [Primary Care Provider] -
--- NOTE | 2018-06-23 07:25 | Pre-Sedation Evaluation ---
Pre-sedation evaluation - Pre-sedation checklist Recent Vitals: Last Vital Signs Temp 97.5 F L 06/23/18 06:14 Pulse 85 06/23/18 06:14 Resp 15 06/23/18 06:14 BP 120/83 06/23/18 06:14 Pulse Ox 91 06/23/18 06:14 H&P (including ROS) documented in medical record: Yes Previous reaction to sedatives/anesthetics: No Dietary Status: NPO after Midnight Airway Assessment: Patient can open mouth completely, TMJ function normal Possible difficult airway: No ASA Classification *see protocol: CLASS III-Severe systemic disease Cardiac Registry (Cardio Only) - Clincal Frailty Scale Clinical Frailty Scale: Very Severely Frail
[2018-06-23] MEDS: Budesonide/Formoterol 80/4.5 MDI IH SCH ×2 (07:26→20:20)
[2018-06-23] MEDS ORDERED: *HR* FentaNYL (PF) 100 MCG/2 ML VIAL IVP ONE (07:26)
[2018-06-23] MEDS ORDERED: Simethicone 40 MG/0.6 ML MLS PO ONE (08:15)
--- NOTE | 2018-06-23 11:55 | Discharge Summary ---
- NOTES TO OUTPATIENT PROVIDER Notes to Outpatient Provider: PCP in 1-2 wks for refferal for GI for esophageal dilatation Date of Encounter: 06/23/18 Time of Encounter: 11:53 - Discharge Diagnosis (1) Esophageal obstruction Priority: Primary Status: Acute Hospital course: Mr. Victoria is a 68 year old mal who was here preivously for cva, pt has afib and since tghen been on xarelto. Pt was at rehab and then started about a week agao pt started to have progressive dysphagia. It started as solid and progressed, and eventually today, pt has copleteely not able to sawllow any food. Pt did have emesis x 2 today and during lunch, he could not eat at all, except some sip of water, and he was sent here. He does have lung nodule which is suspicious for maglinancy, he is due to have PET scan as out pt. Pt was kept in the hospital, and pt was seen by ne who did a EGD found a large food bollus which was removed. Pt feels OK, and pt will be on mechnical soft diet and pending out pt esophageal dilatation. If pt can tolerates lunch, pt will be discharged. Time: 35 min - Time Spent with Patient Total time spent providing and/or coordinating discharge services: - Discharge Medications Prescriptions: Continued Venlafaxine XR (24 HR) [Effexor Xr] 150 mg PO DAILY Omeprazole [PriLOSEC] 20 mg PO DAILY Cholecalciferol (D-3) [Vitamin D] 2,000 unit PO DAILY Acetaminophen [Tylenol] 650 mg PO Q6HR PRN PRN Reason: Pain Gabapentin [Neurontin] 1,200 mg PO TID Folic Acid 1 mg PO DAILY hydrOXYzine HCl [Hydroxyzine HCl] 50 mg PO HS PRN PRN Reason: Sleep Tamsulosin [Flomax] 0.4 mg PO HS Metoprolol Succinate [Toprol Xl] 25 mg PO BID Lidocaine 1 appl TP QID PRN PRN Reason: Pain Rivaroxaban [Xarelto] 20 mg PO DAILY Budesonide/Formoterol 80/4.5 [Symbicort 80/4.5] 2 puff IH BIDR #1 inhaler Nicotine Patch [Nicoderm] 14 mg TD DAILY #30 patch.td24 Albuterol Sulfate [Albuterol Inhaler] 2 puff IH QID PRN PRN Reason: Shortness Of Breath Baclofen 20 mg PO TID Atorvastatin [Lipitor] 80 mg PO HS #30 tablet Ascorbic Acid [Vitamin C] 500 mg PO 0630 tablet Ferrous Sulfate 325 mg PO 0630 tablet Zinc Sulfate 220 mg PO DAILY capsule Home Medications: Acetaminophen [Tylenol] 650 mg PO Q6HR PRN 08/20/15 [History] Cholecalciferol (D-3) [Vitamin D] 2,000 unit PO DAILY 08/20/15 [History] Gabapentin [Neurontin] 1,200 mg PO TID 08/20/15 [History] Omeprazole [PriLOSEC] 20 mg PO DAILY 08/20/15 [History] Venlafaxine XR (24 HR) [Effexor Xr] 150 mg PO DAILY 08/20/15 [History] Folic Acid 1 mg PO DAILY 02/11/18 [History] Tamsulosin [Flomax] 0.4 mg PO HS 02/11/18 [History] hydrOXYzine HCl [Hydroxyzine HCl] 50 mg PO HS PRN 02/11/18 [History] Metoprolol Succinate [Toprol Xl] 25 mg PO BID 04/14/18 [History] Lidocaine 1 appl TP QID PRN 05/06/18 [History] Rivaroxaban [Xarelto] 20 mg PO DAILY 05/06/18 [History] Budesonide/Formoterol 80/4.5 [Symbicort 80/4.5] 2 puff IH BIDR #1 inhaler 05/07/18 [Rx] Nicotine Patch [Nicoderm] 14 mg TD DAILY #30 patch.td24 05/07/18 [Rx] Albuterol Sulfate [Albuterol Inhaler] 2 puff IH QID PRN 06/06/18 [History] Baclofen 20 mg PO TID 06/06/18 [History] Atorvastatin [Lipitor] 80 mg PO HS #30 tablet 06/10/18 [Rx] Ascorbic Acid [Vitamin C] 500 mg PO 0630 tablet 06/21/18 [Rx] Ferrous Sulfate 325 mg PO 0630 tablet 06/21/18 [Rx] Zinc Sulfate 220 mg PO DAILY capsule 06/21/18 [Rx] Allergies/Adverse Reactions: Allergy/AdvReac Type Severity Reaction Status Date / Time No Known Allergies Allergy Verified 06/11/18 23:03 Date of admission: 06/22/18 18:14 [facility] care physician: [facility] Consults: 06/22/18 18:15 Consult to Physician [CONS] Routine Consulting Provider: Lasha Hilton Reason for Consult: dysphagai Call Completed: No - Constitutional Vitals: Temp Pulse Resp BP Pulse Ox 97.8 F 91 12 117/74 95 06/23/18 08:54 06/23/18 08:54 06/23/18 08:54 06/23/18 08:54 06/23/18 08:54 General appearance: Present: A&O X 0 Exam: see blow - Head Head exam: Present: atraumatic, normal inspection - Neck Neck exam general surgery: Present: full ROM, lymphadenopathy - Cardiovascular Cardiovascular exam: Present: +S1, +S2. Absent: bradycardia, systolic murmur, tachycardia - GI/Abdominal GI/Abdominal exam: Present: normal bowel sounds, soft. Absent: splenomegaly - Expanded GI/Abdominal Exam GI/Abdominal exam expanded: Absent: heel tap sign, Day's sign - Patient Status Disposition: Home, Self-Care - Discharge Instructions Follow Up With: [facility] [Primary Care Provider[facility] -
[2018-06-23] MEDS ORDERED: Baclofen 10 MG TABLET PO PRN (15:55)
[2018-06-23] MEDS ORDERED: Benzonatate 100 MG CAPSULE PO PRN (15:55)
[2018-06-23] MEDS ORDERED: Acetaminophen 325 MG TABLET PO PRN (15:55)
[2018-06-23] MEDS ORDERED: hydrOXYzine pamoate 25 MG CAPSULE PO PRN (15:55)
[2018-06-23] MEDS: Metoprolol XL (24 HR) Succ 50 MG TAB.ER.24H PO SCH (17:18)
[2018-06-23] MEDS: Nicotine 14 MG PATCH.TD24 TD SCH (17:18)
[2018-06-23] MEDS: Venlafaxine XR (24 HR) 150 MG CAP.ER.24H PO SCH (17:18)
[2018-06-23] MEDS: Gabapentin 400 MG CAPSULE PO SCH ×2 (17:22→22:17)
[2018-06-23] MEDS ORDERED: Heparin 25,000 UNIT/250 ML D5W 25,000 UNIT/250 ML IV.SOLN IVC SCH (17:30)
--- NOTE | 2018-06-23 21:30 | Acute Care Surgery Event Note ---
Date of Encounter: 06/23/18 Time of Encounter: 21:00 Pt swallowing normally after EGD with FB removal earlier today. Pt is to f/u with [facility] for f/u EGD and dilation. Pt to see Dr. Davila. Surgery signing-off. DC to home per primary service.
[2018-06-23] MEDS: Thiamine (B-1) 100 MG TABLET PO SCH (22:17)
[2018-06-24] MEDS: Ondansetron ODT 4 MG TAB.RAPDIS SL SCH ×7 (00:56→23:30)
[2018-06-24] MEDS: Budesonide/Formoterol 80/4.5 MDI IH SCH ×2 (07:41→21:13)
[2018-06-24] MEDS: Venlafaxine XR (24 HR) 150 MG CAP.ER.24H PO SCH (08:42)
[2018-06-24] MEDS: Thiamine (B-1) 100 MG TABLET PO SCH ×2 (08:42→20:26)
[2018-06-24] MEDS: Metoprolol XL (24 HR) Succ 50 MG TAB.ER.24H PO SCH (08:42)
[2018-06-24] MEDS: Gabapentin 400 MG CAPSULE PO SCH ×3 (08:43→20:23)
[2018-06-24] MEDS: Nicotine 14 MG PATCH.TD24 TD SCH (08:43)
[2018-06-24] MEDS ORDERED: Metoprolol XL (24 HR) Succ 25 MG TAB.ER.24H PO STA (14:39)
[2018-06-24] MEDS ORDERED: *HR* Rivaroxaban 10 MG TABLET PO SCH (17:00)
--- NOTE | 2018-06-24 17:17 | Event Note ---
Date of Encounter: 06/24/18 Time of Encounter: 17:14 Pt was discharged yesterday but went into Afib RVR and was started back on heparin. Heparin discontinued and back on home dose Xarelto. Metoprolol increased from 50 mg QD to 75 mg QD. Pt is to follow up out pt with his PCP.
--- NOTE | 2018-06-24 18:24 | Physician Discharge Referral ---
ExtendedCare Referral Info Provider in Charge after Transfer: PCP Institutional Level of Care: Skilled - Diagnosis (1) Afib Priority: Secondary Status: Acute (2) Esophageal obstruction Priority: Primary Status: Acute Prognosis: Fair Aware of Diagnosis: Patient - Transfer Medications Prescriptions: Metoprolol XL (24 HR) Succ [Toprol Xl] 75 mg PO DAILY #30 tab.er.24h Home Medications: Acetaminophen [Tylenol] 650 mg PO Q6HR PRN 08/20/15 [History] Cholecalciferol (D-3) [Vitamin D] 2,000 unit PO DAILY 08/20/15 [History] Gabapentin [Neurontin] 1,200 mg PO TID 08/20/15 [History] Omeprazole [PriLOSEC] 20 mg PO DAILY 08/20/15 [History] Venlafaxine XR (24 HR) [Effexor Xr] 150 mg PO DAILY 08/20/15 [History] Folic Acid 1 mg PO DAILY 02/11/18 [History] Tamsulosin [Flomax] 0.4 mg PO HS 02/11/18 [History] hydrOXYzine HCl [Hydroxyzine HCl] 50 mg PO HS PRN 02/11/18 [History] Lidocaine 1 appl TP QID PRN 05/06/18 [History] Rivaroxaban [Xarelto] 20 mg PO DAILY 05/06/18 [History] Budesonide/Formoterol 80/4.5 [Symbicort 80/4.5] 2 puff IH BIDR #1 inhaler [Rx] Albuterol Sulfate [Albuterol Inhaler] 2 puff IH QID PRN 06/06/18 [History] Baclofen 20 mg PO TID PRN 06/06/18 [History] Atorvastatin [Lipitor] 80 mg PO HS #30 tablet 06/10/18 [Rx] Benzonatate [Tessalon] 100 mg PO TID PRN 06/23/18 [History] Naproxen [Naprosyn] 500 mg PO BID PRN 06/23/18 [History] Potassium Chloride [K-Tab ER] 10 meq PO DAILY 06/23/18 [History] Thiamine HCl [Vitamin B-1] 100 mg PO BID 06/23/18 [History] Metoprolol XL (24 HR) Succ [Toprol Xl] 75 mg PO DAILY #30 tab.er.24h 06/24/18 [Rx] Nicotine Patch [Nicoderm] 14 mg TD DAILY patch.td24 06/24/18 [Rx] Tamsulosin [Flomax] 0.4 mg PO HS capsule 06/24/18 [Rx] Allergies/Adverse Reactions: Allergy/AdvReac Type Severity Reaction Status Date / Time No Known Allergies Allergy Verified 06/23/18 14:23 - Respiratory Orders Smoking Cessation: Smoking cessation has been advised. For more information, call the [place] [employer] Quit Line at 8-646-DWJY-NOW. - Advance Directives Code Status: DNR-Arrest/Don't Intubate - Rehabiliation Orders Rehab Orders: Evaluation for Physical Therapy, Evaluation for Occupational Therapy - Diet Orders Cardiac CERTIFICATION: I certify that the transfer of the above named patient to an Extended Care Facility is necessary for the continuing treatment of the diagnosis listed. The above information is true and accurate reflection of patient's current condition. Confidential - Redisclosure prohibited without a patient's written consent.
--- NOTE | 2018-06-24 18:37 | Internal Med Progress Note ---
Hospitalist Progress Note - Encounter Date of Encounter: 06/24/18 Time of Encounter: 18:36 - Subjective Interval History: Pt denies chest pain or SOB. Denies fever, chills, N/V or diarrhea. Denies abdominal pain. - Exam Vitals: Temp Pulse Resp BP Pulse Ox 98.3 F 92 18 101/68 94 06/24/18 14:57 06/24/18 14:57 06/24/18 14:57 06/24/18 14:57 06/24/18 14:57 Exam: see blow - Assessment and Plan (1) Afib Current Visit: Yes Status: Acute (2) Esophageal obstruction Current Visit: No Status: Acute - Time Spent with Patient Total time spent is greater than 50% in coordination of care (as documented) at patient's floor/unit and/or counseling patient: Internal Medicine: Result - Labs CBC & Chem 7: 06/23/18 03:51 06/23/18 03:51 - ABG Interpretation ABG results: PT/INR, D-dimer PT 18.2 Seconds (9.4-12.1) H 06/22/18 18:30 Consult Discharge Plan - Plan Referrals: Chriss Davila DO [Partnered Physician] - (Web request entered. Office will call with date and time of appointment) [facility] [Primary Care Provider[facility] - Prescriptions: Metoprolol XL (24 HR) Succ [Toprol Xl] 75 mg PO DAILY #30 tab.er.24h
[2018-06-25] MEDS: Ondansetron ODT 4 MG TAB.RAPDIS SL SCH ×4 (04:02→14:59)
[2018-06-25] MEDS: Thiamine (B-1) 100 MG TABLET PO SCH (08:01)
[2018-06-25] MEDS: Gabapentin 400 MG CAPSULE PO SCH ×2 (08:01→15:21)
[2018-06-25] MEDS: Nicotine 14 MG PATCH.TD24 TD SCH (08:02)
[2018-06-25] MEDS: Venlafaxine XR (24 HR) 150 MG CAP.ER.24H PO SCH (08:02)
[2018-06-25] MEDS: Budesonide/Formoterol 80/4.5 MDI IH SCH (08:25)
[2018-06-25] MEDS ORDERED: Metoprolol XL (24 HR) Succ 50 MG TAB.ER.24H PO SCH (09:00)
--- NOTE | 2018-06-25 10:23 | Internal Med Progress Note ---
Hospitalist Progress Note - Encounter Date of Encounter: 06/25/18 Time of Encounter: 09:19 - Subjective Interval History: Patient seen and examined this morning it was up. No acute overnight events. Denies new complaints. Feeling better. Awaiting placement. - Exam Vitals: Temp Pulse Resp BP Pulse Ox 98.8 F 90 16 103/65 82 06/25/18 04:58 06/25/18 04:58 06/25/18 08:25 06/25/18 04:58 06/25/18 08:25 Exam: General: In no acute distress. Respiratory exam: CTAB. no accessory muscle use, rales, rhonchi, wheezes Cardiovascular exam: RRR, +S1, +S2. no murmur, gallop, rubs. GI/Abdominal exam: Non-tender, Non-distended, soft, no peritoneal signs. Neurological exam: CN II-XII intact, AO X3, no focal deficits. - Assessment and Plan (1) Esophageal obstruction Current Visit: No Status: Acute (2) Afib Current Visit: Yes Status: Acute - Summary of Assessment and Plan Summary of Assessment and Plan: Dysphagia resolved status post EGD found to have large food bolus which was remote. Patient developed A. fib RVR after which is now controlled. Currently on xarelto. Heparin DC'd Awaiting placement - Time Spent with Patient Total time spent is greater than 50% in coordination of care (as documented) at patient's floor/unit and/or counseling patient: Internal Medicine: Result - Labs CBC & Chem 7: 06/23/18 03:51 06/23/18 03:51 - ABG Interpretation ABG results: PT/INR, D-dimer PT 18.2 Seconds (9.4-12.1) H 06/22/18 18:30 Consult Discharge Plan - Plan Referrals: Chriss Davila DO [Partnered Physician] - (Web request entered. Office will call with date and time of appointment) [facility] [Primary Care Provider[facility] - Prescriptions: Metoprolol XL (24 HR) Succ [Toprol Xl] 75 mg PO DAILY #30 tab.er.24h
[2018-06-25 14:32] VITALS: BP 98/63
== END 2018-06-25 16:05 | disposition other institution (70) | DRG 395 ==
LOC: 3ANU → SUATTDRO 18:14
PROVIDERS: ADMIT Internal Medicine; ATTEND Internal Medicine
PROC: ENDOEFB (2018-06-23 08:00)

== ENCOUNTER 2018-07-04 13:34 | Inpatient (IN) ==
[2018-07-04] MEDS ORDERED: 0.9 % Sodium Chloride 1,000 ML IVC ONE ×2 (13:41→14:41)
[2018-07-04] MEDS ORDERED: Folic Acid 1 MG TABLET PO ONE (13:45)
[2018-07-04] MEDS ORDERED: Thiamine (B-1) 100 MG in D5% in Water 50 ML IVPB ONE (13:45)
--- NOTE | 2018-07-04 13:49 | Emergency Department Note ---
Disposition Clinical Impression: Lactic acidosis Altered mental status, unspecified Qualifiers: Altered mental status type: unspecified Qualified Code(s): R41.82 - Altered mental status, unspecified Disposition: Admitted As Inpatient Condition: Fair Referrals: NONE,PCP [Non-Partnered Physician] - Forms: ED Satisfaction Letter General Adult HPI - General Chief complaint: ED Altered Mental Status Stated complaint: AMS Time Seen by Provider: 07/04/18 13:40 - Related Data Allergies Allergy/AdvReac Type Severity Reaction Status Date / Time No Known Allergies Allergy Verified 07/04/18 13:59 Course Vital Signs Temperature 98.0 F 07/04/18 13:51 Pulse Rate 96 07/04/18 13:51 Respiratory Rate 16 07/04/18 13:51 Blood Pressure 114/75 07/04/18 13:51 O2 Sat by Pulse Oximetry 94 07/04/18 13:51 Temperature 98.0 F 07/04/18 13:51 Pulse Rate 88 07/04/18 15:54 Respiratory Rate 14 07/04/18 15:54 Blood Pressure 128/96 07/04/18 15:54 O2 Sat by Pulse Oximetry 96 07/04/18 15:54 Oxygen Delivery Oxygen Delivery Room Air Medical Decision Making - Lab Data Result diagrams: 07/04/18 14:01 07/04/18 14:01 Lab Results 07/04/18 07/04/18 07/04/18 Range/Units 13:50 13:50 14:01 WBC 12.5 H (4.3-11.1) K/mcL RBC 4.31 (4.19-5.50) M/mcL Hgb 11.4 L (12.9-16.9) g/dL Hct 39.0 (37.5-50.1) % MCV 90.5 (83.0-100.0) fL MCH 26.5 L (28.0-33.3) pg MCHC 29.2 L (31.6-35.5) g/dL RDW 15.3 H (11.5-14.5) % Plt Count 381 (140-400) K/mcL MPV 8.9 L (9.4-12.4) fL Immature Gran % 0.6 (0-4) % Seg Neutrophils % 81.8 % Lymphocytes % 9.7 % Monocytes % 3.7 % Eosinophils % 3.6 % Basophils % 0.6 % Neutrophils # 10.3 H (1.6-8.9) K/mcL Lymphocytes # 1.2 (0.6-4.6) K/mcL Monocytes # 0.5 (0.0-1.3) K/mcL Eosinophils # 0.5 (0.0-0.6) K/mcL Basophils # 0.1 (0.0-0.2) K/mcL PT (9.4-12.1) Seconds INR APTT (26.0-36.0) Seconds VBG pH (7.32-7.42) pH Units VBG pCO2 (41-51) mmHg VBG pO2 (25-50) mmHg VBG HCO3 (21-27) mEq/L Sodium (136-145) mEq/L Potassium (3.5-5.1) mEq/L Chloride (98-107) mEq/L Carbon Dioxide (23-29) mEq/L BUN (8-23) mg/dL Creatinine (0.70-1.30) mg/dL Est GFR ( Amer) (> 60) Est GFR (Non-Af Amer) (> 60) BUN/Creatinine Ratio (6-26) Glucose (70-105) mg/dL Calculated Osmolality (280-300) Lactic Acid (0.5-2.2) mmol/L Calcium (8.6-10.3) mg/dL Magnesium (1.6-2.6) mg/dL Total Bilirubin (0.3-1.0) mg/dL Direct Bilirubin (0.0-0.2) mg/dL Indirect Bilirubin (0.0-1.2) mg/dL AST (13-39) Units/L ALT (7-52) Units/L Alkaline Phosphatase (34-104) Units/L Ammonia (16-53) mcmol/L Creatine Kinase (30-223) Units/L Troponin I (< 0.04) ng/mL Serum Total Protein (6.4-8.9) g/dL Albumin (3.5-5.7) g/dL Globulin (2.4-3.5) g/dL Albumin/Globulin Ratio (1.1-2.2) Lipase (11-82) Units/L Beta-Hydroxybutyric Acd (0.02-0.27) mmol/L TSH (0.340-5.600) mcIU/mL Urine Color Yellow (Yellow) Urine Clarity Cloudy A (Clear) Urine pH 6.0 (5.0-8.0) pH Units Ur Specific [place] 1.024 (1.010-1.025) Urine Protein 30 H (Neg-Trace) mg/dL Urine Glucose (UA) Normal (Normal) mg/dL Urine Ketones Negative (Negative) mg/dL Urine Blood Small H (Negative) Urine Nitrite Negative (Negative) Urine Bilirubin Small H (Negative) Urine Urobilinogen Normal (Normal) mg/dL Ur Leukocyte Esterase Moderate H (Negative) Urine Microscopic RBC 15-30 H (0-3) per hpf Urine Microscopic WBC 50-100 H (0-3) per hpf Ur Squamous Epith Cells Many H (None-Few) per lpf Urine Bacteria None Seen (None-Few) per hpf Hyaline Casts Moderate H (None-Few) per lpf Ur Culture Indicated? YES A (NO) Salicylates (15.0-30.0) mg/dL Urine Opiates Screen Negative (Bjmidv=061) ng/mL Ur Barbiturates Screen Negative (Nofwro=770) ng/mL Ur Phencyclidine Scrn Negative (Cutoff=25) ng/mL Ur Amphetamines Screen Negative (Vklpim=6876) ng/mL U Benzodiazepines Scrn Negative (Pinidg=161) ng/mL Urine Cocaine Screen Negative (Cutoff= 300) ng/mL U Marijuana (THC) Screen Positive H (Cutoff = 50) ng/mL Ur Drug Screen Interp See Below Ethyl Alcohol (Less than 10) mg/dL 07/04/18 07/04/18 07/04/18 Range/Units 14:01 14:01 14:01 WBC (4.3-11.1) K/mcL RBC (4.19-5.50) M/mcL Hgb (12.9-16.9) g/dL Hct (37.5-50.1) % MCV (83.0-100.0) fL MCH (28.0-33.3) pg MCHC (31.6-35.5) g/dL RDW (11.5-14.5) % Plt Count (140-400) K/mcL MPV (9.4-12.4) fL Immature Gran % (0-4) % Seg Neutrophils % % Lymphocytes % % Monocytes % % Eosinophils % % Basophils % % Neutrophils # (1.6-8.9) K/mcL Lymphocytes # (0.6-4.6) K/mcL Monocytes # (0.0-1.3) K/mcL Eosinophils # (0.0-0.6) K/mcL Basophils # (0.0-0.2) K/mcL PT 15.0 H (9.4-12.1) Seconds INR 1.3 APTT 28.4 (26.0-36.0) Seconds VBG pH (7.32-7.42) pH Units VBG pCO2 (41-51) mmHg VBG pO2 (25-50) mmHg VBG HCO3 (21-27) mEq/L Sodium 144 (136-145) mEq/L Potassium 4.9 (3.5-5.1) mEq/L Chloride 108 H (98-107) mEq/L Carbon Dioxide 17 L (23-29) mEq/L BUN 23 (8-23) mg/dL Creatinine 1.26 (0.70-1.30) mg/dL Est GFR ( Amer) > 60 (> 60) Est GFR (Non-Af Amer) 51 L (> 60) BUN/Creatinine Ratio 18 (6-26) Glucose 236 H (70-105) mg/dL Calculated Osmolality 309 H (280-300) Lactic Acid (0.5-2.2) mmol/L Calcium 9.8 (8.6-10.3) mg/dL Magnesium (1.6-2.6) mg/dL Total Bilirubin 0.3 (0.3-1.0) mg/dL Direct Bilirubin 0.1 (0.0-0.2) mg/dL Indirect Bilirubin 0.2 (0.0-1.2) mg/dL AST 11 L (13-39) Units/L ALT 9 (7-52) Units/L Alkaline Phosphatase 76 (34-104) Units/L Ammonia (16-53) mcmol/L Creatine Kinase 34 (30-223) Units/L Troponin I < 0.03 (< 0.04) ng/mL Serum Total Protein 7.3 (6.4-8.9) g/dL Albumin 3.8 (3.5-5.7) g/dL Globulin 3.5 (2.4-3.5) g/dL Albumin/Globulin Ratio 1.1 (1.1-2.2) Lipase (11-82) Units/L Beta-Hydroxybutyric Acd 0.24 (0.02-0.27) mmol/L TSH 1.746 (0.340-5.600) mcIU/mL Urine Color (Yellow) Urine Clarity (Clear) Urine pH (5.0-8.0) pH Units Ur Specific [place] (1.010-1.025) Urine Protein (Neg-Trace) mg/dL Urine Glucose (UA) (Normal) mg/dL Urine Ketones (Negative) mg/dL Urine Blood (Negative) Urine Nitrite (Negative) Urine Bilirubin (Negative) Urine Urobilinogen (Normal) mg/dL Ur Leukocyte Esterase (Negative) Urine Microscopic RBC (0-3) per hpf Urine Microscopic WBC (0-3) per hpf Ur Squamous Epith Cells (None-Few) per lpf Urine Bacteria (None-Few) per hpf Hyaline Casts (None-Few) per lpf Ur Culture Indicated? (NO) Salicylates (15.0-30.0) mg/dL Urine Opiates Screen (Xhpzgg=855) ng/mL Ur Barbiturates Screen (Dayfnm=329) ng/mL Ur Phencyclidine Scrn (Cutoff=25) ng/mL Ur Amphetamines Screen (Ohsiud=4906) ng/mL U Benzodiazepines Scrn (Eairqt=623) ng/mL Urine Cocaine Screen (Cutoff= 300) ng/mL U Marijuana (THC) Screen (Cutoff = 50) ng/mL Ur Drug Screen Interp Ethyl Alcohol < 10 (Less than 10) mg/dL 07/04/18 07/04/18 07/04/18 Range/Units 14:01 14:01 14:01 WBC (4.3-11.1) K/mcL RBC (4.19-5.50) M/mcL Hgb (12.9-16.9) g/dL Hct (37.5-50.1) % MCV (83.0-100.0) fL MCH (28.0-33.3) pg MCHC (31.6-35.5) g/dL RDW (11.5-14.5) % Plt Count (140-400) K/mcL MPV (9.4-12.4) fL Immature Gran % (0-4) % Seg Neutrophils % % Lymphocytes % % Monocytes % % Eosinophils % % Basophils % % Neutrophils # (1.6-8.9) K/mcL Lymphocytes # (0.6-4.6) K/mcL Monocytes # (0.0-1.3) K/mcL Eosinophils # (0.0-0.6) K/mcL Basophils # (0.0-0.2) K/mcL PT (9.4-12.1) Seconds INR APTT (26.0-36.0) Seconds VBG pH (7.32-7.42) pH Units VBG pCO2 (41-51) mmHg VBG pO2 (25-50) mmHg VBG HCO3 (21-27) mEq/L Sodium (136-145) mEq/L Potassium (3.5-5.1) mEq/L Chloride (98-107) mEq/L Carbon Dioxide (23-29) mEq/L BUN (8-23) mg/dL Creatinine (0.70-1.30) mg/dL Est GFR ( Amer) (> 60) Est GFR (Non-Af Amer) (> 60) BUN/Creatinine Ratio (6-26) Glucose (70-105) mg/dL Calculated Osmolality (280-300) Lactic Acid (0.5-2.2) mmol/L Calcium (8.6-10.3) mg/dL Magnesium 1.7 (1.6-2.6) mg/dL Total Bilirubin (0.3-1.0) mg/dL Direct Bilirubin (0.0-0.2) mg/dL Indirect Bilirubin (0.0-1.2) mg/dL AST (13-39) Units/L ALT (7-52) Units/L Alkaline Phosphatase (34-104) Units/L Ammonia 45 (16-53) mcmol/L Creatine Kinase (30-223) Units/L Troponin I (< 0.04) ng/mL Serum Total Protein (6.4-8.9) g/dL Albumin (3.5-5.7) g/dL Globulin (2.4-3.5) g/dL Albumin/Globulin Ratio (1.1-2.2) Lipase 7 L (11-82) Units/L Beta-Hydroxybutyric Acd (0.02-0.27) mmol/L TSH (0.340-5.600) mcIU/mL Urine Color (Yellow) Urine Clarity (Clear) Urine pH (5.0-8.0) pH Units Ur Specific [place] (1.010-1.025) Urine Protein (Neg-Trace) mg/dL Urine Glucose (UA) (Normal) mg/dL Urine Ketones (Negative) mg/dL Urine Blood (Negative) Urine Nitrite (Negative) Urine Bilirubin (Negative) Urine Urobilinogen (Normal) mg/dL Ur Leukocyte Esterase (Negative) Urine Microscopic RBC (0-3) per hpf Urine Microscopic WBC (0-3) per hpf Ur Squamous Epith Cells (None-Few) per lpf Urine Bacteria (None-Few) per hpf Hyaline Casts (None-Few) per lpf Ur Culture Indicated? (NO) Salicylates (15.0-30.0) mg/dL Urine Opiates Screen (Xrnvqb=193) ng/mL Ur Barbiturates Screen (Bhgkmq=618) ng/mL Ur Phencyclidine Scrn (Cutoff=25) ng/mL Ur Amphetamines Screen (Kpxrgo=6577) ng/mL U Benzodiazepines Scrn (Jhpyku=259) ng/mL Urine Cocaine Screen (Cutoff= 300) ng/mL U Marijuana (THC) Screen (Cutoff = 50) ng/mL Ur Drug Screen Interp Ethyl Alcohol (Less than 10) mg/dL 07/04/18 07/04/18 07/04/18 Range/Units 14:01 14:26 15:37 WBC (4.3-11.1) K/mcL RBC (4.19-5.50) M/mcL Hgb (12.9-16.9) g/dL Hct (37.5-50.1) % MCV (83.0-100.0) fL MCH (28.0-33.3) pg MCHC (31.6-35.5) g/dL RDW (11.5-14.5) % Plt Count (140-400) K/mcL MPV (9.4-12.4) fL Immature Gran % (0-4) % Seg Neutrophils % % Lymphocytes % % Monocytes % % Eosinophils % % Basophils % % Neutrophils # (1.6-8.9) K/mcL Lymphocytes # (0.6-4.6) K/mcL Monocytes # (0.0-1.3) K/mcL Eosinophils # (0.0-0.6) K/mcL Basophils # (0.0-0.2) K/mcL PT (9.4-12.1) Seconds INR APTT (26.0-36.0) Seconds VBG pH 7.24 L (7.32-7.42) pH Units VBG pCO2 38 L (41-51) mmHg VBG pO2 46 (25-50) mmHg VBG HCO3 16 L (21-27) mEq/L Sodium (136-145) mEq/L Potassium (3.5-5.1) mEq/L Chloride (98-107) mEq/L Carbon Dioxide (23-29) mEq/L BUN (8-23) mg/dL Creatinine (0.70-1.30) mg/dL Est GFR ( Amer) (> 60) Est GFR (Non-Af Amer) (> 60) BUN/Creatinine Ratio (6-26) Glucose (70-105) mg/dL Calculated Osmolality (280-300) Lactic Acid 7.6 H* 1.8 (0.5-2.2) mmol/L Calcium (8.6-10.3) mg/dL Magnesium (1.6-2.6) mg/dL Total Bilirubin (0.3-1.0) mg/dL Direct Bilirubin (0.0-0.2) mg/dL Indirect Bilirubin (0.0-1.2) mg/dL AST (13-39) Units/L ALT (7-52) Units/L Alkaline Phosphatase (34-104) Units/L Ammonia (16-53) mcmol/L Creatine Kinase (30-223) Units/L Troponin I (< 0.04) ng/mL Serum Total Protein (6.4-8.9) g/dL Albumin (3.5-5.7) g/dL Globulin (2.4-3.5) g/dL Albumin/Globulin Ratio (1.1-2.2) Lipase (11-82) Units/L Beta-Hydroxybutyric Acd (0.02-0.27) mmol/L TSH (0.340-5.600) mcIU/mL Urine Color (Yellow) Urine Clarity (Clear) Urine pH (5.0-8.0) pH Units Ur Specific [place] (1.010-1.025) Urine Protein (Neg-Trace) mg/dL Urine Glucose (UA) (Normal) mg/dL Urine Ketones (Negative) mg/dL Urine Blood (Negative) Urine Nitrite (Negative) Urine Bilirubin (Negative) Urine Urobilinogen (Normal) mg/dL Ur Leukocyte Esterase (Negative) Urine Microscopic RBC (0-3) per hpf Urine Microscopic WBC (0-3) per hpf Ur Squamous Epith Cells (None-Few) per lpf Urine Bacteria (None-Few) per hpf Hyaline Casts (None-Few) per lpf Ur Culture Indicated? (NO) Salicylates (15.0-30.0) mg/dL Urine Opiates Screen (Qwwbnu=665) ng/mL Ur Barbiturates Screen (Hgovic=499) ng/mL Ur Phencyclidine Scrn (Cutoff=25) ng/mL Ur Amphetamines Screen (Pbzqsg=1198) ng/mL U Benzodiazepines Scrn (Ktpfpq=234) ng/mL Urine Cocaine Screen (Cutoff= 300) ng/mL U Marijuana (THC) Screen (Cutoff = 50) ng/mL Ur Drug Screen Interp Ethyl Alcohol (Less than 10) mg/dL 07/04/18 Range/Units 15:49 WBC (4.3-11.1) K/mcL RBC (4.19-5.50) M/mcL Hgb (12.9-16.9) g/dL Hct (37.5-50.1) % MCV (83.0-100.0) fL MCH (28.0-33.3) pg MCHC (31.6-35.5) g/dL RDW (11.5-14.5) % Plt Count (140-400) K/mcL MPV (9.4-12.4) fL Immature Gran % (0-4) % Seg Neutrophils % % Lymphocytes % % Monocytes % % Eosinophils % % Basophils % % Neutrophils # (1.6-8.9) K/mcL Lymphocytes # (0.6-4.6) K/mcL Monocytes # (0.0-1.3) K/mcL Eosinophils # (0.0-0.6) K/mcL Basophils # (0.0-0.2) K/mcL PT (9.4-12.1) Seconds INR APTT (26.0-36.0) Seconds VBG pH (7.32-7.42) pH Units VBG pCO2 (41-51) mmHg VBG pO2 (25-50) mmHg VBG HCO3 (21-27) mEq/L Sodium (136-145) mEq/L Potassium (3.5-5.1) mEq/L Chloride (98-107) mEq/L Carbon Dioxide (23-29) mEq/L BUN (8-23) mg/dL Creatinine (0.70-1.30) mg/dL Est GFR ( Amer) (> 60) Est GFR (Non-Af Amer) (> 60) BUN/Creatinine Ratio (6-26) Glucose (70-105) mg/dL Calculated Osmolality (280-300) Lactic Acid (0.5-2.2) mmol/L Calcium (8.6-10.3) mg/dL Magnesium (1.6-2.6) mg/dL Total Bilirubin (0.3-1.0) mg/dL Direct Bilirubin (0.0-0.2) mg/dL Indirect Bilirubin (0.0-1.2) mg/dL AST (13-39) Units/L ALT (7-52) Units/L Alkaline Phosphatase (34-104) Units/L Ammonia (16-53) mcmol/L Creatine Kinase (30-223) Units/L Troponin I (< 0.04) ng/mL Serum Total Protein (6.4-8.9) g/dL Albumin (3.5-5.7) g/dL Globulin (2.4-3.5) g/dL Albumin/Globulin Ratio (1.1-2.2) Lipase (11-82) Units/L Beta-Hydroxybutyric Acd (0.02-0.27) mmol/L TSH (0.340-5.600) mcIU/mL Urine Color (Yellow) Urine Clarity (Clear) Urine pH (5.0-8.0) pH Units Ur Specific [place] (1.010-1.025) Urine Protein (Neg-Trace) mg/dL Urine Glucose (UA) (Normal) mg/dL Urine Ketones (Negative) mg/dL Urine Blood (Negative) Urine Nitrite (Negative) Urine Bilirubin (Negative) Urine Urobilinogen (Normal) mg/dL Ur Leukocyte Esterase (Negative) Urine Microscopic RBC (0-3) per hpf Urine Microscopic WBC (0-3) per hpf Ur Squamous Epith Cells (None-Few) per lpf Urine Bacteria (None-Few) per hpf Hyaline Casts (None-Few) per lpf Ur Culture Indicated? (NO) Salicylates < 2.5 L (15.0-30.0) mg/dL Urine Opiates Screen (Fnpudr=699) ng/mL Ur Barbiturates Screen (Iibiww=432) ng/mL Ur Phencyclidine Scrn (Cutoff=25) ng/mL Ur Amphetamines Screen (Nskqsr=4810) ng/mL U Benzodiazepines Scrn (Pimzwq=497) ng/mL Urine Cocaine Screen (Cutoff= 300) ng/mL U Marijuana (THC) Screen (Cutoff = 50) ng/mL Ur Drug Screen Interp Ethyl Alcohol (Less than 10) mg/dL Critical Care Time Critical Care Time: Yes Total Critical Care Time: 60 Attestation: The high probability of a clinically significant, sudden or life threatening deterioration of the [] system(s) required my full and direct attention, intervention and personal management. The aggregate critical care time was [] minutes. This time is in addition to time spent performing reported procedures but includes the following: [] Data Review and interpretation [] Patient assessment and monitoring of vital signs [] Documentation [] Medication orders and management Attestation Statement - Attestation Attestation: I reviewed the residents documentation and agree with the residents assessment and plan of care. I have personally had face to face time with the patient. (Brief History, Brief Exam, and MDM) I personally supervised and was present for the chun/critical portions of the following procedures completed by the resident: (add procedures performed here). [id number] time provided When the patient arrived by EMS it was reported that he was found walking naked except for wearing an adult diaper in the [place]. The patient was slightly combative in route and upon arrival he refuses to provide his name or any other contributing information. He refuses to cooperate with the review of systems. He initially presented as a Shakir Serra. We are fairly certain his name is Bud Victoria. 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 He also has a history of alcohol use and metabolic encephalopathy. The patient does not appear to have any new acute focal general motor deficit but this is difficult to assess given his lack of cooperation
--- NOTE | 2018-07-04 13:50 | Emergency Department Note ---
Disposition Clinical Impression: Lactic acidosis Altered mental status, unspecified Qualifiers: Altered mental status type: unspecified Qualified Code(s): R41.82 - Altered mental status, unspecified Disposition: Admitted As Inpatient Condition: Fair Referrals: NONE,PCP [Non-Partnered Physician] - Forms: ED Satisfaction Letter Time of Disposition: 15:15 Altered Mental Status HPI - General Chief Complaint: ED Altered Mental Status Stated Complaint: AMS Time Seen by Provider: 07/04/18 13:40 Source: patient Mode of arrival: ambulatory Limitations: no limitations Nursing Notes Reviewed: Yes Vital Signs Reviewed: Yes - History of Present Illness HPI Narrative: Patient presents via EMS due to concerns of altered mental status. EMS initially presented as a Shakir Serra. Patient history provided via EMS stating that they were called to the residence at the [place] for the patient's altered mental status. Patient was found wandering the halls in his underwear. Patient was noted to be non-cooperative with EMS in route. Patient's initial blood sugar was in the 300s. EMS was not a provide any additional information. On exam the patient does not want to answer any questions. Patient appears to have a nonfocal neurologic exam but is not cooperative requiring verbal de- escalation. Patient is able to answer questions but is refusing to do so. We believe the gentleman his name to be Bud weighing day 68-year-old male who was recently hospitalized for concerns of altered mental status. Patient does have a prior history of opiate use, alcohol, hypertension. 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 - Related Data Allergies Allergy/AdvReac Type Severity Reaction Status Date / Time No Known Allergies Allergy Verified 07/04/18 13:59 Limitations: ROS unobtainable due to patients medical condition Past Medical History - Past Medical History Source: patient, old records reviewed Physical Exam - General Limitations: altered mental status General appearance: alert, in no apparent distress - Head Head exam: atraumatic, normocephalic, normal inspection - Eye Eye exam: Present: normal appearance, EOMI. Absent: nystagmus, miosis, mydriasis - ENT ENT exam: normal exam - Neck Neck exam: Present: normal inspection - Chest Chest inspection: Present: normal inspection - Respiratory Respiratory exam: Present: normal lung sounds bilaterally. Absent: respiratory distress - Cardiovascular Cardiovascular exam: Present: regular rate, normal rhythm. Absent: normal heart sounds - Abdominal Exam Abdominal exam: Present: soft, Non-Tender - Extremities Exam Extremities exam: Present: normal inspection. Absent: pedal edema - Neurological Exam Neurological exam: Present: alert, CN II-XII intact, other (Patient is refusing to answer any questions.) - Skin Skin exam: Present: warm, dry, intact, normal color Course Course Narrative: Patient seen and examined. Patient physical exam shows no evidence of trauma. Patient is registered as Shakir Serra. Patient will get extensive evaluation given concerns for all his him. Patient will likely require admission. We will attempt with verbal de-escalation and continue with calming agents if the patient becomes disruptive and not cooperative with evaluation and therapies. - Reevaluation(s) Reevaluation #1: Patient seen and examined. Patient's resting comfortably. Patient does have several abnormal labs including a lactic acidosis. Patient does not have an anion gap. Patient is not complaining of any symptoms. Patient's abdomen is soft. Do have a pharmacy list for . Patient is not any metformin. The patient is on increased levels of gabapentin 1.2 g 3 times a day. Patient does have some mild elevation in his kidney function based on prior labs. Time: 14:52 Reevaluation #2: Did discuss the patient's case with the hospitalist who wanted me to talk with critical care regarding a lactic acidosis. Time: 15:10 Reevaluation #3: Patient's lactate cleared in the ED. Time: 16:41 - Consultations Consultation #1: Also discussed the case with critical care who agrees with fluid resuscitation and repeating a lactate. Time: 15:19 Vital Signs Temperature 98.0 F 07/04/18 13:51 Pulse Rate 96 07/04/18 13:51 Respiratory Rate 16 07/04/18 13:51 Blood Pressure 114/75 07/04/18 13:51 O2 Sat by Pulse Oximetry 94 07/04/18 13:51 Temperature 98.0 F 07/04/18 13:51 Pulse Rate 88 07/04/18 15:54 Respiratory Rate 14 07/04/18 15:54 Blood Pressure 128/96 07/04/18 15:54 O2 Sat by Pulse Oximetry 96 07/04/18 15:54 Oxygen Delivery Oxygen Delivery Room Air Altered Mental Status - MDM Narrative Medical decision making narrative: Patient presented for concerns of altered mental status. Patient initially refused answering questions and was very noncooperative. Patient does require some calming agents. Patient received a broad evaluation concerns for metabolic, infectious or structural etiologies. Patient's head CT showed encephalomalacia. Patient's recent admission based on our belief about the patient's drug any shows history of nonhemorrhagic infarct. Patient does have a lactic acidosis with no gap. Patient also does not have an osmole gap. Patient's urine shows signs of WBCs without any bacteria. Given the patient's lactate as well as WBCs in the setting of altered mental status the patient will be treated with Rocephin until cultures are negative. Patient abdominal exam on multiple evaluations is been unremarkable. Low suspicion or concerns for any acute intra-abdominal etiology. Patient's prior medication list reviewed shows no metformin. Also shows high doses of gabapentin with slightly worsening kidney disease from his prior evaluation. In the ED the patient's or fluid resuscitated as well as repeat lactate to trend for resolutions. - Lab Data Lab results reviewed: Yes I reviewed the patient's lab results. Result diagrams: 07/04/18 14:01 07/04/18 14:01 Lab Results 07/04/18 07/04/18 07/04/18 Range/Units 13:50 13:50 14:01 WBC 12.5 H (4.3-11.1) K/mcL RBC 4.31 (4.19-5.50) M/mcL Hgb 11.4 L (12.9-16.9) g/dL Hct 39.0 (37.5-50.1) % MCV 90.5 (83.0-100.0) fL MCH 26.5 L (28.0-33.3) pg MCHC 29.2 L (31.6-35.5) g/dL RDW 15.3 H (11.5-14.5) % Plt Count 381 (140-400) K/mcL MPV 8.9 L (9.4-12.4) fL Immature Gran % 0.6 (0-4) % Seg Neutrophils % 81.8 % Lymphocytes % 9.7 % Monocytes % 3.7 % Eosinophils % 3.6 % Basophils % 0.6 % Neutrophils # 10.3 H (1.6-8.9) K/mcL Lymphocytes # 1.2 (0.6-4.6) K/mcL Monocytes # 0.5 (0.0-1.3) K/mcL Eosinophils # 0.5 (0.0-0.6) K/mcL Basophils # 0.1 (0.0-0.2) K/mcL PT (9.4-12.1) Seconds INR APTT (26.0-36.0) Seconds VBG pH (7.32-7.42) pH Units VBG pCO2 (41-51) mmHg VBG pO2 (25-50) mmHg VBG HCO3 (21-27) mEq/L Sodium (136-145) mEq/L Potassium (3.5-5.1) mEq/L Chloride (98-107) mEq/L Carbon Dioxide (23-29) mEq/L BUN (8-23) mg/dL Creatinine (0.70-1.30) mg/dL Est GFR ( Amer) (> 60) Est GFR (Non-Af Amer) (> 60) BUN/Creatinine Ratio (6-26) Glucose (70-105) mg/dL Calculated Osmolality (280-300) Lactic Acid (0.5-2.2) mmol/L Calcium (8.6-10.3) mg/dL Magnesium (1.6-2.6) mg/dL Total Bilirubin (0.3-1.0) mg/dL Direct Bilirubin (0.0-0.2) mg/dL Indirect Bilirubin (0.0-1.2) mg/dL AST (13-39) Units/L ALT (7-52) Units/L Alkaline Phosphatase (34-104) Units/L Ammonia (16-53) mcmol/L Creatine Kinase (30-223) Units/L Troponin I (< 0.04) ng/mL Serum Total Protein (6.4-8.9) g/dL Albumin (3.5-5.7) g/dL Globulin (2.4-3.5) g/dL Albumin/Globulin Ratio (1.1-2.2) Lipase (11-82) Units/L Beta-Hydroxybutyric Acd (0.02-0.27) mmol/L TSH (0.340-5.600) mcIU/mL Urine Color Yellow (Yellow) Urine Clarity Cloudy A (Clear) Urine pH 6.0 (5.0-8.0) pH Units Ur Specific Levasy 1.024 (1.010-1.025) Urine Protein 30 H (Neg-Trace) mg/dL Urine Glucose (UA) Normal (Normal) mg/dL Urine Ketones Negative (Negative) mg/dL Urine Blood Small H (Negative) Urine Nitrite Negative (Negative) Urine Bilirubin Small H (Negative) Urine Urobilinogen Normal (Normal) mg/dL Ur Leukocyte Esterase Moderate H (Negative) Urine Microscopic RBC 15-30 H (0-3) per hpf Urine Microscopic WBC 50-100 H (0-3) per hpf Ur Squamous Epith Cells Many H (None-Few) per lpf Urine Bacteria None Seen (None-Few) per hpf Hyaline Casts Moderate H (None-Few) per lpf Ur Culture Indicated? YES A (NO) Salicylates (15.0-30.0) mg/dL Urine Opiates Screen Negative (Mhuidq=244) ng/mL Ur Barbiturates Screen Negative (Ldzojg=878) ng/mL Ur Phencyclidine Scrn Negative (Cutoff=25) ng/mL Ur Amphetamines Screen Negative (Qfntfm=9370) ng/mL U Benzodiazepines Scrn Negative (Uknzzc=788) ng/mL Urine Cocaine Screen Negative (Cutoff= 300) ng/mL U Marijuana (THC) Screen Positive H (Cutoff = 50) ng/mL Ur Drug Screen Interp See Below Ethyl Alcohol (Less than 10) mg/dL 07/04/18 07/04/18 07/04/18 Range/Units 14:01 14:01 14:01 WBC (4.3-11.1) K/mcL RBC (4.19-5.50) M/mcL Hgb (12.9-16.9) g/dL Hct (37.5-50.1) % MCV (83.0-100.0) fL MCH (28.0-33.3) pg MCHC (31.6-35.5) g/dL RDW (11.5-14.5) % Plt Count (140-400) K/mcL MPV (9.4-12.4) fL Immature Gran % (0-4) % Seg Neutrophils % % Lymphocytes % % Monocytes % % Eosinophils % % Basophils % % Neutrophils # (1.6-8.9) K/mcL Lymphocytes # (0.6-4.6) K/mcL Monocytes # (0.0-1.3) K/mcL Eosinophils # (0.0-0.6) K/mcL Basophils # (0.0-0.2) K/mcL PT 15.0 H (9.4-12.1) Seconds INR 1.3 APTT 28.4 (26.0-36.0) Seconds VBG pH (7.32-7.42) pH Units VBG pCO2 (41-51) mmHg VBG pO2 (25-50) mmHg VBG HCO3 (21-27) mEq/L Sodium 144 (136-145) mEq/L Potassium 4.9 (3.5-5.1) mEq/L Chloride 108 H (98-107) mEq/L Carbon Dioxide 17 L (23-29) mEq/L BUN 23 (8-23) mg/dL Creatinine 1.26 (0.70-1.30) mg/dL Est GFR ( Amer) > 60 (> 60) Est GFR (Non-Af Amer) 51 L (> 60) BUN/Creatinine Ratio 18 (6-26) Glucose 236 H (70-105) mg/dL Calculated Osmolality 309 H (280-300) Lactic Acid (0.5-2.2) mmol/L Calcium 9.8 (8.6-10.3) mg/dL Magnesium (1.6-2.6) mg/dL Total Bilirubin 0.3 (0.3-1.0) mg/dL Direct Bilirubin 0.1 (0.0-0.2) mg/dL Indirect Bilirubin 0.2 (0.0-1.2) mg/dL AST 11 L (13-39) Units/L ALT 9 (7-52) Units/L Alkaline Phosphatase 76 (34-104) Units/L Ammonia (16-53) mcmol/L Creatine Kinase 34 (30-223) Units/L Troponin I < 0.03 (< 0.04) ng/mL Serum Total Protein 7.3 (6.4-8.9) g/dL Albumin 3.8 (3.5-5.7) g/dL Globulin 3.5 (2.4-3.5) g/dL Albumin/Globulin Ratio 1.1 (1.1-2.2) Lipase (11-82) Units/L Beta-Hydroxybutyric Acd 0.24 (0.02-0.27) mmol/L TSH 1.746 (0.340-5.600) mcIU/mL Urine Color (Yellow) Urine Clarity (Clear) Urine pH (5.0-8.0) pH Units Ur Specific Levasy (1.010-1.025) Urine Protein (Neg-Trace) mg/dL Urine Glucose (UA) (Normal) mg/dL Urine Ketones (Negative) mg/dL Urine Blood (Negative) Urine Nitrite (Negative) Urine Bilirubin (Negative) Urine Urobilinogen (Normal) mg/dL Ur Leukocyte Esterase (Negative) Urine Microscopic RBC (0-3) per hpf Urine Microscopic WBC (0-3) per hpf Ur Squamous Epith Cells (None-Few) per lpf Urine Bacteria (None-Few) per hpf Hyaline Casts (None-Few) per lpf Ur Culture Indicated? (NO) Salicylates (15.0-30.0) mg/dL Urine Opiates Screen (Mnbrsn=086) ng/mL Ur Barbiturates Screen (Qvangz=226) ng/mL Ur Phencyclidine Scrn (Cutoff=25) ng/mL Ur Amphetamines Screen (Dzpzrt=9396) ng/mL U Benzodiazepines Scrn (Jiwcoa=088) ng/mL Urine Cocaine Screen (Cutoff= 300) ng/mL U Marijuana (THC) Screen (Cutoff = 50) ng/mL Ur Drug Screen Interp Ethyl Alcohol < 10 (Less than 10) mg/dL 07/04/18 07/04/18 07/04/18 Range/Units 14:01 14:01 14:01 WBC (4.3-11.1) K/mcL RBC (4.19-5.50) M/mcL Hgb (12.9-16.9) g/dL Hct (37.5-50.1) % MCV (83.0-100.0) fL MCH (28.0-33.3) pg MCHC (31.6-35.5) g/dL RDW (11.5-14.5) % Plt Count (140-400) K/mcL MPV (9.4-12.4) fL Immature Gran % (0-4) % Seg Neutrophils % % Lymphocytes % % Monocytes % % Eosinophils % % Basophils % % Neutrophils # (1.6-8.9) K/mcL Lymphocytes # (0.6-4.6) K/mcL Monocytes # (0.0-1.3) K/mcL Eosinophils # (0.0-0.6) K/mcL Basophils # (0.0-0.2) K/mcL PT (9.4-12.1) Seconds INR APTT (26.0-36.0) Seconds VBG pH (7.32-7.42) pH Units VBG pCO2 (41-51) mmHg VBG pO2 (25-50) mmHg VBG HCO3 (21-27) mEq/L Sodium (136-145) mEq/L Potassium (3.5-5.1) mEq/L Chloride (98-107) mEq/L Carbon Dioxide (23-29) mEq/L BUN (8-23) mg/dL Creatinine (0.70-1.30) mg/dL Est GFR ( Amer) (> 60) Est GFR (Non-Af Amer) (> 60) BUN/Creatinine Ratio (6-26) Glucose (70-105) mg/dL Calculated Osmolality (280-300) Lactic Acid (0.5-2.2) mmol/L Calcium (8.6-10.3) mg/dL Magnesium 1.7 (1.6-2.6) mg/dL Total Bilirubin (0.3-1.0) mg/dL Direct Bilirubin (0.0-0.2) mg/dL Indirect Bilirubin (0.0-1.2) mg/dL AST (13-39) Units/L ALT (7-52) Units/L Alkaline Phosphatase (34-104) Units/L Ammonia 45 (16-53) mcmol/L Creatine Kinase (30-223) Units/L Troponin I (< 0.04) ng/mL Serum Total Protein (6.4-8.9) g/dL Albumin (3.5-5.7) g/dL Globulin (2.4-3.5) g/dL Albumin/Globulin Ratio (1.1-2.2) Lipase 7 L (11-82) Units/L Beta-Hydroxybutyric Acd (0.02-0.27) mmol/L TSH (0.340-5.600) mcIU/mL Urine Color (Yellow) Urine Clarity (Clear) Urine pH (5.0-8.0) pH Units Ur Specific Levasy (1.010-1.025) Urine Protein (Neg-Trace) mg/dL Urine Glucose (UA) (Normal) mg/dL Urine Ketones (Negative) mg/dL Urine Blood (Negative) Urine Nitrite (Negative) Urine Bilirubin (Negative) Urine Urobilinogen (Normal) mg/dL Ur Leukocyte Esterase (Negative) Urine Microscopic RBC (0-3) per hpf Urine Microscopic WBC (0-3) per hpf Ur Squamous Epith Cells (None-Few) per lpf Urine Bacteria (None-Few) per hpf Hyaline Casts (None-Few) per lpf Ur Culture Indicated? (NO) Salicylates (15.0-30.0) mg/dL Urine Opiates Screen (Edhzah=166) ng/mL Ur Barbiturates Screen (Pufgjx=761) ng/mL Ur Phencyclidine Scrn (Cutoff=25) ng/mL Ur Amphetamines Screen (Drpkab=7182) ng/mL U Benzodiazepines Scrn (Vjcesx=593) ng/mL Urine Cocaine Screen (Cutoff= 300) ng/mL U Marijuana (THC) Screen (Cutoff = 50) ng/mL Ur Drug Screen Interp Ethyl Alcohol (Less than 10) mg/dL 07/04/18 07/04/18 07/04/18 Range/Units 14:01 14:26 15:37 WBC (4.3-11.1) K/mcL RBC (4.19-5.50) M/mcL Hgb (12.9-16.9) g/dL Hct (37.5-50.1) % MCV (83.0-100.0) fL MCH (28.0-33.3) pg MCHC (31.6-35.5) g/dL RDW (11.5-14.5) % Plt Count (140-400) K/mcL MPV (9.4-12.4) fL Immature Gran % (0-4) % Seg Neutrophils % % Lymphocytes % % Monocytes % % Eosinophils % % Basophils % % Neutrophils # (1.6-8.9) K/mcL Lymphocytes # (0.6-4.6) K/mcL Monocytes # (0.0-1.3) K/mcL Eosinophils # (0.0-0.6) K/mcL Basophils # (0.0-0.2) K/mcL PT (9.4-12.1) Seconds INR APTT (26.0-36.0) Seconds VBG pH 7.24 L (7.32-7.42) pH Units VBG pCO2 38 L (41-51) mmHg VBG pO2 46 (25-50) mmHg VBG HCO3 16 L (21-27) mEq/L Sodium (136-145) mEq/L Potassium (3.5-5.1) mEq/L Chloride (98-107) mEq/L Carbon Dioxide (23-29) mEq/L BUN (8-23) mg/dL Creatinine (0.70-1.30) mg/dL Est GFR ( Amer) (> 60) Est GFR (Non-Af Amer) (> 60) BUN/Creatinine Ratio (6-26) Glucose (70-105) mg/dL Calculated Osmolality (280-300) Lactic Acid 7.6 H* 1.8 (0.5-2.2) mmol/L Calcium (8.6-10.3) mg/dL Magnesium (1.6-2.6) mg/dL Total Bilirubin (0.3-1.0) mg/dL Direct Bilirubin (0.0-0.2) mg/dL Indirect Bilirubin (0.0-1.2) mg/dL AST (13-39) Units/L ALT (7-52) Units/L Alkaline Phosphatase (34-104) Units/L Ammonia (16-53) mcmol/L Creatine Kinase (30-223) Units/L Troponin I (< 0.04) ng/mL Serum Total Protein (6.4-8.9) g/dL Albumin (3.5-5.7) g/dL Globulin (2.4-3.5) g/dL Albumin/Globulin Ratio (1.1-2.2) Lipase (11-82) Units/L Beta-Hydroxybutyric Acd (0.02-0.27) mmol/L TSH (0.340-5.600) mcIU/mL Urine Color (Yellow) Urine Clarity (Clear) Urine pH (5.0-8.0) pH Units Ur Specific Levasy (1.010-1.025) Urine Protein (Neg-Trace) mg/dL Urine Glucose (UA) (Normal) mg/dL Urine Ketones (Negative) mg/dL Urine Blood (Negative) Urine Nitrite (Negative) Urine Bilirubin (Negative) Urine Urobilinogen (Normal) mg/dL Ur Leukocyte Esterase (Negative) Urine Microscopic RBC (0-3) per hpf Urine Microscopic WBC (0-3) per hpf Ur Squamous Epith Cells (None-Few) per lpf Urine Bacteria (None-Few) per hpf Hyaline Casts (None-Few) per lpf Ur Culture Indicated? (NO) Salicylates (15.0-30.0) mg/dL Urine Opiates Screen (Xfkfkn=156) ng/mL Ur Barbiturates Screen (Nkmldv=189) ng/mL Ur Phencyclidine Scrn (Cutoff=25) ng/mL Ur Amphetamines Screen (Dequzz=3652) ng/mL U Benzodiazepines Scrn (Dokkul=924) ng/mL Urine Cocaine Screen (Cutoff= 300) ng/mL U Marijuana (THC) Screen (Cutoff = 50) ng/mL Ur Drug Screen Interp Ethyl Alcohol (Less than 10) mg/dL 07/04/18 Range/Units 15:49 WBC (4.3-11.1) K/mcL RBC (4.19-5.50) M/mcL Hgb (12.9-16.9) g/dL Hct (37.5-50.1) % MCV (83.0-100.0) fL MCH (28.0-33.3) pg MCHC (31.6-35.5) g/dL RDW (11.5-14.5) % Plt Count (140-400) K/mcL MPV (9.4-12.4) fL Immature Gran % (0-4) % Seg Neutrophils % % Lymphocytes % % Monocytes % % Eosinophils % % Basophils % % Neutrophils # (1.6-8.9) K/mcL Lymphocytes # (0.6-4.6) K/mcL Monocytes # (0.0-1.3) K/mcL Eosinophils # (0.0-0.6) K/mcL Basophils # (0.0-0.2) K/mcL PT (9.4-12.1) Seconds INR APTT (26.0-36.0) Seconds VBG pH (7.32-7.42) pH Units VBG pCO2 (41-51) mmHg VBG pO2 (25-50) mmHg VBG HCO3 (21-27) mEq/L Sodium (136-145) mEq/L Potassium (3.5-5.1) mEq/L Chloride (98-107) mEq/L Carbon Dioxide (23-29) mEq/L BUN (8-23) mg/dL Creatinine (0.70-1.30) mg/dL Est GFR ( Amer) (> 60) Est GFR (Non-Af Amer) (> 60) BUN/Creatinine Ratio (6-26) Glucose (70-105) mg/dL Calculated Osmolality (280-300) Lactic Acid (0.5-2.2) mmol/L Calcium (8.6-10.3) mg/dL Magnesium (1.6-2.6) mg/dL Total Bilirubin (0.3-1.0) mg/dL Direct Bilirubin (0.0-0.2) mg/dL Indirect Bilirubin (0.0-1.2) mg/dL AST (13-39) Units/L ALT (7-52) Units/L Alkaline Phosphatase (34-104) Units/L Ammonia (16-53) mcmol/L Creatine Kinase (30-223) Units/L Troponin I (< 0.04) ng/mL Serum Total Protein (6.4-8.9) g/dL Albumin (3.5-5.7) g/dL Globulin (2.4-3.5) g/dL Albumin/Globulin Ratio (1.1-2.2) Lipase (11-82) Units/L Beta-Hydroxybutyric Acd (0.02-0.27) mmol/L TSH (0.340-5.600) mcIU/mL Urine Color (Yellow) Urine Clarity (Clear) Urine pH (5.0-8.0) pH Units Ur Specific Levasy (1.010-1.025) Urine Protein (Neg-Trace) mg/dL Urine Glucose (UA) (Normal) mg/dL Urine Ketones (Negative) mg/dL Urine Blood (Negative) Urine Nitrite (Negative) Urine Bilirubin (Negative) Urine Urobilinogen (Normal) mg/dL Ur Leukocyte Esterase (Negative) Urine Microscopic RBC (0-3) per hpf Urine Microscopic WBC (0-3) per hpf Ur Squamous Epith Cells (None-Few) per lpf Urine Bacteria (None-Few) per hpf Hyaline Casts (None-Few) per lpf Ur Culture Indicated? (NO) Salicylates < 2.5 L (15.0-30.0) mg/dL Urine Opiates Screen (Pqwjkd=698) ng/mL Ur Barbiturates Screen (Lcqgvh=624) ng/mL Ur Phencyclidine Scrn (Cutoff=25) ng/mL Ur Amphetamines Screen (Yeqyro=2848) ng/mL U Benzodiazepines Scrn (Luruew=306) ng/mL Urine Cocaine Screen (Cutoff= 300) ng/mL U Marijuana (THC) Screen (Cutoff = 50) ng/mL Ur Drug Screen Interp Ethyl Alcohol (Less than 10) mg/dL - Radiology Data Radiology results reviewed: Yes I reviewed the patient's radiology results. Chest X-Ray 07/04/18 13:41 IMPRESSION: Diffuse interstitial opacity, for which leading considerations include pulmonary edema or interstitial lung disease. D/ / Josh Aaron MD / Josh Aaron MD Interpreting Provider: Josh Aaron MD Head CT 07/04/18 13:41 IMPRESSION: Atrophy and moderate small vessel ischemic disease. Left frontal encephalomalacia, suggestive of remote infarct. D/ / Josh Aaron MD / Josh Aaron MD Interpreting Provider: Josh Aaron MD - EKG Data EKG attestation: Yes I reviewed and interpreted this EKG. EKG shows normal: sinus rhythm Rate: normal Rhythm: NSR [place]/QRS: normal, RBBB, LAHB/LAFB T wave inversions: v1, v2, v3 Interpretation: no acute changes, nonspecific ST-T wave changes TPA Checklist - LKW: 3-4.5 hrs Add. Warnings/Precautions Patient/family understanding: The patient/family members have been counseled and understood the risk, benefit, and alternatives of treatment. S.B.A.R. - [email or web address] Situation: Demographics Background: Presenting Complaint Assessment: Vital Signs, Course and respsone to treatment, Patient/Family Expectation Recommendation: Barrier(s) to disposition, Recommendation based on pending studies, treatments, or consults S.B.A.R. Report Given to: Hospitalist Dee Repor Time: 15:15
[2018-07-04] MEDS ORDERED: Haloperidol Lactate 5 MG/ML VIAL IM ONE (13:51)
[2018-07-04 14:00] LABS: Bilirubin,Urine Small (Negative); Blood,Urine Small (Negative); Clarity,Urine Cloudy (Clear); Color,Urine Yellow (Yellow); Glucose,Urine (UA) Normal (Normal); Ketones,Urine Negative (Negative); Leukocyte Esterase,Urine Moderate (Negative); Nitrite,Urine Negative (Negative); Protein,Urine 30 mg/dL (Neg-Trace); Specific Gravity,Urine 1.024 (1.010-1.025); Urobilinogen,Urine Normal (Normal)
[2018-07-04 14:02] LABS: Bacteria,Urine None Seen per hpf (None-Few); Hyaline Casts,Urine Moderate per lpf (None-Few); RBC,Urine 15-30 per hpf (0-3); Squamous Epithelial Cell,Urine Many per lpf (None-Few); WBC,Urine 50-100 per hpf (0-3)
[2018-07-04 14:20] LABS: Amphetamine Screen,Urine Negative ng/mL (Cutoff=1000); Barbiturate Screen,Urine Negative ng/mL (Cutoff=200); Benzodiazepines Screen,Urine Negative ng/mL (Cutoff=200); Cannabinoid Screen,Urine Positive ng/mL (Cutoff = 50); Cocaine Screen,Urine Negative ng/mL (Cutoff= 300); Opiate Screen,Urine Negative ng/mL (Cutoff=300); Phencyclidine Screen,Urine Negative ng/mL (Cutoff=25)
[2018-07-04 14:29] LABS: VBG HCO3 16 mEq/L (21-27); VBG PCO2 38 mmHg (41-51); VBG PH 7.24 pH Units (7.32-7.42); VBG PO2 46 mmHg (25-50)
[2018-07-04 14:41] LABS: Alanine Aminotransferase 9 Units/L (7-52); Albumin 3.8 g/dL (3.5-5.7); Albumin/Globulin Ratio 1.1 (1.1-2.2); Alkaline Phosphatase 76 Units/L (34-104); Aspartate Amino Transferase 11 Units/L (13-39); BUN/Creatinine Ratio 18 (6-26); Bilirubin,Direct 0.1 mg/dL (0.0-0.2); Bilirubin,Indirect 0.2 mg/dL (0.0-1.2); Bilirubin,Total 0.3 mg/dL (0.3-1.0); Blood Urea Nitrogen 23 mg/dL (8-23); Calcium 9.8 mg/dL (8.6-10.3); Carbon Dioxide 17 mEq/L (23-29); Chloride 108 mEq/L (98-107); Creatine Kinase 34 Units/L (30-223); Ethanol < 10 mg/dL (Less than 10); Globulin 3.5 g/dL (2.4-3.5); Glucose 236 mg/dL (70-105); Osmolality,Calculated 309 (280-300); Potassium 4.9 mEq/L (3.5-5.1); Sodium 144 mEq/L (136-145); Total Protein 7.3 g/dL (6.4-8.9); Troponin I < 0.03 ng/mL (< 0.04); eGFR For Non-African Americans 51 (> 60)
[2018-07-04] MEDS ORDERED: cefTRIAXone 1,000 MG in Water for inj. (sterile) 20 ML 10 ML IVP ONE (14:49)
[2018-07-04 14:53] LABS: Thyroid Stimulating Hormone 1.746 mcIU/mL (0.340-5.600)
[2018-07-04 14:58] LABS: Basophils # 0.1 K/mcL (0.0-0.2); Basophils % 0.6 %; Eosinophils # 0.5 K/mcL (0.0-0.6); Eosinophils % 3.6 %; Hemoglobin 11.4 g/dL (12.9-16.9); Immature Granulocytes % 0.6 % (0-4); Lymphocytes # 1.2 K/mcL (0.6-4.6); Lymphocytes % 9.7 %; Mean Corpuscular HGB Conc 29.2 g/dL (31.6-35.5); Mean Corpuscular Hemoglobin 26.5 pg (28.0-33.3); Mean Corpuscular Volume 90.5 fL (83.0-100.0); Mean Platelet Volume 8.9 fL (9.4-12.4); Monocytes # 0.5 K/mcL (0.0-1.3); Monocytes % 3.7 %; Neutrophils # 10.3 K/mcL (1.6-8.9); Platelet Count 381 K/mcL (140-400); Red Blood Count 4.31 M/mcL (4.19-5.50); Red Cell Distribution Width 15.3 % (11.5-14.5); Segmented Neutrophils % 81.8 %
[2018-07-04 15:00] LABS: INR 1.3
[2018-07-04 15:03] LABS: Activated Partial Thrombo Time 28.4 Seconds (26.0-36.0)
[2018-07-04] MEDS ORDERED: 0.9 % Sodium Chloride 1,000 ML IVC SCH (15:15)
--- NOTE | 2018-07-04 16:01 | Internal Med History&Physical ---
<Rosa Maria Bennett - Last Filed: 07/04/18 19:53> Date of Encounter: 07/04/18 Time of Encounter: 15:58 Internal Medicine - H&P: HPI Chief complaint: AMS Admitted From: Home Plans for Post Hospital Care: Home History of present illness: Mr. Victoria is a 68 year old male initially presenting to the ED by EMS as Shakir Serra for altered mental status. Patient's history gathered from review of ED record and previous admissions. Unable to obtain ROS due to his mental status and lack of cooperation. EMS called to [facility] after receiving reports the patient was wondering the hallways in his underwear. Patient was reported to be uncooperative with EMS while en route. Blood glucose reportedly in 300's. Per reports, patient was not cooperative for the ED physician's examination and wouldn't answer any questions, despite having the ability to answer. Apparently patient required verbal de-escalation and ultimately received 5 mg haldol. On arrival to ED, patient was afebrile and vital signs stable. Initial lab evaluation notable for WBC 12.5, bicarbonate 17, lactic acid 7.6, negative troponin. UA positive for leukocyte esterase and microscopic WBCs. UDS positive for marijuana. CXR shows diffuse interstitial opacities bilaterally. CT head negative for acute intracranial abnormalities. Patient received 1 g Rocephin for suspected UTI. Thiamine and folate supplementation given. 2 L fluid bolus given for patients lactic acidosis, repeat lactic acid was 1.2. At the time of my exam the patient was sleeping and appeared comfortable. Vital signs were stable on the monitor. Patient responds to verbal stimuli, but was not cooperative in answering any questions. PMH: VTE, CVA, Afib, COPD, prostate cancer, HTN, HLD SH: EtOH abuse, opiate abuse, marijuana, tobacco use Past Med Surg Social Fam HX - Past Medical History Medical history: non-contributory - Social History Smoking Status: Never smoker Internal Medicine - H&P: Meds Albuterol Sulfate [Ventolin Hfa] 2 puff IH QID PRN 07/04/18 [History] Baclofen 20 mg PO TID 07/04/18 [History] Cholecalciferol (Vitamin D3) [Children's Vitamin D3] 2,000 unit PO DAILY 07/04/18 [History] Folic Acid 1 mg PO DAILY 07/04/18 [History] Gabapentin [Neurontin] 1,200 mg PO TID 07/04/18 [History] Metoprolol Succinate [Toprol Xl] 25 mg PO BID 07/04/18 [History] Naproxen [Naprosyn] 500 mg PO BID PRN 07/04/18 [History] Omeprazole [PriLOSEC] 20 mg PO DAILY 07/04/18 [History] Potassium Chloride [Klor-Con 10] 10 meq PO DAILY 07/04/18 [History] Rivaroxaban [Xarelto] 20 mg PO DAILY 07/04/18 [History] Tamsulosin HCl [Flomax] 0.4 mg PO HS 07/04/18 [History] Thiamine HCl [Vitamin B-1] 100 mg PO BID 07/04/18 [History] Venlafaxine XR (24 HR) [Effexor XR] 150 mg PO DAILY 07/04/18 [History] hydrOXYzine HCl [Hydroxyzine HCl] 50 mg PO HS PRN 07/04/18 [History] Allergy/AdvReac Type Severity Reaction Status Date / Time No Known Allergies Allergy Verified 07/04/18 13:59 ROS unobtainable: due to mental status All Systems PM: A 10-system review of systems was performed and is negative for pertinent findings except as documented above in the HPI. - Constitutional Vitals: Temp Pulse Resp BP Pulse Ox 98.0 F 88 14 128/96 96 07/04/18 13:51 07/04/18 15:54 07/04/18 15:54 07/04/18 15:54 07/04/18 15:54 Exam: General: No acute distress, resting comfortably in bed, doesn't appear to be in acute distress, thin HEENT: head normocephalic/atraumatic, moist mucus membranes Neck: Supple, no lymphadenopathy Cardio: RRR, no murmurs, +S1/S2 Pulm: CTAB, no wheezing, rhonchi, rales. Normal respiratory effort. Abdomen: soft, nontender, normal bowel sounds; no rebound, rigidity, guarding, distention Neuro: Minimally cooperative with exam, unable to accurately assess mental status, no obvious focal deficits, moves extremities spontaneously Extremities: No LE edema, no calf tenderness; no cyanosis; +2/4 dorsalis pedis pulses MSK: no visible deformities Skin: clean, dry; no rashes, ulcerations, or lacerations of exposed skin Psych: Non-cooperative Internal Med - H&P Results - Labs CBC & Chem 7: 07/04/18 14:01 07/04/18 14:01 Labs: Short CBC 07/04/18 Range/Units 14:01 WBC 12.5 H (4.3-11.1) K/mcL Hgb 11.4 L (12.9-16.9) g/dL Hct 39.0 (37.5-50.1) % Plt Count 381 (140-400) K/mcL Neutrophils # 10.3 H (1.6-8.9) K/mcL BMP 07/04/18 14:01 Sodium 144 Potassium 4.9 Chloride 108 H Carbon Dioxide 17 L BUN 23 Creatinine 1.26 Glucose 236 H Calcium 9.8 Cardiac Enzymes 07/04/18 Range/Units 14:01 Troponin I < 0.03 (< 0.04) ng/mL Liver Function 07/04/18 Range/Units 14:01 Total Bilirubin 0.3 (0.3-1.0) mg/dL Direct Bilirubin 0.1 (0.0-0.2) mg/dL AST 11 L (13-39) Units/L ALT 9 (7-52) Units/L Alkaline Phosphatase 76 (34-104) Units/L Albumin 3.8 (3.5-5.7) g/dL Urine 07/04/18 Range/Units 13:50 Urine Color Yellow (Yellow) Urine Clarity Cloudy A (Clear) Urine pH 6.0 (5.0-8.0) pH Units Ur Specific [place] 1.024 (1.010-1.025) Urine Protein 30 H (Neg-Trace) mg/dL Urine Glucose (UA) Normal (Normal) mg/dL - ABG Interpretation ABG results: 07/04/18 14:26 VBG pH 7.24 L VBG pCO2 38 L VBG pO2 46 VBG HCO3 16 L - Impressions ITS Impressions Chest X-Ray 07/04/18 13:41 IMPRESSION: Diffuse interstitial opacity, for which leading considerations include pulmonary edema or interstitial lung disease. D/ / Josh Aaron MD / Josh Aaron MD Interpreting Provider: Josh Aaron MD Head CT 07/04/18 13:41 IMPRESSION: Atrophy and moderate small vessel ischemic disease. Left frontal encephalomalacia, suggestive of remote infarct. D/ / Josh Aaron MD / Josh Aaron MD Interpreting Provider: Josh Aaron MD - Assessment and Plan (1) Acute encephalopathy Current Visit: Yes Status: Acute Assessment and plan: Uncertain of etiology--- infectious versus intoxication versus metabolic CT head negative for acute intracranial abnormality, atrophy and small vessel ischemic disease were noted CXR showed diffuse bilateral interstitial opacities which may represent pulmonary edema or interstitial lung disease--- appears very similar to previous CXR Evidence of UTI on UA, urine sample sent for culture--- treating empirically with Rocephin Urine toxicology screen positive for marijuana Although negative for ethyl alcohol on urine tox screen, received thiamine and folate supplementation in ED--- additional multivitamin infusion with thiamine and folate has been ordered Metabolic panel was unremarkable, will repeat in morning We will continue to monitor closely (2) Lactic acidosis Current Visit: Yes Status: Acute Assessment and plan: Lactic acid 7.6 on arrival Received 2 L normal saline, repeat lactic acid was 1.2 - Repeat lactic acid in morning (3) UTI (urinary tract infection) Current Visit: Yes Status: Suspected Assessment and plan: UA positive for leukocyte esterase and WBCs--- urine culture ordered, will monitor for growth Received 1 g Rocephin in the emergency department---will continue Rocephin empirically Possibly contributing to patient's acute encephalopathy Qualifiers: Urinary tract infection type: acute cystitis Hematuria presence: without hematuria Qualified Code(s): N30.00 - Acute cystitis without hematuria (4) KEYA (acute kidney injury) Current Visit: Yes Status: Acute Assessment and plan: Serum creatinine 1.26--- baseline appears to be around 0.8 Continue IV fluids and reassess renal function on morning labs (5) History of CVA (cerebrovascular accident) Current Visit: Yes Status: Acute Assessment and plan: May 2018 CT head demonstrated left frontal lobe infarct Head CT this admission shows left frontal encephalomalacia suggestive of remote infarct (6) Positive urine drug screen Current Visit: Yes Status: Acute Assessment and plan: UDS positive for marijuana (7) History of substance use Current Visit: Yes Status: Acute Assessment and plan: Known history of substance use including opiates, marijuana, and alcohol (8) History of ETOH abuse Current Visit: Yes Status: Acute Assessment and plan: Urine toxicology showed ethyl alcohol level < 10 Received thiamine and folate supplementation in emergency department Banana bag with thiamine and folate ordered (9) Afib Current Visit: Yes Status: Acute Assessment and plan: Appears to be rate controlled Home medication list not verified---review of records shows metoprolol for rate control and Xarelto for anticoagulation Will not restart Xarelto at this time due to increased fall risk Qualifiers: Atrial fibrillation type: unspecified Qualified Code(s): I48.91 - Unspecified atrial fibrillation (10) Hypertension Current Visit: Yes Status: Chronic Assessment and plan: SBP 110s to 120s on admission Home med list not verified Qualifiers: Hypertension type: unspecified Qualified Code(s): I10 - Essential (primary) hypertension - Time Spent With Patient Total time spent is greater than 50% in coordination of care (as documented) at patient's floor/unit and/or counseling patient: <Rylan Malcolm - Last Filed: 07/04/18 22:27> Date of Encounter: 07/04/18 All Systems PM: A 10-system review of systems was performed and is negative for pertinent findings except as documented above in the HPI. - Constitutional Vitals: Temp Pulse Resp BP Pulse Ox 98.3 F 68 14 149/87 99 07/04/18 19:48 07/04/18 19:48 07/04/18 19:48 07/04/18 19:48 07/04/18 19:48 Internal Med - H&P Results - Labs CBC & Chem 7: 07/04/18 14:01 07/04/18 14:01 Labs: Short CBC 07/04/18 Range/Units 14:01 WBC 12.5 H (4.3-11.1) K/mcL Hgb 11.4 L (12.9-16.9) g/dL Hct 39.0 (37.5-50.1) % Plt Count 381 (140-400) K/mcL Neutrophils # 10.3 H (1.6-8.9) K/mcL BMP 07/04/18 14:01 Sodium 144 Potassium 4.9 Chloride 108 H Carbon Dioxide 17 L BUN 23 Creatinine 1.26 Glucose 236 H Calcium 9.8 Cardiac Enzymes 07/04/18 Range/Units 14:01 Troponin I < 0.03 (< 0.04) ng/mL Liver Function 07/04/18 Range/Units 14:01 Total Bilirubin 0.3 (0.3-1.0) mg/dL Direct Bilirubin 0.1 (0.0-0.2) mg/dL AST 11 L (13-39) Units/L ALT 9 (7-52) Units/L Alkaline Phosphatase 76 (34-104) Units/L Albumin 3.8 (3.5-5.7) g/dL Urine 07/04/18 Range/Units 13:50 Urine Color Yellow (Yellow) Urine Clarity Cloudy A (Clear) Urine pH 6.0 (5.0-8.0) pH Units Ur Specific [place] 1.024 (1.010-1.025) Urine Protein 30 H (Neg-Trace) mg/dL Urine Glucose (UA) Normal (Normal) mg/dL - ABG Interpretation ABG results: 07/04/18 07/04/18 14:26 18:22 VBG pH 7.24 L 7.27 L VBG pCO2 38 L 45 VBG pO2 46 36 VBG HCO3 16 L 21 - Time Spent With Patient Total time spent is greater than 50% in coordination of care (as documented) at patient's floor/unit and/or counseling patient: - Attending Attestation Patient seen and examined independently. Objective data has been reviewed incl uding labs, micro, imaging, ECGs, and old records. I agree with the plan of care as documented above by the resident, with the following comments: S 68 M w hx CAD, recent CVA, A-Fib on AC, EtOH and other substance use disorders, who p/w confusion from long-term, apparently running around in state of undress, and currently unable to provide history and hyperactive/agitated in ED requiring sedation. Evaluation revealed HR 90s, RR 20-22, WBC 12, Cr 1.25, CO2 17, lactate 7s, venous pH 7.27. UA w several WBCs. CXR and ECG unremarkable as was head CT. Given NS 2L bolus and dose of ceftriaxone prior to admission. O On my exam, HR 90s, RR 22, SBP 120s. Patient does open eyes to his name but is otherwise somnolent. Dry mucous membranes. Lungs with bibasilar crackles. Abd soft. No rashes. No pedal edema. Moving all extremities spontaneously albeit infrequently. A/P Multiple things going on here. Most concerning is his lactic acidosis, which from exam I suspect is due to severe dehydration and KEYA in setting of possible UTI, also has Utox positive for THC and home med list notes high dose gabapentin 1200 mg tid and baclofen 20 tid which in renal impairment can cause toxic metabolic encephalopathy of this kind. Obviously infection is high of ddx, and we will add blood cultures although it should be noted these have been ordered/collected after the ED administered Rocephin, and thus will follow UCx. Pt did receive sepsis fluid bolus. With recent CVA, this is also on ddx although CT head unremarkable, can consider MRI if other workup above is unrevealing. Fortunately, on repeat, lactate is significantly improved, and his blood pressures continue to increase. Mental status slightly more aware than on admission also suggests trend toward improvement. We will continue rocephin, IV fluids, hold any home centrally acting meds, and follow cultures.
[2018-07-04] MEDS ORDERED: Naloxone 0.4 MG/ML INJ IVP PRN ×2 (16:54)
[2018-07-04] MEDS ORDERED: MVI, adult with vitamin K 10 ML in 0.9 % Sodium Chloride 1,000 ML IVC ONE (17:51)
[2018-07-04 18:27] LABS: VBG HCO3 21 mEq/L (21-27); VBG PCO2 45 mmHg (41-51); VBG PH 7.27 pH Units (7.32-7.42); VBG PO2 36 mmHg (25-50)
[2018-07-04] MEDS ORDERED: *HR* LORazepam 2 MG/ML VIAL IVP ONE (22:28)
[2018-07-04] MEDS ORDERED: *HR* LORazepam 2 MG/ML VIAL IVP PRN ×2 (23:29)
[2018-07-05] MEDS ORDERED: *HR* LORazepam 2 MG/ML VIAL IVP PRN (00:30)
[2018-07-05] MEDS: *HR* LORazepam 2 MG/ML VIAL IVP PRN ×2 (03:53→08:35)
[2018-07-05] MEDS: *HR* Enoxaparin 40 MG/0.4 ML SYRINGE SQ SCH (04:12)
--- NOTE | 2018-07-05 08:32 | Internal Med Progress Note ---
<Rylan Malcolm - Last Filed: 07/05/18 16:13> Hospitalist Progress Note - Encounter Date of Encounter: 07/05/18 Internal Medicine: Result - Labs CBC & Chem 7: 07/05/18 04:00 07/05/18 04:00 Labs: Short CBC 07/05/18 Range/Units 04:00 WBC 10.2 (4.3-11.1) K/mcL Hgb 10.1 L (12.9-16.9) g/dL Hct 34.4 L (37.5-50.1) % Plt Count 333 (140-400) K/mcL Neutrophils # 7.1 (1.6-8.9) K/mcL BMP 07/05/18 04:00 Sodium 146 H Potassium 4.1 Chloride 118 H Carbon Dioxide 19 L BUN 13 Creatinine 0.74 Glucose 97 Calcium 8.8 - ABG Interpretation ABG results: PT/INR, D-dimer PT 15.0 Seconds (9.4-12.1) H 07/04/18 14:01 - Impressions Impressions Chest X-Ray 07/04/18 13:41 IMPRESSION: Diffuse interstitial opacity, for which leading considerations include pulmonary edema or interstitial lung disease. D/ / Josh Aaron MD / Josh Aaron MD Interpreting Provider: Josh Aaron MD Head CT 07/04/18 13:41 IMPRESSION: Atrophy and moderate small vessel ischemic disease. Left frontal encephalomalacia, suggestive of remote infarct. D/ / Josh Aaron MD / Josh Aaron MD Interpreting Provider: Josh Aaron MD Consult Discharge Plan - Plan [facility]errals[facility] Provider[facility] - 07/19/18 10:15 am - Attending Attestation Patient seen and examined independently, including review of objective data including labs. I agree with plan of care as documented above by the resident with the following comments: Pt remains confused and agitated although is more awake and responsive today as he does nod in agreement when asked if he wants a pillow. Able to tell me his name. However, is not very cooperative otherwise. Repeat labs overnight show resolution of lactic acidosis and improvement in pH. Renal function improved today. Hopeful that his mentation will improve with continued monitoring while holding any centrally acting medications including ativan which was given a few times overnight. Re his UCx, it is prelim positive for GPCs, and with suspicion for enterococcus will change rocephin to unasyn. <Rosa Maria Bennett - Last Filed: 07/05/18 20:22> Hospitalist Progress Note - Encounter Date of Encounter: 07/05/18 Time of Encounter: 08:30 - Subjective Interval History: Nursing notes reviewed, patient uncooperative overnight. On exam this morning, patient is a little more alert and will open eyes. Occasionally offers one word response when asked a question. - Exam Vitals: Temp Pulse Resp BP Pulse Ox 97.8 F 83 18 126/73 91 07/05/18 07:19 07/05/18 07:19 07/05/18 07:19 07/05/18 07:19 07/05/18 07:19 Exam: General: No acute distress, resting comfortably in bed, doesn't appear to be in acute distress, thin HEENT: head normocephalic/atraumatic, moist mucus membranes Neck: Supple, no lymphadenopathy Cardio: RRR, no murmurs, +S1/S2 Pulm: CTAB, no wheezing, rhonchi, rales. Normal respiratory effort. Abdomen: soft, nontender, normal bowel sounds; no rebound, rigidity, guarding, distention Neuro: Minimally cooperative with exam, unable to accurately assess mental status, no obvious focal deficits, moves extremities spontaneously Extremities: No LE edema, no calf tenderness; no cyanosis; +2/4 dorsalis pedis pulses MSK: no visible deformities Skin: clean, dry; no rashes, ulcerations, or lacerations of exposed skin Psych: Non-cooperative - Assessment and Plan (1) Acute encephalopathy Current Visit: Yes Status: Acute Assessment and Plan: Slight improvement as renal function has improved and lactic acidosis has resolved Uncertain of etiology--- infectious versus intoxication versus metabolic CT head negative for acute intracranial abnormality, atrophy and small vessel ischemic disease were noted Urine toxicology screen positive for marijuana Evidence of UTI on UA, urine sample sent for culture---gram positive cocci Monitor BCx for growth Avoid ativan, gabapentin, and other medications that act centrally We will continue to monitor closely (2) UTI (urinary tract infection) Current Visit: Yes Status: Suspected Assessment and Plan: UA positive for leukocyte esterase and WBCs Received 1 g Rocephin in the emergency department Urine cx shows gram positive cocci, await identification and adjust abx accordingly (3) KEYA (acute kidney injury) Current Visit: Yes Status: Acute Assessment and Plan: Improving Serum creatinine 1.26 on arrival--- baseline appears to be around 0.8 Monitor renal function on morning labs (4) Lactic acidosis Current Visit: Yes Status: Resolved Assessment and Plan: Possibly d/t dehydration with KEYA in setting of possible UTI and could've contributed to presenting encephalopathy Lactic acid 7.6 on arrival, improved to 1.2 after IVF boluses (5) History of CVA (cerebrovascular accident) Current Visit: Yes Status: Acute Assessment and Plan: May 2018 CT head demonstrated left frontal lobe infarct Head CT this admission shows left frontal encephalomalacia suggestive of remote infarct (6) History of substance use Current Visit: Yes Status: Acute Assessment and Plan: Known history of substance use including opiates, marijuana, and alcohol (7) Hypertension Current Visit: Yes Status: Chronic Assessment and Plan: SBP 110s to 120s on admission, doesn't appear to be on anti-hypertensive meds at home Continue to monitor (8) Positive urine drug screen Current Visit: Yes Status: Acute Assessment and Plan: UDS positive for marijuana (9) History of ETOH abuse Current Visit: Yes Status: Acute Assessment and Plan: Urine toxicology showed ethyl alcohol level < 10 Received thiamine and folate supplementation in emergency department Banana bag with thiamine and folate ordered (10) Afib Current Visit: Yes Status: Acute Assessment and Plan: Appears to be rate controlled Home medications metoprolol for rate control and Xarelto for anticoagulation Will not restart Xarelto at this time due to increased fall risk - Time Spent with Patient Total time spent is greater than 50% in coordination of care (as documented) at patient's floor/unit and/or counseling patient: less than 15 minutes Internal Medicine: Result - Labs CBC & Chem 7: 07/05/18 04:00 07/05/18 04:00 Labs: Short CBC 07/04/18 Range/Units 14:01 WBC 12.5 H (4.3-11.1) K/mcL Hgb 11.4 L (12.9-16.9) g/dL Hct 39.0 (37.5-50.1) % Plt Count 381 (140-400) K/mcL Neutrophils # 10.3 H (1.6-8.9) K/mcL BMP 07/04/18 14:01 Sodium 144 Potassium 4.9 Chloride 108 H Carbon Dioxide 17 L BUN 23 Creatinine 1.26 Glucose 236 H Calcium 9.8 Cardiac Enzymes 07/04/18 Range/Units 14:01 Troponin I < 0.03 (< 0.04) ng/mL Liver Function 07/04/18 Range/Units 14:01 Total Bilirubin 0.3 (0.3-1.0) mg/dL Direct Bilirubin 0.1 (0.0-0.2) mg/dL AST 11 L (13-39) Units/L ALT 9 (7-52) Units/L Alkaline Phosphatase 76 (34-104) Units/L Albumin 3.8 (3.5-5.7) g/dL Urine 07/04/18 Range/Units 13:50 Urine Color Yellow (Yellow) Urine Clarity Cloudy A (Clear) Urine pH 6.0 (5.0-8.0) pH Units Ur Specific [place] 1.024 (1.010-1.025) Urine Protein 30 H (Neg-Trace) mg/dL Urine Glucose (UA) Normal (Normal) mg/dL - ABG Interpretation ABG results: PT/INR, D-dimer PT 15.0 Seconds (9.4-12.1) H 07/04/18 14:01 - Impressions Impressions Chest X-Ray 07/04/18 13:41 IMPRESSION: Diffuse interstitial opacity, for which leading considerations include pulmonary edema or interstitial lung disease. D/ / Josh Aaron MD / Josh Aaron MD Interpreting Provider: Josh Aaron MD Head CT 07/04/18 13:41 IMPRESSION: Atrophy and moderate small vessel ischemic disease. Left frontal encephalomalacia, suggestive of remote infarct. D/ / Josh Aaron MD / Josh Aaron MD Interpreting Provider: Josh Aaron MD <Rosa Maria Bennett - Last Filed: 07/05/18 20:22> (2) UTI (urinary tract infection) Qualifiers: Urinary tract infection type: acute cystitis Hematuria presence: without hematuria Qualified Code(s): N30.00 - Acute cystitis without hematuria (7) Hypertension Qualifiers: Hypertension type: unspecified Qualified Code(s): I10 - Essential (primary) hypertension (10) Afib Qualifiers: Atrial fibrillation type: unspecified Qualified Code(s): I48.91 - Unspecified atrial fibrillation
[2018-07-05] MEDS ORDERED: cefTRIAXone 1,000 MG in Water for inj. (sterile) 20 ML 10 ML IVP SCH (09:00)
[2018-07-05 11:03] LABS: Basophils % 0.5 %
[2018-07-05 11:05] LABS: Basophils # 0.1 K/mcL (0.0-0.2); Eosinophils # 0.4 K/mcL (0.0-0.6); Eosinophils % 3.4 %; Hematocrit 34.4 % (37.5-50.1); Hemoglobin 10.1 g/dL (12.9-16.9); Immature Granulocytes % 0.4 % (0-4); Lymphocytes # 2.1 K/mcL (0.6-4.6); Lymphocytes % 20.2 %; Mean Corpuscular HGB Conc 29.4 g/dL (31.6-35.5); Mean Corpuscular Hemoglobin 26.6 pg (28.0-33.3); Mean Corpuscular Volume 90.8 fL (83.0-100.0); Mean Platelet Volume 9.1 fL (9.4-12.4); Monocytes # 0.6 K/mcL (0.0-1.3); Neutrophils # 7.1 K/mcL (1.6-8.9); Platelet Count 333 K/mcL (140-400); Red Blood Count 3.79 M/mcL (4.19-5.50); Red Cell Distribution Width 15.5 % (11.5-14.5); Segmented Neutrophils % 69.5 %
[2018-07-05] MEDS ORDERED: *HR* LORazepam 2 MG/ML VIAL IVP ONE (11:08)
[2018-07-05 11:14] LABS: BUN/Creatinine Ratio 18 (6-26); Blood Urea Nitrogen 13 mg/dL (8-23); Calcium 8.8 mg/dL (8.6-10.3); Carbon Dioxide 19 mEq/L (23-29); Chloride 118 mEq/L (98-107); Glucose 97 mg/dL (70-105); Osmolality,Calculated 302 (280-300); Potassium 4.1 mEq/L (3.5-5.1); Sodium 146 mEq/L (136-145); eGFR For Non-African Americans > 60 (> 60)
[2018-07-05 12:29] LABS: Platelet Estimate Normal (Normal)
[2018-07-05] MEDS: Ampicillin/Sulbactam 3,000 MG in 0.9 % Sodium Chloride Mini Bag 100 ML IVPB SCH ×2 (18:26→23:39)
[2018-07-06] MEDS: *HR* Enoxaparin 40 MG/0.4 ML SYRINGE SQ SCH (05:49)
[2018-07-06] MEDS: Ampicillin/Sulbactam 3,000 MG in 0.9 % Sodium Chloride Mini Bag 100 ML IVPB SCH ×2 (05:50→11:47)
--- NOTE | 2018-07-06 08:32 | Internal Med Progress Note ---
<Rosa Maria Bennett - Last Filed: 07/06/18 16:54> Hospitalist Progress Note - Encounter Date of Encounter: 07/06/18 Time of Encounter: 08:18 - Exam Vitals: Temp Pulse Resp BP Pulse Ox 97.8 F 98 18 136/87 96 07/06/18 07:00 07/06/18 07:46 07/06/18 07:00 07/06/18 07:00 07/06/18 07:00 Exam: . - Assessment and Plan (1) Acute encephalopathy Current Visit: Yes Status: Acute (2) UTI (urinary tract infection) Current Visit: Yes Status: Suspected (3) KEYA (acute kidney injury) Current Visit: Yes Status: Acute (4) Lactic acidosis Current Visit: Yes Status: Resolved (5) History of CVA (cerebrovascular accident) Current Visit: Yes Status: Acute (6) History of substance use Current Visit: Yes Status: Acute (7) Hypertension Current Visit: Yes Status: Chronic (8) Positive urine drug screen Current Visit: Yes Status: Acute (9) History of ETOH abuse Current Visit: Yes Status: Acute (10) Afib Current Visit: Yes Status: Acute - Summary of Assessment and Plan Summary of Assessment and Plan: S: Nursing notes reviewed, patient reportedly agitated and refusing to wear telemetry or allow assessment of vital signs overnight. Reportedly threw urine- soaked pad across room overnight. On my exam, patient is alert and answers questions appropriately, albeit slowly. He denies chest pain, shortness of breath, abdominal pain, nausea. State he is supposed to wear a breathing mask at night, somewhat aggravated when asked if it was CPAP or BiPAP machine and stated he doesn't know. O: General: thin, unkempt, no acute distress HEENT: head normocephalic/atraumatic, pink oral mucous membranes Neck: Supple, no lymphadenopathy Cardio: RRR, no murmurs, +S1/S2 Pulm: CTAB, no wheezing, rhonchi, rales. Normal respiratory effort. Abdomen: soft, nontender, normal bowel sounds; no rebound, rigidity, guarding, distention Neuro:, no focal deficits, moves extremities spontaneously, CN II-XII grossly intact; AAO x 3, answers questions appropriately Extremities: No LE edema, no calf tenderness; no cyanosis; +2/4 dorsalis pedis pulses MSK: no visible deformities Skin: clean, dry; no rashes, ulcerations, or lacerations of exposed skin Psych: cooperative with exam, A/P: ACUTE ENCEPHALOPATHY: Improving. - Continue avoiding centrally-acting medications for now - Continue abx for UTI - BiPAP at night ordered UTI: Improving cllinically. UCx shows castellanos-sensative Enterococcus faecalis - De-escalate antibiotics, discontinue ampicillin-sulbactam 3 gm IV Q6H - Start Nitrofurontoin 100 mg PO BID, treat through 07/11 KEYA: Improved. HTN: Controlled without anti-hypertensives at this time Lactic acidosis: Resolved after IV fluids. Likely d/t combination of UTI, possible dehydration, and KEYA. Afib: Restart home med metoprolol 25mg PO BID for rate control CVA hx: May 2018, CT head at that time showed left frontal lobe infarct EtOH abuse: CIWA assessments. Ativan discontinued. Substance abuse hx: UDS positive for marijuana. History of opiate abuse. DVT prophylaxis: Lovenox 40 mg SQ daily - Time Spent with Patient Total time spent is greater than 50% in coordination of care (as documented) at patient's floor/unit and/or counseling patient: Internal Medicine: Result - Labs CBC & Chem 7: 07/05/18 04:00 07/05/18 04:00 Labs: Short CBC 07/05/18 Range/Units 04:00 WBC 10.2 (4.3-11.1) K/mcL Hgb 10.1 L (12.9-16.9) g/dL Hct 34.4 L (37.5-50.1) % Plt Count 333 (140-400) K/mcL Neutrophils # 7.1 (1.6-8.9) K/mcL BMP 07/05/18 04:00 Sodium 146 H Potassium 4.1 Chloride 118 H Carbon Dioxide 19 L BUN 13 Creatinine 0.74 Glucose 97 Calcium 8.8 - ABG Interpretation ABG results: PT/INR, D-dimer PT 15.0 Seconds (9.4-12.1) H 07/04/18 14:01 - Impressions Impressions Chest X-Ray 07/04/18 13:41 IMPRESSION: Diffuse interstitial opacity, for which leading considerations include pulmonary edema or interstitial lung disease. D/ / Josh Aaron MD / Josh Aaron MD Interpreting Provider: Josh Aaron MD Head CT 07/04/18 13:41 IMPRESSION: Atrophy and moderate small vessel ischemic disease. Left frontal encephalomalacia, suggestive of remote infarct. D/ / Josh Aaron MD / Josh Aaron MD Interpreting Provider: Josh Aaron MD Consult Discharge Plan - Plan [facility] Care Provider[facility] - 07/19/18 10:15 am <Rylan Malcolm - Last Filed: 07/06/18 18:11> Hospitalist Progress Note - Encounter Date of Encounter: 07/06/18 Internal Medicine: Result - Labs CBC & Chem 7: 07/05/18 04:00 07/05/18 04:00 - Attending Attestation Patient seen and examined independently, including review of objective data including labs. I agree with plan of care as documented above by the resident with the following comments: Overall improving, today is sitting up in bed eating breakfast and talking, able to answer questions. Still some intermittent confusion but vastly improved. Labs improved. Continue monitoring but can transfer to med/surg and will look at discharge planning in next 1-2 days if continues improving as is. Enterococcus UTI will give PO amoxicillin. Encourage PO intake. Continue holding centrally acting meds. <Rosa Maria Bennett - Last Filed: 07/06/18 16:54> (2) UTI (urinary tract infection) Qualifiers: Urinary tract infection type: acute cystitis Hematuria presence: without hematuria Qualified Code(s): N30.00 - Acute cystitis without hematuria (7) Hypertension Qualifiers: Hypertension type: unspecified Qualified Code(s): I10 - Essential (primary) hypertension (10) Afib Qualifiers: Atrial fibrillation type: unspecified Qualified Code(s): I48.91 - Unspecified atrial fibrillation
[2018-07-06] MEDS ORDERED: Nitrofurantoin (BID) 100 MG CAPSULE PO SCH (17:00)
[2018-07-06] MEDS: Amoxicillin 500 MG CAPSULE PO SCH (20:23)
[2018-07-06] MEDS: Metoprolol XL (24 HR) Succ 25 MG TAB.ER.24H PO SCH (20:23)
[2018-07-07 04:03] LABS: Basophils # 0.1 K/mcL (0.0-0.2); Basophils % 0.5 %; Eosinophils # 0.7 K/mcL (0.0-0.6); Eosinophils % 6.3 %; Hemoglobin 11.3 g/dL (12.9-16.9); Immature Granulocytes % 0.4 % (0-4); Lymphocytes # 2.3 K/mcL (0.6-4.6); Lymphocytes % 22.2 %; Mean Corpuscular HGB Conc 31.4 g/dL (31.6-35.5); Mean Corpuscular Hemoglobin 26.8 pg (28.0-33.3); Mean Corpuscular Volume 85.3 fL (83.0-100.0); Mean Platelet Volume 8.5 fL (9.4-12.4); Monocytes # 0.8 K/mcL (0.0-1.3); Monocytes % 7.4 %; Neutrophils # 6.5 K/mcL (1.6-8.9); Platelet Count 292 K/mcL (140-400); Red Blood Count 4.22 M/mcL (4.19-5.50); Red Cell Distribution Width 15.3 % (11.5-14.5); Segmented Neutrophils % 63.2 %
[2018-07-07 04:22] LABS: BUN/Creatinine Ratio 9 (6-26); Blood Urea Nitrogen 7 mg/dL (8-23); Calcium 9.1 mg/dL (8.6-10.3); Carbon Dioxide 21 mEq/L (23-29); Chloride 109 mEq/L (98-107); Glucose 95 mg/dL (70-105); Osmolality,Calculated 290 (280-300); Potassium 3.4 mEq/L (3.5-5.1); Sodium 141 mEq/L (136-145); eGFR For Non-African Americans > 60 (> 60)
[2018-07-07] MEDS: Amoxicillin 500 MG CAPSULE PO SCH ×2 (05:02→12:02)
[2018-07-07] MEDS: *HR* Enoxaparin 40 MG/0.4 ML SYRINGE SQ SCH (05:02)
[2018-07-07] MEDS: Metoprolol XL (24 HR) Succ 25 MG TAB.ER.24H PO SCH (08:18)
--- NOTE | 2018-07-07 08:49 | Internal Med Progress Note ---
Hospitalist Progress Note - Encounter Date of Encounter: 07/07/18 Time of Encounter: 08:49 - Subjective Interval History: No events reported overnight by patient, none reported on review of nursing notes. Patient appears comfortable sitting in bed, watching TV. More alert, speech is more fluent. Endorses no complaints, reports he feels fine. - Exam Vitals: Temp Pulse Resp BP Pulse Ox 97.7 F 80 16 120/79 99 07/07/18 07:02 07/07/18 07:02 07/07/18 07:02 07/07/18 07:02 07/07/18 07:02 Exam: General: thin, vitals noted, no acute distress, more communicative today HEENT: head normocephalic/atraumatic, pink oral mucous membranes Neck: Supple, no lymphadenopathy Cardio: RRR, no murmurs, +S1/S2 Pulm: CTAB, no wheezing, rhonchi, rales. Normal respiratory effort. Abdomen: soft, nontender, normal bowel sounds Neuro:, no focal deficits, moves extremities spontaneously, CN II-XII grossly intact; AAO x 3, answers questions appropriately Extremities: No LE edema MSK: no visible deformities Skin: clean, dry; no rashes, ulcerations, or lacerations of exposed skin Psych: cooperative with exam, - Assessment and Plan (1) Acute encephalopathy Current Visit: Yes Status: Acute (2) UTI (urinary tract infection) Current Visit: Yes Status: Suspected (3) KEYA (acute kidney injury) Current Visit: Yes Status: Acute (4) Lactic acidosis Current Visit: Yes Status: Resolved (5) History of CVA (cerebrovascular accident) Current Visit: Yes Status: Acute (6) History of substance use Current Visit: Yes Status: Acute (7) Hypertension Current Visit: Yes Status: Chronic (8) Positive urine drug screen Current Visit: Yes Status: Acute (9) History of ETOH abuse Current Visit: Yes Status: Acute (10) Afib Current Visit: Yes Status: Acute - Summary of Assessment and Plan Summary of Assessment and Plan: ACUTE ENCEPHALOPATHY: Improving mental status correlating with avoidance of centrally-acting medications, correction of KEYA, and with treatment of UTI. Anticipating d/c soon. - on discharge, will discontinue Baclofen and will decrease home Gabapentin to 600 mg PO TID UTI: Improving clinically. UCx shows castellanos-sensative Enterococcus faecalis. Continuing amoxicillin 500 mg PO Q8H with plan to treat through 07/11/18. KEYA: Improved. HTN: Controlled without anti-hypertensives at this time. Afib: Controlled on metoprolol 25mg PO BID, will continue. Lactic acidosis: Resolved after IV fluids. Likely d/t combination of UTI, possible dehydration, and KEYA. CVA hx: May 2018, CT head at that time showed left frontal lobe infarct EtOH abuse: CIWA assessments. Ativan discontinued. Substance abuse hx: UDS positive for marijuana. History of opiate abuse. DVT prophylaxis: Lovenox 40 mg SQ daily - Time Spent with Patient Total time spent is greater than 50% in coordination of care (as documented) at patient's floor/unit and/or counseling patient: Internal Medicine: Result - Labs CBC & Chem 7: 07/07/18 03:44 07/07/18 03:44 Labs: Short CBC 07/07/18 Range/Units 03:44 WBC 10.3 (4.3-11.1) K/mcL Hgb 11.3 L (12.9-16.9) g/dL Hct 36.0 L (37.5-50.1) % Plt Count 292 (140-400) K/mcL Neutrophils # 6.5 (1.6-8.9) K/mcL BMP 07/07/18 03:44 Sodium 141 Potassium 3.4 L Chloride 109 H Carbon Dioxide 21 L BUN 7 L Creatinine 0.75 Glucose 95 Calcium 9.1 - ABG Interpretation ABG results: PT/INR, D-dimer PT 15.0 Seconds (9.4-12.1) H 07/04/18 14:01 Consult Discharge Plan - Plan [facility]errals: [facility] [Primary Care Provider] - 07/19/18 10:15 am (2) UTI (urinary tract infection) Qualifiers: Urinary tract infection type: acute cystitis Hematuria presence: without hematuria Qualified Code(s): N30.00 - Acute cystitis without hematuria (7) Hypertension Qualifiers: Hypertension type: unspecified Qualified Code(s): I10 - Essential (primary) hypertension (10) Afib Qualifiers: Atrial fibrillation type: unspecified Qualified Code(s): I48.91 - Unspecified atrial fibrillation
--- NOTE | 2018-07-07 13:34 | Discharge Summary ---
<Rylan Malcolm - Last Filed: 07/07/18 18:50> Date of Encounter: 07/07/18 - Discharge Medications Prescriptions: New Amoxicillin [Amoxil] 500 mg PO Q8H #13 capsule Continued Venlafaxine XR (24 HR) [Effexor Xr] 150 mg PO DAILY Omeprazole [PriLOSEC] 20 mg PO DAILY Cholecalciferol (D-3) [Vitamin D] 2,000 unit PO DAILY Acetaminophen [Tylenol] 650 mg PO Q6HR PRN PRN Reason: Pain Folic Acid 1 mg PO DAILY hydrOXYzine HCl [Hydroxyzine HCl] 50 mg PO HS PRN PRN Reason: Sleep Tamsulosin [Flomax] 0.4 mg PO HS Lidocaine 1 appl TP QID PRN PRN Reason: Pain Rivaroxaban [Xarelto] 20 mg PO DAILY Budesonide/Formoterol 80/4.5 [Symbicort 80/4.5] 2 puff IH BIDR #1 inhaler Albuterol Sulfate [Albuterol Inhaler] 2 puff IH QID PRN PRN Reason: Shortness Of Breath Atorvastatin [Lipitor] 80 mg PO HS #30 tablet Benzonatate [Tessalon] 100 mg PO TID PRN PRN Reason: Cough Nicotine Patch [Nicoderm] 14 mg TD DAILY patch.td24 Thiamine HCl [Vitamin B-1] 100 mg PO BID Potassium Chloride [Klor-Con 10] 10 meq PO DAILY Naproxen [Naprosyn] 500 mg PO BID PRN PRN Reason: Pain Metoprolol Succinate [Toprol Xl] 25 mg PO BID Cholecalciferol (Vitamin D3) [Children's Vitamin D3] 2,000 unit PO DAILY Zinc Sulfate 220 mg PO DAILY capsule Ferrous Sulfate 325 mg PO DAILY@0630 tablet Ascorbic Acid [Vitamin C] 500 mg PO DAILY@0630 tablet Changed Gabapentin [Neurontin] 600 mg PO TID #90 tablet Discontinued Baclofen 20 mg PO TID PRN PRN Reason: Muscle Spasm Tamsulosin [Flomax] 0.4 mg PO HS capsule Venlafaxine XR (24 HR) [Effexor XR] 150 mg PO DAILY Tamsulosin HCl [Flomax] 0.4 mg PO HS Rivaroxaban [Xarelto] 20 mg PO DAILY Omeprazole [PriLOSEC] 20 mg PO DAILY hydrOXYzine HCl [Hydroxyzine HCl] 50 mg PO HS PRN PRN Reason: Insomnia Gabapentin [Neurontin] 1,200 mg PO TID Folic Acid 1 mg PO DAILY Baclofen 20 mg PO TID Albuterol Sulfate [Ventolin Hfa] 2 puff IH QID PRN PRN Reason: Shortness Of Breath Metoprolol XL (24 HR) Succ [Toprol Xl] 50 mg PO DAILY tab.er.24h Home Medications: Acetaminophen [Tylenol] 650 mg PO Q6HR PRN 08/20/15 [History] Cholecalciferol (D-3) [Vitamin D] 2,000 unit PO DAILY 08/20/15 [History] Omeprazole [PriLOSEC] 20 mg PO DAILY 08/20/15 [History] Venlafaxine XR (24 HR) [Effexor Xr] 150 mg PO DAILY 08/20/15 [History] Folic Acid 1 mg PO DAILY 02/11/18 [History] Tamsulosin [Flomax] 0.4 mg PO HS 02/11/18 [History] hydrOXYzine HCl [Hydroxyzine HCl] 50 mg PO HS PRN 02/11/18 [History] Lidocaine 1 appl TP QID PRN 05/06/18 [History] Rivaroxaban [Xarelto] 20 mg PO DAILY 05/06/18 [History] Budesonide/Formoterol 80/4.5 [Symbicort 80/4.5] 2 puff IH BIDR #1 inhaler 05/07/18 [Rx] Albuterol Sulfate [Albuterol Inhaler] 2 puff IH QID PRN 06/06/18 [History] Atorvastatin [Lipitor] 80 mg PO HS #30 tablet 06/10/18 [Rx] Benzonatate [Tessalon] 100 mg PO TID PRN 06/23/18 [History] Nicotine Patch [Nicoderm] 14 mg TD DAILY patch.td24 06/24/18 [Rx] Ascorbic Acid [Vitamin C] 500 mg PO DAILY@0630 tablet 06/29/18 [Rx] Ferrous Sulfate 325 mg PO DAILY@0630 tablet 06/29/18 [Rx] Zinc Sulfate 220 mg PO DAILY capsule 06/29/18 [Rx] Cholecalciferol (Vitamin D3) [Children's Vitamin D3] 2,000 unit PO DAILY 07/04/18 [History] Metoprolol Succinate [Toprol Xl] 25 mg PO BID 07/04/18 [History] Naproxen [Naprosyn] 500 mg PO BID PRN 07/04/18 [History] Potassium Chloride [Klor-Con 10] 10 meq PO DAILY 07/04/18 [History] Thiamine HCl [Vitamin B-1] 100 mg PO BID 07/04/18 [History] Amoxicillin [Amoxil] 500 mg PO Q8H #13 capsule 07/07/18 [Rx] Gabapentin [Neurontin] 600 mg PO TID #90 tablet 07/07/18 [Rx] Allergies/Adverse Reactions: Allergy/AdvReac Type Severity Reaction Status Date / Time No Known Allergies Allergy Verified 07/05/18 09:40 Date of admission: 07/04/18 17:00 Primary care physician: PCP [facility] Consults: 07/04/18 18:18 Consult to Nutrition [CONS] Routine Comment: Consulting Provider: NUTRITION Reason for Dietary Consult: Other Other:: uncertain about pt. nutrition status due to AMS,unable to provide hx. Consult to Quality Compliance Manager [CONS] Routine Reason for SW Consult: discharge planning. due to uncertain living conditions prior to admission - Patient Status Disposition: Home Health Service Condition: Fair Functional capacity at discharge: independent ambulation Overall status at discharge: patient is back to baseline - Discharge Instructions Instructions: Urinary Tract Infection in Men (DC) Follow Up With: [facility],PCP [Primary Care Provider] - 07/19/18 10:15 am - Diet and Activity Activity: resume usual activities as tolerated Diet: low salt diet - Attending Attestation Patient seen and examined. I agree with the discharge plan as documented above by the resident. In summary, Bud Victoria is a 68 M w hx CAD, recent CVA, A-Fib on AC, EtOH and other substance use disorders, who p/w confusion from nursing home, running around in state of undress, unable to provide history. Evaluation revealed HR 90s, RR 20-22, WBC 12, Cr 1.25, CO2 17, lactate 7s, venous pH 7.27. UA w several WBCs. CXR and ECG unremarkable as was head CT. Given NS 2L bolus and dose of ceftriaxone prior to admission for suspected UTI and sepsis leading to KEYA and medication side effect causing acute toxic metabolic encephalopathy. In the hospital, encephalopathy improved with fluids, abx, and holding centrally acting meds. UCx grew enterococcus, and pt deescalated from unasyn to PO amoxicillin 500 tid to complete 7 day course on 07/11. Baclofen 20 tid stopped and gabapentin halved to 600 tid. Return to previous residence and resume home health services. <DonaldRosa Maria - Last Filed: 07/08/18 00:07> Orders not resulted at time of discharge: Pending orders 07/04/18 13:41 ECG 12 lead ECG [ECG] Stat 07/04/18 15:49 Culture,Blood [BC] Stat Date of Encounter: 07/07/18 Time of Encounter: 13:33 - Discharge Diagnosis (1) Acute encephalopathy Priority: Primary Status: Acute (2) UTI (urinary tract infection) Priority: Secondary Status: Acute Qualifiers: Urinary tract infection type: acute cystitis Hematuria presence: without hematuria Qualified Code(s): N30.00 - Acute cystitis without hematuria (3) KEYA (acute kidney injury) Priority: Secondary Status: Acute (4) Lactic acidosis Priority: Secondary Status: Resolved (5) History of CVA (cerebrovascular accident) Priority: Secondary Status: Acute (6) History of substance use Priority: Secondary Status: Acute (7) Hypertension Priority: Secondary Status: Chronic Qualifiers: Hypertension type: unspecified Qualified Code(s): I10 - Essential (primary) hypertension (8) Positive urine drug screen Priority: Secondary Status: Acute (9) History of ETOH abuse Priority: Secondary Status: Acute (10) Afib Priority: Secondary Status: Acute Qualifiers: Atrial fibrillation type: unspecified Qualified Code(s): I48.91 - Unspecified atrial fibrillation Hospital course: Mr. Victoria is a 68 year old male presenting to the ED by EMS for altered mental status. Initial lab evaluation notable for WBC 12.5, bicarbonate 17, lactic acid 7.6, negative troponin. UA positive for leukocyte esterase and microscopic WBCs. UDS positive for marijuana. CXR shows diffuse interstitial opacities bilaterally. CT head negative for acute intracranial abnormalities. Lactic acidosis corrected to 1.2 after 2L IV fluids. Urine culture grew pansensative enterococcus faecalis, IV Unasyn was de-escalated to PO Amoxil which was continued at discharge. Baclofen discontinued and gabapentin dose decreasd at time of discharge. Discharge discussed with: nurse - Time Spent with Patient Total time spent providing and/or coordinating discharge services: Date of admission: 07/04/18 17:00 [facility]: [facility] Consults: 07/04/18 18:18 Consult to Nutrition [CONS] Routine Comment: Consulting Provider: NUTRITION Reason for Dietary Consult: Other Other:: uncertain about pt. nutrition status due to AMS,unable to provide hx. Consult to Quality Compliance Manager [CONS] Routine Reason for SW Consult: discharge planning. due to uncertain living conditions prior to admission Discharging clinician: Rosa Maria Bennett Anticipated date of discharge: 07/07/18 - Constitutional Vitals: Temp Pulse Resp BP Pulse Ox 97.7 F 80 16 120/79 99 07/07/18 07:02 07/07/18 07:02 07/07/18 07:02 07/07/18 07:02 07/07/18 07:02 Exam: General: thin, vitals noted, no acute distress, more communicative today HEENT: head normocephalic/atraumatic, pink oral mucous membranes Neck: Supple, no lymphadenopathy Cardio: RRR, no murmurs, +S1/S2 Pulm: CTAB, no wheezing, rhonchi, rales. Normal respiratory effort. Abdomen: soft, nontender, normal bowel sounds Neuro:, no focal deficits, moves extremities spontaneously, CN II-XII grossly intact; AAO x 3, answers questions appropriately Extremities: No LE edema MSK: no visible deformities Skin: clean, dry; no rashes, ulcerations, or lacerations of exposed skin Psych: cooperative with exam, - Patient Status Functional capacity at discharge: independent ambulation Overall status at discharge: patient is progressing back to baseline
[2018-07-07 14:11] VITALS: BP 99/62
--- NOTE | 2018-07-07 16:03 | Physician Discharge Referral ---
Home Health/Hosp Referral Info Transfer to: Home Health Provider in Charge Post Discharge: PCP - Respiratory Orders Smoking Cessation: Smoking cessation has been advised. For more information, call the [place] Tobacco Quit Line at [phone]-TVRY-NOW. - Diet/Nutrition Diet/Nutrition Orders: No Added Salt (ZAYDA) - Activity Activity Orders: Walker - Services Needed Following services are medically necessary services: Nursing, Home Health Aide, Physical Therapy, Occupational Therapy Other Treatments: Resume all previous orders/services - Transfer Medications Prescriptions: Amoxicillin [Amoxil] 500 mg PO Q8H #13 capsule Gabapentin [Neurontin] 600 mg PO TID #90 tablet Home Medications: Acetaminophen [Tylenol] 650 mg PO Q6HR PRN 08/20/15 [History] Cholecalciferol (D-3) [Vitamin D] 2,000 unit PO DAILY 08/20/15 [History] Omeprazole [PriLOSEC] 20 mg PO DAILY 08/20/15 [History] Venlafaxine XR (24 HR) [Effexor Xr] 150 mg PO DAILY 08/20/15 [History] Folic Acid 1 mg PO DAILY 02/11/18 [History] Tamsulosin [Flomax] 0.4 mg PO HS 02/11/18 [History] hydrOXYzine HCl [Hydroxyzine HCl] 50 mg PO HS PRN 02/11/18 [History] Lidocaine 1 appl TP QID PRN 05/06/18 [History] Rivaroxaban [Xarelto] 20 mg PO DAILY 05/06/18 [History] Budesonide/Formoterol 80/4.5 [Symbicort 80/4.5] 2 puff IH BIDR #1 inhaler 05/07/18 [Rx] Albuterol Sulfate [Albuterol Inhaler] 2 puff IH QID PRN 06/06/18 [History] Atorvastatin [Lipitor] 80 mg PO HS #30 tablet 06/10/18 [Rx] Benzonatate [Tessalon] 100 mg PO TID PRN 06/23/18 [History] Nicotine Patch [Nicoderm] 14 mg TD DAILY patch.td24 06/24/18 [Rx] Ascorbic Acid [Vitamin C] 500 mg PO DAILY@0630 tablet 06/29/18 [Rx] Ferrous Sulfate 325 mg PO DAILY@0630 tablet 06/29/18 [Rx] Zinc Sulfate 220 mg PO DAILY capsule 06/29/18 [Rx] Cholecalciferol (Vitamin D3) [Children's Vitamin D3] 2,000 unit PO DAILY 07/04/18 [History] Metoprolol Succinate [Toprol Xl] 25 mg PO BID 07/04/18 [History] Naproxen [Naprosyn] 500 mg PO BID PRN 07/04/18 [History] Potassium Chloride [Klor-Con 10] 10 meq PO DAILY 07/04/18 [History] Thiamine HCl [Vitamin B-1] 100 mg PO BID 07/04/18 [History] Amoxicillin [Amoxil] 500 mg PO Q8H #13 capsule 07/07/18 [Rx] Gabapentin [Neurontin] 600 mg PO TID #90 tablet 07/07/18 [Rx] Allergies/Adverse Reactions: Allergy/AdvReac Type Severity Reaction Status Date / Time No Known Allergies Allergy Verified 07/05/18 09:40 Certification: Further, I certify that my clinical findings support that this patient is homebound (i.e. absences from home require considerable and taxing effort and are for medical reasons or [employer] services or infrequently or short duration when for other reasons) because: Homebound Reason: Leaving home requires considerable and taxing effort due to condition Attestation: My signature below is to certify that this patient is under my care and that I, or nurse practitioner, or a physician's environmental services assistant working with me, has a [id number] encounter with this patient.
== END 2018-07-07 17:35 | disposition home health service (06) | DRG 871 ==
LOC: SUATTDRO → EDBD 13:34 → EMEROOARM 13:34 → 2NNU 17:00 → MERGE 17:00 → SUATTDRO 17:00 → 2NNU 18:14 → 3ANU 07-06 17:55
PROVIDERS: ADMIT Internal Medicine; ATTEND Internal Medicine

== ENCOUNTER 2019-01-25 12:49 | Observation (INO) ==
[2019-01-25] MEDS ORDERED: Aspirin 81 MG TAB.CHEW PO ONE (12:59)
[2019-01-25] MEDS ORDERED: Nitroglycerin 0.4 MG TAB.SUBL SL PRN (12:59)
[2019-01-25] MEDS ORDERED: Aspirin 325 MG TABLET PO ONE (13:11)
[2019-01-25 13:25] LABS: Basophils # 0.1 K/mcL (0.0-0.2); Basophils % 0.2 %; Eosinophils % 0.2 %; Hematocrit 42.3 % (37.5-50.1); Hemoglobin 13.5 g/dL (12.9-16.9); Immature Granulocytes % 0.4 % (0-4); Lymphocytes # 0.8 K/mcL (0.6-4.6); Lymphocytes % 3.2 %; Mean Corpuscular HGB Conc 31.9 g/dL (31.6-35.5); Mean Corpuscular Hemoglobin 25.7 pg (28.0-33.3); Mean Corpuscular Volume 80.4 fL (83.0-100.0); Mean Platelet Volume 9.4 fL (9.4-12.4); Monocytes # 0.4 K/mcL (0.0-1.3); Monocytes % 1.6 %; Neutrophils # 22.9 K/mcL (1.6-8.9); Platelet Count 348 K/mcL (140-400); Red Blood Count 5.26 M/mcL (4.19-5.50); Red Cell Distribution Width 17.2 % (11.5-14.5); Segmented Neutrophils % 94.4 %; White Blood Count 24.3 K/mcL (4.3-11.1)
[2019-01-25 13:28] LABS: Eosinophils # 0.1 K/mcL (0.0-0.6)
[2019-01-25 13:29] LABS: INR 1.1; Prothrombin Time 12.1 Seconds (9.4-12.1)
[2019-01-25 13:32] LABS: Activated Partial Thrombo Time 36.9 Seconds (26.0-36.0)
[2019-01-25 13:45] LABS: BUN/Creatinine Ratio 21 (6-26); Blood Urea Nitrogen 31 mg/dL (8-23); Calcium 9.7 mg/dL (8.6-10.3); Carbon Dioxide 28 mEq/L (23-29); Chloride 96 mEq/L (98-107); Glucose 118 mg/dL (70-105); Osmolality,Calculated 286 (280-300); Platelet Estimate Normal (Normal); Potassium 4.2 mEq/L (3.5-5.1); Sodium 134 mEq/L (136-145); eGFR For African Americans 57 (> 60); eGFR For Non-African Americans 47 (> 60)
[2019-01-25 13:46] LABS: Troponin I < 0.03 ng/mL (< 0.04)
[2019-01-25 16:11] LABS: Bilirubin,Urine Negative (Negative); Blood,Urine Negative (Negative); Clarity,Urine Clear (Clear); Color,Urine Yellow (Yellow); Glucose,Urine (UA) Normal (Normal); Ketones,Urine Negative (Negative); Leukocyte Esterase,Urine Negative (Negative); Nitrite,Urine Negative (Negative); Protein,Urine Trace mg/dL (Neg-Trace); Specific Gravity,Urine > 1.030 (1.010-1.025); Urobilinogen,Urine Normal (Normal)
[2019-01-25] MEDS ORDERED: 0.9 % Sodium Chloride 1,000 ML IVC ONE (16:46)
[2019-01-25] MEDS ORDERED: Acetaminophen 325 MG TABLET PO PRN (17:56)
[2019-01-25] MEDS ORDERED: *HR* HYDROcodone/Acet 5/325 mg TABLET PO PRN (17:56)
[2019-01-25] MEDS ORDERED: Naloxone 0.4 MG/ML INJ IVP PRN (17:56)
[2019-01-25] MEDS ORDERED: *HR* Promethazine 25 MG/ML VIAL IVP PRN (18:16)
[2019-01-25] MEDS ORDERED: *HR* LORazepam 2 MG/ML VIAL IVP PRN ×3 (18:16)
[2019-01-25] MEDS ORDERED: Benzonatate 100 MG CAPSULE PO PRN (18:30)
[2019-01-25] MEDS: Nicotine 14 MG PATCH.TD24 TD SCH (20:16)
[2019-01-25] MEDS: 0.9 % Sodium Chloride 1,000 ML IVC SCH (20:17)
[2019-01-25] MEDS: Budesonide/Formoterol 80/4.5 1 PUFF INH IH SCH (22:43)
[2019-01-26 02:05] LABS: Basophils % 0.2 %; Eosinophils # 0.1 K/mcL (0.0-0.6); Hematocrit 34.1 % (37.5-50.1); Immature Granulocytes % 0.4 % (0-4); Lymphocytes # 1.7 K/mcL (0.6-4.6); Lymphocytes % 12.6 %; Mean Corpuscular HGB Conc 30.5 g/dL (31.6-35.5); Mean Corpuscular Hemoglobin 25.4 pg (28.0-33.3); Mean Corpuscular Volume 83.2 fL (83.0-100.0); Mean Platelet Volume 9.5 fL (9.4-12.4); Monocytes # 0.4 K/mcL (0.0-1.3); Monocytes % 3.1 %; Neutrophils # 11.2 K/mcL (1.6-8.9); Platelet Count 287 K/mcL (140-400); Red Cell Distribution Width 17.2 % (11.5-14.5); Segmented Neutrophils % 82.7 %; White Blood Count 13.5 K/mcL (4.3-11.1)
[2019-01-26 02:09] LABS: Hemoglobin 10.4 g/dL (12.9-16.9)
[2019-01-26 02:21] LABS: BUN/Creatinine Ratio 26 (6-26); Blood Urea Nitrogen 26 mg/dL (8-23); Calcium 8.3 mg/dL (8.6-10.3); Carbon Dioxide 23 mEq/L (23-29); Chloride 105 mEq/L (98-107); Glucose 88 mg/dL (70-105); Osmolality,Calculated 284 (280-300); Potassium 4.3 mEq/L (3.5-5.1); Sodium 135 mEq/L (136-145); eGFR For African Americans > 60 (> 60); eGFR For Non-African Americans > 60 (> 60)
[2019-01-26] MEDS: 0.9 % Sodium Chloride 1,000 ML IVC SCH (06:06)
[2019-01-26] MEDS: Budesonide/Formoterol 80/4.5 1 PUFF INH IH SCH (07:49)
[2019-01-26] MEDS ORDERED: Thiamine (B-1) 100 MG TABLET PO SCH (09:00)
[2019-01-26] MEDS ORDERED: Vitamin B Complex/Vit C/Vit E 1 EACH TABLET PO SCH (09:00)
[2019-01-26] MEDS ORDERED: Folic Acid 1 MG TABLET PO SCH (09:00)
[2019-01-26] MEDS: Nicotine 14 MG PATCH.TD24 TD SCH (10:44)
[2019-01-26 15:57] VITALS: BP 119/75
[2019-01-26] MEDS ORDERED: *HR* Rivaroxaban 15 MG TABLET PO SCH (17:00)
== END 2019-01-26 17:40 | disposition home or self-care (01) ==
LOC: EMEROOARM 12:49 → 3BNU 12:49 → SUATTDRO 16:59 → 3BNU 18:28
PROVIDERS: ADMIT Internal Medicine; ATTEND Internal Medicine

== ENCOUNTER 2019-01-31 20:27 | Inpatient (IN) ==
[2019-01-31] MEDS ORDERED: 0.9 % Sodium Chloride 500 ML IVC ONE (22:28)
[2019-01-31 22:56] LABS: Hematocrit 42.7 % (37.5-50.1); Mean Corpuscular HGB Conc 29.3 g/dL (31.6-35.5); Mean Corpuscular Hemoglobin 25.3 pg (28.0-33.3); Mean Corpuscular Volume 86.3 fL (83.0-100.0); Mean Platelet Volume 9.4 fL (9.4-12.4); Platelet Count 349 K/mcL (140-400); Red Blood Count 4.95 M/mcL (4.19-5.50); Red Cell Distribution Width 17.7 % (11.5-14.5); White Blood Count 15.6 K/mcL (4.3-11.1)
[2019-01-31 22:58] LABS: Hemoglobin 12.5 g/dL (12.9-16.9)
[2019-01-31 23:23] LABS: Lymphocytes # 0.6 K/mcL (0.6-4.6); Monocytes # 0.3 K/mcL (0.0-1.3); Neutrophils # 14.7 K/mcL (1.6-8.9); Platelet Estimate Normal (Normal)
[2019-01-31] MEDS ORDERED: 0.9 % Sodium Chloride 1,000 ML IVC ONE (23:29)
[2019-01-31] MEDS ORDERED: Piperacillin/Tazobactam 3.375 GM in 0.9 % Sodium Chloride Mini Bag 100 ML IVPB ONE (23:29)
[2019-01-31 23:41] LABS: Alanine Aminotransferase 5 Units/L (7-52); Albumin 3.2 g/dL (3.5-5.7); Albumin/Globulin Ratio 0.8 (1.1-2.2); Alkaline Phosphatase 147 Units/L (34-104); Amylase 35 Units/L (29-103); Aspartate Amino Transferase 18 Units/L (13-39); BUN/Creatinine Ratio 18 (6-26); Bilirubin,Total 0.4 mg/dL (0.3-1.0); Blood Urea Nitrogen 16 mg/dL (8-23); Carbon Dioxide 20 mEq/L (23-29); Chloride 105 mEq/L (98-107); Ethanol < 10 mg/dL (Less than 10); Globulin 4.1 g/dL (2.4-3.5); Glucose 85 mg/dL (70-105); Lipase < 3 Units/L (11-82); Osmolality,Calculated 282 (280-300); Potassium 4.4 mEq/L (3.5-5.1); Sodium 136 mEq/L (136-145); Total Protein 7.3 g/dL (6.4-8.9); eGFR For African Americans > 60 (> 60); eGFR For Non-African Americans > 60 (> 60)
[2019-02-01] MEDS ORDERED: *HR* Rocuronium Bromide 50 MG/5 ML VIAL ONE (01:04)
[2019-02-01] MEDS ORDERED: Lidocaine -MPF 2% 2 ML VIAL ONE (01:04)
[2019-02-01] MEDS ORDERED: Lidocaine -MPF 4% 5 ML AMPUL ONE (01:04)
[2019-02-01] MEDS ORDERED: *HR* Succinylcholine 200 MG/10 ML VIAL IVP ONE (01:04)
[2019-02-01] MEDS ORDERED: *HR* Midazolam HCl 2 MG/2 ML VIAL ONE (01:05)
[2019-02-01] MEDS ORDERED: *HR* FentaNYL (PF) 100 MCG/2 ML VIAL ONE (01:05)
[2019-02-01] MEDS ORDERED: *HR* Propofol 200 MG/20 ML VIAL IVP ONE (01:06)
[2019-02-01] MEDS ORDERED: Acetaminophen IV 1,000 MG/100 ML INFUS..BTL ONE (01:40)
[2019-02-01] MEDS ORDERED: Famotidine 20 MG/2 ML VIAL ONE (01:40)
[2019-02-01] MEDS ORDERED: *HR* Etomidate 40 MG/20 ML VIAL IVP ONE (02:14)
[2019-02-01] MEDS ORDERED: *HR* PHENYLEPHRINE 1,000 MCG/10 ML SYRINGE IVP ONE (02:14)
[2019-02-01] MEDS ORDERED: *HR* Vasopressin 20 UNIT/ML VIAL ONE (02:27)
[2019-02-01] MEDS ORDERED: *HR* Phenylephrine 10 MG/ML VIAL ONE (02:41)
[2019-02-01] MEDS ORDERED: Ondansetron 4 MG/2 ML VIAL ONE (03:45)
[2019-02-01] MEDS ORDERED: Neostigmine Methylsulfate 3 MG/3 ML SYRINGE ONE (03:45)
[2019-02-01] MEDS ORDERED: Dexamethasone 4 MG/ML VIAL ONE (03:45)
[2019-02-01] MEDS ORDERED: EPINEPHrine 1 MG/ML VIAL ONE (03:50)
[2019-02-01] MEDS ORDERED: *HR* HYDROMORPHONE 2 MG/ML VIAL ONE (03:52)
[2019-02-01] MEDS ORDERED: Ondansetron 4 MG/2 ML VIAL IVP PRN (04:26)
[2019-02-01] MEDS: Morphine PCA 30 MG/ 30 ML 30 ML PCA.VIAL IVC PRN (05:15)
[2019-02-01] MEDS ORDERED: 0.9 % Sodium Chloride 500 ML ONE (05:23)
[2019-02-01] MEDS: Pantoprazole 40 MG VIAL IVP SCH (05:35)
[2019-02-01] MEDS: *HR* Heparin 5,000 UNIT/ML VIAL SQ SCH ×2 (05:35→17:18)
[2019-02-01] MEDS ORDERED: *HR* Heparin 5,000 UNIT/ML VIAL SQ SCH (06:00)
[2019-02-01] MEDS: Acetaminophen IV 1,000 MG/100 ML INFUS..BTL IVPB SCH ×4 (06:25→23:00)
[2019-02-01] MEDS: Budesonide/Formoterol 80/4.5 1 PUFF INH IH SCH ×2 (07:49→19:42)
[2019-02-01] MEDS: Metoprolol XL (24 HR) Succ 25 MG TAB.ER.24H PO SCH ×2 (07:53→08:05)
[2019-02-01] MEDS: Nicotine 14 MG PATCH.TD24 TD SCH (07:53)
[2019-02-01] MEDS: Venlafaxine XR (24 HR) 150 MG CAP.ER.24H PO SCH ×2 (07:53→08:05)
[2019-02-01] MEDS: Piperacillin/Tazobactam 3.375 GM in 0.9 % Sodium Chloride Mini Bag 100 ML IVPB SCH ×3 (07:54→23:01)
[2019-02-01] MEDS ORDERED: Nicotine 14 MG PATCH.TD24 TD SCH (09:00)
[2019-02-01] MEDS ORDERED: Metoprolol XL (24 HR) Succ 25 MG TAB.ER.24H PO SCH (09:00)
[2019-02-01] MEDS ORDERED: Venlafaxine XR (24 HR) 150 MG CAP.ER.24H PO SCH (09:00)
[2019-02-01] MEDS ORDERED: Budesonide/Formoterol 80/4.5 1 PUFF INH IH SCH (10:00)
[2019-02-01 12:08] LABS: Bilirubin,Urine Small (Negative); Blood,Urine Large (Negative); Clarity,Urine Turbid (Clear); Color,Urine Red (Yellow); Glucose,Urine (UA) Normal (Normal); Ketones,Urine Trace mg/dL (Negative); Leukocyte Esterase,Urine Moderate (Negative); Nitrite,Urine Positive (Negative); PH,Urine 5.5 pH Units (5.0-8.0); Protein,Urine 30 mg/dL (Neg-Trace); Specific Gravity,Urine 1.024 (1.010-1.025); Urobilinogen,Urine Normal (Normal)
[2019-02-01 12:10] LABS: Bacteria,Urine None Seen per hpf (None-Few); Hyaline Casts,Urine None Seen per lpf (None-Few); RBC,Urine TNTC per hpf (0-3); Squamous Epithelial Cell,Urine None Seen per lpf (None-Few); WBC,Urine 15-30 per hpf (0-3)
[2019-02-01] MEDS ORDERED: 0.9 % Sodium Chloride 1,000 ML IVC ONE (12:19)
[2019-02-01] MEDS: 0.9 % Sodium Chloride 1,000 ML IVC SCH (12:30)
[2019-02-01 12:58] LABS: Basophils % 0.1 %; Hematocrit 32.1 % (37.5-50.1); Immature Granulocytes % 0.2 % (0-4); Lymphocytes # 0.6 K/mcL (0.6-4.6); Lymphocytes % 3.6 %; Mean Corpuscular HGB Conc 30.2 g/dL (31.6-35.5); Mean Corpuscular Hemoglobin 25.5 pg (28.0-33.3); Mean Corpuscular Volume 84.3 fL (83.0-100.0); Mean Platelet Volume 8.9 fL (9.4-12.4); Monocytes # 0.2 K/mcL (0.0-1.3); Monocytes % 1.2 %; Neutrophils # 16.8 K/mcL (1.6-8.9); Platelet Count 320 K/mcL (140-400); Red Blood Count 3.81 M/mcL (4.19-5.50); Red Cell Distribution Width 17.3 % (11.5-14.5); Segmented Neutrophils % 94.9 %; White Blood Count 17.7 K/mcL (4.3-11.1)
[2019-02-01 13:10] LABS: BUN/Creatinine Ratio 19 (6-26); Blood Urea Nitrogen 16 mg/dL (8-23); Calcium 7.6 mg/dL (8.6-10.3); Carbon Dioxide 23 mEq/L (23-29); Chloride 109 mEq/L (98-107); Glucose 121 mg/dL (70-105); Osmolality,Calculated 286 (280-300); Potassium 4.9 mEq/L (3.5-5.1); Sodium 137 mEq/L (136-145); eGFR For African Americans > 60 (> 60); eGFR For Non-African Americans > 60 (> 60)
[2019-02-01 13:14] LABS: Hemoglobin 9.7 g/dL (12.9-16.9)
[2019-02-02] MEDS: 0.9 % Sodium Chloride 1,000 ML IVC SCH ×4 (01:15→17:21)
[2019-02-02] MEDS: Acetaminophen IV 1,000 MG/100 ML INFUS..BTL IVPB SCH ×3 (05:03→17:20)
[2019-02-02] MEDS: Pantoprazole 40 MG VIAL IVP SCH (05:04)
[2019-02-02] MEDS: *HR* Heparin 5,000 UNIT/ML VIAL SQ SCH ×2 (05:04→17:20)
[2019-02-02] MEDS: Metoprolol XL (24 HR) Succ 25 MG TAB.ER.24H PO SCH (07:46)
[2019-02-02] MEDS: Venlafaxine XR (24 HR) 150 MG CAP.ER.24H PO SCH (07:46)
[2019-02-02] MEDS: Nicotine 14 MG PATCH.TD24 TD SCH (07:47)
[2019-02-02] MEDS: Piperacillin/Tazobactam 3.375 GM in 0.9 % Sodium Chloride Mini Bag 100 ML IVPB SCH ×2 (07:47→17:20)
[2019-02-02] MEDS: Budesonide/Formoterol 80/4.5 1 PUFF INH IH SCH ×2 (08:24→20:17)
[2019-02-02 10:13] LABS: Basophils % 0.1 %; Hematocrit 25.5 % (37.5-50.1); Hemoglobin 7.5 g/dL (12.9-16.9); Immature Granulocytes % 0.5 % (0-4); Lymphocytes # 0.7 K/mcL (0.6-4.6); Lymphocytes % 5.6 %; Mean Corpuscular HGB Conc 29.4 g/dL (31.6-35.5); Mean Corpuscular Hemoglobin 25.4 pg (28.0-33.3); Mean Corpuscular Volume 86.4 fL (83.0-100.0); Monocytes # 0.3 K/mcL (0.0-1.3); Monocytes % 2.4 %; Platelet Count 273 K/mcL (140-400); Red Blood Count 2.95 M/mcL (4.19-5.50); Red Cell Distribution Width 17.8 % (11.5-14.5); Segmented Neutrophils % 91.4 %; White Blood Count 13.2 K/mcL (4.3-11.1)
[2019-02-02 10:32] LABS: BUN/Creatinine Ratio 21 (6-26); Blood Urea Nitrogen 16 mg/dL (8-23); Calcium 6.5 mg/dL (8.6-10.3); Carbon Dioxide 17 mEq/L (23-29); Chloride 116 mEq/L (98-107); Glucose 82 mg/dL (70-105); Osmolality,Calculated 296 (280-300); Potassium 4.5 mEq/L (3.5-5.1); Sodium 143 mEq/L (136-145); eGFR For African Americans > 60 (> 60); eGFR For Non-African Americans > 60 (> 60)
[2019-02-02] MEDS: Morphine PCA 30 MG/ 30 ML 30 ML PCA.VIAL IVC PRN (13:27)
[2019-02-02] MEDS ORDERED: 0.9 % Sodium Chloride 250 ML ONE (16:17)
[2019-02-03] MEDS: Acetaminophen IV 1,000 MG/100 ML INFUS..BTL IVPB SCH ×4 (00:04→17:18)
[2019-02-03] MEDS: Piperacillin/Tazobactam 3.375 GM in 0.9 % Sodium Chloride Mini Bag 100 ML IVPB SCH ×3 (00:09→17:17)
[2019-02-03] MEDS: 0.9 % Sodium Chloride 1,000 ML IVC SCH ×4 (00:14→19:44)
[2019-02-03] MEDS: *HR* Heparin 5,000 UNIT/ML VIAL SQ SCH ×2 (05:31→17:16)
[2019-02-03] MEDS: Pantoprazole 40 MG VIAL IVP SCH (05:32)
[2019-02-03] MEDS: Venlafaxine XR (24 HR) 150 MG CAP.ER.24H PO SCH (08:50)
[2019-02-03] MEDS: Metoprolol XL (24 HR) Succ 25 MG TAB.ER.24H PO SCH (08:51)
[2019-02-03] MEDS: Nicotine 14 MG PATCH.TD24 TD SCH (09:07)
[2019-02-03 10:23] LABS: Basophils % 0.2 %; Eosinophils % 0.1 %; Immature Granulocytes % 0.7 % (0-4); Lymphocytes # 1.1 K/mcL (0.6-4.6); Lymphocytes % 6.8 %; Mean Corpuscular HGB Conc 31.7 g/dL (31.6-35.5); Mean Corpuscular Hemoglobin 26.2 pg (28.0-33.3); Mean Corpuscular Volume 82.5 fL (83.0-100.0); Monocytes # 0.5 K/mcL (0.0-1.3); Monocytes % 3.2 %; Neutrophils # 14.5 K/mcL (1.6-8.9); Platelet Count 428 K/mcL (140-400); Red Blood Count 4.97 M/mcL (4.19-5.50); Red Cell Distribution Width 17.4 % (11.5-14.5); White Blood Count 16.4 K/mcL (4.3-11.1)
[2019-02-03 10:45] LABS: BUN/Creatinine Ratio 17 (6-26); Blood Urea Nitrogen 11 mg/dL (8-23); Calcium 8.1 mg/dL (8.6-10.3); Carbon Dioxide 19 mEq/L (23-29); Chloride 104 mEq/L (98-107); Glucose 64 mg/dL (70-105); Osmolality,Calculated 283 (280-300); Potassium 3.5 mEq/L (3.5-5.1); Sodium 138 mEq/L (136-145); eGFR For African Americans > 60 (> 60); eGFR For Non-African Americans > 60 (> 60)
[2019-02-03] MEDS: Budesonide/Formoterol 80/4.5 1 PUFF INH IH SCH ×2 (10:54→21:07)
[2019-02-03] MEDS ORDERED: Morphine PCA 30 MG/ 30 ML 30 ML PCA.VIAL IVC PRN (11:15)
[2019-02-03] MEDS ORDERED: Ondansetron 4 MG/2 ML VIAL IVP PRN (11:15)
[2019-02-04] MEDS: Acetaminophen IV 1,000 MG/100 ML INFUS..BTL IVPB SCH ×2 (00:33→04:48)
[2019-02-04] MEDS: Piperacillin/Tazobactam 3.375 GM in 0.9 % Sodium Chloride Mini Bag 100 ML IVPB SCH ×3 (00:34→15:33)
[2019-02-04] MEDS: 0.9 % Sodium Chloride 1,000 ML IVC SCH (04:12)
[2019-02-04] MEDS: *HR* Heparin 5,000 UNIT/ML VIAL SQ SCH ×2 (04:48→17:13)
[2019-02-04] MEDS: Pantoprazole 40 MG VIAL IVP SCH (05:17)
[2019-02-04 06:25] LABS: Basophils % 0.2 %; Eosinophils % 0.1 %; Hematocrit 43.2 % (37.5-50.1); Hemoglobin 13.6 g/dL (12.9-16.9); Lymphocytes # 0.8 K/mcL (0.6-4.6); Lymphocytes % 4.8 %; Mean Corpuscular HGB Conc 31.5 g/dL (31.6-35.5); Mean Corpuscular Hemoglobin 25.3 pg (28.0-33.3); Mean Corpuscular Volume 80.3 fL (83.0-100.0); Mean Platelet Volume 8.8 fL (9.4-12.4); Monocytes # 0.3 K/mcL (0.0-1.3); Neutrophils # 14.8 K/mcL (1.6-8.9); Platelet Count 426 K/mcL (140-400); Red Blood Count 5.38 M/mcL (4.19-5.50); Red Cell Distribution Width 17.8 % (11.5-14.5); Segmented Neutrophils % 91.9 %; White Blood Count 16.1 K/mcL (4.3-11.1)
[2019-02-04 06:48] LABS: BUN/Creatinine Ratio 13 (6-26); Blood Urea Nitrogen 8 mg/dL (8-23); Carbon Dioxide 16 mEq/L (23-29); Chloride 99 mEq/L (98-107); Glucose 109 mg/dL (70-105); Potassium 2.9 mEq/L (3.5-5.1); Sodium 141 mEq/L (136-145); eGFR For African Americans > 60 (> 60); eGFR For Non-African Americans > 60 (> 60)
[2019-02-04 06:49] LABS: Osmolality,Calculated 291 (280-300)
[2019-02-04] MEDS: Nicotine 14 MG PATCH.TD24 TD SCH (07:53)
[2019-02-04] MEDS ORDERED: Lidocaine OINT 35.44 GM TUBE TP PRN (08:10)
[2019-02-04] MEDS ORDERED: hydrOXYzine pamoate 25 MG CAPSULE PO PRN (08:10)
[2019-02-04] MEDS ORDERED: *HR* OxyCODONE Oral Soln 5 MG/5 ML UD.LIQ GTUBE PRN (08:11)
[2019-02-04] MEDS ORDERED: Scopolamine Patch 1.5 MG PATCH.TD72 TD SCH (08:15)
[2019-02-04] MEDS ORDERED: Venlafaxine XR (24 HR) 150 MG CAP.ER.24H PO SCH (09:00)
[2019-02-04] MEDS ORDERED: Metoprolol XL (24 HR) Succ 25 MG TAB.ER.24H PO SCH (09:00)
[2019-02-04] MEDS: Budesonide/Formoterol 80/4.5 1 PUFF INH IH SCH ×2 (10:06→20:12)
[2019-02-04] MEDS: *HR* Rivaroxaban 10 MG TABLET PO SCH (10:25)
[2019-02-04] MEDS: Folic Acid 1 MG TABLET PO SCH (10:25)
[2019-02-04] MEDS: Gabapentin 300 MG CAPSULE PO SCH ×3 (10:25→19:27)
[2019-02-04] MEDS: Potassium Chloride Elixir 20 MEQ/15 ML UDC GTUBE SCH ×2 (11:38→19:26)
[2019-02-05] MEDS: Piperacillin/Tazobactam 3.375 GM in 0.9 % Sodium Chloride Mini Bag 100 ML IVPB SCH ×4 (01:13→23:37)
[2019-02-05] MEDS: Pantoprazole 40 MG VIAL IVP SCH (05:21)
[2019-02-05] MEDS: *HR* Heparin 5,000 UNIT/ML VIAL SQ SCH ×2 (05:21→17:29)
[2019-02-05 05:45] LABS: Basophils % 0.2 %; Eosinophils # 0.1 K/mcL (0.0-0.6); Eosinophils % 0.6 %; Hematocrit 34.9 % (37.5-50.1); Lymphocytes # 1.8 K/mcL (0.6-4.6); Lymphocytes % 16.4 %; Mean Corpuscular HGB Conc 31.5 g/dL (31.6-35.5); Mean Corpuscular Hemoglobin 25.8 pg (28.0-33.3); Mean Corpuscular Volume 81.7 fL (83.0-100.0); Mean Platelet Volume 8.5 fL (9.4-12.4); Monocytes # 0.6 K/mcL (0.0-1.3); Monocytes % 5.7 %; Neutrophils # 8.3 K/mcL (1.6-8.9); Platelet Count 420 K/mcL (140-400); Red Blood Count 4.27 M/mcL (4.19-5.50); Red Cell Distribution Width 17.6 % (11.5-14.5); Segmented Neutrophils % 76.1 %
[2019-02-05 06:05] LABS: BUN/Creatinine Ratio 10 (6-26); Blood Urea Nitrogen 7 mg/dL (8-23); Calcium 8.3 mg/dL (8.6-10.3); Carbon Dioxide 26 mEq/L (23-29); Chloride 107 mEq/L (98-107); Glucose 136 mg/dL (70-105); Osmolality,Calculated 294 (280-300); Potassium 3.3 mEq/L (3.5-5.1); Sodium 142 mEq/L (136-145); eGFR For African Americans > 60 (> 60); eGFR For Non-African Americans > 60 (> 60)
[2019-02-05] MEDS: Budesonide/Formoterol 80/4.5 1 PUFF INH IH SCH ×2 (08:01→20:06)
[2019-02-05] MEDS: Gabapentin 300 MG CAPSULE PO SCH ×2 (08:17→15:50)
[2019-02-05] MEDS: Folic Acid 1 MG TABLET PO SCH (08:17)
[2019-02-05] MEDS: *HR* Rivaroxaban 10 MG TABLET PO SCH (08:18)
[2019-02-05] MEDS: Potassium Chloride Elixir 20 MEQ/15 ML UDC GTUBE SCH ×2 (08:18→23:41)
[2019-02-05] MEDS: Nicotine 14 MG PATCH.TD24 TD SCH (08:20)
[2019-02-05] MEDS ORDERED: Potassium Chloride Elixir 20 MEQ/15 ML UDC GTUBE ONE (11:15)
[2019-02-05] MEDS ORDERED: Scopolamine Patch 1.5 MG PATCH.TD72 TD SCH (15:00)
[2019-02-05] MEDS ORDERED: HydrOXYzine SYP 10 MG/5 ML UDC GTUBE PRN (15:48)
[2019-02-05] MEDS ORDERED: *HR* OxyCODONE Oral Soln 5 MG/5 ML UD.LIQ GTUBE PRN (15:49)
[2019-02-05] MEDS: Gabapentin 300 MG CAPSULE GTUBE SCH (23:41)
[2019-02-06] MEDS: *HR* Heparin 5,000 UNIT/ML VIAL SQ SCH ×2 (05:12→17:55)
[2019-02-06] MEDS: Pantoprazole 40 MG VIAL IVP SCH (05:15)
[2019-02-06 05:39] LABS: Basophils % 0.3 %; Eosinophils # 0.1 K/mcL (0.0-0.6); Eosinophils % 1.6 %; Hematocrit 38.6 % (37.5-50.1); Immature Granulocytes % 1.6 % (0-4); Lymphocytes # 1.9 K/mcL (0.6-4.6); Lymphocytes % 21.7 %; Mean Corpuscular HGB Conc 31.1 g/dL (31.6-35.5); Mean Corpuscular Hemoglobin 25.7 pg (28.0-33.3); Mean Corpuscular Volume 82.7 fL (83.0-100.0); Mean Platelet Volume 8.7 fL (9.4-12.4); Monocytes # 0.6 K/mcL (0.0-1.3); Monocytes % 6.9 %; Neutrophils # 6.1 K/mcL (1.6-8.9); Platelet Count 397 K/mcL (140-400); Red Blood Count 4.67 M/mcL (4.19-5.50); Red Cell Distribution Width 17.9 % (11.5-14.5); Segmented Neutrophils % 67.9 %
[2019-02-06 06:12] LABS: BUN/Creatinine Ratio 13 (6-26); Blood Urea Nitrogen 9 mg/dL (8-23); Calcium 8.7 mg/dL (8.6-10.3); Carbon Dioxide 26 mEq/L (23-29); Chloride 104 mEq/L (98-107); Glucose 105 mg/dL (70-105); Osmolality,Calculated 289 (280-300); Potassium 4.3 mEq/L (3.5-5.1); Sodium 140 mEq/L (136-145); eGFR For African Americans > 60 (> 60); eGFR For Non-African Americans > 60 (> 60)
[2019-02-06] MEDS: Budesonide/Formoterol 80/4.5 1 PUFF INH IH SCH ×2 (07:57→20:43)
[2019-02-06] MEDS: Folic Acid 1 MG TABLET GTUBE SCH (08:27)
[2019-02-06] MEDS: Piperacillin/Tazobactam 3.375 GM in 0.9 % Sodium Chloride Mini Bag 100 ML IVPB SCH (08:28)
[2019-02-06] MEDS: Nicotine 14 MG PATCH.TD24 TD SCH (08:28)
[2019-02-06] MEDS: Gabapentin 300 MG CAPSULE GTUBE SCH ×3 (08:28→22:04)
[2019-02-06] MEDS: Potassium Chloride Elixir 20 MEQ/15 ML UDC GTUBE SCH (08:29)
[2019-02-06] MEDS ORDERED: Ondansetron ODT 4 MG TAB.RAPDIS SL PRN (15:21)
[2019-02-06] MEDS: *HR* OxyCODONE Oral Soln 5 MG/5 ML UD.LIQ GTUBE SCH ×2 (15:22→22:05)
[2019-02-06] MEDS: Docusate Oral Soln 100 MG/10 ML UDC GTUBE SCH (22:05)
[2019-02-07 06:15] VITALS: BP 144/88
[2019-02-07] MEDS: *HR* Heparin 5,000 UNIT/ML VIAL SQ SCH (06:32)
[2019-02-07] MEDS: *HR* OxyCODONE Oral Soln 5 MG/5 ML UD.LIQ GTUBE SCH (06:32)
[2019-02-07] MEDS: Nicotine 14 MG PATCH.TD24 TD SCH (07:48)
[2019-02-07] MEDS: Folic Acid 1 MG TABLET GTUBE SCH (07:49)
[2019-02-07] MEDS: Docusate Oral Soln 100 MG/10 ML UDC GTUBE SCH (07:49)
[2019-02-07] MEDS: Gabapentin 300 MG CAPSULE GTUBE SCH (07:50)
[2019-02-07] MEDS: Budesonide/Formoterol 80/4.5 1 PUFF INH IH SCH (10:32)
== END 2019-02-07 10:24 | DRG 329 ==
LOC: ICNU 20:27 → EMEROOARM 20:27 → OBSVTOIN 02-01 00:42 → ICNU 02-01 01:19 → 3ANU 02-03 19:25
PROVIDERS: ADMIT Surgery; ATTEND Surgery